=== PATIENT | female | born 1980 | race Caucasian/White ===

== ENCOUNTER 2017-08-09 20:11 | Inpatient (IN) | payer SELFPAY ==
[~2017-08-09] VITALS: Ht 154.9 cm; Wt 47.5 kg
[~2017-08-09 20:11] MED LIST: SUBO8MIS SL
[2017-08-09 20:17] VITALS: BP 123/75; PULSE 125; RESP 12; TEMP 103; O2SAT 95
[2017-08-09] MEDS ORDERED: SODIUM CHLOR 0.9% 1000 ML INJ 1,000 ML IV ONE (20:19)
[2017-08-09] MEDS ORDERED: SODIUM CHLOR 0.9% 1000 ML INJ 800 ML IV ONE (20:19)
[2017-08-09 20:25] VITALS: O2SAT 96
[2017-08-09] MEDS ORDERED: ONDANSETRON HCL 4 MG/2 ML VIAL ONE (20:30)
[2017-08-09] MEDS ORDERED: PIPERACIL-TAZO 3.375 GM PREMIX 50 ML IV ONE (20:30)
[2017-08-09] MEDS ORDERED: VANCOMYCIN INJ 550 MG in SODIUM CHLOR 0.9% 250 ML INJ 250 ML IV ONE (20:30)
[2017-08-09] MEDS ORDERED: KETOROLAC TROMETHAMINE 30 MG/ML (IVP) VIAL IV PUSH ONE (20:30)
[2017-08-09] MEDS ORDERED: ONDANSETRON HCL 4 MG/2 ML VIAL IV PUSH ONE (20:30)
--- NOTE | 2017-08-09 20:47 | RADRPT ---
EXAM DATE/TIME: 08/09/2017 20:27 [place] COMPARISON: No previous studies available for comparison. INDICATIONS : Fever, chest pain MEDICAL HISTORY : None. SURGICAL HISTORY : None. ENCOUNTER: Initial ACUITY: 1 day PAIN SCORE: 5/10 LOCATION: Bilateral chest FINDINGS: A single view of the chest demonstrates the lungs to be symmetrically aerated without evidence of mas s, infiltrate or effusion. The cardiomediastinal contours are unremarkable. Prosthetic heart valve. Osseous structures are intact. CONCLUSION: No acute disease. Galo London Jr., MD on August 09, 2017 at 20:44 Board Certified Radiologist. This report was verified electronically.
--- NOTE | 2017-08-09 20:51 | PD ---
HPI . Fever Chief Complaint: Fever Time Seen by Provider: 20:19 Travel History International Travel<30 days: No Contact w/Intl Traveler<30days: No Traveled to known affect area: No History of Present Illness HPI 37-year-old female history of IV drug abuse and artificial heart valve, last use Suboxone approximately 3 hours ago, presents with having slightly altered mental status, fever to 101, heart rate 130, and complaints of dysuria. The patient is awake and alert, however is somewhat confused and besides offering the above is otherwise a poor historian. Patient does note having no allergies to medications PFSH Past Medical History Narrative Medical Past medical history reviewed Blood Disorders: No Anxiety: Yes Cancer: No Cardiovascular Problems: Yes (MURMUR) Cerebrovascular Accident: No Endocrine: No Genitourinary: No Headaches: No Hepatitis: Yes (C) Immune Disorder: No Neurologic: No Reproductive: No Respiratory: No Migraines: No Seizures: Yes ?: Not Past Surgical History Cardiac Surgery: Yes (open heart: valve repair) Other Surgery: Yes Social History Alcohol Use: No Tobacco Use: Yes (1 PPD) Substance Use: Yes (IV USE OR ROXYCODONE LAST USE 08/09/2017) Allergies-Medications (Allergen,Severity, Reaction): Coded Allergies: No Known Allergies (Verified Allergy, Unknown, 08/09/17) Reported Meds & Prescriptions Reported Meds & Active Scripts Active Narrative Medication Allergies and medications reviewed Review of Systems ROS Limitations: Altered Mental Status, Poor Historian General / Constitutional: Positive: Fever, No: Chills Eyes: No: Diploplia, Visual changes HENT: No: Headaches, Vertigo, Lightheadedness, Sore Throat, Rhinitis, Rhinorrhea, Neck Stiffness, Neck Pain, Earache Cardiovascular: Positive: Tachycardia, No: Chest Pain or Discomfort, Palpitations, Irregular Rhythm, Diaphoresis, Syncope, Dyspnea on exertion Respiratory: No: Cough, Shortness of Breath, Wheezing, Orthopnea, Hemoptysis, Stridor, Night Sweats, Pleuritic Pain Gastrointestinal: No: Nausea, Vomiting, Diarrhea, Abdominal Pain, Hematemesis, Hematochezia, Dysphagia Genitourinary: Positive: Urgency, Frequency, Dysuria, No: Hematuria, Flank Pain , Discharge, Vaginal Bleeding Musculoskeletal: Positive: Myalgias, Arthralgias, Weakness, No: Pain Skin: No Rash Neurologic: Positive: Change in Mentation, No: Weakness, Coordination Problem Psychiatric: No: Depression Endocrine: No: Polydipsia Hematologic/Lymphatic: No: Easy Bruising Physical Exam Narrative GENERAL: Awake and confused, does not appear to be in acute distress. Temperature 101, pulse rate 1:30 regular rhythm. Patient is cachectic 5' 2" weighing 36 kg SKIN: Warm and dry. Color is sallow, possibly early jaundice, no cyanosis or diaphoresis. Tract gifford from IVDA diffusely HEAD: Atraumatic. Normocephalic. EYES: Pupils equal and round. No scleral icterus. No injection or drainage. ENT: No nasal bleeding or discharge. Mucous membranes pink and moist. TMs clear 2, no oral lesions NECK: Trachea midline. No JVD. Supple full range of motion CARDIOVASCULAR: Tachycardic and regular, slight murmur heard in precordium left RESPIRATORY: No accessory muscle use. Clear to auscultation. Breath sounds equal bilaterally. GASTROINTESTINAL: Abdomen soft, non-tender, nondistended. Hepatic and splenic margins not palpable. MUSCULOSKELETAL: Extremities without clubbing, cyanosis, or edema. No obvious deformities. NEUROLOGICAL: Awake and alert. No obvious cranial nerve deficits. Motor grossly within normal limits. Five out of 5 muscle strength in the arms and legs. Normal speech. PSYCHIATRIC: Appropriate mood and affect; insight and judgment normal. Data Data Last Documented VS Vital Signs Date Time Temp Pulse Resp B/P (MAP) Pulse Ox O2 Delivery O2 Flow Rate FiO2 08/09/17 20:25 96 Room Air 08/09/17 20:17 103.0 125 12 123/75 (91) Orders Orders Sepsis Workup Initiated (08/09/17 ) Complete Blood Count With Diff (08/09/17 20:19) Comprehensive Metabolic Panel (08/09/17 20:19) Beta Hcg (Quant/Titer) (08/09/17 20:19) Prothrombin Time / Inr (Pt) (08/09/17 20:19) Act Partial Throm Time (Ptt) (08/09/17 20:19) Lactic Acid Sepsis Protocol (08/09/17 20:19) Magnesium (Mg) (08/09/17 20:19) Lipase (08/09/17 20:19) Ckmb (Isoenzyme) Profile (08/09/17 20:19) Troponin I (08/09/17 20:19) Urinalysis - C+S If Indicated (08/09/17 20:19) Influenzae A/B Antigen (08/09/17 20:19) Blood Culture (08/09/17 20:19) Chest, Single Ap (08/09/17 20:19) Blood Glucose (08/09/17 20:19) Ecg Monitoring (08/09/17 20:19) Iv Access Insert/Monitor (08/09/17 20:19) Oximetry (08/09/17 20:19) Sodium Chlor 0.9% 1000 Ml Inj (Ns 1000 M (08/09/17 20:19) Sodium Chlor 0.9% 1000 Ml Inj (Ns 1000 M (08/09/17 20:19) Ketorolac Inj (Toradol Inj) (08/09/17 20:30) Vancomycin Inj (Vancomycin Inj) (08/09/17 20:30) Piperacil-Tazo 3.375 Gm Premix (Zosyn 3. (08/09/17 20:30) ^ Straight Catheter (08/09/17 20:19) Ammonia (08/09/17 20:26) Hiv Antibody Screen (08/09/17 20:26) Hepatitis Profile (08/09/17 20:29) Ondansetron Inj (Zofran Inj) (08/09/17 20:30) Ondansetron Inj (Zofran Inj) (08/09/17 20:30) Urine Culture (08/09/17 20:34) Blood Gas Venous (Vbg) (08/09/17 22:00) CKMB (08/09/17 20:34) CKMB% (08/09/17 20:34) Electrocardiogram (08/09/17 ) Potassium Chloride (Kcl) (08/09/17 22:15) Calcium Chloride Inj (Calcium Chloride I (08/09/17 22:15) Admit Order (Ed Use Only) (08/09/17 22:09) Echo 2d Limited (08/09/17 22:09) Potassium Chloride (Kcl) (08/09/17 22:15) Complete Blood Count With Diff (08/09/17 22:08) Lactic Acid (08/09/17 22:08) Fibrinogen (08/09/17 22:08) Ob/Psych Drug Screen, Urine (08/09/17 22:08) Labs Laboratory Tests Test 08/09/17 20:34 08/09/17 21:47 White Blood Count 10.8 TH/MM3 Red Blood Count 4.06 MIL/MM3 Hemoglobin 11.4 GM/DL Hematocrit 33.6 % Mean Corpuscular Volume 82.7 FL Mean Corpuscular Hemoglobin 28.0 PG Mean Corpuscular Hemoglobin Concent 33.9 % Red Cell Distribution Width 14.4 % Platelet Count 32 TH/MM3 Mean Platelet Volume 9.3 FL Neutrophils (%) (Auto) 77.5 % Lymphocytes (%) (Auto) 4.9 % Monocytes (%) (Auto) 10.6 % Eosinophils (%) (Auto) 6.8 % Basophils (%) (Auto) 0.2 % Neutrophils # (Auto) 8.4 TH/MM3 Lymphocytes # (Auto) 0.5 TH/MM3 Monocytes # (Auto) 1.2 TH/MM3 Eosinophils # (Auto) 0.7 TH/MM3 Basophils # (Auto) 0.0 TH/MM3 CBC Comment AUTO DIFF Differential Total Cells Counted 100 Neutrophils % (Manual) 71 % Band Neutrophils % 21 % Lymphocytes % 4 % Monocytes % 1 % Basophils % 2 % Neutrophils # (Manual) 10.0 TH/MM3 Metamyelocytes 1 % Nucleated Red Blood Cells 1 /100 WBC Differential Comment FINAL DIFF MANUAL Toxic Granulation 1+ Toxic Vacuolation PRESENT Dohle Bodies PRESENT Helmet Cells Keratocytes OCC Prothrombin Time 16.2 SEC Prothromb Time International Ratio 1.6 RATIO Activated Partial Thromboplast Time 46.2 SEC Urine Color YELLOW Urine Turbidity HAZY Urine pH 5.5 Urine Specific [place] 1.013 Urine Protein 100 mg/dL Urine Glucose (UA) NEG mg/dL Urine Ketones NEG mg/dL Urine Occult Blood LARGE Urine Nitrite NEG Urine Bilirubin NEG Urine Urobilinogen 2.0 MG/DL Urine Leukocyte Esterase TRACE Urine RBC 5 /hpf Urine WBC 10 /hpf Urine Squamous Epithelial Cells 20 /hpf Urine Amorphous Sediment RARE Urine Bacteria MANY /hpf Microscopic Urinalysis Comment CATH-CULTURE IND Blood Urea Nitrogen 31 MG/DL Creatinine 1.29 MG/DL Random Glucose 176 MG/DL Total Protein 5.7 GM/DL Albumin 2.0 GM/DL Calcium Level 7.0 MG/DL Magnesium Level 2.2 MG/DL Alkaline Phosphatase 134 U/L Aspartate Amino Transf (AST/SGOT) 148 U/L Alanine Aminotransferase (ALT/SGPT) 29 U/L Total Bilirubin 3.0 MG/DL Sodium Level 121 MEQ/L Potassium Level 3.0 MEQ/L Chloride Level 83 MEQ/L Carbon Dioxide Level 23.0 MEQ/L Anion Gap 15 MEQ/L Estimat Glomerular Filtration Rate 46 ML/MIN Lactic Acid Level 5.9 mmol/L Protein Corrected Calcium 7.7 MG/DL Ammonia LESS THAN 10 MCMOL/L Total Creatine Kinase 136 U/L Creatine Kinase MB 3.6 NG/ML Troponin I 1.28 NG/ML Lipase 212 U/L Human Chorionic Gonadotropin, Quant LESS THAN 1 MIU/ML MDM Medical Decision Making Medical Screen Exam Complete: Yes Emergency Medical Condition: Yes Medical Record Reviewed: Yes Differential Diagnosis Sepsis, IV drug abuse, endocarditis, urinary tract infection, HIV (tested today) , known hep C, hepatitis B Narrative Course Upon presentation, IV established, patient pancultured and started on broad- spectrum antibiotics, fluid resuscitation, and antipyretics. EKG sinus tachycardia at 113 bpm, intervals normal, no ischemic changes Chest x-ray appears clear, annular ring consistent with artificial heart valve noted Lactic acid 5.9, potassium 3.1, calcium 7.0, troponin 1.29, platelets 32 Potassium and calcium supplemented, patient admitted to ICU Case discussed with Dr. Ivey, accepting Diagnosis Primary Impression: Sepsis Qualified Codes: A41.9 - Sepsis, unspecified organism Admitting Information Admitting Physician Requests: Admit Condition: Serious Isaiah Howell MD Aug 09, 2017 20:51
[2017-08-09 21:07] LABS: AUTOMATED NEUTROPHIL # 8.4 TH/MM3 (1.8-7.7); BASOPHIL % 0.2 % (0.0-2.0); EOSINOPHIL # 0.7 TH/MM3 (0-0.4); EOSINOPHIL % 6.8 % (0.0-4.0); HEMATOCRIT 33.6 % (35.0-46.0); HEMOGLOBIN 11.4 GM/DL (11.6-15.3); LYMPH % 4.9 % (9.0-44.0); LYMPHOCYTE # 0.5 TH/MM3 (1.0-4.8); MEAN CELL VOLUME 82.7 FL (80.0-100.0); MEAN CORPUSCULAR HGB CONC 33.9 % (32.0-36.0); MEAN PLATELET VOLUME 9.3 FL (7.0-11.0); MONO % 10.6 % (0.0-8.0); MONOCYTE # 1.2 TH/MM3 (0-0.9); NEUT % 77.5 % (16.0-70.0); PLATELET COUNT 32 TH/MM3 (150-450); RED BLOOD COUNT 4.06 MIL/MM3 (4.00-5.30); RED CELL DISTRIBUTION WIDTH 14.4 % (11.6-17.2); WHITE BLOOD COUNT 10.8 TH/MM3 (4.0-11.0)
[2017-08-09 21:13] LABS: AMORPHOUS SEDIMENT, URINE RARE; BACTERIA, URINE MANY /hpf; BILIRUBIN, URINE NEG (NEG); BLOOD, URINE LARGE (NEG); GLUCOSE,URINE NEG (NEG); KETONE, URINE NEG (NEG); NITRITE,URINE NEG (NEG); PH, URINE 5.5 (5.0-8.5); SQUAMOUS EPITHELIAL CELL URINE 20 /hpf (0-5); URINE COLOR YELLOW (YELLW/STRAW); URINE LEUKOCYTE ESTERASE TRACE (NEG)
[2017-08-09 21:28] LABS: LACTIC ACID SEPSIS PROTOCOL 5.9 mmol/L (0.4-2.0)
[2017-08-09 21:32] LABS: INTERNATIONAL NORMALIZED RATIO 1.6 RATIO; PROTHROMBIN TIME - PATIENT 16.2 SEC (9.8-11.6)
[2017-08-09 21:50] LABS: ALKALINE PHOSPHATASE 134 U/L (45-117); ALT (GPT) 29 U/L (10-53); AST (GOT) 148 U/L (15-37); BANDS 21 % (0-6); BASOPHILS 2 % (0-2); BLOOD UREA NITROGEN 31 MG/DL (7-18); CALCIUM-PROTEIN CORRECTED 7.7 MG/DL (8.5-10.1); CHLORIDE 83 MEQ/L (98-107); CORRECTED NUCLEATED RBC 1 /100 WBC (0-0); CREATININE 1.29 MG/DL (0.50-1.00); GLOMERULAR FILTRATION RATE 46 ML/MIN (>89); GLUCOSE,RANDOM 176 MG/DL (74-106); LYMPHOCYTES 4 % (9-44); MAGNESIUM 2.2 MG/DL (1.5-2.5); METAMYELOCYTES 1 % (0-1); MONOCYTES 1 % (0-8); NUCLEATED RED BLOOD CELL 1 (0-0); POLYS (SEG NEUTROPHILS) 71 % (16-70); TOTAL PROTEIN 5.7 GM/DL (6.4-8.2)
[2017-08-09 21:53] LABS: TOXIC GRANULATION 1+ (NORMAL); TOXIC VACUOLATION PRESENT (NONE SEEN)
[2017-08-09 21:54] LABS: DOHLE BODIES PRESENT (NONE SEEN); KERATOCYTES OCC (NORMAL)
[2017-08-09 22:00] LABS: SODIUM (NA) 121 MEQ/L (136-145); TROPONIN I 1.28 NG/ML (0.02-0.05)
[2017-08-09] MEDS ORDERED: BISACODYL 10 MG SUPP RECTAL PRN (22:15)
[2017-08-09] MEDS ORDERED: SENNOSIDES 8.6 MG TAB PO PRN (22:15)
[2017-08-09] MEDS ORDERED: POTASSIUM CHLORIDE 20 MEQ CONTROLLED RELEASE TAB PO ONE ×2 (22:15)
[2017-08-09] MEDS ORDERED: MAGNESIUM HYDROXIDE SUSP 30 ML CUP PO PRN (22:15)
[2017-08-09] MEDS ORDERED: CHLORHEXIDINE GLUCONATE 2 % 1 PACK (2 CLOTHS) TOP PRN (22:15)
[2017-08-09] MEDS ORDERED: CALCIUM CHLORIDE 10% SOLN 1 GRAM/10 ML SYR IV PUSH ONE (22:15)
[2017-08-09] MEDS ORDERED: Vancomycin Consult Pharmacy 1 EA OTHER SCH (22:15)
[2017-08-09] MEDS ORDERED: MISCELLANEOUS NURSING INFORMATION XX SCH (22:15)
[2017-08-09] MEDS ORDERED: LACTULOSE SYRUP 20 GM/30 ML CUP PO PRN (22:15)
--- NOTE | 2017-08-09 22:23 | HHI.HP ---
HPI Service Critical Care Medicine Primary Care Physician Unknown Admission Diagnosis Sepsis, Hypokalemia, Hypocalcemia, Thrombocytopenia Diagnosis: (1) Lactic acidosis Diagnosis: Secondary (2) Cocaine abuse Diagnosis: Secondary (3) DIC (disseminated intravascular coagulation) Diagnosis: Secondary (4) Hyponatremia Diagnosis: Secondary (5) Severe sepsis Diagnosis: Principal (6) INES (acute kidney injury) Diagnosis: Secondary (7) Hypokalemia Diagnosis: Secondary (8) Hyperbilirubinemia Diagnosis: Secondary (9) Elevated troponin level Diagnosis: Secondary (10) H/O endocarditis Diagnosis: Secondary (11) Abnormal transaminases Diagnosis: Secondary (12) Pain Diagnosis: Secondary (13) Anxiety Diagnosis: Secondary (14) Septic shock Diagnosis: Principal Travel History International Travel<30 Days: No Contact w/Intl Traveler <30 Da: No Traveled to Known Affected Are: No History of Present Illness Patient is able to converse but does not appear to be a reliable historian as the history she provides conflicts with medical record. 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 She states that her valve replacement was performed at [place] but I do not see record of this. She is unsure of when it was done. Unable to pull up old CXRs. She is uncertain of causative organism or treatment course. She [place] [facility] [place] stating that she has had a 2 day history of subjective fever and nonproductive cough. She has also had tender, painful lesions on her hands and feet which on exam are consistent with [place] nodes. She states the reason she sought medical treatment was that "the pain became unbearable" and that it hurt to walk to the bathroom because of the tenderness on the soles of her feet. She denies headache , sore throat, chest pain, abdominal pain, hemoptysis. She states she has been actively injecting Suboxone which she acquired from "the street", stating she last injected into her right neck on 08/08/17 at around noon. In the ED, 2 sets of blood cultures were obtained, urinalysis and urine culture. She was given Vancomycin, zosyn, and 2 L NS bolus. Influenza screen is negative. Her sodium is 121, potassium 3, creatinine 1.29, lactic acid 5.9. Review of Systems ROS Limitations: Clinical Condition Past Family Social History Allergies: Coded Allergies: No Known Allergies (Verified Allergy, Unknown, 08/09/17) Past Medical History she was admitted in 2007 after a Zhao Act following lortab overdose She states she has been in rehabilitation for drug use on 1 prior occasion Past Surgical History C-6/C7 microdiskectomy for disk herniation 06/25/2008 (Dr. Guilherme Osei) 10/25/07 C6/c7 epidural steroid injection. Right shoulder surgery in 2006 (per EMR) Reported Medications Patient states she does not regularly take any prescribed medications or over- the-counter's. She uses IV opioids "from the streets". Family History She states her father has a complicated medical history but states "I can't explain it". Prior records indicate he has hyperlipidemia Mother is age 43 and is reportedly healthy Social History She has a long-term history of IV drug use and states that she has most recently been injecting Suboxone. She does not see pain management. She obtains Suboxone "from the streets". Urine drug screen is partially pending but resulted positive for cocaine She denies history of alcohol She smokes a pack of cigarettes per day Physical Exam Vital Signs Vital Signs Date Time Temp Pulse Resp B/P (MAP) Pulse Ox O2 Delivery O2 Flow Rate FiO2 08/09/17 20:25 96 Room Air 08/09/17 20:17 103.0 125 12 123/75 (91) 95 Physical Exam GENERAL: Thin disheveled female who is alert and sitting up in bed. SKIN: Warm and dry. There are petechial lesions on the palms of both hands. There are tender raised purpuric lesions on the palmar surface of left fifth digit and left thenar eminence c/w osler nodes. There are similar tender lesions on pad of bilateral feet overlying toes and distal metatarsals L>R. Toes dusky. No splinter hemorrhages. Track blane present right neck and Left forearm. VASC: DP and [employer]OLROOM CLERK pulses present bilaterally. HEAD: Atraumatic. Normocephalic. EYES: Pupils equal and round. No scleral icterus. No injection or drainage. ENT: No nasal bleeding or discharge. Mucous membranes dry. No pharyngeal erythema. No thrush. NECK: Trachea midline. No JVD. No meningismus CARDIOVASCULAR: Tachycardic, regular, sinus tach on the monitor with rate in the high 110s. I am unable to appreciate a murmur at current heart rate. RESPIRATORY: Tachypneic but overall appears comfortable without accessory muscle use. Bibasilar Rales present. No wheezes or rhonchi. GASTROINTESTINAL: Abdomen soft, non-tender, nondistended. Bowel sounds present. MUSCULOSKELETAL: Extremities without clubbing, cyanosis, or edema. NEUROLOGICAL: Awake and alert. No obvious cranial nerve deficits. Strength 5 out of 5 in all extremity. Sensation intact. Laboratory Laboratory Tests Test 08/09/17 20:34 08/09/17 21:47 White Blood Count 10.8 Red Blood Count 4.06 Hemoglobin 11.4 Hematocrit 33.6 Mean Corpuscular Volume 82.7 Mean Corpuscular Hemoglobin 28.0 Mean Corpuscular Hemoglobin Concent 33.9 Red Cell Distribution Width 14.4 Platelet Count 32 Mean Platelet Volume 9.3 Neutrophils (%) (Auto) 77.5 Lymphocytes (%) (Auto) 4.9 Monocytes (%) (Auto) 10.6 Eosinophils (%) (Auto) 6.8 Basophils (%) (Auto) 0.2 Neutrophils # (Auto) 8.4 Lymphocytes # (Auto) 0.5 Monocytes # (Auto) 1.2 Eosinophils # (Auto) 0.7 Basophils # (Auto) 0.0 CBC Comment AUTO DIFF Differential Total Cells Counted 100 Neutrophils % (Manual) 71 Band Neutrophils % 21 Lymphocytes % 4 Monocytes % 1 Basophils % 2 Neutrophils # (Manual) 10.0 Metamyelocytes 1 Nucleated Red Blood Cells 1 Differential Comment FINAL DIFF MANUAL Toxic Granulation 1+ Toxic Vacuolation PRESENT Dohle Bodies PRESENT Helmet Cells Keratocytes OCC Prothrombin Time 16.2 Prothromb Time International Ratio 1.6 Activated Partial Thromboplast Time 46.2 Urine Color YELLOW Urine Turbidity HAZY Urine pH 5.5 Urine Specific [place] 1.013 Urine Protein 100 Urine Glucose (UA) NEG Urine Ketones NEG Urine Occult Blood LARGE Urine Nitrite NEG Urine Bilirubin NEG Urine Urobilinogen 2.0 Urine Leukocyte Esterase TRACE Urine RBC 5 Urine WBC 10 Urine Squamous Epithelial Cells 20 Urine Amorphous Sediment RARE Urine Bacteria MANY Microscopic Urinalysis Comment CATH-CULTURE IND Blood Urea Nitrogen 31 Creatinine 1.29 Random Glucose 176 Total Protein 5.7 Albumin 2.0 Calcium Level 7.0 Magnesium Level 2.2 Alkaline Phosphatase 134 Aspartate Amino Transf (AST/SGOT) 148 Alanine Aminotransferase (ALT/SGPT) 29 Total Bilirubin 3.0 Sodium Level 121 Potassium Level 3.0 Chloride Level 83 Carbon Dioxide Level 23.0 Anion Gap 15 Estimat Glomerular Filtration Rate 46 Lactic Acid Level 5.9 Protein Corrected Calcium 7.7 Ammonia LESS THAN 10 Total Creatine Kinase 136 Creatine Kinase MB 3.6 Troponin I 1.28 Lipase 212 Human Chorionic Gonadotropin, Quant LESS THAN 1 Date/Time Source Procedure Growth Status 08/09/17 20:34 Blood Peripheral Aerobic Blood Culture Pending Received 08/09/17 20:34 Blood Peripheral Anaerobic Blood Culture Pending Received 08/09/17 21:50 Nasal Washing Influenza Types A,B Antigen (KAMRON) Pending Received 08/09/17 20:34 Urine Catheterized Urine Urine Culture Pending Worksheet Result Diagram: 08/09/17203308/09/172033 Septic Shock Reassessment Septic shock perfusion: reassessment completed Caprini VTE Risk Assessment Caprini VTE Risk Assessment: Mod/High Risk (score >= 2) VTE Pharm Contraindication: Thrombocytopenia(<50) Caprini Risk Assessment Model Point Value = 1 Point Value = 2 Point Value = 3 Point Value = 5 Age 41-60 Minor surgery BMI > 25 kg/m2 Swollen legs Varicose veins or History of unexplained or recurrent spontaneous Oral contraceptives or hormone replacement Sepsis (< 1 month) Serious lung disease, including pneumonia (< 1 month) Abnormal pulmonary function Acute myocardial infarction Congestive heart failure (< 1 month) History of inflammatory bowel disease Medical patient at bed rest Age 61-74 Arthroscopic surgery Major open surgery (> 45 min) Laparoscopic surgery (> 45 min) Malignancy Confined to bed (> 72 hours) Immobilizing plaster cast Central venous access Age >= 75 History of VTE Family history of VTE Factor V Leiden Prothrombin [id number] Lupus anticoagulant Anticardiolipin antibodies Elevated serum homocysteine Heparin-induced thrombocytopenia Other congenital or acquired thrombophilia Stroke (< 1 month) Elective arthroplasty Hip, pelvis, or leg fracture Acute spinal cord injury (< 1 month) Prophylaxis Regimen Total Risk Factor Score Risk Level Prophylaxis Regimen 0-1 Low Early ambulation 2 Moderate Order ONE of the following: *Sequential Compression Device (SCD) *Heparin 5000 units SQ BID 3-4 Higher Order ONE of the following medications: *Heparin 5000 units SQ TID *Enoxaparin/Lovenox 40 mg SQ daily (WT < 150 kg, CrCl > 30 mL/min) *Enoxaparin/Lovenox 30 mg SQ daily (WT < 150 kg, CrCl > 10-29 mL/min) *Enoxaparin/Lovenox 30 mg SQ BID (WT < 150 kg, CrCl > 30 mL/min) AND/OR *Sequential Compression Device (SCD) 5 or more Highest Order ONE of the following medications: *Heparin 5000 units SQ TID (Preferred with Epidurals) *Enoxaparin/Lovenox 40 mg SQ daily (WT < 150 kg, CrCl > 30 mL/min) *Enoxaparin/Lovenox 30 mg SQ daily (WT < 150 kg, CrCl > 10-29 mL/min) *Enoxaparin/Lovenox 30 mg SQ BID (WT < 150 kg, CrCl > 30 mL/min) AND *Sequential Compression Device (SCD) Assessment and Plan Problem List: (1) DIC (disseminated intravascular coagulation) ICD Code: D65 - Disseminated intravascular coagulation [defibrination syndrome] Status: Acute (2) Cocaine abuse ICD Code: F14.10 - Cocaine abuse, uncomplicated Status: Chronic (3) IVDU (intravenous drug user) ICD Code: F19.90 - Other psychoactive substance use, unspecified, uncomplicated Status: Chronic (4) H/O prosthetic mitral valve ICD Code: Z95.2 - Presence of prosthetic heart valve Status: Chronic (5) H/O endocarditis ICD Code: Z86.79 - Personal history of other diseases of the circulatory system Status: Chronic (6) Lactic acidosis ICD Code: E87.2 - Acidosis Status: Acute (7) Hyponatremia ICD Code: E87.1 - Hypo-osmolality and hyponatremia (8) Hypokalemia ICD Code: E87.6 - Hypokalemia Status: Acute Permanent Comment: unknown chronicity, probably subacute Last Edited By: Yashira Ivey on Aug 10, 2017 07:41 (9) INES (acute kidney injury) ICD Code: N17.9 - Acute kidney failure, unspecified (10) Hyperbilirubinemia ICD Code: E80.6 - Other disorders of bilirubin metabolism Status: Acute (11) Abnormal transaminases ICD Code: R74.8 - Abnormal levels of other serum enzymes Status: Acute (12) Elevated troponin level ICD Code: R74.8 - Abnormal levels of other serum enzymes Status: Acute (13) Septic shock ICD Code: A41.9 - Sepsis, unspecified organism; R65.21 - Severe sepsis with septic shock Status: Acute Assessment and Plan NEURO: Acute encephalopathy, probably toxic metabolic secondary to sepsis. IV drug use Opioid abuse Cocaine abuse Salicylate and Tylenol levels negative. Ammonia level low. f/u CT brain RESP: Tobacco abuse Incentive spirometry every hour awake. Tobacco cessation counseling. Nicotine patch Chest x-ray -small amount of fluid in the fissure on the right. Overall clear CV: Elevated troponin Septic shock Trending troponin. Obtain serial EKGs. Initial EKG sinus tach 113, LAE, no ST deviation. Follow-up 2-D echo Monitor serial lactic acid and urine output as markers perfusion. Received 2 L normal saline bolus in the ED 08/09. Monitored mean arterial pressure and eventually placed central venous line and initiated neosynephrine to maintain MAP > 65. 0.9 NaCl with 20 mEq of KCl per liter at 100 mL per hour. GI: Elevated AST and hyperbilirubinemia Ammonia level normal Follow-up right upper quadrant ultrasound. Nothing by mouth for ultrasound then regular diet Follow up viral hepatitis panel. [employer] - test negative on admission. FEN/RENAL: Acute kidney injury Hyponatremia Hypokalemia Hypocalcemia Avoid NSAIDs and other nephrotoxins. Received ketorolac in ED 08/09. Potassium. 40 mEq by mouth now. Received calcium chloride 1 g IV per ED physician. Hyponatremia. Check TSH, cortisol, urine osm, Fena. CPK normal. ID: Septic shock. 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 Influenza creen negative Received vancomycin and Zosyn in the emergency department, will continue and adjust based on culture datat. . Obtain 2-D echo ID consult Follow-up HIV and viral hepatitis panel that were sent per ED physician HEME: DIC Anemia Monitor coags and fibrinogen. Follow-up peripheral smear, haptoglobin. Monitor for e/o bleeding/thrombosis. ENDO: Acute hyperglycemia Check TSH, free T4, free T3 Check cortisol level PROPH: SCDs for DVT prophylaxis. Hold on pharmacologic DVT prophylaxis at this time due to severe thrombocytopenia. Protonix 40 mg by mouth daily for stress ulcer prophylaxis. ACCESS: She initially had peripheral IV and normal MAP, placed CVL to initiate pressors when she became hypotensive. Monitoring lactic acid. Full code Patient is critically ill with septic shock and multiorgan dysfunction that poses life threat. CCT 50 minutes exclusive of separately billable procedures. Yashira Ivey MD Aug 09, 2017 22:22
[2017-08-09 23:00] VITALS: BP 95/66; PULSE 111; RESP 18; O2SAT 100
[2017-08-09 23:24] VITALS: BP 106/71; PULSE 117; RESP 20; TEMP 98.5; O2SAT 95
[2017-08-09 23:30] LABS: ACETAMINOPHEN LESS THAN 2.0 MCG/ML (10.0-30.0)
[2017-08-09] MEDS: CHLORHEXIDINE GLUCONATE 2 % 1 PACK (2 CLOTHS) TOP SCH (23:37)
[2017-08-09] MEDS: NS + KCL 20 MEQ INJ 1,000 ML IV SCH (23:38)
[2017-08-10] VITALS (20 sets, daily range): BP systolic 82–133; BP diastolic 54–91; PULSE 76–120; RESP 21–49; TEMP 97.5–98.8; O2SAT 96–100
[2017-08-10] MEDS ORDERED: DEXTROSE 50% IN WATER 50 ML VIAL(D50) IV PUSH PRN (00:15)
[2017-08-10] MEDS ORDERED: POTASSIUM CHLORIDE 25 MEQ EFFERVESCENT TAB PO PRN (00:15)
[2017-08-10] MEDS ORDERED: POTASSIUM PHOSPHATE MONOBASIC 500 MG TAB PO/TUBE PRN (00:15)
[2017-08-10] MEDS ORDERED: GLUCAGON 1 MG/ML VIAL OTHER PRN (00:15)
[2017-08-10] MEDS ORDERED: POTASSIUM CHLOR 20 MEQ PREMIX 100 ML IV PRN (00:15)
[2017-08-10] MEDS ORDERED: POTASSIUM PHOSPHATE INJ 30 MMOL in SODIUM CHLOR 0.9% 250 ML INJ 250 ML IV PRN (00:15)
[2017-08-10] MEDS ORDERED: MAGNESIUM OXIDE 400 MG TAB PO PRN (00:15)
[2017-08-10] MEDS ORDERED: POTASSIUM CHLOR 40 MEQ PREMIX 100 ML IV PRN (00:15)
[2017-08-10] MEDS ORDERED: SODIUM PHOSPHATE INJ 30 MMOL in SODIUM CHLOR 0.9% 250 ML INJ 240 ML IV PRN (00:15)
[2017-08-10] MEDS ORDERED: POTASSIUM PHOSPHATE MONOBASIC 500 MG TAB PO PRN (00:15)
[2017-08-10] MEDS ORDERED: MAGNESIUM SULFATE INJ 2 GM in SODIUM CHLORIDE 0.9% INJ 96 ML IV PRN (00:15)
[2017-08-10] MEDS ORDERED: MAGNESIUM SULFATE INJ 4 GM in SODIUM CHLORIDE 0.9% INJ 92 ML IV PRN (00:15)
[2017-08-10 01:20] LABS: CORTISOL 65.4 MCG/DL
[2017-08-10] MEDS: ACETAMINOPHEN/HYDROcodone 325 MG/10 MG TAB PO PRN ×4 (02:10→21:17)
[2017-08-10] MEDS: PIPERACIL-TAZO 3.375 GM PREMIX 50 ML IV SCH ×2 (02:11→08:39)
[2017-08-10 02:21] LABS: CREATININE, RANDOM URINE 66.7 MG/DL
--- NOTE | 2017-08-10 03:02 | RADRPT ---
EXAM DATE/TIME: 08/10/2017 02:33 [facility] COMPARISON: No previous studies available for comparison. INDICATIONS : Trauma; fall. RADIATION DOSE: 56.35 CTDIvol (mGy) MEDICAL HISTORY : Hepatitis C. Cardiovascular disease Seizures. SURGICAL HISTORY : None. ENCOUNTER: Initial ACUITY: 1 day PAIN SCALE: 4/10 LOCATION: cranial TECHNIQUE: Multiple contiguous axial images were obtained of the head. Using automated exposure control and adj ustment of the mA and/or kV according to patient size, radiation dose was kept as low as reasonably a chievable to obtain optimal diagnostic quality images. DICOM format image data is available electro nically for review and comparison. FINDINGS: CEREBRUM: The ventricles are normal for age. No evidence of midline shift, mass lesion, hemorrhage or acute in farction. No extra-axial fluid collections are seen. POSTERIOR FOSSA: The cerebellum and brainstem are intact. The 4th ventricle is midline. The cerebellopontine angle i s unremarkable. EXTRACRANIAL: The visualized portion of the orbits is intact. SKULL: The calvaria is intact. No evidence of skull fracture. CONCLUSION: No acute disease. Rod Garcia MD on August 10, 2017 at 2:59 Board Certified Radiologist. This report was verified electronically.
[2017-08-10] MEDS ORDERED: SODIUM CHLOR 0.9% 1000 ML INJ 1,000 ML IV ONE (03:15)
[2017-08-10] MEDS ORDERED: ALBUMIN 25% INJ 50 ML IV ONE (03:15)
[2017-08-10] MEDS ORDERED: TERBUTALINE INJ 1 MG/ML AMP SQ PRN (03:15)
[2017-08-10 03:45] LABS: AUTOMATED NEUTROPHIL # 6.9 TH/MM3 (1.8-7.7); BASOPHIL # 0.1 TH/MM3 (0-0.2); BASOPHIL % 0.8 % (0.0-2.0); EOSINOPHIL # 0.3 TH/MM3 (0-0.4); EOSINOPHIL % 3.1 % (0.0-4.0); HEMATOCRIT 26.2 % (35.0-46.0); HEMOGLOBIN 8.9 GM/DL (11.6-15.3); LYMPH % 8.6 % (9.0-44.0); LYMPHOCYTE # 0.8 TH/MM3 (1.0-4.8); MEAN CORPUSCULAR HEMOGLOBIN 28.8 PG (27.0-34.0); MEAN CORPUSCULAR HGB CONC 33.9 % (32.0-36.0); MEAN PLATELET VOLUME 9.4 FL (7.0-11.0); MONO % 8.9 % (0.0-8.0); MONOCYTE # 0.8 TH/MM3 (0-0.9); NEUT % 78.6 % (16.0-70.0); PLATELET COUNT 25 TH/MM3 (150-450); RED BLOOD COUNT 3.08 MIL/MM3 (4.00-5.30); RED CELL DISTRIBUTION WIDTH 14.8 % (11.6-17.2); WHITE BLOOD COUNT 8.8 TH/MM3 (4.0-11.0)
[2017-08-10] MEDS: PHENYLEPHRINE INJ 40 MG in DEXTROSE 5% IN WATE 500 ML INJ 496 ML IV PRN ×2 (04:45)
[2017-08-10 04:48] LABS: ALBUMIN 1.7 GM/DL (3.4-5.0); BICARBONATE 20.9 MEQ/L (21.0-32.0); CALCIUM 6.4 MG/DL (8.5-10.1); CALCIUM-PROTEIN CORRECTED 7.5 MG/DL (8.5-10.1); CREATININE 1.07 MG/DL (0.50-1.00); PHOSPHORUS 1.9 MG/DL (2.5-4.9); TOTAL BILIRUBIN ADULT 2.9 MG/DL (0.2-1.0); TOTAL PROTEIN 4.8 GM/DL (6.4-8.2)
[2017-08-10 04:49] LABS: TROPONIN I 1.11 NG/ML (0.02-0.05)
--- NOTE | 2017-08-10 06:10 | PD.PROCEDR ---
Procedure Note Procedure DATE: 08/10/17 CENTRAL LINE PLACEMENT: Left internal jugular vein. INDICATION: Central venous access CONSENT Informed consent for procedure was obtained from patient after discussion of risks, benefits, alternatives. DESCRIPTION OF THE PROCEDURE The patient was placed in supine position, mild Trendelenburg. The skin was cleansed with Chloraprep x4. Additional barrier precautions included large sterile drape, sterile gloves, sterile gown, face mask, and hat. 1 % lidocaine was used for local anesthesia. Under direct ultrasound guidance and on single attempt, the vein was accessed with an introducer needle. The guide wire was advanced and the tract was dilated. Using Seldinger technique a 7 Lao 20 cm antimicrobial coated triple-lumen catheter was advanced to a depth of 18 centimeters. The guide wire was removed. All ports had good return of dark venous blood and flushed easily with saline. The central line was secured with Stat-Lock. A sterile dressing with antibiotic disc was applied. ESTIMATED BLOOD LOSS: Minimal COMPLICATIONS: No apparent complications. STAT chest x-ray is pending Yashira Ivey MD Aug 10, 2017 06:10
--- NOTE | 2017-08-10 06:42 | RADRPT ---
EXAM DATE/TIME: 08/10/2017 06:17 [facility] COMPARISON: CHEST SINGLE AP, August 09, 2017, 20:27. INDICATIONS : Central line placement. MEDICAL HISTORY : Hepatitis C. Cardiovascular disease Seizures. SURGICAL HISTORY : None. ENCOUNTER: Initial ACUITY: 1 day PAIN SCORE: Non-responsive. LOCATION: Bilateral chest FINDINGS: The lungs are hyperinflated. The heart size is normal. There is a prosthetic valve in place. There so me minimal patchy density at the upper lungs and the left medial base. There is a new left internal j ugular central line in place with the tip overlying the SVC. A pneumothorax is not seen. There is an anterior cervical fusion plate present. CONCLUSION: 1. New left internal jugular central line good position without a pneumothorax. 2. New mild increased density in the upper lungs and medial left base likely due to development of mi ld atelectasis or consolidation. Rod Garcia MD on August 10, 2017 at 6:38 Board Certified Radiologist. This report was verified electronically.
[2017-08-10 07:04] LABS: BANDS 14 % (0-6); HELMET CELLS OCC (NORMAL); LYMPHOCYTES 7 % (9-44); MONOCYTES 6 % (0-8); NEUTROPHIL # MANUAL DIFF 7.7 TH/MM3 (1.8-7.7); POLYS (SEG NEUTROPHILS) 73 % (16-70)
[2017-08-10] MEDS ORDERED: INSULIN ASPART SUPPLEMENTAL SCALE SQ SCH (08:00)
[2017-08-10] MEDS: DOCUSATE SODIUM 50 MG/SENNA 8.6 MG TAB PO SCH ×3 (08:39→21:00)
[2017-08-10] MEDS: PANTOPRAZOLE SOD 40 MG DELAYED RELEASE TAB PO SCH (08:39)
[2017-08-10] MEDS: NICOTINE 21 MG/24 HR PATCH T-DERMAL SCH (08:39)
[2017-08-10] MEDS: SODIUM CHLORIDE 0.9% FLUSH 10 ML FLUSH IV FLUSH SCH ×2 (08:40→21:19)
[2017-08-10] MEDS: REMOVE OLD PATCH T-DERMAL SCH (08:40)
[2017-08-10 08:58] LABS: FREE T3 0.5 PG/ML (2.18-3.98); FREE T4 1.19 NG/DL (0.76-1.46)
[2017-08-10] MEDS ORDERED: FAMOTIDINE 20 MG/2 ML VIAL IV PUSH SCH (09:00)
[2017-08-10] MEDS ORDERED: FAMOTIDINE 20 MG TAB PO SCH (09:00)
--- NOTE | 2017-08-10 09:05 | RADRPT ---
EXAM DATE/TIME: 08/10/2017 07:51 [facility] COMPARISON: No previous studies available for comparison. INDICATIONS : Bilateral leg pain. MEDICAL HISTORY : Hepatitis C. Seizures. IV substance use. SURGICAL HISTORY : Valve repair. ENCOUNTER: Initial ACUITY: 1 day PAIN SCORE: Non-responsive LOCATION: Bilateral legs. TECHNIQUE: Venous ultrasound of the left and right leg was performed from the inguinal ligament to the proximal calf. Real-time, color Doppler and spectral tracing, compression and augmentation techniques were us ed. FINDINGS: RIGHT LEG: There is normal compressibility of the deep venous system from the inguinal region to the proximal ca lf. No echogenic clot is seen in the lumen of the common femoral, femoral, popliteal, and posterior tibial veins. There is a normal response of the venous system to proximal and distal augmentation an d respiration. LEFT LEG: There is normal compressibility of the deep venous system from the inguinal region to the proximal ca lf. No echogenic clot is seen in the lumen of the common femoral, femoral, popliteal, and posterior tibial veins. There is a normal response of the venous system to proximal and distal augmentation an d respiration. CONCLUSION: Normal examination. No evidence of DVT Ambrose Verdin MD on August 10, 2017 at 8:58 Board Certified Radiologist. This report was verified electronically.
--- NOTE | 2017-08-10 09:59 | RADRPT ---
EXAM DATE/TIME: 08/10/2017 08:04 [facility] COMPARISON: No previous studies available for comparison. INDICATIONS : Increased lab values. MEDICAL HISTORY : Hepatitis C. Seizures. IV substance use. SURGICAL HISTORY : Valve repair. ENCOUNTER: Initial ACUITY: 1 day PAIN SCORE: Nonresponsive. LOCATION: Abdomen. MEASUREMENTS: LIVER: 16.3 cm length COMMON DUCT: 9 mm RIGHT KIDNEY: 10.2 x 3.9 x 5.1 cm SPLEEN: 15.3 cm length FINDINGS: LIVER: Normal echotexture without focal lesion or ductal dilatation. COMMON DUCT: No intraluminal mass or stone visualized. GALLBLADDER: Gallbladder is partially filled with sludge. There is gallbladder wall edema. Office Technician reports a n egative sonographic Rowland sign. PANCREAS: The visualized portions are within normal limits. RIGHT KIDNEY: No hydronephrosis, stone or mass. SPLEEN: No focal lesion. There is a small volume of free fluid around the liver in Morison's pouch. There are bilateral pleura l effusions. CONCLUSION: 1. Abnormal gallbladder filled with sludge and demonstrating wall thickening. There are no additional findings are present to suggest acute gallbladder inflammation. 2. Trace free fluid in the abdomen and small bilateral pleural effusions. 3. Mild splenomegaly. Rod Pascual MD on August 10, 2017 at 9:45 Board Certified Radiologist. This report was verified electronically.
[2017-08-10] MEDS: VANCOMYCIN INJ 750 MG in SODIUM CHLOR 0.9% 250 ML INJ 250 ML IV SCH ×2 (10:01→21:18)
--- NOTE | 2017-08-10 10:55 | HHI.CCPN ---
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 She states that her valve replacement was performed at [facility] but I do not see record of this. She is unsure of when it was done. Unable to pull up old CXRs. She is uncertain of causative organism or treatment course. She presents to [facility] ED stating that she has had a 2 day history of subjective fever and nonproductive cough. She has also had tender, painful lesions on her hands and feet which on exam are consistent with Oslers nodes. She states the reason she sought medical treatment was that "the pain became unbearable" and that it hurt to walk to the bathroom because of the tenderness on the soles of her feet. She denies headache , sore throat, chest pain, abdominal pain, hemoptysis. She states she has been actively injecting Suboxone which she acquired from "the street", stating she last injected into her right neck on 08/08/17 at around noon. In the ED, 2 sets of blood cultures were obtained, urinalysis and urine culture. She was given Vancomycin, zosyn, and 2 L NS bolus. Influenza screen is negative. Her sodium is 121, potassium 3, creatinine 1.29, lactic acid 5.9. 08/10 Patient is on Neosyn 40 mics. T:103.0 last night. BC from 08/09: [facility] 2/4 bottles Objective Vital Signs Date Time Temp Pulse Resp B/P (MAP) Pulse Ox O2 Delivery O2 Flow Rate FiO2 08/10/17 10:00 86 08/10/17 07:57 94/58 08/10/17 04:12 99 08/10/17 04:00 98.8 29 08/09/17 23:00 Room Air Intake and Output 08/10/17 08/10/17 08/11/17 08:00 16:00 00:00 Intake Total 1100 ml Output Total 427 ml 55 ml Balance 673 ml -55 ml Result Diagram: 08/10/17 0328 08/10/17 0328 Other Results Laboratory Tests Test 08/09/17 20:34 08/09/17 21:47 08/09/17 22:40 1/15/18 23:15 White Blood Count 10.8 TH/MM3 Red Blood Count 4.06 MIL/MM3 Hemoglobin 11.4 GM/DL Hematocrit 33.6 % Mean Corpuscular Volume 82.7 FL Mean Corpuscular Hemoglobin 28.0 PG Mean Corpuscular Hemoglobin Concent 33.9 % Red Cell Distribution Width 14.4 % Platelet Count 32 TH/MM3 Mean Platelet Volume 9.3 FL Neutrophils (%) (Auto) 77.5 % Lymphocytes (%) (Auto) 4.9 % Monocytes (%) (Auto) 10.6 % Eosinophils (%) (Auto) 6.8 % Basophils (%) (Auto) 0.2 % Neutrophils # (Auto) 8.4 TH/MM3 Lymphocytes # (Auto) 0.5 TH/MM3 Monocytes # (Auto) 1.2 TH/MM3 Eosinophils # (Auto) 0.7 TH/MM3 Basophils # (Auto) 0.0 TH/MM3 CBC Comment AUTO DIFF Differential Total Cells Counted 100 Neutrophils % (Manual) 71 % Band Neutrophils % 21 % Lymphocytes % 4 % Monocytes % 1 % Basophils % 2 % Neutrophils # (Manual) 10.0 TH/MM3 Metamyelocytes 1 % Nucleated Red Blood Cells 1 /100 WBC Differential Comment FINAL DIFF MANUAL Toxic Granulation 1+ Toxic Vacuolation PRESENT Dohle Bodies PRESENT Helmet Cells Keratocytes OCC Prothrombin Time 16.2 SEC Prothromb Time International Ratio 1.6 RATIO Activated Partial Thromboplast Time 46.2 SEC Urine Color YELLOW Urine Turbidity HAZY Urine pH 5.5 Urine Specific [place] 1.013 Urine Protein 100 mg/dL Urine Glucose (UA) NEG mg/dL Urine Ketones NEG mg/dL Urine Occult Blood LARGE Urine Nitrite NEG Urine Bilirubin NEG Urine Urobilinogen 2.0 MG/DL Urine Leukocyte Esterase TRACE Urine RBC 5 /hpf Urine WBC 10 /hpf Urine Squamous Epithelial Cells 20 /hpf Urine Amorphous Sediment RARE Urine Bacteria MANY /hpf Microscopic Urinalysis Comment CATH-CULTURE IND Urine Osmolality 406 MOSM/KG Urine Random Creatinine 66.7 MG/DL Urine Random Sodium 6 MEQ/L Blood Urea Nitrogen 31 MG/DL Creatinine 1.29 MG/DL Random Glucose 176 MG/DL Total Protein 5.7 GM/DL Albumin 2.0 GM/DL Calcium Level 7.0 MG/DL Magnesium Level 2.2 MG/DL Alkaline Phosphatase 134 U/L Aspartate Amino Transf (AST/SGOT) 148 U/L Alanine Aminotransferase (ALT/SGPT) 29 U/L Total Bilirubin 3.0 MG/DL Sodium Level 121 MEQ/L Potassium Level 3.0 MEQ/L Chloride Level 83 MEQ/L Carbon Dioxide Level 23.0 MEQ/L Anion Gap 15 MEQ/L Estimat Glomerular Filtration Rate 46 ML/MIN Lactic Acid Level 5.9 mmol/L Protein Corrected Calcium 7.7 MG/DL Ammonia LESS THAN 10 MCMOL/L Total Creatine Kinase 136 U/L Creatine Kinase MB 3.6 NG/ML Troponin I 1.28 NG/ML B-Type Natriuretic Peptide 291 PG/ML Lipase 212 U/L Human Chorionic Gonadotropin, Quant LESS THAN 1 MIU/ML Salicylates Level 2.3 MG/DL Urine Opiates Screen NEG Acetaminophen Level LESS THAN 2.0 MCG/ML Urine Barbiturates Screen NEG Urine Amphetamines Screen NEG Urine Benzodiazepines Screen NEG Urine Cocaine Screen POS Urine Cannabinoids Screen NEG Serum Osmolality 263 MOSM/KG Random Cortisol 65.4 MCG/DL Blood Gas Puncture Site LINE Blood Gas Patient Temperature 98.6 Venous Blood pH 7.40 Venous Blood Partial Pressure CO2 36 mmHg Venous Blood Partial Pressure O2 42 mmHg Venous Blood HCO3 22 mmol/L Venous Blood Oxygen Saturation 75 % Venous Blood Oxygen Content 10.3 Vol % Venous Blood Base Excess -2.1 mmol/L Nasal Screen MRSA (PCR) MRSA DETECTED Test 08/10/17 00:44 08/10/17 03:28 08/10/17 06:00 08/10/17 07:48 Fibrinogen 81 mg/dL Lactic Acid Level 4.7 mmol/L 2.1 mmol/L 1.7 mmol/L White Blood Count 8.8 TH/MM3 Red Blood Count 3.08 MIL/MM3 Hemoglobin 8.9 GM/DL Hematocrit 26.2 % Mean Corpuscular Volume 85.0 FL Mean Corpuscular Hemoglobin 28.8 PG Mean Corpuscular Hemoglobin Concent 33.9 % Red Cell Distribution Width 14.8 % Platelet Count 25 TH/MM3 Mean Platelet Volume 9.4 FL Neutrophils (%) (Auto) 78.6 % Lymphocytes (%) (Auto) 8.6 % Monocytes (%) (Auto) 8.9 % Eosinophils (%) (Auto) 3.1 % Basophils (%) (Auto) 0.8 % Neutrophils # (Auto) 6.9 TH/MM3 Lymphocytes # (Auto) 0.8 TH/MM3 Monocytes # (Auto) 0.8 TH/MM3 Eosinophils # (Auto) 0.3 TH/MM3 Basophils # (Auto) 0.1 TH/MM3 CBC Comment AUTO DIFF Differential Total Cells Counted 100 Neutrophils % (Manual) 73 % Band Neutrophils % 14 % Lymphocytes % 7 % Monocytes % 6 % Neutrophils # (Manual) 7.7 TH/MM3 Differential Comment FINAL DIFF MANUAL Platelet Estimate LOW Platelet Morphology Comment NORMAL Helmet Cells OCC Blood Smear Pathologist Review Haptoglobin LESS THAN 40 MG/DL Blood Urea Nitrogen 34 MG/DL Creatinine 1.07 MG/DL Random Glucose 96 MG/DL Total Protein 4.8 GM/DL Albumin 1.7 GM/DL Calcium Level 6.4 MG/DL Phosphorus Level 1.9 MG/DL 2.0 MG/DL Magnesium Level 2.0 MG/DL Alkaline Phosphatase 105 U/L Aspartate Amino Transf (AST/SGOT) 132 U/L Alanine Aminotransferase (ALT/SGPT) 25 U/L Total Bilirubin 2.9 MG/DL Sodium Level 130 MEQ/L Potassium Level 3.4 MEQ/L Chloride Level 98 MEQ/L Carbon Dioxide Level 20.9 MEQ/L Anion Gap 11 MEQ/L Estimat Glomerular Filtration Rate 57 ML/MIN Protein Corrected Calcium 7.5 MG/DL Troponin I 1.11 NG/ML 1.00 NG/ML Thyroid Stimulating Hormone 3rd Gen 1.930 uIU/ML Lactate Dehydrogenase 421 U/L Free Thyroxine 1.19 NG/DL Free Triiodothyronine (T3) pg/dL 0.50 PG/ML Imaging Last Impressions Lower Extremity Ultrasound 08/10/17 0000 Signed Impressions: Service Date/Time: Thursday, August 10, 2017 07:51 - CONCLUSION: Normal examination. No evidence of DVT Ambrose Verdin MD Liver Ultrasound 08/10/17 0000 Signed Impressions: Service Date/Time: Thursday, August 10, 2017 08:04 - CONCLUSION: 1. Abnormal gallbladder filled with sludge and demonstrating wall thickening. There are no additional findings are present to suggest acute gallbladder inflammation. 2. Trace free fluid in the abdomen and small bilateral pleural effusions. 3. Mild splenomegaly. Rod Pascual MD Head CT 08/10/17 0000 Signed Impressions: Service Date/Time: Thursday, August 10, 2017 02:33 - CONCLUSION: No acute disease. Rod Garcia MD Chest X-Ray 08/10/17 0000 Signed Impressions: Service Date/Time: Thursday, August 10, 2017 06:17 - CONCLUSION: 1. New left internal jugular central line good position without a pneumothorax. 2. New mild increased density in the upper lungs and medial left base likely due to development of mild atelectasis or consolidation. Rod Garcia MD Objective Remarks GENERAL: Thin disheveled female who is alert and sitting up in bed. SKIN: Warm and dry. There are petechial lesions on the palms of both hands. There are tender raised purpuric lesions on the palmar surface of left fifth digit and left thenar eminence c/w osler nodes. There are similar tender lesions on pad of bilateral feet overlying toes and distal metatarsals L>R. Toes dusky. No splinter hemorrhages. Track blane present right neck and Left forearm. VASC: DP and PAPER LATCHER pulses present bilaterally. HEAD: Atraumatic. Normocephalic. EYES: Pupils equal and round. No scleral icterus. No injection or drainage. ENT: No nasal bleeding or discharge. Mucous membranes dry. No pharyngeal erythema. No thrush. NECK: Trachea midline. No JVD. No meningismus CARDIOVASCULAR: Tachycardic, regular, sinus tach on the monitor with rate in the high 110s. I am unable to appreciate a murmur at current heart rate. RESPIRATORY: Tachypneic but overall appears comfortable without accessory muscle use. Bibasilar Rales present. No wheezes or rhonchi. GASTROINTESTINAL: Abdomen soft, non-tender, nondistended. Bowel sounds present. MUSCULOSKELETAL: Extremities without clubbing, cyanosis, or edema. NEUROLOGICAL: Awake and alert. No obvious cranial nerve deficits. Strength 5 out of 5 in all extremity. Sensation intact. A/P Problem List: (1) Severe sepsis ICD Code: A41.9 - Sepsis, unspecified organism; R65.20 - Severe sepsis without septic shock Status: Acute (2) DIC (disseminated intravascular coagulation) ICD Code: D65 - Disseminated intravascular coagulation [defibrination syndrome] Status: Acute (3) Cocaine abuse ICD Code: F14.10 - Cocaine abuse, uncomplicated Status: Chronic (4) IVDU (intravenous drug user) ICD Code: F19.90 - Other psychoactive substance use, unspecified, uncomplicated Status: Chronic (5) H/O prosthetic mitral valve ICD Code: Z95.2 - Presence of prosthetic heart valve Status: Chronic (6) H/O endocarditis ICD Code: Z86.79 - Personal history of other diseases of the circulatory system Status: Chronic (7) Lactic acidosis ICD Code: E87.2 - Acidosis Status: Acute (8) Hyponatremia ICD Code: E87.1 - Hypo-osmolality and hyponatremia (9) Hypokalemia ICD Code: E87.6 - Hypokalemia Status: Acute Permanent Comment: unknown chronicity, probably subacute Last Edited By: Yashira Ivey on Aug 10, 2017 07:41 (10) INES (acute kidney injury) ICD Code: N17.9 - Acute kidney failure, unspecified (11) Hyperbilirubinemia ICD Code: E80.6 - Other disorders of bilirubin metabolism Status: Acute (12) Abnormal transaminases ICD Code: R74.8 - Abnormal levels of other serum enzymes Status: Acute (13) Elevated troponin level ICD Code: R74.8 - Abnormal levels of other serum enzymes Status: Acute Assessment and Plan NEURO: Acute encephalopathy, probably toxic metabolic secondary to sepsis. IV drug use Opioid abuse Cocaine abuse Salicylate and Tylenol levels negative. Ammonia level low. CT brain no acute disease RESP: Tobacco abuse Oxygen PRN keep sat >92% Incentive spirometry every hour awake. Tobacco cessation counseling. Nicotine patch Chest x-ray -small amount of fluid in the fissure on the right. Overall clear CV: Elevated troponin Trending troponin. Obtain serial EKGs. Initial EKG sinus tach 113, LAE, no ST deviation. Follow-up 2-D echo, Lactic acid cleared 1.7 from 5.9 on arrival Received 2 L normal saline bolus in the ED 08/09. Cards eval. Monitro HR and BP keep MAP>65mmHg 0.9 NaCl with 20 mEq of KCl per liter at 100 mL per hour. GI: Elevated AST and hyperbilirubinemia Ammonia level normal US liver: Abnormal gallbladder filled with sludge and demonstrating wall thickening. There are no additional findings are present to suggest acute gallbladder inflammation. Trace free fluid in the abdomen and small bilateral pleural effusions.. Mild splenomegaly. 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 FEN/RENAL: Acute kidney injury Hyponatremia Hypokalemia Hypocalcemia Avoid NSAIDs and other nephrotoxins. Received ketorolac in ED 08/09. Monitor renal function , electrolytes replacement per protocol. Continue with IVF TSH: 1.93, cortisol level 65. CPK normal. ID: Septic shock. 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 Repeat BC x 2 sets today. Obtain 2-D echo r/o endocarditis, eval LV function ID consult Follow-up HIV and viral hepatitis panel -pending HEME: DIC Anemia Monitor CBC, coags, fibrinogen level 81. Will give 5units cryo today Heme eval. ENDO: Acute hyperglycemia SSI with accuchekcs for glycemic control TSH: 1.9 Cortisol level: 65 PROPH: SCDs for DVT prophylaxis. Hold on pharmacologic DVT prophylaxis at this time due to severe thrombocytopenia. Protonix 40 mg by mouth daily for stress ulcer prophylaxis. ACCESS: Left IJ CVP placed 08/10 Full code Patient is critically ill with septic shock and multiorgan dysfunction that poses life threat. CCT 30 minutes exclusive of separately billable procedures. Milton Velásquez MD Aug 10, 2017 10:55
[2017-08-10 11:42] LABS: HEPATITIS A AB IGM NEGATIVE (NEGATIVE); HEPATITIS B CORE AB IGM NEGATIVE (NEGATIVE); HEPATITIS B SURFACE ANTIGEN NEGATIVE (NEGATIVE); HEPATITIS C AB IgG REACTIVE (NEGATIVE)
[2017-08-10 11:45] LABS: AUTOMATED NEUTROPHIL # 13.7 TH/MM3 (1.8-7.7); BASOPHIL % 0.1 % (0.0-2.0); EOSINOPHIL # 0.8 TH/MM3 (0-0.4); EOSINOPHIL % 4.2 % (0.0-4.0); HEMATOCRIT 25.3 % (35.0-46.0); HEMOGLOBIN 8.4 GM/DL (11.6-15.3); LYMPH % 9.5 % (9.0-44.0); LYMPHOCYTE # 1.7 TH/MM3 (1.0-4.8); MEAN CELL VOLUME 82.7 FL (80.0-100.0); MEAN CORPUSCULAR HEMOGLOBIN 27.4 PG (27.0-34.0); MEAN CORPUSCULAR HGB CONC 33.1 % (32.0-36.0); MEAN PLATELET VOLUME 10.1 FL (7.0-11.0); MONO % 9.9 % (0.0-8.0); MONOCYTE # 1.8 TH/MM3 (0-0.9); NEUT % 76.3 % (16.0-70.0); PLATELET COUNT 28 TH/MM3 (150-450); RED BLOOD COUNT 3.05 MIL/MM3 (4.00-5.30); RED CELL DISTRIBUTION WIDTH 14.8 % (11.6-17.2); WHITE BLOOD COUNT 17.9 TH/MM3 (4.0-11.0)
[2017-08-10 11:50] LABS: INTERNATIONAL NORMALIZED RATIO 1.4 RATIO; PROTHROMBIN TIME - PATIENT 14.3 SEC (9.8-11.6)
[2017-08-10] MEDS: INSULIN ASPART SUPPLEMENTAL SCALE SQ SCH ×4 (12:00→23:09)
[2017-08-10 12:28] LABS: BANDS 19 % (0-6); LYMPHOCYTES 3 % (9-44); MONOCYTES 4 % (0-8); MYELOCYTES 1 % (0-0); NEUTROPHIL # MANUAL DIFF 16.6 TH/MM3 (1.8-7.7); POLYS (SEG NEUTROPHILS) 73 % (16-70)
[2017-08-10 12:29] LABS: ALBUMIN 1.6 GM/DL (3.4-5.0); BICARBONATE 22.6 MEQ/L (21.0-32.0); CALCIUM 6.5 MG/DL (8.5-10.1); CALCIUM-PROTEIN CORRECTED 7.9 MG/DL (8.5-10.1); CREATININE 0.93 MG/DL (0.50-1.00); DOHLE BODIES PRESENT (NONE SEEN); MAGNESIUM 2.4 MG/DL (1.5-2.5); PHOSPHORUS 2.1 MG/DL (2.5-4.9); TOTAL BILIRUBIN ADULT 2.1 MG/DL (0.2-1.0); TOTAL PROTEIN 4.4 GM/DL (6.4-8.2); TOXIC GRANULATION 1+ (NORMAL)
[2017-08-10 12:30] LABS: HELMET CELLS OCC (NORMAL)
[2017-08-10] MEDS: RIFAMPIN 150 MG CAP PO SCH (14:31)
--- NOTE | 2017-08-10 15:11 | MB ---
cc: NASREEN GUTIÉRREZ MD DATE OF CONSULTATION: 08/10/2017 REQUESTING PHYSICIAN: Dr. Ivey. REASON FOR CONSULTATION: Infectious endocarditis with prosthetic valve. HISTORY OF PRESENT ILLNESS This is a 37-year-old white female who uses IV drugs. The patient had a history of prosthetic mitral valve placed for endocarditis. She reports that this was about 3 years ago. The patient is a poor historian. She does not remember details of the past medical history well. She tells me that she had a heart valve replacement at [facility] about 3 years ago. She tells me that she was treated with IV antibiotics for about 8 weeks at the time. She does not remember what bacteria was cultured from the blood. She was evaluated in the emergency department here yesterday and had a temperature of 103 and the white count was 10.7 with left shift of 21% bands. The patients sister reports that the patient looked to be struggling to walk 3 days ago and she was complaining of pain in her feet. In the emergency department, heart rate was 125 and lactic acid level was 5.9 and she was noted to be confused. She is currently on Bryant-Synephrine and a systolic blood pressure is 90. She complains of having pain all over. She denies headache. Blood cultures were taken in and one bottle of each set has gram-positive cocci with one identified as staph aureus and it is not methicillin-resistant by the Verigne test. PAST MEDICAL HISTORY 1. Prosthetic valve endocarditis. 2. Mitral valve replacement 3. Hepatitis C 4. Anxiety disorder 5. Seizure disorder 6. IV drug use. ALLERGIES NO KNOWN DRUG ALLERGIES. MEDICATIONS 1. Vancomycin 2. Cira-Colace. 3. Nicotine patch. 4. Protonix. 5. Bryant-Synephrine. 6. Piperacillin / tazobactam. 7. [place] 10. SOCIAL HISTORY Positive tobacco use one pack a day. No alcohol. Positive IV drug use reported the last use on 08/12/2017. The patient was not the patient reportedly administered the IV drug into the neck. FAMILY HISTORY Noncontributory. REVIEW OF SYSTEMS Significant for diffuse aches and pains, chills, decreased appetite. PHYSICAL EXAMINATION IN GENERAL: This is a thin frail appearing female who looks older than stated age. She is awake and alert. VITAL SIGNS: Include temperature 98.3, BP 90/64, heart rate 40, respirations 18, respirations 14. HEAD, EYES, EARS, NOSE, AND THROAT: The head is atraumatic. Extraocular movements grossly intact, pupils reactive to light. No icterus. No conjunctival erythema. Oropharynx slightly dry mucosa without lesions. NECK: Supple without adenopathy. LUNGS: Decreased breath sounds bilateral. HEART: 2/6 systolic murmur at the left sternal border. ABDOMEN: Bowel sounds present, flat, soft, nontender. RECTAL: Not performed. EXTREMITIES: No clubbing or cyanosis. Purpuric lesions at the index and third finger on the left hand and multiple purpuric areas at the base of the toes at the bulb of the feet. Multiple track gifford at the antecubital areas of both hands. Positive tenderness on palpation of the left calf. No swelling of the left calf. SKIN: No diffuse rash. NEUROLOGIC: Alert and oriented. No gross focal findings. PSYCHIATRIC: Psychiatric the patient is calm and cooperative. She appears withdrawn. LABORATORY DATA White blood count 10.8, platelets 32, hemoglobin 11.4, 77% neutrophils, 10% monocytes, 4% lymphocytes, 21% bands, creatinine 0.93, estimated GFR 67, sodium 133, AST 90, ALT 21. IMPRESSION 1. Bacteria staph aureus. 2. Patient with history of prosthetic valve and very likely has prosthetic valve endocarditis with embolic lesions to the feet and fingers. 3. Positive culture with staph aureus in the blood. 4. Acute kidney disease 5. Thrombocytopenia. RECOMMENDATIONS 1. Continue vancomycin for now. 2. Discontinue piperacillin / tazobactam 3. Begin Intravenous gentamicin 1 mg/kg q. 12 h due to renal function. 4. Rifampin 300 mg p.o. q.8 h. 5. Follow the blood cultures. If the staph is sensitive strain we may need to switch to oxacillin and discontinue vancomycin. Thank you this consultation. I will follow the patient's progress. Nasreen Gutiérrez MD FD/sadaf /1:12 PM /1:36 PM [facility]ITAL[facility]ichele
--- NOTE | 2017-08-10 15:48 | EKG ---
Date Performed: 08/09/2017 Time Performed: 22:16:52 PTAGE: 37 years EKG: SINUS TACHYCARDIA POSSIBLE LEFT ATRIAL ENLARGEMENT Since previous tracing, no significant c hange noted ABNORMAL RHYTHM ECG PREVIOUS TRACING : 06/20/2008 14.23 DOCTOR: Isela Ohara Interpretating Date/Time 08/10/2017 15:46:35
[2017-08-10] MEDS: GENTAMICIN INJ 40 MG in SODIUM CHLORIDE 0.9% INJ 100 ML IV SCH (16:27)
[2017-08-10 17:46] LABS: HEMATOCRIT 25.2 % (35.0-46.0); HEMOGLOBIN 8.6 GM/DL (11.6-15.3); MEAN CELL VOLUME 83.2 FL (80.0-100.0); MEAN CORPUSCULAR HEMOGLOBIN 28.5 PG (27.0-34.0); MEAN CORPUSCULAR HGB CONC 34.2 % (32.0-36.0); MEAN PLATELET VOLUME 11.3 FL (7.0-11.0); PLATELET COUNT 23 TH/MM3 (150-450); RED BLOOD COUNT 3.02 MIL/MM3 (4.00-5.30); RED CELL DISTRIBUTION WIDTH 14.6 % (11.6-17.2); WHITE BLOOD COUNT 14.5 TH/MM3 (4.0-11.0)
--- NOTE | 2017-08-10 17:59 | MB ---
cc: JOSE MAURER MD DATE OF CONSULTATION 08/10/17 HISTORY OF PRESENT ILLNESS Ms. Tariq is a 37-year-old white female with history of IV drug use. 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 She was treated with IV antibiotics for eight weeks. She presented with fevers, chills, generalized weakness pain in her feet and was diagnosed with sepsis. Blood pressures were positive for gram-positive cocci. The patient has not had any chest pain. She complains of shortness of breath. PAST MEDICAL HISTORY 1. Positive for endocarditis, 2. Mitral valve replacement three years ago, 3. Hepatitis C, 4. Anxiety disorder. 5. Seizure disorder 6. IV drug use. MEDICATIONS 1. [place] 2. Piperacillin/tazotactam 3. Neosynephrine 4. Protonix. 5. Nicotine patch 6. Cira-Colace. 7. Vancomycin. ALLERGIES None. SOCIAL HISTORY The patient has history of IV drug use last on 08/12/2017. She is a smoker. She does not drink. FAMILY HISTORY Negative for heart disease REVIEW OF SYSTEMS Otherwise negative PHYSICAL EXAMINATION VITAL SIGNS: Blood pressure 91/62, pulse 80 and regular. HEENT: Negative. 2+ carotid upstrokes. No bruits. LUNGS: Clear. HEART: Regular with 2/6 systolic murmur at the left sternal border. No gallop. ABDOMEN: Soft. No bruits. EXTREMITIES: Without edema. 2+ distal pulses NEUROLOGIC: Grossly nonfocal. CARDIOLOGY STUDIES EKG was reviewed and showed sinus tachycardia, left atrial enlargement, no acute changes. LABORATORY DATA Hemoglobin 8.9, potassium 3.5, creatinine 0.9, AST 90, ALT 21, troponin 1.0. BNP 291. DIAGNOSES 1. Sepsis 2. Staph aureus bacteremia 3. Endocarditis with embolic lesions to the feet and fingers 4. Status post mitral valve replacement for endocarditis secondary to IV drug use. 5. Acute kidney disease. 6. Thrombocytopenia 7. Current IV drug use. DISPOSITION Ms. Tariq will be treated with antibiotics. 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 I recommend conservative management with antibiotics. Her overall prognosis is very poor due to her continuing IV drug use and infection of a valve that was already replaced in the past due to endocarditis secondary to drug use. MD CARMELLA Hollins /5:12 PM /5:28 PM YAZMIN
[2017-08-10] MEDS: NS + KCL 20 MEQ INJ 1,000 ML IV SCH ×2 (19:00→21:33)
[2017-08-10 19:02] LABS: ALBUMIN 1.7 GM/DL (3.4-5.0); BICARBONATE 23.7 MEQ/L (21.0-32.0); CALCIUM 6.2 MG/DL (8.5-10.1); CREATININE 1.09 MG/DL (0.50-1.00); TOTAL BILIRUBIN ADULT 1.7 MG/DL (0.2-1.0); TOTAL PROTEIN 4.8 GM/DL (6.4-8.2)
[2017-08-10 19:12] LABS: CALCIUM-PROTEIN CORRECTED 7.3 MG/DL (8.5-10.1)
--- NOTE | 2017-08-10 19:37 | MB ---
cc: ANDERSON RUSSELL M.D. DATE OF CONSULTATION 08/10/[address] Velásquez REASON FOR CONSULTATION Hematology consulted to render opinion regarding patient with DIC and thrombocytopenia. HISTORY OF PRESENT ILLNESS The patient is a 37-year-old female with history of bacterial endocarditis status post mitral valve replacement presented to the hospital with complaint of not feeling well for a few days. She also complained of pain in her feet and hands for about a day and she was having difficulty walking. She has increased fatigue. She has decreased oral intake. When she presented to the hospital she had fever of 103. She was noted to be hypotensive and increased lactic acid. She was admitted to the Intensive Care Unit. She was noted to have worsening thrombocytopenia. On presentation her platelet count was 32,000 and it trended down to 23,000. She also noted have leukocytosis and anemia. Her fibrinogen level was under 100. Hematology was consulted for evaluation of her cytopenia and DIC. The patient is more comfortable since started on antibiotics. Pain in her hands and feet has subsided. She is still anxious. She denies any chest pain. She denies any shortness of breath. Nursing staff did not report any bleeding. The patient started menstrual bleed but it is not heavy bleeding. PAST MEDICAL HISTORY 1. IV drug use. 2. Bacterial endocarditis. 3. Hepatitis C diagnosed about 2 years ago. 4. Anxiety. 5. Seizure disorder. PAST SURGICAL HISTORY 1. Mitral valve replacement about three years ago. 2. Cervical spine diskectomy. 3. Epidural steroid injection. 4. Shoulder surgery. FAMILY HISTORY No hematology disorder. SOCIAL HISTORY IV drug use. Smoked a pack a day for 21 years. ALLERGIES NO KNOWN DRUG ALLERGIES. MEDICATIONS Current medications: 1. Gentamicin. 2. Rifampin. 3. Vancomycin. 4. Cira-Colace. 5. Nicotine patch. 6. Protonix. 7. Phenylephrine. REVIEW OF SYSTEMS CONSTITUTIONAL: As above. EYES: Negative. ENT: Negative. CARDIOVASCULAR: As above. RESPIRATORY: Denies significant shortness of breath or cough. GASTROINTESTINAL: No nausea, vomiting, abdominal pain. GENITOURINARY: Denies dysuria, hematuria. MUSCULOSKELETAL: As above. HEMATOLOGIC: As above. ENDOCRINE: Negative. DERMATOLOGIC: As above. NEUROLOGIC: Negative. PSYCHIATRIC: Anxiety. PHYSICAL EXAMINATION VITAL SIGNS: Temperature 97.8, blood pressure 89/59, O2 saturation 99%. GENERAL: She looks pale. She is alert and oriented times three. HEENT: Atraumatic, normocephalic. Pupils equal, round, reactive to light. Extraocular muscles intact. No scleral icterus. Oropharynx dry mucosa. No lesion or thrush. No mucositis. NECK: No thyromegaly. No palpable mass. The left neck central line, no oozing noted. CARDIOVASCULAR: Regular S1-S2. Soft murmur noted. LUNGS: Clear to auscultation. ABDOMEN: Soft, nontender. I could not palpate liver or spleen. EXTREMITIES: Exam purplish discoloration of fingertips and toes. Multiple track gifford at the antecubital area of both arms. SKIN: As above. NEUROLOGIC: Nonfocal. LABORATORY DATA WBC 14.5, hemoglobin 8.6, platelet count 23,000. Fibrinogen 91. Creatinine 0.93. ASSESSMENT 1. DIC due to underlying sepsis. She possibly has recurrent endocarditis and sepsis. Her platelet count is low likely due to consumptive process as well as hepatitis C and splenomegaly. Her fibrinogen level was 91. She just received one pooled unit of cryoprecipitate. She has no significant bleeding noted at this time. I would continue to monitor her coagulation study and recommend transfuse cryoprecipitate if her fibrinogen is below 100 or if she has any sign of bleeding. 2. Thrombocytopenia likely consumptive process due to DIC. She could have baseline thrombocytopenia due to hepatitis C and splenomegaly. Continue to monitor CBC for now. She may require platelet transfusion if there is any sign of bleeding or if platelet count trends below 20,000. LDH is slightly elevated. She has no clear evidence of TTP. 3. Leukocytosis due to sepsis. She also has bandemia. Her leukocytosis has improved with treatment. 4. Anemia likely due to acute illness and chronic disease. She presented with hemoglobin of 11.4 but trended down to around 9 after hydration. Her hemoglobin has been quite stable. Today she just started menstrual bleeding but it is very light. No clear evidence of other bleeding or hemolysis at this point. 5. Sepsis. She appeared to the have recurrent bacterial endocarditis. 6. IV drug use. 7. Hepatitis C diagnosed about 2 years ago. Never been treated. Ultrasound showed no clear evidence of cirrhosis but she has splenomegaly. RECOMMENDATIONS 1. Continue to monitor coagulation study including fibrinogen. 2. Monitor CBC and sign of bleeding. 3. Transfuse cryoprecipitate if fibrinogen is under 100 or any sign of bleeding. 4. Transfuse platelets is platelet count is below 20,000 or any sign of bleeding. Thank you Dr. Velásquez for asking me to see this patient. MD MICHAEL Moses/SANDRA /6:32 PM /7:06 PM MTDMichele
--- NOTE | 2017-08-10 19:44 | ECHRPT ---
Indication: SEPSIS, ?ENDOCARDITIS, MVR CONCLUSIONS Normal left ventricular size. Wall thickness is normal. The left ventricular systolic function is low normal with an estimated ejection fraction in the rang e of 50- 55%. The left atrial size is moderately dilated. The right atrial size is moderately dilated. No atrial level shunt is demonstrated by color flow Doppler interrogation. [id number] mitral valve regurgitation. The mitral valve regurgitation jet is directed posteriorly. Mobile echodensity is noted on the mitral valve consistent with vegetation. Findings consistent with vegetation on the aortic valve. There is mild to moderate tricuspid valve regurgitation. The estimated pulmonary arterial pressure is 56 mmHg. Findings consistent with vegetation on the tricuspid valve. BP: 90 / 54 HR: 106 Rhythm: Sinus MEASUREMENTS (Male / Female) Normal Values Technical Quality:Fair 2D ECHO LV Diastolic Diameter PLAX 4.2 cm 4.2 - 5.9 / 3.9 - 5.3 cm LV Systolic Diameter PLAX 3.1 cm IVS Diastolic Thickness 0.7 cm 0.6 - 1.0 / 0.6 - 0.9 cm LVPW Diastolic Thickness 0.7 cm 0.6 - 1.0 / 0.6 - 0.9 cm LV Relative Wall Thickness 0.3 RV Internal Dim ED PLAX 2.6 cm LVOT Diameter 1.8 cm Aortic Root Diameter 2.4 cm LA Systolic Diameter LX 3.4 cm 3.0 - 4.0 / 2.7 - 3.8 cm M-MODE AV Cusp Separation MM 1.6 cm DOPPLER AV Peak Velocity 96.9 cm/s AV Peak Gradient 3.8 mmHg AV Mean Gradient 2.0 mmHg AV Velocity Time Integral 21.0 cm LVOT Peak Velocity 41.8 cm/s LVOT Peak Gradient 0.7 mmHg LVOT Velocity Time Integral 9.9 cm AV Area Cont Eq vti 1.2 cm AV Area Cont Eq pk 1.1 cm Mitral E Point Velocity 158.0 cm/s Mitral A Point Velocity 173.0 cm/s Mitral E to A Ratio 0.9 LV E' Lateral Velocity 4.1 cm/s Mitral E to LV E' Lateral Ratio 38.6 LV E' Septal Velocity 4.4 cm/s Mitral E to LV E' Septal Ratio 36.0 TR Peak Velocity 339.0 cm/s TR Peak Gradient 46.0 mmHg Right Atrial Pressure 10.0 mmHg Pulmonary Artery Systolic Pressu 56.0 mmHg Right Ventricular Systolic Press 56.0 mmHg PV Peak Velocity 37.6 cm/s PV Peak Gradient 0.6 mmHg FINDINGS LEFT VENTRICLE Normal left ventricular size. Wall thickness is normal. The left ventricular systolic function is low normal with an estimated ejection fraction in the rang e of 50- 55%. RIGHT VENTRICLE Normal right ventricular size and systolic function. LEFT ATRIUM The left atrial size is moderately dilated. RIGHT ATRIUM The right atrial size is moderately dilated. ATRIAL SEPTUM No atrial level shunt is demonstrated by color flow Doppler interrogation. AORTA The aortic root and proximal ascending aorta are normal in size on limited imaging. MITRAL VALVE [id number]-[id number] mitral valve regurgitation. Eqxp-cy-cgjatmed mitral valve regurgitation. The mitral valve regurgitation jet is directed posteriorly. Mobile echodensity is noted on the mitral valve consistent with vegetation. AORTIC VALVE Trileaflet aortic valve. No aortic valve regurgitation. Findings consistent with vegetation on the aortic valve. TRICUSPID VALVE There is mild to moderate tricuspid valve regurgitation. The estimated pulmonary arterial pressure is 56 mmHg. Findings consistent with vegetation on the tricuspid valve. PULMONARY VALVE No pulmonary valve regurgitation or stenosis. Jeromy Avalos MD, FACC (Electronically Signed) Final Date:10 August 2017 19:44
[2017-08-10] MEDS: POTASSIUM CHLOR 20 MEQ PREMIX 100 ML IV PRN (21:33)
[2017-08-10 23:44] LABS: BICARBONATE 22.4 MEQ/L (21.0-32.0); CALCIUM 6.1 MG/DL (8.5-10.1); CREATININE 1.18 MG/DL (0.50-1.00)
[2017-08-11] VITALS (14 sets, daily range): BP systolic 86–105; BP diastolic 64–68; PULSE 76–117; RESP 21–29; TEMP 96.5–98; O2SAT 93–100
[2017-08-11 00:01] LABS: TOTAL PROTEIN 4.6 GM/DL (6.4-8.2)
[2017-08-11 00:04] LABS: CALCIUM-PROTEIN CORRECTED 7.3 MG/DL (8.5-10.1)
[2017-08-11] MEDS: PHENYLEPHRINE INJ 40 MG in DEXTROSE 5% IN WATE 500 ML INJ 496 ML IV PRN ×2 (00:41)
[2017-08-11] MEDS: CHLORHEXIDINE GLUCONATE 2 % 1 PACK (2 CLOTHS) TOP SCH (03:58)
[2017-08-11] MEDS: INSULIN ASPART SUPPLEMENTAL SCALE SQ SCH ×5 (03:58→20:00)
[2017-08-11] MEDS: NS + KCL 20 MEQ INJ 1,000 ML IV SCH ×2 (03:59→15:50)
[2017-08-11] MEDS: RIFAMPIN 150 MG CAP PO SCH ×2 (04:05→16:40)
[2017-08-11] MEDS: ACETAMINOPHEN/HYDROcodone 325 MG/10 MG TAB PO PRN ×4 (04:06→19:33)
[2017-08-11] MEDS: GENTAMICIN INJ 40 MG in SODIUM CHLORIDE 0.9% INJ 100 ML IV SCH ×2 (04:06→15:49)
--- NOTE | 2017-08-11 05:09 | RADRPT ---
EXAM DATE/TIME: 08/11/2017 03:37 [place] COMPARISON: CHEST SINGLE AP, August 10, 2017, 6:17. INDICATIONS : Short of breath. MEDICAL HISTORY : Hepatitis C. Cardiovascular disease Seizures. SURGICAL HISTORY : None. ENCOUNTER: Subsequent ACUITY: 3 days PAIN SCORE: 0/10 LOCATION: Bilateral chest FINDINGS: The heart size is normal. There is a prosthetic valve in place. The lungs do appear hyperinflated. Th ere some mild increased density in the left upper lobe in the perihilar region. Right lung is grossly clear. CONCLUSION: Left upper lobe and perihilar consolidation. Rod Garcia MD on August 11, 2017 at 5:05 Board Certified Radiologist. This report was verified electronically.
[2017-08-11 05:44] LABS: AUTOMATED NEUTROPHIL # 7.9 TH/MM3 (1.8-7.7); BASOPHIL % 0.3 % (0.0-2.0); EOSINOPHIL # 0.1 TH/MM3 (0-0.4); EOSINOPHIL % 0.8 % (0.0-4.0); HEMATOCRIT 26.1 % (35.0-46.0); HEMOGLOBIN 9.1 GM/DL (11.6-15.3); LYMPH % 27.1 % (9.0-44.0); LYMPHOCYTE # 3.2 TH/MM3 (1.0-4.8); MEAN CELL VOLUME 81.5 FL (80.0-100.0); MEAN CORPUSCULAR HEMOGLOBIN 28.3 PG (27.0-34.0); MEAN CORPUSCULAR HGB CONC 34.7 % (32.0-36.0); MEAN PLATELET VOLUME 10.2 FL (7.0-11.0); MONO % 4.6 % (0.0-8.0); MONOCYTE # 0.5 TH/MM3 (0-0.9); NEUT % 67.2 % (16.0-70.0); PLATELET COUNT 25 TH/MM3 (150-450); RED BLOOD COUNT 3.21 MIL/MM3 (4.00-5.30); RED CELL DISTRIBUTION WIDTH 14.8 % (11.6-17.2); WHITE BLOOD COUNT 11.8 TH/MM3 (4.0-11.0)
[2017-08-11 05:59] LABS: INTERNATIONAL NORMALIZED RATIO 1.2 RATIO
[2017-08-11 06:08] LABS: ALBUMIN 1.5 GM/DL (3.4-5.0); BICARBONATE 22.6 MEQ/L (21.0-32.0); CREATININE 1.12 MG/DL (0.50-1.00); PHOSPHORUS 3.6 MG/DL (2.5-4.9); TOTAL BILIRUBIN ADULT 1.9 MG/DL (0.2-1.0); TOTAL PROTEIN 4.9 GM/DL (6.4-8.2)
[2017-08-11 07:58] LABS: BANDS 6 % (0-6); LYMPHOCYTES 5 % (9-44); MONOCYTES 3 % (0-8); NEUTROPHIL # MANUAL DIFF 10.7 TH/MM3 (1.8-7.7); POLYS (SEG NEUTROPHILS) 85 % (16-70); TOXIC GRANULATION 1+ (NORMAL)
[2017-08-11 07:59] LABS: ACANTHOCYTES OCC (NORMAL); KERATOCYTES OCC (NORMAL)
[2017-08-11] MEDS: REMOVE OLD PATCH T-DERMAL SCH (09:00)
[2017-08-11] MEDS ORDERED: PHARMACY ORDERED LAB ONE (09:45)
[2017-08-11] MEDS: DOCUSATE SODIUM 50 MG/SENNA 8.6 MG TAB PO SCH ×2 (09:48→20:59)
[2017-08-11] MEDS: SODIUM CHLORIDE 0.9% FLUSH 10 ML FLUSH IV FLUSH SCH ×2 (09:48→21:00)
[2017-08-11] MEDS: NICOTINE 21 MG/24 HR PATCH T-DERMAL SCH (09:50)
[2017-08-11] MEDS: PANTOPRAZOLE SOD 40 MG DELAYED RELEASE TAB PO SCH (09:50)
[2017-08-11] MEDS: VANCOMYCIN INJ 750 MG in SODIUM CHLOR 0.9% 250 ML INJ 250 ML IV SCH (10:43)
[2017-08-11] MEDS: POTASSIUM CHLOR 20 MEQ PREMIX 100 ML IV PRN (10:44)
--- NOTE | 2017-08-11 13:01 | PD.ONC.PN ---
Subjective Subjective Remarks Afebrile overnight Patient reports she has pain in her legs Denies any bleeding or the taste of iron in her mouth No bleeding per [employer] Objective Data Date Time Temp Pulse Resp B/P (MAP) Pulse Ox O2 Delivery O2 Flow Rate FiO2 08/11/17 12:13 100 21 08/11/17 06:00 80 08/11/17 05:17 78 96/69 08/11/17 04:00 97.6 79 26 96/66 (76) 93 08/11/17 04:00 79 08/11/17 02:00 76 08/11/17 00:41 81 91/65 08/11/17 00:00 79 08/11/17 00:00 96.5 79 21 86/64 (71) 100 08/10/17 22:15 85 76/53 08/10/17 22:00 83 08/10/17 20:31 96 08/10/17 20:00 79 08/10/17 20:00 97.5 79 31 92/59 (70) 98 08/10/17 18:00 76 08/10/17 17:00 78 89/59 08/10/17 16:35 91/62 08/10/17 16:00 80 08/10/17 16:00 97.8 80 30 99 08/10/17 15:15 97.8 82 49 99 08/10/17 15:00 83 28 99 08/10/17 14:00 80 08/10/17 14:00 80 31 99 08/10/17 13:24 97.5 84 24 99/64 98 08/10/17 13:00 84 32 90/56 (67) 97 08/11/17 08/11/17 08/11/17 07:00 15:00 23:00 Intake Total 999 ml Output Total 209 ml Balance 790 ml Result Diagram: 08/11/1715 08/11/1715 Laboratory Results Laboratory Tests Test 08/10/17 16:50 08/10/17 22:00 08/11/17 05:15 08/11/17 10:00 White Blood Count 14.5 TH/MM3 11.8 TH/MM3 Red Blood Count 3.02 MIL/MM3 3.21 MIL/MM3 Hemoglobin 8.6 GM/DL 9.1 GM/DL Hematocrit 25.2 % 26.1 % Mean Corpuscular Volume 83.2 FL 81.5 FL Mean Corpuscular Hemoglobin 28.5 PG 28.3 PG Mean Corpuscular Hemoglobin Concent 34.2 % 34.7 % Red Cell Distribution Width 14.6 % 14.8 % Platelet Count 23 TH/MM3 25 TH/MM3 Mean Platelet Volume 11.3 FL 10.2 FL Blood Urea Nitrogen 43 MG/DL 43 MG/DL 43 MG/DL Creatinine 1.09 MG/DL 1.18 MG/DL 1.12 MG/DL Random Glucose 141 MG/DL 140 MG/DL 130 MG/DL Total Protein 4.8 GM/DL 4.6 GM/DL 4.9 GM/DL Albumin 1.7 GM/DL 1.5 GM/DL Calcium Level 6.2 MG/DL 6.1 MG/DL 6.0 MG/DL Alkaline Phosphatase 97 U/L 99 U/L Aspartate Amino Transf (AST/SGOT) 65 U/L 40 U/L Alanine Aminotransferase (ALT/SGPT) 19 U/L 17 U/L Total Bilirubin 1.7 MG/DL 1.9 MG/DL Sodium Level 134 MEQ/L 134 MEQ/L 135 MEQ/L Potassium Level 3.0 MEQ/L 3.2 MEQ/L 3.4 MEQ/L Chloride Level 101 MEQ/L 104 MEQ/L 105 MEQ/L Carbon Dioxide Level 23.7 MEQ/L 22.4 MEQ/L 22.6 MEQ/L Anion Gap 9 MEQ/L 8 MEQ/L 7 MEQ/L Estimat Glomerular Filtration Rate 56 ML/MIN 51 ML/MIN 54 ML/MIN Protein Corrected Calcium 7.3 MG/DL 7.3 MG/DL 7.0 MG/DL Neutrophils (%) (Auto) 67.2 % Lymphocytes (%) (Auto) 27.1 % Monocytes (%) (Auto) 4.6 % Eosinophils (%) (Auto) 0.8 % Basophils (%) (Auto) 0.3 % Neutrophils # (Auto) 7.9 TH/MM3 Lymphocytes # (Auto) 3.2 TH/MM3 Monocytes # (Auto) 0.5 TH/MM3 Eosinophils # (Auto) 0.1 TH/MM3 Basophils # (Auto) 0.0 TH/MM3 CBC Comment AUTO DIFF Differential Total Cells Counted 100 Neutrophils % (Manual) 85 % Band Neutrophils % 6 % Lymphocytes % 5 % Monocytes % 3 % Eosinophils % 1 % Neutrophils # (Manual) 10.7 TH/MM3 Differential Comment FINAL DIFF MANUAL Toxic Granulation 1+ Platelet Estimate LOW Platelet Morphology Comment NORMAL Acanthocytes OCC Keratocytes OCC Prothrombin Time 12.0 SEC Prothromb Time International Ratio 1.2 RATIO Activated Partial Thromboplast Time 34.3 SEC Fibrinogen 209 mg/dL Phosphorus Level 3.6 MG/DL Magnesium Level 2.0 MG/DL Lactate Dehydrogenase 352 U/L Vancomycin Level Trough 20.2 MCG/ML Culture Results Microbiology Date/Time Source Procedure Growth Status 08/11/17 06:40 Blood Peripheral Aerobic Blood Culture Pending Received 08/11/17 06:40 Blood Peripheral Anaerobic Blood Culture Pending Received 08/09/17 20:34 Blood Peripheral Aerobic Blood Culture - Preliminary Staphylococcus Aureus Resulted 08/09/17 20:34 Blood Peripheral Anaerobic Blood Culture - Preliminary NO GROWTH IN 2 DAYS Resulted 08/09/17 20:29 Blood Peripheral Aerobic Blood Culture - Preliminary NO GROWTH IN 2 DAYS Resulted 08/09/17 20:29 Anaerobic Blood Culture - Preliminary Gram Positive Cocci Resulted 08/09/17 21:50 Nasal Washing Influenza Types A,B Antigen (KAMRON) - Final NEGATIVE FOR FLU A AND B ANTIGEN.... Complete 08/09/17 20:34 Urine Catheterized Urine Urine Culture - Final Staphylococcus Aureus Escherichia Coli Complete Imaging Studies Last 24 hours Impressions Chest X-Ray 08/11/17 0600 Signed Impressions: Service Date/Time: Friday, August 11, 2017 03:37 - CONCLUSION: Left upper lobe and perihilar consolidation. Rod Garcia MD Administered Medications Medications (Trade) Dose Ordered Sig/Pee Route PRN Reason Start Time Stop Time Status Last Admin Dose Admin Potassium Chloride/Sodium Chloride 1,000 ml @ 100 mls/hr Q10H IV 08/09/17 22:14 08/10/17 21:33 Sodium Chloride (NS Flush) 2 ml BID IV FLUSH 08/10/17 09:00 08/11/17 09:48 Miscellaneous Information 1 [id number] XX 08/09/17 22:15 08/09/17 22:15 Chlorhexidine Gluconate (Chlorhexidine 2% Cloth) 3 pack Taper DAILY@04 TOP 08/10/17 04:00 08/06/18 03:59 08/11/17 03:58 Senna/Docusate Sodium (Cira-Colace) 1 tab BID PO 08/10/17 09:00 1/17/18 09:48 Potassium Chloride 100 ml @ 50 mls/hr Q2H PRN IV For Potassium 2.8 - 3.2 mEq/L 08/10/17 00:15 08/11/17 10:44 Potassium Phosphate (K-Phos) 2,000 mg Q4H PRN PO For Phosphorus < 2.5 mg/dL 08/10/17 00:15 08/10/17 21:18 Sodium Phosphate 30 mmol/Sodium Chloride 250 ml @ 42 mls/hr UNSCH PRN IV For Phosphorus < 2.5 mg/dL 08/10/17 00:15 08/10/17 11:15 Acetaminophen/ Hydrocodone Bitart ([place] 10-325 Mg) 1 tab Q4H PRN PO PAIN 1-5 08/10/17 02:00 08/11/17 10:45 Acetaminophen/ Hydrocodone Bitart ([place] 10-325 Mg) 2 tab Q4H PRN PO PAIN 6-10 08/10/17 02:00 08/11/17 04:06 Nicotine (Habitrol 21 Mg Patch.24 Hr) 1 patch DAILY T-DERMAL 08/10/17 09:00 08/11/17 09:50 Miscellaneous Information 1 DAILY T-DERMAL 08/10/17 09:00 08/11/17 09:00 Pantoprazole Sodium (Protonix) 40 mg DAILY PO 08/10/17 09:00 08/11/17 09:50 Phenylephrine HCl 40 mg/Dextrose 500 ml @ 30 mls/hr TITRATE PRN IV Blood pressure management 08/10/17 03:15 08/11/17 00:41 Vancomycin HCl 750 mg/Sodium Chloride 257.5 ml @ 250 mls/hr Q12H IV 08/10/17 10:00 08/11/17 10:43 Gentamicin Sulfate 40 mg/ Sodium Chloride 101 ml @ 100 mls/hr Q12H IV 08/10/17 16:00 08/11/17 04:06 Rifampin (Rifampin) 300 mg Q12H PO 08/10/17 15:00 08/11/17 04:05 Objective Remarks GENERAL: Younger female, resting in bed in no acute distress SKIN: Warm and dry. HEAD: Normocephalic. EYES: No injection or drainage. NECK: Supple, trachea midline. CARDIOVASCULAR: Mildly tachycardic. On vasopressors RESPIRATORY: Clear anteriorly. Breathing unlabored at rest. GASTROINTESTINAL: Abdomen mildly protuberant. Nontender to palpation. EXTREMITIES: No cyanosis, or edema. MUSCULOSKELETAL: Adequate muscle tone. NEUROLOGICAL: No obvious focal deficit. Awake, alert, and oriented x3. Assessment/Plan Problem List: (1) H/O endocarditis ICD Codes: Z86.79 - Personal history of other diseases of the circulatory system Status: Chronic Plan: -- On vancomycin -- ID following -- Echocardiogram on 08/11 shows findings consistent with vegetation on the aortic, mitral, and tricuspid valves. (2) DIC (disseminated intravascular coagulation) ICD Codes: D65 - Disseminated intravascular coagulation [defibrination syndrome ] Status: Acute Plan: -- DIC related to sepsis and recurrent endocarditis -- Status post 1 unit of cryoprecipitate on 08/10 -- Plan to transfuse for platelets less than 20,000 and fibrinogen level less than 100,000 -- Patient also likely has thrombocytopenia at baseline due to history of hepatitis C and splenomegaly Assessment 37-year-old female admitted for sepsis; hematology consulted for thrombocytopenia Plan 1. Monitor CBC 2. Plan to transfuse for platelets less than 20,000 or for any bleeding 3. Will give cryoprecipitate for fibrinogen level less than 100 4. Monitor for bleeding 5. Continue antibiotics per infectious disease Attending Statement The exam, history, and the medical decision-making described in the above note were completed with the assistance of the mid-level provider. I reviewed and agree with the findings presented. I attest that I had a [id number] encounter with the patient on the same day, and personally performed and documented my assessment and findings in the medical record. No report of bleeding. Still has dickens in her fingers and toes but controlled. ECHO showed diffused vegetation. Fibrinogen trended up with transfusion. Platelet is stable and does not need transfusion at this time. Continue to monitor CBC and coags. Bella San Aug 11, 2017 13:01 Farshad Wilburn MD Aug 11, 2017 13:17
--- NOTE | 2017-08-11 13:37 | HHI.IDPN ---
Note Infectious Disease Note Patient still has joint aches but feels better. Afebrile. WBC still elevated. urine output decreased. Discussed with RN. 2D ECHO - vegetations noted on three valves. Aortic, mitral and tricuspid. PAST MEDICAL HISTORY 1. Prosthetic valve endocarditis. 2. Mitral valve replacement 3. Hepatitis C 4. Anxiety disorder 5. Seizure disorder 6. IV drug use. ALLERGIES NO KNOWN DRUG ALLERGIES. MEDICATIONS 1. Vancomycin 2. Rifampin. 3. Gentamycin. SOCIAL HISTORY Positive tobacco use one pack a day. No alcohol. Positive IV drug use reported the last use on 08/12/2017. The patient was not the patient reportedly administered the IV drug into the neck. OBJECTIVE: Vital Signs Date Time Temp Pulse Resp B/P (MAP) Pulse Ox O2 Delivery O2 Flow Rate FiO2 08/11/17 12:13 100 21 08/11/17 06:00 80 08/11/17 05:17 78 96/69 08/11/17 04:00 97.6 79 26 96/66 (76) 93 08/11/17 04:00 79 08/11/17 02:00 76 08/11/17 00:41 81 91/65 08/11/17 00:00 79 08/11/17 00:00 96.5 79 21 86/64 (71) 100 08/10/17 22:15 85 76/53 08/10/17 22:00 83 08/10/17 20:31 96 08/10/17 20:00 79 08/10/17 20:00 97.5 79 31 92/59 (70) 98 08/10/17 18:00 76 08/10/17 17:00 78 89/59 08/10/17 16:35 91/62 08/10/17 16:00 80 08/10/17 16:00 97.8 80 30 99 08/10/17 15:15 97.8 82 49 99 08/10/17 15:00 83 28 99 08/10/17 14:00 80 08/10/17 14:00 80 31 99 Laboratory Tests Test 08/09/17 20:34 08/10/17 03:28 08/10/17 11:00 08/10/17 16:50 White Blood Count 10.8 TH/MM3 8.8 TH/MM3 17.9 TH/MM3 14.5 TH/MM3 Red Blood Count 4.06 MIL/MM3 3.08 MIL/MM3 3.05 MIL/MM3 3.02 MIL/MM3 Hemoglobin 11.4 GM/DL 8.9 GM/DL 8.4 GM/DL 8.6 GM/DL Hematocrit 33.6 % 26.2 % 25.3 % 25.2 % Mean Corpuscular Volume 82.7 FL 85.0 FL 82.7 FL 83.2 FL Mean Corpuscular Hemoglobin 28.0 PG 28.8 PG 27.4 PG 28.5 PG Mean Corpuscular Hemoglobin Concent 33.9 % 33.9 % 33.1 % 34.2 % Red Cell Distribution Width 14.4 % 14.8 % 14.8 % 14.6 % Platelet Count 32 TH/MM3 25 TH/MM3 28 TH/MM3 23 TH/MM3 Mean Platelet Volume 9.3 FL 9.4 FL 10.1 FL 11.3 FL Neutrophils (%) (Auto) 77.5 % 78.6 % 76.3 % Lymphocytes (%) (Auto) 4.9 % 8.6 % 9.5 % Monocytes (%) (Auto) 10.6 % 8.9 % 9.9 % Eosinophils (%) (Auto) 6.8 % 3.1 % 4.2 % Basophils (%) (Auto) 0.2 % 0.8 % 0.1 % Neutrophils # (Auto) 8.4 TH/MM3 6.9 TH/MM3 13.7 TH/MM3 Lymphocytes # (Auto) 0.5 TH/MM3 0.8 TH/MM3 1.7 TH/MM3 Monocytes # (Auto) 1.2 TH/MM3 0.8 TH/MM3 1.8 TH/MM3 Eosinophils # (Auto) 0.7 TH/MM3 0.3 TH/MM3 0.8 TH/MM3 Basophils # (Auto) 0.0 TH/MM3 0.1 TH/MM3 0.0 TH/MM3 CBC Comment AUTO DIFF AUTO DIFF AUTO DIFF Differential Total Cells Counted 100 100 100 Neutrophils % (Manual) 71 % 73 % 73 % Band Neutrophils % 21 % 14 % 19 % Lymphocytes % 4 % 7 % 3 % Monocytes % 1 % 6 % 4 % Basophils % 2 % Neutrophils # (Manual) 10.0 TH/MM3 7.7 TH/MM3 16.6 TH/MM3 Metamyelocytes 1 % Nucleated Red Blood Cells 1 /100 WBC Differential Comment FINAL DIFF MANUAL FINAL DIFF MANUAL FINAL DIFF MANUAL Toxic Granulation 1+ 1+ Toxic Vacuolation PRESENT Dohle Bodies PRESENT PRESENT Helmet Cells OCC OCC Keratocytes OCC Platelet Estimate LOW LOW Platelet Morphology Comment NORMAL NORMAL Blood Smear Pathologist Review Haptoglobin LESS THAN 40 MG/DL 53 MG/DL Myelocytes 1 % Test 08/11/17 05:15 White Blood Count 11.8 TH/MM3 Red Blood Count 3.21 MIL/MM3 Hemoglobin 9.1 GM/DL Hematocrit 26.1 % Mean Corpuscular Volume 81.5 FL Mean Corpuscular Hemoglobin 28.3 PG Mean Corpuscular Hemoglobin Concent 34.7 % Red Cell Distribution Width 14.8 % Platelet Count 25 TH/MM3 Mean Platelet Volume 10.2 FL Neutrophils (%) (Auto) 67.2 % Lymphocytes (%) (Auto) 27.1 % Monocytes (%) (Auto) 4.6 % Eosinophils (%) (Auto) 0.8 % Basophils (%) (Auto) 0.3 % Neutrophils # (Auto) 7.9 TH/MM3 Lymphocytes # (Auto) 3.2 TH/MM3 Monocytes # (Auto) 0.5 TH/MM3 Eosinophils # (Auto) 0.1 TH/MM3 Basophils # (Auto) 0.0 TH/MM3 CBC Comment AUTO DIFF Differential Total Cells Counted 100 Neutrophils % (Manual) 85 % Band Neutrophils % 6 % Lymphocytes % 5 % Monocytes % 3 % Eosinophils % 1 % Neutrophils # (Manual) 10.7 TH/MM3 Differential Comment FINAL DIFF MANUAL Toxic Granulation 1+ Platelet Estimate LOW Platelet Morphology Comment NORMAL Acanthocytes OCC Keratocytes OCC Laboratory Tests Test 08/09/17 20:34 08/09/17 21:47 08/10/17 00:44 08/10/17 03:28 Blood Urea Nitrogen 31 MG/DL 34 MG/DL Creatinine 1.29 MG/DL 1.07 MG/DL Random Glucose 176 MG/DL 96 MG/DL Total Protein 5.7 GM/DL 4.8 GM/DL Albumin 2.0 GM/DL 1.7 GM/DL Calcium Level 7.0 MG/DL 6.4 MG/DL Magnesium Level 2.2 MG/DL 2.0 MG/DL Alkaline Phosphatase 134 U/L 105 U/L Aspartate Amino Transf (AST/SGOT) 148 U/L 132 U/L Alanine Aminotransferase (ALT/SGPT) 29 U/L 25 U/L Total Bilirubin 3.0 MG/DL 2.9 MG/DL Sodium Level 121 MEQ/L 130 MEQ/L Potassium Level 3.0 MEQ/L 3.4 MEQ/L Chloride Level 83 MEQ/L 98 MEQ/L Carbon Dioxide Level 23.0 MEQ/L 20.9 MEQ/L Anion Gap 15 MEQ/L 11 MEQ/L Estimat Glomerular Filtration Rate 46 ML/MIN 57 ML/MIN Lactic Acid Level 5.9 mmol/L 4.7 mmol/L Protein Corrected Calcium 7.7 MG/DL 7.5 MG/DL Ammonia LESS THAN 10 MCMOL/L Total Creatine Kinase 136 U/L Creatine Kinase MB 3.6 NG/ML Troponin I 1.28 NG/ML 1.11 NG/ML B-Type Natriuretic Peptide 291 PG/ML Lipase 212 U/L Human Chorionic Gonadotropin, Quant LESS THAN 1 MIU/ML Serum Osmolality 263 MOSM/KG Random Cortisol 65.4 MCG/DL Phosphorus Level 1.9 MG/DL Thyroid Stimulating Hormone 3rd Gen 1.930 uIU/ML Test 08/10/17 06:00 08/10/17 07:48 08/10/17 11:00 08/10/17 16:50 Lactic Acid Level 2.1 mmol/L 1.7 mmol/L Phosphorus Level 2.0 MG/DL 2.1 MG/DL Lactate Dehydrogenase 421 U/L 388 U/L Troponin I 1.00 NG/ML Free Thyroxine 1.19 NG/DL Free Triiodothyronine (T3) pg/dL 0.50 PG/ML Blood Urea Nitrogen 40 MG/DL 43 MG/DL Creatinine 0.93 MG/DL 1.09 MG/DL Random Glucose 113 MG/DL 141 MG/DL Total Protein 4.4 GM/DL 4.8 GM/DL Albumin 1.6 GM/DL 1.7 GM/DL Calcium Level 6.5 MG/DL 6.2 MG/DL Magnesium Level 2.4 MG/DL Alkaline Phosphatase 85 U/L 97 U/L Aspartate Amino Transf (AST/SGOT) 90 U/L 65 U/L Alanine Aminotransferase (ALT/SGPT) 21 U/L 19 U/L Total Bilirubin 2.1 MG/DL 1.7 MG/DL Sodium Level 133 MEQ/L 134 MEQ/L Potassium Level 3.5 MEQ/L 3.0 MEQ/L Chloride Level 102 MEQ/L 101 MEQ/L Carbon Dioxide Level 22.6 MEQ/L 23.7 MEQ/L Anion Gap 8 MEQ/L 9 MEQ/L Estimat Glomerular Filtration Rate 67 ML/MIN 56 ML/MIN Protein Corrected Calcium 7.9 MG/DL 7.3 MG/DL Test 08/10/17 22:00 08/11/17 05:15 Blood Urea Nitrogen 43 MG/DL 43 MG/DL Creatinine 1.18 MG/DL 1.12 MG/DL Random Glucose 140 MG/DL 130 MG/DL Total Protein 4.6 GM/DL 4.9 GM/DL Calcium Level 6.1 MG/DL 6.0 MG/DL Sodium Level 134 MEQ/L 135 MEQ/L Potassium Level 3.2 MEQ/L 3.4 MEQ/L Chloride Level 104 MEQ/L 105 MEQ/L Carbon Dioxide Level 22.4 MEQ/L 22.6 MEQ/L Anion Gap 8 MEQ/L 7 MEQ/L Estimat Glomerular Filtration Rate 51 ML/MIN 54 ML/MIN Protein Corrected Calcium 7.3 MG/DL 7.0 MG/DL Albumin 1.5 GM/DL Phosphorus Level 3.6 MG/DL Magnesium Level 2.0 MG/DL Alkaline Phosphatase 99 U/L Aspartate Amino Transf (AST/SGOT) 40 U/L Alanine Aminotransferase (ALT/SGPT) 17 U/L Lactate Dehydrogenase 352 U/L Total Bilirubin 1.9 MG/DL Microbiology Date/Time Source Procedure Growth Status 08/11/17 06:40 Blood Peripheral Aerobic Blood Culture Pending Received 08/11/17 06:40 Blood Peripheral Anaerobic Blood Culture Pending Received 08/09/17 20:34 Blood Peripheral Aerobic Blood Culture - Preliminary Staphylococcus Aureus Resulted 08/09/17 20:34 Blood Peripheral Anaerobic Blood Culture - Preliminary NO GROWTH IN 2 DAYS Resulted 08/09/17 20:29 Blood Peripheral Aerobic Blood Culture - Preliminary NO GROWTH IN 2 DAYS Resulted 08/09/17 20:29 Anaerobic Blood Culture - Preliminary Gram Positive Cocci Resulted 08/09/17 21:50 Nasal Washing Influenza Types A,B Antigen (KAMRON) - Final NEGATIVE FOR FLU A AND B ANTIGEN.... Complete 08/09/17 20:34 Urine Catheterized Urine Urine Culture - Final Staphylococcus Aureus Escherichia Coli Complete IMAGING: Chest X-Ray 08/11/17 0600 Signed Impressions: Service Date/Time: Friday, August 11, 2017 03:37 - CONCLUSION: Left upper lobe and perihilar consolidation. Rod Garcia MD Lower Extremity Ultrasound 08/10/17 0000 Signed Impressions: Service Date/Time: Thursday, August 10, 2017 07:51 - CONCLUSION: Normal examination. No evidence of DVT Ambrose Verdin MD Liver Ultrasound 08/10/17 0000 Signed Impressions: Service Date/Time: Thursday, August 10, 2017 08:04 - CONCLUSION: 1. Abnormal gallbladder filled with sludge and demonstrating wall thickening. There are no additional findings are present to suggest acute gallbladder inflammation. 2. Trace free fluid in the abdomen and small bilateral pleural effusions. 3. Mild splenomegaly. Rod Pascual MD Head CT 08/10/17 0000 Signed Impressions: Service Date/Time: Thursday, August 10, 2017 02:33 - CONCLUSION: No acute disease. Rod Garcia MD PHYSICAL EXAMINATION GENERAL: Awake and alert. HEAD, EYES, EARS, NOSE, AND THROAT: The head is atraumatic. Extraocular movements grossly intact, pupils reactive to light. No icterus. No conjunctival erythema. Oropharynx slightly dry mucosa without lesions. NECK: Supple without adenopathy. LUNGS: Decreased breath sounds bilateral. HEART: 2/6 systolic murmur at the left sternal border. ABDOMEN: Bowel sounds present, flat, soft, nontender. RECTAL: Not performed. EXTREMITIES: No clubbing or cyanosis. The patient has lesions at the index and third finger on the left hand and multiple purpuric areas at the base of the toes and at the bulb of the feet. Multiple track gifford at the antecubital areas of both hands. Positive tenderness on palpation of the left calf. No swelling of the left calf. SKIN: No diffuse rash. NEUROLOGIC: Alert and oriented. No gross focal findings. PSYCHIATRIC: Patient is calm and cooperative. She appears withdrawn. IMPRESSION 1. Bacteremia staph aureus. MSSA. 2. 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 3. UTI 4. Acute kidney disease 5. Thrombocytopenia. RECOMMENDATIONS 1. Stop vancomycin. 2. Hold Intravenous gentamicin due to renal function. 3. Oxacillin 2 grams IV q 4 hours 4. Continue Rifampin. 5. monitor clinical status. Lucas Damian MD Aug 11, 2017 13:37
[2017-08-11] MEDS: OXACILLIN INJ 2 GM in SODIUM CHLORIDE 0.9% INJ 100 ML IV SCH ×3 (16:41→20:59)
--- NOTE | 2017-08-11 17:14 | HHI.CCPN ---
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 She states that her valve replacement was performed at [facility] but I do not see record of this. She is unsure of when it was done. Unable to pull up old CXRs. She is uncertain of causative organism or treatment course. She presents to [facility] ED stating that she has had a 2 day history of subjective fever and nonproductive cough. She has also had tender, painful lesions on her hands and feet which on exam are consistent with [place] nodes. She states the reason she sought medical treatment was that "the pain became unbearable" and that it hurt to walk to the bathroom because of the tenderness on the soles of her feet. She denies headache , sore throat, chest pain, abdominal pain, hemoptysis. She states she has been actively injecting Suboxone which she acquired from "the street", stating she last injected into her right neck on 08/08/17 at around noon. In the ED, 2 sets of blood cultures were obtained, urinalysis and urine culture. She was given Vancomycin, zosyn, and 2 L NS bolus. Influenza screen is negative. Her sodium is 121, potassium 3, creatinine 1.29, lactic acid 5.9. 08/10 Patient is on Neosyn 40 mics. T:103.0 last night. BC from 08/09: GPC 2/4 bottles 06/01: C/o pain in left foot. Objective Vital Signs Date Time Temp Pulse Resp B/P (MAP) Pulse Ox O2 Delivery O2 Flow Rate FiO2 08/11/17 12:13 100 21 08/11/17 06:00 80 08/11/17 05:17 96/69 08/11/17 04:00 97.6 26 08/09/17 23:00 Room Air Intake and Output 08/11/17 08/11/17 08/12/17 08:00 16:00 00:00 Intake Total 999 ml 357.5 ml Output Total 187 ml Balance 812 ml 357.5 ml Result Diagram: 08/11/17 0515 08/11/17 0515 Other Results Microbiology Date/Time Source Procedure Growth Status 08/09/17 20:29 Blood Peripheral Aerobic Blood Culture - Final Staphylococcus Aureus Complete 08/09/17 20:29 Anaerobic Blood Culture - Final Staphylococcus Aureus Complete 08/09/17 21:50 Nasal Washing Influenza Types A,B Antigen (KAMRON) - Final NEGATIVE FOR FLU A AND B ANTIGEN.... Complete 08/09/17 20:34 Urine Catheterized Urine Urine Culture - Final Staphylococcus Aureus Escherichia Coli Complete Imaging Last Impressions Lower Extremity Ultrasound 08/10/17 0000 Signed Impressions: Service Date/Time: Thursday, August 10, 2017 07:51 - CONCLUSION: Normal examination. No evidence of DVT Ambrose Verdin MD Liver Ultrasound 08/10/17 0000 Signed Impressions: Service Date/Time: Thursday, August 10, 2017 08:04 - CONCLUSION: 1. Abnormal gallbladder filled with sludge and demonstrating wall thickening. There are no additional findings are present to suggest acute gallbladder inflammation. 2. Trace free fluid in the abdomen and small bilateral pleural effusions. 3. Mild splenomegaly. Rod Pascual MD Head CT 08/10/17 0000 Signed Impressions: Service Date/Time: Thursday, August 10, 2017 02:33 - CONCLUSION: No acute disease. Rod Garcia MD Chest X-Ray 08/10/17 0000 Signed Impressions: Service Date/Time: Thursday, August 10, 2017 06:17 - CONCLUSION: 1. New left internal jugular central line good position without a pneumothorax. 2. New mild increased density in the upper lungs and medial left base likely due to development of mild atelectasis or consolidation. Rod Garcia MD Objective Remarks GENERAL: Thin disheveled female who is alert and sitting up in bed. SKIN: Warm and dry. There are petechial lesions on the palms of both hands. There are tender raised purpuric lesions on the palmar surface of left fifth digit and left thenar eminence c/w osler nodes. There are similar tender lesions on pad of bilateral feet overlying toes and distal metatarsals L>R. Toes dusky. No splinter hemorrhages. Track blane present right neck and Left forearm. VASC: DP and WALL CRANE OPERATOR pulses present bilaterally. HEAD: Atraumatic. Normocephalic. EYES: Pupils equal and round. No scleral icterus. No injection or drainage. ENT: No nasal bleeding or discharge. Mucous membranes dry. No pharyngeal erythema. No thrush. NECK: Trachea midline. No JVD. No meningismus CARDIOVASCULAR: Tachycardic, regular, sinus tach on the monitor with rate in the high 110s. I am unable to appreciate a murmur at current heart rate. RESPIRATORY: Tachypneic but overall appears comfortable without accessory muscle use. Bibasilar Rales present. No wheezes or rhonchi. GASTROINTESTINAL: Abdomen soft, non-tender, nondistended. Bowel sounds present. MUSCULOSKELETAL: Extremities without clubbing, cyanosis, or edema. NEUROLOGICAL: Awake and alert. No obvious cranial nerve deficits. Strength 5 out of 5 in all extremity. Sensation intact. A/P Problem List: (1) Severe sepsis ICD Code: A41.9 - Sepsis, unspecified organism; R65.20 - Severe sepsis without septic shock Status: Acute (2) DIC (disseminated intravascular coagulation) ICD Code: D65 - Disseminated intravascular coagulation [defibrination syndrome] Status: Acute (3) Cocaine abuse ICD Code: F14.10 - Cocaine abuse, uncomplicated Status: Chronic (4) IVDU (intravenous drug user) ICD Code: F19.90 - Other psychoactive substance use, unspecified, uncomplicated Status: Chronic (5) H/O prosthetic mitral valve ICD Code: Z95.2 - Presence of prosthetic heart valve Status: Chronic (6) H/O endocarditis ICD Code: Z86.79 - Personal history of other diseases of the circulatory system Status: Chronic (7) Lactic acidosis ICD Code: E87.2 - Acidosis Status: Acute (8) Hyponatremia ICD Code: E87.1 - Hypo-osmolality and hyponatremia (9) Hypokalemia ICD Code: E87.6 - Hypokalemia Status: Acute Permanent Comment: unknown chronicity, probably subacute Last Edited By: Yashira Ivey on Aug 10, 2017 07:41 (10) INES (acute kidney injury) ICD Code: N17.9 - Acute kidney failure, unspecified (11) Hyperbilirubinemia ICD Code: E80.6 - Other disorders of bilirubin metabolism Status: Acute (12) Abnormal transaminases ICD Code: R74.8 - Abnormal levels of other serum enzymes Status: Acute (13) Elevated troponin level ICD Code: R74.8 - Abnormal levels of other serum enzymes Status: Acute Assessment and Plan NEURO: Acute encephalopathy, probably toxic metabolic secondary to sepsis. IV drug use Opioid abuse Cocaine abuse Salicylate and Tylenol levels negative. Ammonia level low. CT brain no acute disease RESP: Tobacco abuse Oxygen PRN keep sat >92% Incentive spirometry every hour awake. Tobacco cessation counseling. Nicotine patch Chest x-ray -small amount of fluid in the fissure on the right. Overall clear CV: Elevated troponin Trending troponin. Obtain serial EKGs. Initial EKG sinus tach 113, LAE, no ST deviation. Follow-up 2-D echo, Lactic acid cleared 1.7 from 5.9 on arrival Received 2 L normal saline bolus in the ED 08/09. Cards eval. Monitro HR and BP keep MAP>65mmHg 0.9 NaCl with 20 mEq of KCl per liter at 100 mL per hour. GI: Elevated AST and hyperbilirubinemia Ammonia level normal US liver: Abnormal gallbladder filled with sludge and demonstrating wall thickening. There are no additional findings are present to suggest acute gallbladder inflammation. Trace free fluid in the abdomen and small bilateral pleural effusions.. Mild splenomegaly. Follow up viral hepatitis panel- pending DIRECTOR OF MAINTENANCE - test negative on admission. FEN/RENAL: Acute kidney injury Hyponatremia Hypokalemia Hypocalcemia Avoid NSAIDs and other nephrotoxins. Received ketorolac in ED 08/09. Monitor renal function , electrolytes replacement per protocol. Continue with IVF TSH: 1.93, cortisol level 65. CPK normal. ID: Septic shock. 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 Repeat BC x 2 sets today. Obtain 2-D echo r/o endocarditis, eval LV function ID consult Follow-up HIV and viral hepatitis panel -pending HEME: DIC Anemia Monitor CBC, coags, fibrinogen level 81. s/p 5units cryo 08/10 Heme eval. ENDO: Acute hyperglycemia SSI with accuchekcs for glycemic control TSH: 1.9 Cortisol level: 65 PROPH: SCDs for DVT prophylaxis. Hold on pharmacologic DVT prophylaxis at this time due to severe thrombocytopenia. Protonix 40 mg by mouth daily for stress ulcer prophylaxis. ACCESS: Left IJ CVP placed 08/10 Full code Consult palliative care to assist with deciding goals of therapy as prognosis is poor with multiple valves involved with endocarditis. d/W Dr. Avalos. Galen Null MD Aug 11, 2017 17:14
--- NOTE | 2017-08-11 18:13 | PD.CARD.PN ---
Subjective Subjective Remarks No CP, c/o SOB and LE pain Objective Medications Current Medications Medications (Trade) Dose Ordered Sig/Pee Route Start Time Stop Time Status Last Admin Potassium Chloride/Sodium Chloride 1,000 ml @ 100 mls/hr Q10H IV 08/09/17 22:14 08/11/17 15:50 (NS Flush) 2 ml UNSCH PRN IV FLUSH 08/09/17 22:15 (NS Flush) 2 ml BID IV FLUSH 08/10/17 09:00 08/11/17 09:48 (Zofran Inj) 4 mg Q6H PRN IV PUSH 08/09/17 22:15 (Albuterol Neb) 2.5 mg Q2HR NEB PRN INH 08/09/17 22:15 Miscellaneous Information 1 Q361D XX 08/09/17 22:15 08/09/17 22:15 (Chlorhexidine 2% Cloth) 3 pack Taper DAILY@04 TOP 08/10/17 04:00 08/06/18 03:59 08/11/17 03:58 (Chlorhexidine 2% Cloth) 3 pack UNSCH PRN TOP 08/09/17 22:15 (Cira-Colace) 1 tab BID PO 08/10/17 09:00 08/11/17 09:48 (Milk Of Magnesia Liq) 30 ml Q12H PRN PO 08/09/17 22:15 (Senokot) 17.2 mg Q12H PRN PO 08/09/17 22:15 (Dulcolax Supp) 10 mg DAILY PRN RECTAL 08/09/17 22:15 (Lactulose Liq) 30 ml DAILY PRN PO 08/09/17 22:15 Potassium Chloride 100 ml @ 50 mls/hr Q2H PRN IV 08/10/17 00:15 Potassium Chloride 100 ml @ 50 mls/hr Q2H PRN IV 08/10/17 00:15 08/11/17 10:44 (K-Lyte Cl Eff) 50 meq UNSCH PRN PO 08/10/17 00:15 Potassium Chloride 100 ml @ 25 mls/hr UNSCH PRN IV 08/10/17 00:15 Potassium Chloride 100 ml @ 50 mls/hr Q2H PRN IV 08/10/17 00:15 Magnesium Sulfate 4 gm/Sodium Chloride 100 ml @ 50 mls/hr UNSCH PRN IV 08/10/17 00:15 (Mag-Ox) 800 mg UNSCH PRN PO 08/10/17 00:15 Magnesium Sulfate 2 gm/Sodium Chloride 100 ml @ 50 mls/hr UNSCH PRN IV 08/10/17 00:15 (K-Phos) 2,000 mg Q4H PRN PO 08/10/17 00:15 08/10/17 21:18 Sodium Phosphate 30 mmol/Sodium Chloride 250 ml @ 42 mls/hr UNSCH PRN IV 08/10/17 00:15 08/10/17 11:15 (K-Phos) 2,000 mg UNSCH PRN PO/TUBE 08/10/17 00:15 Potassium Phosphate 30 mmol/ Sodium Chloride 260 ml @ 42 mls/hr UNSCH PRN IV 08/10/17 00:15 (D50w (Vial) Inj) 50 ml UNSCH PRN IV PUSH 08/10/17 00:15 (Glucagon Inj) 1 mg UNSCH PRN OTHER 08/10/17 00:15 ([place] 10-325 Mg) 1 tab Q4H PRN PO 08/10/17 02:00 08/11/17 10:45 ([place] 10-325 Mg) 2 tab Q4H PRN PO 08/10/17 02:00 08/11/17 04:06 (Habitrol 21 Mg Patch.24 Hr) 1 patch DAILY T-DERMAL 08/10/17 09:00 08/11/17 09:50 Miscellaneous Information 1 DAILY T-DERMAL 08/10/17 09:00 08/11/17 09:00 (Protonix) 40 mg DAILY PO 08/10/17 09:00 08/11/17 09:50 Phenylephrine HCl 40 mg/Dextrose 500 ml @ 30 mls/hr TITRATE PRN IV 08/10/17 03:15 08/11/17 00:41 (Brethine Inj) 1 mg UNSCH PRN SQ 08/10/17 03:15 (NovoLOG SUPPLEMENTAL SCALE) 1 Q4H SQ 08/10/17 12:00 Gentamicin Sulfate 40 mg/ Sodium Chloride 101 ml @ 100 mls/hr Q12H IV 08/10/17 16:00 Future Hold 08/11/17 15:49 (Rifampin) 300 mg Q12H PO 08/10/17 15:00 08/11/17 16:40 Oxacillin Sodium 2 gm/Sodium Chloride 100 ml @ 200 mls/hr Q4H IV 08/11/17 14:00 08/11/17 16:41 Vital Signs / I&O Vital Signs Date Time Temp Pulse Resp B/P (MAP) Pulse Ox O2 Delivery O2 Flow Rate FiO2 08/11/17 12:13 100 21 08/11/17 06:00 80 08/11/17 05:17 78 96/69 08/11/17 04:00 97.6 79 26 96/66 (76) 93 08/11/17 04:00 79 08/11/17 02:00 76 08/11/17 00:41 81 91/65 08/11/17 00:00 79 08/11/17 00:00 96.5 79 21 86/64 (71) 100 08/10/17 22:15 85 76/53 08/10/17 22:00 83 08/10/17 20:31 96 08/10/17 20:00 79 08/10/17 20:00 97.5 79 31 92/59 (70) 98 I/O 08/10/17 08/10/17 08/10/17 08/11/17 08/11/17 08/11/17 07:00 15:00 23:00 07:00 15:00 23:00 Intake Total 2355.5 ml 357 ml 2551.5 ml 999 ml 357.5 ml Output Total 382 ml 400 ml 238 ml 209 ml Balance 1973.5 ml -43 ml 2313.5 ml 790 ml 357.5 ml Intake Oral 680 ml 410 ml IV Total 2355.5 ml 307 ml 1587.5 ml 589 ml 357.5 ml Cryoprecipitate 234 ml Blood Product IV Normal Saline Flush 50 ml 50 ml Output Urine Total 382 ml 400 ml 238 ml 209 ml # Bowel Movements 1 2 4 Physical Exam GENERAL: In mod distress due to LE pain SKIN: Warm and dry. HEAD: Normocephalic. EYES: No scleral icterus. No injection or drainage. NECK: Supple, trachea midline. No JVD or lymphadenopathy. CARDIOVASCULAR: Regular rate and rhythm with syst murmur, no gallops or rubs. RESPIRATORY: Breath sounds equal bilaterally. No accessory muscle use. GASTROINTESTINAL: Abdomen soft, non-tender, nondistended. MUSCULOSKELETAL: No cyanosis, or edema. Laboratory Laboratory Tests Test 08/10/17 22:00 08/11/17 05:15 08/11/17 10:00 Blood Urea Nitrogen 43 MG/DL 43 MG/DL Creatinine 1.18 MG/DL 1.12 MG/DL Random Glucose 140 MG/DL 130 MG/DL Total Protein 4.6 GM/DL 4.9 GM/DL Calcium Level 6.1 MG/DL 6.0 MG/DL Sodium Level 134 MEQ/L 135 MEQ/L Potassium Level 3.2 MEQ/L 3.4 MEQ/L Chloride Level 104 MEQ/L 105 MEQ/L Carbon Dioxide Level 22.4 MEQ/L 22.6 MEQ/L Anion Gap 8 MEQ/L 7 MEQ/L Estimat Glomerular Filtration Rate 51 ML/MIN 54 ML/MIN Protein Corrected Calcium 7.3 MG/DL 7.0 MG/DL White Blood Count 11.8 TH/MM3 Red Blood Count 3.21 MIL/MM3 Hemoglobin 9.1 GM/DL Hematocrit 26.1 % Mean Corpuscular Volume 81.5 FL Mean Corpuscular Hemoglobin 28.3 PG Mean Corpuscular Hemoglobin Concent 34.7 % Red Cell Distribution Width 14.8 % Platelet Count 25 TH/MM3 Mean Platelet Volume 10.2 FL Neutrophils (%) (Auto) 67.2 % Lymphocytes (%) (Auto) 27.1 % Monocytes (%) (Auto) 4.6 % Eosinophils (%) (Auto) 0.8 % Basophils (%) (Auto) 0.3 % Neutrophils # (Auto) 7.9 TH/MM3 Lymphocytes # (Auto) 3.2 TH/MM3 Monocytes # (Auto) 0.5 TH/MM3 Eosinophils # (Auto) 0.1 TH/MM3 Basophils # (Auto) 0.0 TH/MM3 CBC Comment AUTO DIFF Differential Total Cells Counted 100 Neutrophils % (Manual) 85 % Band Neutrophils % 6 % Lymphocytes % 5 % Monocytes % 3 % Eosinophils % 1 % Neutrophils # (Manual) 10.7 TH/MM3 Differential Comment FINAL DIFF MANUAL Toxic Granulation 1+ Platelet Estimate LOW Platelet Morphology Comment NORMAL Acanthocytes OCC Keratocytes OCC Prothrombin Time 12.0 SEC Prothromb Time International Ratio 1.2 RATIO Activated Partial Thromboplast Time 34.3 SEC Fibrinogen 209 mg/dL Albumin 1.5 GM/DL Phosphorus Level 3.6 MG/DL Magnesium Level 2.0 MG/DL Alkaline Phosphatase 99 U/L Aspartate Amino Transf (AST/SGOT) 40 U/L Alanine Aminotransferase (ALT/SGPT) 17 U/L Lactate Dehydrogenase 352 U/L Total Bilirubin 1.9 MG/DL Vancomycin Level Trough 20.2 MCG/ML Imaging Last 24 hours Impressions Chest X-Ray 08/11/17 0600 Signed Impressions: Service Date/Time: Friday, August 11, 2017 03:37 - CONCLUSION: Left upper lobe and perihilar consolidation. Rod Garcia MD Assessment and Plan Problem List: (1) Severe sepsis ICD Codes: A41.9 - Sepsis, unspecified organism; R65.20 - Severe sepsis without septic shock Status: Acute (2) Endocarditis ICD Codes: I38 - Endocarditis, valve unspecified (3) H/O prosthetic mitral valve ICD Codes: Z95.2 - Presence of prosthetic heart valve Status: Chronic (4) IVDU (intravenous drug user) ICD Codes: F19.90 - Other psychoactive substance use, unspecified, uncomplicated Status: Chronic (5) Cocaine abuse ICD Codes: F14.10 - Cocaine abuse, uncomplicated Status: Chronic Assessment and Plan Continue antibiotics. SUZANNE with AV, MV and TV vegetations. Multiple septic emboli , suspect cardiac as well. Prognosis very poor due to continuing IV drug use and endocarditis of prosthetic valve. Jeromy Avalos MD Aug 11, 2017 18:13
[2017-08-11] MEDS: RESP: ALBUTEROL 2.5 MG/3 ML NEB (PRN) INH (23:26)
[2017-08-12] VITALS (14 sets, daily range): BP systolic 99–113; BP diastolic 64–84; PULSE 93–107; RESP 26–33; TEMP 97.1–97.9; O2SAT 98–100
[2017-08-12] MEDS: ACETAMINOPHEN/HYDROcodone 325 MG/10 MG TAB PO PRN ×7 (00:04→21:54)
[2017-08-12] MEDS: RESP: ALBUTEROL 2.5 MG/3 ML NEB (PRN) INH ×2 (01:53→04:10)
[2017-08-12] MEDS: RIFAMPIN 150 MG CAP PO SCH ×3 (02:04→17:50)
[2017-08-12] MEDS: NS + KCL 20 MEQ INJ 1,000 ML IV SCH ×2 (02:04→10:14)
[2017-08-12] MEDS: OXACILLIN INJ 2 GM in SODIUM CHLORIDE 0.9% INJ 100 ML IV SCH ×5 (02:05→21:54)
[2017-08-12] MEDS: INSULIN ASPART SUPPLEMENTAL SCALE SQ SCH ×6 (04:00→20:00)
[2017-08-12] MEDS: CHLORHEXIDINE GLUCONATE 2 % 1 PACK (2 CLOTHS) TOP SCH (04:23)
[2017-08-12 04:42] LABS: AUTOMATED NEUTROPHIL # 7.5 TH/MM3 (1.8-7.7); BASOPHIL % 0.4 % (0.0-2.0); EOSINOPHIL # 0.1 TH/MM3 (0-0.4); EOSINOPHIL % 0.6 % (0.0-4.0); HEMATOCRIT 24.4 % (35.0-46.0); HEMOGLOBIN 8.5 GM/DL (11.6-15.3); LYMPH % 13.8 % (9.0-44.0); LYMPHOCYTE # 1.3 TH/MM3 (1.0-4.8); MEAN CELL VOLUME 81.8 FL (80.0-100.0); MEAN CORPUSCULAR HEMOGLOBIN 28.5 PG (27.0-34.0); MEAN CORPUSCULAR HGB CONC 34.9 % (32.0-36.0); MEAN PLATELET VOLUME 9.6 FL (7.0-11.0); MONO % 6.6 % (0.0-8.0); MONOCYTE # 0.6 TH/MM3 (0-0.9); NEUT % 78.6 % (16.0-70.0); PLATELET COUNT 47 TH/MM3 (150-450); RED BLOOD COUNT 2.98 MIL/MM3 (4.00-5.30); RED CELL DISTRIBUTION WIDTH 15.2 % (11.6-17.2); WHITE BLOOD COUNT 9.5 TH/MM3 (4.0-11.0)
[2017-08-12 05:07] LABS: ALBUMIN 1.5 GM/DL (3.4-5.0); BICARBONATE 19.3 MEQ/L (21.0-32.0); CALCIUM 6.6 MG/DL (8.5-10.1); CALCIUM-PROTEIN CORRECTED 7.5 MG/DL (8.5-10.1); CREATININE 1.42 MG/DL (0.50-1.00); TOTAL BILIRUBIN ADULT 1.5 MG/DL (0.2-1.0); TOTAL PROTEIN 5.2 GM/DL (6.4-8.2)
[2017-08-12 08:22] LABS: BANDS 9 % (0-6); LYMPHOCYTES 2 % (9-44); MONOCYTES 2 % (0-8); POLYS (SEG NEUTROPHILS) 86 % (16-70)
[2017-08-12 08:27] LABS: ACANTHOCYTES OCC (NORMAL)
[2017-08-12] MEDS: PANTOPRAZOLE SOD 40 MG DELAYED RELEASE TAB PO SCH (08:27)
[2017-08-12] MEDS: DOCUSATE SODIUM 50 MG/SENNA 8.6 MG TAB PO SCH ×2 (08:27→21:52)
[2017-08-12] MEDS: SODIUM CHLORIDE 0.9% FLUSH 10 ML FLUSH IV FLUSH SCH ×2 (08:27→21:52)
[2017-08-12 08:28] LABS: KERATOCYTES OCC (NORMAL)
[2017-08-12] MEDS: REMOVE OLD PATCH T-DERMAL SCH (08:29)
[2017-08-12] MEDS: NICOTINE 21 MG/24 HR PATCH T-DERMAL SCH (08:30)
[2017-08-12] MEDS ORDERED: FUROSEMIDE 40 MG/4 ML VIAL ONE (08:45)
--- NOTE | 2017-08-12 10:53 | HHI.CCPN ---
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 She states that her valve replacement was performed at [place] but I do not see record of this. She is unsure of when it was done. Unable to pull up old CXRs. She is uncertain of causative organism or treatment course. She [place] [facility] stating that she has had a 2 day history of subjective fever and nonproductive cough. She has also had tender, painful lesions on her hands and feet which on exam are consistent with [place] nodes. She states the reason she sought medical treatment was that "the pain became unbearable" and that it hurt to walk to the bathroom because of the tenderness on the soles of her feet. She denies headache , sore throat, chest pain, abdominal pain, hemoptysis. She states she has been actively injecting Suboxone which she acquired from "the street", stating she last injected into her right neck on 08/08/17 at around noon. In the ED, 2 sets of blood cultures were obtained, urinalysis and urine culture. She was given Vancomycin, zosyn, and 2 L NS bolus. Influenza screen is negative. Her sodium is 121, potassium 3, creatinine 1.29, lactic acid 5.9. 08/10 Patient is on Neosyn 40 mics. T:103.0 last night. BC from 08/09: GPC 2/4 bottles 06/01: C/o pain in left foot. 06/12 No events overnight. On Neosyn 10 mics. Afebrile. Objective Vital Signs Date Time Temp Pulse Resp B/P (MAP) Pulse Ox O2 Delivery O2 Flow Rate FiO2 08/12/17 06:00 101 08/12/17 05:48 15 08/12/17 04:00 97.9 99/79 (86) 100 08/11/17 23:29 21 08/09/17 23:00 Room Air Intake and Output 08/12/17 08/12/17 08/13/17 08:00 16:00 00:00 Intake Total 1100 ml Output Total 370 ml Balance 730 ml Result Diagram: 08/12/17 0415 08/12/17 0415 Other Results Laboratory Tests Test 08/12/17 04:15 White Blood Count 9.5 TH/MM3 Red Blood Count 2.98 MIL/MM3 Hemoglobin 8.5 GM/DL Hematocrit 24.4 % Mean Corpuscular Volume 81.8 FL Mean Corpuscular Hemoglobin 28.5 PG Mean Corpuscular Hemoglobin Concent 34.9 % Red Cell Distribution Width 15.2 % Platelet Count 47 TH/MM3 Mean Platelet Volume 9.6 FL Neutrophils (%) (Auto) 78.6 % Lymphocytes (%) (Auto) 13.8 % Monocytes (%) (Auto) 6.6 % Eosinophils (%) (Auto) 0.6 % Basophils (%) (Auto) 0.4 % Neutrophils # (Auto) 7.5 TH/MM3 Lymphocytes # (Auto) 1.3 TH/MM3 Monocytes # (Auto) 0.6 TH/MM3 Eosinophils # (Auto) 0.1 TH/MM3 Basophils # (Auto) 0.0 TH/MM3 CBC Comment AUTO DIFF Differential Total Cells Counted 100 Neutrophils % (Manual) 86 % Band Neutrophils % 9 % Lymphocytes % 2 % Monocytes % 2 % Eosinophils % 1 % Neutrophils # (Manual) 9.0 TH/MM3 Differential Comment FINAL DIFF MANUAL Platelet Estimate LOW Platelet Morphology Comment NORMAL Helmet Cells Acanthocytes OCC Keratocytes OCC Blood Urea Nitrogen 45 MG/DL Creatinine 1.42 MG/DL Random Glucose 169 MG/DL Total Protein 5.2 GM/DL Albumin 1.5 GM/DL Calcium Level 6.6 MG/DL Alkaline Phosphatase 101 U/L Aspartate Amino Transf (AST/SGOT) 25 U/L Alanine Aminotransferase (ALT/SGPT) 15 U/L Total Bilirubin 1.5 MG/DL Sodium Level 135 MEQ/L Potassium Level 4.5 MEQ/L Chloride Level 108 MEQ/L Carbon Dioxide Level 19.3 MEQ/L Anion Gap 8 MEQ/L Estimat Glomerular Filtration Rate 41 ML/MIN Protein Corrected Calcium 7.5 MG/DL Imaging Last Impressions Chest X-Ray 08/11/17 0600 Signed Impressions: Service Date/Time: Friday, August 11, 2017 03:37 - CONCLUSION: Left upper lobe and perihilar consolidation. Rod Garcia MD Lower Extremity Ultrasound 08/10/17 0000 Signed Impressions: Service Date/Time: Thursday, August 10, 2017 07:51 - CONCLUSION: Normal examination. No evidence of DVT Ambrose Verdin MD Liver Ultrasound 08/10/17 0000 Signed Impressions: Service Date/Time: Thursday, August 10, 2017 08:04 - CONCLUSION: 1. Abnormal gallbladder filled with sludge and demonstrating wall thickening. There are no additional findings are present to suggest acute gallbladder inflammation. 2. Trace free fluid in the abdomen and small bilateral pleural effusions. 3. Mild splenomegaly. Rod Pascual MD Head CT 08/10/17 0000 Signed Impressions: Service Date/Time: Thursday, August 10, 2017 02:33 - CONCLUSION: No acute disease. Rod Garcia MD Objective Remarks GENERAL: Thin disheveled female who is alert and sitting up in bed. SKIN: Warm and dry. There are petechial lesions on the palms of both hands. There are tender raised purpuric lesions on the palmar surface of left fifth digit and left thenar eminence c/w osler nodes. There are similar tender lesions on pad of bilateral feet overlying toes and distal metatarsals L>R. Toes dusky. No splinter hemorrhages. Track blane present right neck and Left forearm. 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 HEAD: Atraumatic. Normocephalic. EYES: Pupils equal and round. No scleral icterus. No injection or drainage. ENT: No nasal bleeding or discharge. Mucous membranes dry. No pharyngeal erythema. No thrush. NECK: Trachea midline. No JVD. No meningismus CARDIOVASCULAR: Tachycardic, regular, sinus tach on the monitor with rate in the high 110s. I am unable to appreciate a murmur at current heart rate. RESPIRATORY: Tachypneic but overall appears comfortable without accessory muscle use. Bibasilar Rales present. No wheezes or rhonchi. GASTROINTESTINAL: Abdomen soft, non-tender, nondistended. Bowel sounds present. MUSCULOSKELETAL: Extremities without clubbing, cyanosis, or edema. NEUROLOGICAL: Awake and alert. No obvious cranial nerve deficits. Strength 5 out of 5 in all extremity. Sensation intact. A/P Problem List: (1) Severe sepsis ICD Code: A41.9 - Sepsis, unspecified organism; R65.20 - Severe sepsis without septic shock Status: Acute (2) DIC (disseminated intravascular coagulation) ICD Code: D65 - Disseminated intravascular coagulation [defibrination syndrome] Status: Acute (3) Cocaine abuse ICD Code: F14.10 - Cocaine abuse, uncomplicated Status: Chronic (4) IVDU (intravenous drug user) ICD Code: F19.90 - Other psychoactive substance use, unspecified, uncomplicated Status: Chronic (5) H/O prosthetic mitral valve ICD Code: Z95.2 - Presence of prosthetic heart valve Status: Chronic (6) H/O endocarditis ICD Code: Z86.79 - Personal history of other diseases of the circulatory system Status: Chronic (7) Lactic acidosis ICD Code: E87.2 - Acidosis Status: Acute (8) Hyponatremia ICD Code: E87.1 - Hypo-osmolality and hyponatremia (9) Hypokalemia ICD Code: E87.6 - Hypokalemia Status: Acute Permanent Comment: unknown chronicity, probably subacute Last Edited By: Yashira Ivey on Aug 10, 2017 07:41 (10) INES (acute kidney injury) ICD Code: N17.9 - Acute kidney failure, unspecified (11) Hyperbilirubinemia ICD Code: E80.6 - Other disorders of bilirubin metabolism Status: Acute (12) Abnormal transaminases ICD Code: R74.8 - Abnormal levels of other serum enzymes Status: Acute (13) Elevated troponin level ICD Code: R74.8 - Abnormal levels of other serum enzymes Status: Acute Assessment and Plan NEURO: Acute encephalopathy, probably toxic metabolic secondary to sepsis. IV drug use Opioid abuse Cocaine abuse Salicylate and Tylenol levels negative. Ammonia level low. CT brain no acute disease RESP: Tobacco abuse Oxygen PRN keep sat >92% Incentive spirometry every hour awake. Tobacco cessation counseling. Nicotine patch CXR yesterday TOR and perihilar consolidation CV: Elevated troponin Monitor HR and BP keep MAP>65mmHg Lactic acid cleared 1.7 from 5.9 on arrival Received 2 L normal saline bolus in the ED 08/09. Echo showed vegetations on TV, AV, MV, EF 50-55% GI: Elevated AST and hyperbilirubinemia Ammonia level normal US liver: Abnormal gallbladder filled with sludge and demonstrating wall thickening. There are no additional findings are present to suggest acute gallbladder inflammation. Trace free fluid in the abdomen and small bilateral pleural effusions.. Mild splenomegaly. Follow up viral hepatitis panel- Hep C ab reactive [facility]IST[facility] - test negative on admission. FEN/RENAL: Acute kidney injury Hyponatremia Hypokalemia Hypocalcemia Avoid NSAIDs and other nephrotoxins. Received ketorolac in ED 08/09. Monitor renal function , electrolytes replacement per protocol. d/c IVF diurese with Lasix 40mg x1 TSH: 1.93, cortisol level 65. CPK normal. ID: Septic shock. 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 s/p 5units cryo 08/10 Heme is following ENDO: Acute hyperglycemia SSI with accuchekcs for glycemic control TSH: 1.9 Cortisol level: 65 PROPH: SCDs for DVT prophylaxis. Hold on pharmacologic DVT prophylaxis at this time due to severe thrombocytopenia. Protonix 40 mg by mouth daily for stress ulcer prophylaxis. ACCESS: Left IJ CVP placed 08/10 Full code Consult palliative care to assist with deciding goals of therapy as prognosis is poor with multiple valves involved with endocarditis. d/W Dr. Avalos. Level 3 Milton Velásquez MD Aug 12, 2017 10:53
[2017-08-12 11:16] LABS: INTERNATIONAL NORMALIZED RATIO 1.2 RATIO; PROTHROMBIN TIME - PATIENT 11.7 SEC (9.8-11.6)
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
--- NOTE | 2017-08-12 13:19 | PD.CONS ---
Consult Service Palliative Care Consult Requested By Dr Null Primary Care Physician Unknown Reason for Consultation a. To assist with evaluation and management of symptoms including: pain, dyspnea b. To assist medical decision maker(s) with: better understanding of current medical conditions; weighing benefits/burdens of medical treatment options; making medical treatment decisions. HPI History of Present Illness Ms Tariq is a 37 year old female who was admitted to [facility] on 08/09/17 because of increased pain in her feet and fevers. She has an extensive history of IV drug use, and in fact, admits to using within the 24 hours prior to her admission to [facility]. She has been evaluated and admitted at [facility] on multiple occasions but prior to this admission had not been seen since 2015. Apparently three years ago, she did undergo mitral valve replacement for bacterial endocarditis at [facility]. She came to the ED because of fevers and pain in her feet. She was found to have pronounced thrombocytopenia with platelets of 32, and mild anemia with Hb 11.4. Chemistries showed some renal insufficiency with creatinine of 1.4; mild hyponatremia with sodium of 130 and elevated transaminases as well as bilirubin ; troponin was elevated as well as LDH. Lactic acid was 5.9; influenza screen was negative and she was lin-cultured. She admits to history of hep C. Blood cultures are positive for lin-sensitive staph aureus; urine grew a generally sensitive staph aureus as well as ecoli. Nares did show MRSA; CXR initally was clear but she has since developed a dense consolidation TOR and left hilum. She also has vegetations on mitral, tricuspid, and aortic valves with mild atrial enlargement. There is some DIC present which has required transfusion of cryoprecipitate. She is afebrile since 08/09; she continues to require pressor support to keep SBP near 100. She is tachycardic and although her 02 saturations are in the high 90s on room air, she is tachypneic and complaining of increasing shortness of breath. She is alert, answers questions in one or two words due to dyspnea, but appears to answer appropriately although neither she nor her boyfriend at bedside seem to have good understanding of the critical nature of her illness. Palliative care was asked to assist with clarification of goals as well as clarification of decision makers. Function/Cognitive Trajectory Patient relates that she had generally been feeling fairly well in the weeks prior to her hospitalization. She lives with her boyfriend in a room that he rents in a local house; previously she lived with her father who is also local. She had not been working but had been able to shop, take care of her own ADLs , and had had a good appetite. Review of Systems ROS Limitations: Clinical Condition, Poor Historian Constitutional: COMPLAINS OF: Fever, Pain Endocrine: COMPLAINS OF: Abnorml menstrual pattern, Heat/cold intolerance, Polydipsia, Polyuria, Polyphagia Respiratory: COMPLAINS OF: Cough, Shortness of breath Cardiovascular: COMPLAINS OF: Dyspnea on Exertion Gastrointestinal: COMPLAINS OF: Anorexia Genitourinary: COMPLAINS OF: Hesitancy (due to using a bedpan) Musculoskeletal: COMPLAINS OF: Joint pain, Back pain Integumentary: COMPLAINS OF: Non-healing sores Hematologic/Lymphatics: COMPLAINS OF: Bruising Psychiatric: COMPLAINS OF: Anxiety Past Family Social History Coded Allergies: No Known Allergies (Verified Allergy, Unknown, 08/09/17) Past Medical History Bacterial endocarditis Hep C Anxiety IV drug use Past Surgical History MVR due to bacterial endocarditis Cervical spine discectomy Reported Medications Denied any regular outpatient medications Current Medications Medications (Trade) Dose Ordered Sig/Pee Route Start Time Stop Time Status Last Admin (NS Flush) 2 ml UNSCH PRN IV FLUSH 08/09/17 22:15 (NS Flush) 2 ml BID IV FLUSH 08/10/17 09:00 08/12/17 08:27 (Zofran Inj) 4 mg Q6H PRN IV PUSH 08/09/17 22:15 (Albuterol Neb) 2.5 mg Q2HR NEB PRN INH 08/09/17 22:15 08/12/17 04:10 Miscellaneous Information 1 Q361D XX 08/09/17 22:15 08/09/17 22:15 (Chlorhexidine 2% Cloth) 3 pack Taper DAILY@04 TOP 08/10/17 04:00 08/06/18 03:59 08/11/17 03:58 (Chlorhexidine 2% Cloth) 3 pack UNSCH PRN TOP 08/09/17 22:15 (Cira-Colace) 1 tab BID PO 08/10/17 09:00 08/11/17 09:48 (Milk Of Magnesia Liq) 30 ml Q12H PRN PO 08/09/17 22:15 (Senokot) 17.2 mg Q12H PRN PO 08/09/17 22:15 (Dulcolax Supp) 10 mg DAILY PRN RECTAL 08/09/17 22:15 (Lactulose Liq) 30 ml DAILY PRN PO 08/09/17 22:15 Potassium Chloride 100 ml @ 50 mls/hr Q2H PRN IV 08/10/17 00:15 Potassium Chloride 100 ml @ 50 mls/hr Q2H PRN IV 08/10/17 00:15 08/11/17 10:44 (K-Lyte Cl Eff) 50 meq UNSCH PRN PO 08/10/17 00:15 Potassium Chloride 100 ml @ 25 mls/hr UNSCH PRN IV 08/10/17 00:15 Potassium Chloride 100 ml @ 50 mls/hr Q2H PRN IV 08/10/17 00:15 Magnesium Sulfate 4 gm/Sodium Chloride 100 ml @ 50 mls/hr UNSCH PRN IV 08/10/17 00:15 (Mag-Ox) 800 mg UNSCH PRN PO 08/10/17 00:15 Magnesium Sulfate 2 gm/Sodium Chloride 100 ml @ 50 mls/hr UNSCH PRN IV 08/10/17 00:15 (K-Phos) 2,000 mg Q4H PRN PO 08/10/17 00:15 08/10/17 21:18 Sodium Phosphate 30 mmol/Sodium Chloride 250 ml @ 42 mls/hr UNSCH PRN IV 08/10/17 00:15 08/10/17 11:15 (K-Phos) 2,000 mg UNSCH PRN PO/TUBE 08/10/17 00:15 Potassium Phosphate 30 mmol/ Sodium Chloride 260 ml @ 42 mls/hr UNSCH PRN IV 08/10/17 00:15 (D50w (Vial) Inj) 50 ml UNSCH PRN IV PUSH 08/10/17 00:15 (Glucagon Inj) 1 mg UNSCH PRN OTHER 08/10/17 00:15 (Glidden 10-325 Mg) 1 tab Q4H PRN PO 08/10/17 02:00 08/11/17 10:45 (Glidden 10-325 Mg) 2 tab Q4H PRN PO 08/10/17 02:00 08/12/17 08:26 (Habitrol 21 Mg Patch.24 Hr) 1 patch DAILY T-DERMAL 08/10/17 09:00 08/12/17 08:30 Miscellaneous Information 1 DAILY T-DERMAL 08/10/17 09:00 08/12/17 08:29 (Protonix) 40 mg DAILY PO 08/10/17 09:00 08/12/17 08:27 Phenylephrine HCl 40 mg/Dextrose 500 ml @ 30 mls/hr TITRATE PRN IV 08/10/17 03:15 08/11/17 00:41 (Brethine Inj) 1 mg UNSCH PRN SQ 08/10/17 03:15 (NovoLOG SUPPLEMENTAL SCALE) 1 Q4H SQ 08/10/17 12:00 08/11/17 20:00 Gentamicin Sulfate 40 mg/ Sodium Chloride 101 ml @ 100 mls/hr Q12H IV 08/10/17 16:00 Future Hold 08/11/17 15:49 (Rifampin) 300 mg Q12H PO 08/10/17 15:00 08/12/17 02:04 Oxacillin Sodium 2 gm/Sodium Chloride 100 ml @ 200 mls/hr Q4H IV 08/11/17 14:00 08/12/17 02:05 Family History Mother and father alive and well; two siblings and two natural minor children; she denies any known health problems in any of them Substance Use Tobacco: current user; 28-pack year hx Alcohol: occasional social user ("once a month") Prescription med abuse: none Illicits: multiple street drugs including cocaine, oxycodone, suboxone, and others Psychosocial History Born in [facility]; moved with family to [place] when she was [age]. Worked for several years as a [employer] but stopped working secondary to bacterial endocarditis with MVR in 2007. Lives with her boyfriend; her two children are cared for by her father who was her caregiver until recently when she elected to move in with her boyfriend. Spiritual/Cultural Factors Taoism demetrice remotely; not important to her now Living Will: Never completed Health Care Surrogate: Never completed Durable Power of Dial Screw Assembler: Never completed Documented care wishes: Patient is currently capacitated to make decisions. Will need further discussion about executing a formal HCS. Today's verbally stated goals: "I want to go home" but subsequently acknowledged that she still wants all aggressive measures to "get better"; she agrees to think more about some of these measures Family/friends goals: Boyfriend at bedside (although he is not a legal decision-maker) says "I've been taking care of her, nobody else, and I'm not leaving her side." He also states that he wants all possible interventions to save her life. Ethical and Legal Issues Patient is currently capacitated to make her own decisions although she has some unrealistic expectations. If she loses capacity without executing a written HCS, per [place] statute, decision-making would fall to her parents first, and then to her siblings as her children are minors. Physical Exam Vital Signs Date Time Temp Pulse Resp B/P (MAP) Pulse Ox O2 Delivery O2 Flow Rate FiO2 08/12/17 06:00 101 08/12/17 05:48 15 08/12/17 04:00 97 08/12/17 04:00 97.9 97 26 99/79 (86) 100 08/12/17 02:00 93 08/12/17 00:00 97 08/12/17 00:00 97.2 97 33 105/68 (80) 100 08/11/17 23:29 99 21 08/11/17 22:00 107 08/11/17 20:00 97.8 117 29 104/65 (78) 99 08/11/17 20:00 117 08/11/17 18:00 105 08/11/17 18:00 105 107/69 08/11/17 16:00 92 08/11/17 16:00 97.8 92 24 105/68 (80) 100 08/11/17 16:00 92 105/68 08/11/17 14:00 101 08/11/17 14:00 101 88/55 Exam CONSTITUTIONAL/GENERAL: awake and alert reclining in bed; mildly short of breath at rest TUBES/LINES/DRAINS: PIV SKIN: tender, petechial lesions on left hand and left ankle. No generalized rashes or lesions; skin warm. HEAD: Atraumatic. Normocephalic. EYES: Pupils equal and round and reactive. Extraocular motions intact.Conjunctivae pale. ENT: Hearing grossly normal. Nose without bleeding or purulent drainage. Oropharynx mildly pale with some small reddened patches posteriorly NECK: Trachea midline. Supple, nontender. No palpable thyroid enlargement or nodularity. CARDIOVASCULAR: Regular rate and rhythm without murmurs, gallops, or rubs. No JVD. Peripheral pulses symmetric. RESPIRATORY/CHEST: respirations are shallow and rapid with use of accessory muscles but lung ortiz are generally clear and diminished GASTROINTESTINAL: Abdomen soft, mildly distended, faint tenderness with palpation; bowel sounds hypoactive GENITOURINARY: Without palpable bladder distension. . MUSCULOSKELETAL: Extremities without clubbing, cyanosis, or edema. Mild left ankle tenderness with gentle palpation. LYMPHATICS: No palpable cervical or supraclavicular adenopathy. NEUROLOGICAL: Awake and alert. Motor and sensory grossly within normal limits. Follows commands. Cognitively sharp. Moves all extremities; gait not tested. PSYCHIATRIC: tearful; generally anxious although responsive and appropriate Diagnostic Tests Laboratory Laboratory Tests Test 08/09/17 20:34 08/09/17 21:47 08/09/17 22:40 08/09/17 23:15 White Blood Count 10.8 TH/MM3 (4.0-11.0) Red Blood Count 4.06 MIL/MM3 (4.00-5.30) Hemoglobin 11.4 GM/DL (11.6-15.3) Hematocrit 33.6 % (35.0-46.0) Mean Corpuscular Volume 82.7 FL (80.0-100.0) Mean Corpuscular Hemoglobin 28.0 PG (27.0-34.0) Mean Corpuscular Hemoglobin Concent 33.9 % (32.0-36.0) Red Cell Distribution Width 14.4 % (11.6-17.2) Platelet Count 32 TH/MM3 (150-450) Mean Platelet Volume 9.3 FL (7.0-11.0) Neutrophils (%) (Auto) 77.5 % (16.0-70.0) Lymphocytes (%) (Auto) 4.9 % (9.0-44.0) Monocytes (%) (Auto) 10.6 % (0.0-8.0) Eosinophils (%) (Auto) 6.8 % (0.0-4.0) Basophils (%) (Auto) 0.2 % (0.0-2.0) Neutrophils # (Auto) 8.4 TH/MM3 (1.8-7.7) Lymphocytes # (Auto) 0.5 TH/MM3 (1.0-4.8) Monocytes # (Auto) 1.2 TH/MM3 (0-0.9) Eosinophils # (Auto) 0.7 TH/MM3 (0-0.4) Basophils # (Auto) 0.0 TH/MM3 (0-0.2) CBC Comment AUTO DIFF Differential Total Cells Counted 100 Neutrophils % (Manual) 71 % (16-70) Band Neutrophils % 21 % (0-6) Lymphocytes % 4 % (9-44) Monocytes % 1 % (0-8) Basophils % 2 % (0-2) Neutrophils # (Manual) 10.0 TH/MM3 (1.8-7.7) Metamyelocytes 1 % (0-1) Nucleated Red Blood Cells 1 /100 WBC (0-0) Differential Comment FINAL DIFF MANUAL Toxic Granulation 1+ (NORMAL) Toxic Vacuolation PRESENT (NONE SEEN) Dohle Bodies PRESENT (NONE SEEN) Helmet Cells (NORMAL) Keratocytes OCC (NORMAL) Prothrombin Time 16.2 SEC (9.8-11.6) Prothromb Time International Ratio 1.6 RATIO Activated Partial Thromboplast Time 46.2 SEC (24.3-30.1) Urine Color YELLOW (YELLW/STRAW) Urine Turbidity HAZY (CLEAR) Urine pH 5.5 (5.0-8.5) Urine Specific [place] 1.013 (1.002-1.035) Urine Protein 100 mg/dL (NEG-TRACE) Urine Glucose (UA) NEG mg/dL (NEG) Urine Ketones NEG mg/dL (NEG) Urine Occult Blood LARGE (NEG) Urine Nitrite NEG (NEG) Urine Bilirubin NEG (NEG) Urine Urobilinogen 2.0 MG/DL (LESS THAN Urine Leukocyte Esterase TRACE (NEG) Urine RBC 5 /hpf (0-3) Urine WBC 10 /hpf (0-5) Urine Squamous Epithelial Cells 20 /hpf (0-5) Urine Amorphous Sediment RARE Urine Bacteria MANY /hpf (NONE) Microscopic Urinalysis Comment CATH-CULTURE IND Urine Osmolality 406 MOSM/KG (300-1300) Urine Random Creatinine 66.7 MG/DL Urine Random Sodium 6 MEQ/L Blood Urea Nitrogen 31 MG/DL (7-18) Creatinine 1.29 MG/DL (0.50-1.00) Random Glucose 176 MG/DL (74-106) Total Protein 5.7 GM/DL (6.4-8.2) Albumin 2.0 GM/DL (3.4-5.0) Calcium Level 7.0 MG/DL (8.5-10.1) Magnesium Level 2.2 MG/DL (1.5-2.5) Alkaline Phosphatase 134 U/L (45-117) Aspartate Amino Transf (AST/SGOT) 148 U/L (15-37) Alanine Aminotransferase (ALT/SGPT) 29 U/L (10-53) Total Bilirubin 3.0 MG/DL (0.2-1.0) Sodium Level 121 MEQ/L (136-145) Potassium Level 3.0 MEQ/L (3.5-5.1) Chloride Level 83 MEQ/L (98-107) Carbon Dioxide Level 23.0 MEQ/L (21.0-32.0) Anion Gap 15 MEQ/L (5-15) Estimat Glomerular Filtration Rate 46 ML/MIN (>89) Lactic Acid Level 5.9 mmol/L (0.4-2.0) Protein Corrected Calcium 7.7 MG/DL (8.5-10.1) Ammonia LESS THAN 10 MCMOL/L Total Creatine Kinase 136 U/L (26-192) Creatine Kinase MB 3.6 NG/ML (0.5-3.6) Troponin I 1.28 NG/ML (0.02-0.05) B-Type Natriuretic Peptide 291 PG/ML (0-100) Lipase 212 U/L (73-393) Human Chorionic Gonadotropin, Quant LESS THAN 1 MIU/ML (0-5) Salicylates Level 2.3 MG/DL (2.8-20.0) Urine Opiates Screen NEG (NEG) Acetaminophen Level LESS THAN 2.0 MCG/ML Urine Barbiturates Screen NEG (NEG) Urine Amphetamines Screen NEG (NEG) Urine Benzodiazepines Screen NEG (NEG) Urine Cocaine Screen POS (NEG) Urine Cannabinoids Screen NEG (NEG) Serum Osmolality 263 MOSM/KG (275-295) Random Cortisol 65.4 MCG/DL Hepatitis A IgM Antibody NEGATIVE (NEGATIVE) Hepatitis B Surface Antigen NEGATIVE (NEGATIVE) Hepatitis B Core IgM Antibody NEGATIVE (NEGATIVE) Hepatitis C Antibody REACTIVE (NEGATIVE) HIV (1&2) Antibody NEGATIVE (NEGATIVE) Blood Gas Puncture Site LINE Blood Gas Patient Temperature 98.6 Venous Blood pH 7.40 (7.360-7.400) Venous Blood Partial Pressure CO2 36 mmHg (44-48) Venous Blood Partial Pressure O2 42 mmHg (35-40) Venous Blood HCO3 22 mmol/L (22-26) Venous Blood Oxygen Saturation 75 % (70-76) Venous Blood Oxygen Content 10.3 Vol % (9.0-17.0) Venous Blood Base Excess -2.1 mmol/L (-2-2) Nasal Screen MRSA (PCR) MRSA DETECTED (NOT DETECT) Test 08/10/17 00:44 08/10/17 03:28 08/10/17 06:00 08/10/17 07:48 Fibrinogen 81 mg/dL (227-377) Lactic Acid Level 4.7 mmol/L (0.4-2.0) 2.1 mmol/L (0.4-2.0) 1.7 mmol/L (0.4-2.0) White Blood Count 8.8 TH/MM3 (4.0-11.0) Red Blood Count 3.08 MIL/MM3 (4.00-5.30) Hemoglobin 8.9 GM/DL (11.6-15.3) Hematocrit 26.2 % (35.0-46.0) Mean Corpuscular Volume 85.0 FL (80.0-100.0) Mean Corpuscular Hemoglobin 28.8 PG (27.0-34.0) Mean Corpuscular Hemoglobin Concent 33.9 % (32.0-36.0) Red Cell Distribution Width 14.8 % (11.6-17.2) Platelet Count 25 TH/MM3 (150-450) Mean Platelet Volume 9.4 FL (7.0-11.0) Neutrophils (%) (Auto) 78.6 % (16.0-70.0) Lymphocytes (%) (Auto) 8.6 % (9.0-44.0) Monocytes (%) (Auto) 8.9 % (0.0-8.0) Eosinophils (%) (Auto) 3.1 % (0.0-4.0) Basophils (%) (Auto) 0.8 % (0.0-2.0) Neutrophils # (Auto) 6.9 TH/MM3 (1.8-7.7) Lymphocytes # (Auto) 0.8 TH/MM3 (1.0-4.8) Monocytes # (Auto) 0.8 TH/MM3 (0-0.9) Eosinophils # (Auto) 0.3 TH/MM3 (0-0.4) Basophils # (Auto) 0.1 TH/MM3 (0-0.2) CBC Comment AUTO DIFF Differential Total Cells Counted 100 Neutrophils % (Manual) 73 % (16-70) Band Neutrophils % 14 % (0-6) Lymphocytes % 7 % (9-44) Monocytes % 6 % (0-8) Neutrophils # (Manual) 7.7 TH/MM3 (1.8-7.7) Differential Comment FINAL DIFF MANUAL Platelet Estimate LOW (NORMAL) Platelet Morphology Comment NORMAL (NORMAL) Helmet Cells OCC (NORMAL) Blood Smear Pathologist Review Haptoglobin LESS THAN 40 MG/DL (30-200) Blood Urea Nitrogen 34 MG/DL (7-18) Creatinine 1.07 MG/DL (0.50-1.00) Random Glucose 96 MG/DL (74-106) Total Protein 4.8 GM/DL (6.4-8.2) Albumin 1.7 GM/DL (3.4-5.0) Calcium Level 6.4 MG/DL (8.5-10.1) Phosphorus Level 1.9 MG/DL (2.5-4.9) 2.0 MG/DL (2.5-4.9) Magnesium Level 2.0 MG/DL (1.5-2.5) Alkaline Phosphatase 105 U/L (45-117) Aspartate Amino Transf (AST/SGOT) 132 U/L (15-37) Alanine Aminotransferase (ALT/SGPT) 25 U/L (10-53) Total Bilirubin 2.9 MG/DL (0.2-1.0) Sodium Level 130 MEQ/L (136-145) Potassium Level 3.4 MEQ/L (3.5-5.1) Chloride Level 98 MEQ/L (98-107) Carbon Dioxide Level 20.9 MEQ/L (21.0-32.0) Anion Gap 11 MEQ/L (5-15) Estimat Glomerular Filtration Rate 57 ML/MIN (>89) Protein Corrected Calcium 7.5 MG/DL (8.5-10.1) Troponin I 1.11 NG/ML (0.02-0.05) 1.00 NG/ML (0.02-0.05) Thyroid Stimulating Hormone 3rd Gen 1.930 uIU/ML (0.358-3.740) Lactate Dehydrogenase 421 U/L (84-246) Free Thyroxine 1.19 NG/DL (0.76-1.46) Free Triiodothyronine (T3) pg/dL 0.50 PG/ML (2.18-3.98) Test 08/10/17 11:00 08/10/17 16:50 08/10/17 22:00 08/11/17 05:15 White Blood Count 17.9 TH/MM3 (4.0-11.0) 14.5 TH/MM3 (4.0-11.0) 11.8 TH/MM3 (4.0-11.0) Red Blood Count 3.05 MIL/MM3 (4.00-5.30) 3.02 MIL/MM3 (4.00-5.30) 3.21 MIL/MM3 (4.00-5.30) Hemoglobin 8.4 GM/DL (11.6-15.3) 8.6 GM/DL (11.6-15.3) 9.1 GM/DL (11.6-15.3) Hematocrit 25.3 % (35.0-46.0) 25.2 % (35.0-46.0) 26.1 % (35.0-46.0) Mean Corpuscular Volume 82.7 FL (80.0-100.0) 83.2 FL (80.0-100.0) 81.5 FL (80.0-100.0) Mean Corpuscular Hemoglobin 27.4 PG (27.0-34.0) 28.5 PG (27.0-34.0) 28.3 PG (27.0-34.0) Mean Corpuscular Hemoglobin Concent 33.1 % (32.0-36.0) 34.2 % (32.0-36.0) 34.7 % (32.0-36.0) Red Cell Distribution Width 14.8 % (11.6-17.2) 14.6 % (11.6-17.2) 14.8 % (11.6-17.2) Platelet Count 28 TH/MM3 (150-450) 23 TH/MM3 (150-450) 25 TH/MM3 (150-450) Mean Platelet Volume 10.1 FL (7.0-11.0) 11.3 FL (7.0-11.0) 10.2 FL (7.0-11.0) Neutrophils (%) (Auto) 76.3 % (16.0-70.0) 67.2 % (16.0-70.0) Lymphocytes (%) (Auto) 9.5 % (9.0-44.0) 27.1 % (9.0-44.0) Monocytes (%) (Auto) 9.9 % (0.0-8.0) 4.6 % (0.0-8.0) Eosinophils (%) (Auto) 4.2 % (0.0-4.0) 0.8 % (0.0-4.0) Basophils (%) (Auto) 0.1 % (0.0-2.0) 0.3 % (0.0-2.0) Neutrophils # (Auto) 13.7 TH/MM3 (1.8-7.7) 7.9 TH/MM3 (1.8-7.7) Lymphocytes # (Auto) 1.7 TH/MM3 (1.0-4.8) 3.2 TH/MM3 (1.0-4.8) Monocytes # (Auto) 1.8 TH/MM3 (0-0.9) 0.5 TH/MM3 (0-0.9) Eosinophils # (Auto) 0.8 TH/MM3 (0-0.4) 0.1 TH/MM3 (0-0.4) Basophils # (Auto) 0.0 TH/MM3 (0-0.2) 0.0 TH/MM3 (0-0.2) CBC Comment AUTO DIFF AUTO DIFF Differential Total Cells Counted 100 100 Neutrophils % (Manual) 73 % (16-70) 85 % (16-70) Band Neutrophils % 19 % (0-6) 6 % (0-6) Lymphocytes % 3 % (9-44) 5 % (9-44) Monocytes % 4 % (0-8) 3 % (0-8) Neutrophils # (Manual) 16.6 TH/MM3 (1.8-7.7) 10.7 TH/MM3 (1.8-7.7) Myelocytes 1 % (0-0) Differential Comment FINAL DIFF MANUAL FINAL DIFF MANUAL Toxic Granulation 1+ (NORMAL) 1+ (NORMAL) Dohle Bodies PRESENT (NONE SEEN) Platelet Estimate LOW (NORMAL) LOW (NORMAL) Platelet Morphology Comment NORMAL (NORMAL) NORMAL (NORMAL) Helmet Cells OCC (NORMAL) Keratocytes (NORMAL) OCC (NORMAL) Haptoglobin 53 MG/DL (30-200) Prothrombin Time 14.3 SEC (9.8-11.6) 12.0 SEC (9.8-11.6) Prothromb Time International Ratio 1.4 RATIO 1.2 RATIO Fibrinogen 91 mg/dL (227-377) 209 mg/dL (227-377) Blood Urea Nitrogen 40 MG/DL (7-18) 43 MG/DL (7-18) 43 MG/DL (7-18) 43 MG/DL (7-18) Creatinine 0.93 MG/DL (0.50-1.00) 1.09 MG/DL (0.50-1.00) 1.18 MG/DL (0.50-1.00) 1.12 MG/DL (0.50-1.00) Random Glucose 113 MG/DL (74-106) 141 MG/DL (74-106) 140 MG/DL (74-106) 130 MG/DL (74-106) Total Protein 4.4 GM/DL (6.4-8.2) 4.8 GM/DL (6.4-8.2) 4.6 GM/DL (6.4-8.2) 4.9 GM/DL (6.4-8.2) Albumin 1.6 GM/DL (3.4-5.0) 1.7 GM/DL (3.4-5.0) 1.5 GM/DL (3.4-5.0) Calcium Level 6.5 MG/DL (8.5-10.1) 6.2 MG/DL (8.5-10.1) 6.1 MG/DL (8.5-10.1) 6.0 MG/DL (8.5-10.1) Phosphorus Level 2.1 MG/DL (2.5-4.9) 3.6 MG/DL (2.5-4.9) Magnesium Level 2.4 MG/DL (1.5-2.5) 2.0 MG/DL (1.5-2.5) Alkaline Phosphatase 85 U/L (45-117) 97 U/L (45-117) 99 U/L (45-117) Aspartate Amino Transf (AST/SGOT) 90 U/L (15-37) 65 U/L (15-37) 40 U/L (15-37) Alanine Aminotransferase (ALT/SGPT) 21 U/L (10-53) 19 U/L (10-53) 17 U/L (10-53) Total Bilirubin 2.1 MG/DL (0.2-1.0) 1.7 MG/DL (0.2-1.0) 1.9 MG/DL (0.2-1.0) Sodium Level 133 MEQ/L (136-145) 134 MEQ/L (136-145) 134 MEQ/L (136-145) 135 MEQ/L (136-145) Potassium Level 3.5 MEQ/L (3.5-5.1) 3.0 MEQ/L (3.5-5.1) 3.2 MEQ/L (3.5-5.1) 3.4 MEQ/L (3.5-5.1) Chloride Level 102 MEQ/L (98-107) 101 MEQ/L (98-107) 104 MEQ/L (98-107) 105 MEQ/L (98-107) Carbon Dioxide Level 22.6 MEQ/L (21.0-32.0) 23.7 MEQ/L (21.0-32.0) 22.4 MEQ/L (21.0-32.0) 22.6 MEQ/L (21.0-32.0) Anion Gap 8 MEQ/L (5-15) 9 MEQ/L (5-15) 8 MEQ/L (5-15) 7 MEQ/L (5-15) Estimat Glomerular Filtration Rate 67 ML/MIN (>89) 56 ML/MIN (>89) 51 ML/MIN (>89) 54 ML/MIN (>89) Protein Corrected Calcium 7.9 MG/DL (8.5-10.1) 7.3 MG/DL (8.5-10.1) 7.3 MG/DL (8.5-10.1) 7.0 MG/DL (8.5-10.1) Lactate Dehydrogenase 388 U/L (84-246) 352 U/L (84-246) Eosinophils % 1 % (0-4) Acanthocytes OCC (NORMAL) Activated Partial Thromboplast Time 34.3 SEC (24.3-30.1) Test 08/11/17 10:00 08/12/17 04:15 08/12/17 10:20 Vancomycin Level Trough 20.2 MCG/ML (5.0-10.0) White Blood Count 9.5 TH/MM3 (4.0-11.0) Red Blood Count 2.98 MIL/MM3 (4.00-5.30) Hemoglobin 8.5 GM/DL (11.6-15.3) Hematocrit 24.4 % (35.0-46.0) Mean Corpuscular Volume 81.8 FL (80.0-100.0) Mean Corpuscular Hemoglobin 28.5 PG (27.0-34.0) Mean Corpuscular Hemoglobin Concent 34.9 % (32.0-36.0) Red Cell Distribution Width 15.2 % (11.6-17.2) Platelet Count 47 TH/MM3 (150-450) Mean Platelet Volume 9.6 FL (7.0-11.0) Neutrophils (%) (Auto) 78.6 % (16.0-70.0) Lymphocytes (%) (Auto) 13.8 % (9.0-44.0) Monocytes (%) (Auto) 6.6 % (0.0-8.0) Eosinophils (%) (Auto) 0.6 % (0.0-4.0) Basophils (%) (Auto) 0.4 % (0.0-2.0) Neutrophils # (Auto) 7.5 TH/MM3 (1.8-7.7) Lymphocytes # (Auto) 1.3 TH/MM3 (1.0-4.8) Monocytes # (Auto) 0.6 TH/MM3 (0-0.9) Eosinophils # (Auto) 0.1 TH/MM3 (0-0.4) Basophils # (Auto) 0.0 TH/MM3 (0-0.2) CBC Comment AUTO DIFF Differential Total Cells Counted 100 Neutrophils % (Manual) 86 % (16-70) Band Neutrophils % 9 % (0-6) Lymphocytes % 2 % (9-44) Monocytes % 2 % (0-8) Eosinophils % 1 % (0-4) Neutrophils # (Manual) 9.0 TH/MM3 (1.8-7.7) Differential Comment FINAL DIFF MANUAL Platelet Estimate LOW (NORMAL) Platelet Morphology Comment NORMAL (NORMAL) Helmet Cells (NORMAL) Acanthocytes OCC (NORMAL) Keratocytes OCC (NORMAL) Blood Urea Nitrogen 45 MG/DL (7-18) Creatinine 1.42 MG/DL (0.50-1.00) Random Glucose 169 MG/DL (74-106) Total Protein 5.2 GM/DL (6.4-8.2) Albumin 1.5 GM/DL (3.4-5.0) Calcium Level 6.6 MG/DL (8.5-10.1) Alkaline Phosphatase 101 U/L (45-117) Aspartate Amino Transf (AST/SGOT) 25 U/L (15-37) Alanine Aminotransferase (ALT/SGPT) 15 U/L (10-53) Total Bilirubin 1.5 MG/DL (0.2-1.0) Sodium Level 135 MEQ/L (136-145) Potassium Level 4.5 MEQ/L (3.5-5.1) Chloride Level 108 MEQ/L (98-107) Carbon Dioxide Level 19.3 MEQ/L (21.0-32.0) Anion Gap 8 MEQ/L (5-15) Estimat Glomerular Filtration Rate 41 ML/MIN (>89) Protein Corrected Calcium 7.5 MG/DL (8.5-10.1) Prothrombin Time 11.7 SEC (9.8-11.6) Prothromb Time International Ratio 1.2 RATIO Activated Partial Thromboplast Time 33.3 SEC (24.3-30.1) Result Diagram: 08/12/17 0415 08/12/17 0415 Microbiology Microbiology Date/Time Source Procedure Growth Status 08/12/17 04:15 Blood Peripheral Aerobic Blood Culture Pending Received 08/12/17 04:15 Blood Peripheral Anaerobic Blood Culture Pending Received 08/11/17 06:40 Blood Peripheral Aerobic Blood Culture - Preliminary Gram Positive Cocci Resulted 08/11/17 06:40 Blood Peripheral Anaerobic Blood Culture - Preliminary NO GROWTH IN 1 DAY Resulted 08/09/17 20:34 Blood Peripheral Aerobic Blood Culture - Final Staphylococcus Aureus Complete 08/09/17 20:34 Anaerobic Blood Culture - Final Staphylococcus Aureus Complete 08/09/17 20:29 Blood Peripheral Aerobic Blood Culture - Final Staphylococcus Aureus Complete 08/09/17 20:29 Anaerobic Blood Culture - Final Staphylococcus Aureus Complete 08/09/17 21:50 Nasal Washing Influenza Types A,B Antigen ([facility]) - Final NEGATIVE FOR FLU A AND B ANTIGEN.... Complete 08/09/17 20:34 Urine Catheterized Urine Urine Culture - Final Staphylococcus Aureus Escherichia Coli Complete Imaging Last 72 hours Impressions Chest X-Ray 08/11/17 0600 Signed Impressions: Service Date/Time: Friday, August 11, 2017 03:37 - CONCLUSION: Left upper lobe and perihilar consolidation. Rod Garcia MD Lower Extremity Ultrasound 08/10/17 0000 Signed Impressions: Service Date/Time: Thursday, August 10, 2017 07:51 - CONCLUSION: Normal examination. No evidence of DVT Ambrose Verdin MD Liver Ultrasound 08/10/17 0000 Signed Impressions: Service Date/Time: Thursday, August 10, 2017 08:04 - CONCLUSION: 1. Abnormal gallbladder filled with sludge and demonstrating wall thickening. There are no additional findings are present to suggest acute gallbladder inflammation. 2. Trace free fluid in the abdomen and small bilateral pleural effusions. 3. Mild splenomegaly. oRd Pascual MD Head CT 08/10/17 0000 Signed Impressions: Service Date/Time: Thursday, August 10, 2017 02:33 - CONCLUSION: No acute disease. Rod Garcia MD Chest X-Ray 08/10/17 0000 Signed Impressions: Service Date/Time: Thursday, August 10, 2017 06:17 - CONCLUSION: 1. New left internal jugular central line good position without a pneumothorax. 2. New mild increased density in the upper lungs and medial left base likely due to development of mild atelectasis or consolidation. Rod Garcia MD Chest X-Ray 08/09/172018 Signed Impressions: Service Date/Time: Wednesday, August 09, 2017 20:27 - CONCLUSION: No acute disease. Galo London Jr., MD Patient/Family Conference Present at Family Conference: Patient seen and examined in ICU. She is awake and alert; her boyfriend Carlos is at bedside. Palliative care role was introduced. She wants to go home today ; discussion centered on options for her care. Since she does want all possible interventions to get better, she will think about her priorities and the importance of returning home in the next couple of days. HCS discussion was tabled today since both patient and boyfriend were tearful and distraught to learn the extent of her illness; followup will be needed in the next few days. Family Conference Time (mins): 30 Family Conference Location: Bedside Issues Discussed: * Palliative care role, purpose, approach * Code Status: FULL CODE * Additional medical, psychosocial, and spiritual history * Patients general health, functional status, and cognitive changes in the months leading up to the current hospitalization * Patient/family understanding of the current medical problems * Patient/family understanding of prognosis * Patients goals of care as best understood from advance directives and/or conversations and/or values * Current medical treatment options and benefits/burdens of those options * Likely scenarios comparing ongoing aggressive care with a transition to comfort measures only * Questions answered to the best of my ability * Palliative care contact information provided Assessment and Plan Disease Oriented Problem List: (1) Sepsis (2) DIC (disseminated intravascular coagulation) (3) INES (acute kidney injury) (4) Endocarditis (5) Anxiety (6) Pain Symptom Scale: (1) Pain 0-10 Scale: 6 (concentrated in left ankle, back, fingers) (2) Dyspnea 0-10 Scale: Unable to quantify (3) Anxiety 0-10 Scale: 10 Pertinent Non-Medical Issues Psychosocial: lives with boyfriend who reportedly has multiple other family members who are critically ill Spiritual: none known Legal: Currently patient is capacitated to make own decisions but no clear direction about her wishes should she lose capacity. Per [place] statute, in the absence of written advance directives, decision making would fall to her parents first, then to her siblings. Her children are minors at this time. Ethical issues impacting care: None known Important Contacts Father Marcus Jc [phone] Prognosis Since she is not a candidate for additional valve replacement, the prognosis for advanced bacterial endocarditis coexisting with Hep C is on the order of weeks to months; she would be appropriate for hospice services should goals become comfort oriented. Code Status: Full Code Plan Currently patient is capacitated to make own decisions but no clear direction about her wishes should she lose capacity. Per [place] statute, in the absence of written advance directives, decision making would fall to her parents first, then to her siblings. Her children are minors at this time. Followup discussion with patient regarding decision makers, options for care, and goals FULL CODE SYMPTOMS: pain - currently has hydrocodone/APAP available PRN; dyspnea -- on antibiotics; adding nebs and supplemental oxygen * Palliative care number provided. * Palliative care will continue to follow to assist with symptom management and clarification of treatment goals as needed. Thank you for the opportunity to participate in the care of Ms. Tariq. Sarah Pearson Aug 12, 2017 13:19
--- NOTE | 2017-08-12 13:31 | PD.CARD.PN ---
Subjective Subjective Remarks No CP, c/o SOB and LE pain, feels poorly, boyfriend present Objective Medications Current Medications Medications (Trade) Dose Ordered Sig/Pee Route Start Time Stop Time Status Last Admin (NS Flush) 2 ml UNSCH PRN IV FLUSH 08/09/17 22:15 (NS Flush) 2 ml BID IV FLUSH 08/10/17 09:00 08/12/17 08:27 (Zofran Inj) 4 mg Q6H PRN IV PUSH 08/09/17 22:15 (Albuterol Neb) 2.5 mg Q2HR NEB PRN INH 08/09/17 22:15 08/12/17 04:10 Miscellaneous Information 1 Q361D XX 08/09/17 22:15 08/09/17 22:15 (Chlorhexidine 2% Cloth) 3 pack Taper DAILY@04 TOP 08/10/17 04:00 08/06/18 03:59 08/11/17 03:58 (Chlorhexidine 2% Cloth) 3 pack UNSCH PRN TOP 08/09/17 22:15 (Cira-Colace) 1 tab BID PO 08/10/17 09:00 08/11/17 09:48 (Milk Of Magnesia Liq) 30 ml Q12H PRN PO 08/09/17 22:15 (Senokot) 17.2 mg Q12H PRN PO 08/09/17 22:15 (Dulcolax Supp) 10 mg DAILY PRN RECTAL 08/09/17 22:15 (Lactulose Liq) 30 ml DAILY PRN PO 08/09/17 22:15 Potassium Chloride 100 ml @ 50 mls/hr Q2H PRN IV 08/10/17 00:15 Potassium Chloride 100 ml @ 50 mls/hr Q2H PRN IV 08/10/17 00:15 08/11/17 10:44 (K-Lyte Cl Eff) 50 meq UNSCH PRN PO 08/10/17 00:15 Potassium Chloride 100 ml @ 25 mls/hr UNSCH PRN IV 08/10/17 00:15 Potassium Chloride 100 ml @ 50 mls/hr Q2H PRN IV 08/10/17 00:15 Magnesium Sulfate 4 gm/Sodium Chloride 100 ml @ 50 mls/hr UNSCH PRN IV 08/10/17 00:15 (Mag-Ox) 800 mg UNSCH PRN PO 08/10/17 00:15 Magnesium Sulfate 2 gm/Sodium Chloride 100 ml @ 50 mls/hr UNSCH PRN IV 08/10/17 00:15 (K-Phos) 2,000 mg Q4H PRN PO 08/10/17 00:15 08/10/17 21:18 Sodium Phosphate 30 mmol/Sodium Chloride 250 ml @ 42 mls/hr UNSCH PRN IV 08/10/17 00:15 08/10/17 11:15 (K-Phos) 2,000 mg UNSCH PRN PO/TUBE 08/10/17 00:15 Potassium Phosphate 30 mmol/ Sodium Chloride 260 ml @ 42 mls/hr UNSCH PRN IV 08/10/17 00:15 (D50w (Vial) Inj) 50 ml UNSCH PRN IV PUSH 08/10/17 00:15 (Glucagon Inj) 1 mg UNSCH PRN OTHER 08/10/17 00:15 (Cotton 10-325 Mg) 1 tab Q4H PRN PO 08/10/17 02:00 08/12/17 13:19 (Cotton 10-325 Mg) 2 tab Q4H PRN PO 08/10/17 02:00 08/12/17 13:22 (Habitrol 21 Mg Patch.24 Hr) 1 patch DAILY T-DERMAL 08/10/17 09:00 08/12/17 08:30 Miscellaneous Information 1 DAILY T-DERMAL 08/10/17 09:00 08/12/17 08:29 (Protonix) 40 mg DAILY PO 08/10/17 09:00 08/12/17 08:27 Phenylephrine HCl 40 mg/Dextrose 500 ml @ 30 mls/hr TITRATE PRN IV 08/10/17 03:15 08/11/17 00:41 (Brethine Inj) 1 mg UNSCH PRN SQ 08/10/17 03:15 (NovoLOG SUPPLEMENTAL SCALE) 1 Q4H SQ 08/10/17 12:00 08/11/17 20:00 Gentamicin Sulfate 40 mg/ Sodium Chloride 101 ml @ 100 mls/hr Q12H IV 08/10/17 16:00 Future Hold 08/11/17 15:49 (Rifampin) 300 mg Q12H PO 08/10/17 15:00 08/12/17 02:04 Oxacillin Sodium 2 gm/Sodium Chloride 100 ml @ 200 mls/hr Q4H IV 08/11/17 14:00 08/12/17 13:22 Vital Signs / I&O Vital Signs Date Time Temp Pulse Resp B/P (MAP) Pulse Ox O2 Delivery O2 Flow Rate FiO2 08/12/17 06:00 101 08/12/17 05:48 15 08/12/17 04:00 97 08/12/17 04:00 97.9 97 26 99/79 (86) 100 08/12/17 02:00 93 08/12/17 00:00 97 08/12/17 00:00 97.2 97 33 105/68 (80) 100 08/11/17 23:29 99 21 08/11/17 22:00 107 08/11/17 20:00 97.8 117 29 104/65 (78) 99 08/11/17 20:00 117 08/11/17 18:00 105 08/11/17 18:00 105 107/69 08/11/17 16:00 92 08/11/17 16:00 97.8 92 24 105/68 (80) 100 08/11/17 16:00 92 105/68 08/11/17 14:00 101 08/11/17 14:00 101 88/55 I/O 08/11/17 08/11/17 08/11/17 08/12/17 08/12/17 08/12/17 07:00 15:00 23:00 07:00 15:00 23:00 Intake Total 999 ml 1277.5 ml 960 ml 1100 ml Output Total 209 ml 400 ml 385 ml Balance 790 ml 1277.5 ml 560 ml 715 ml Intake Oral 410 ml 300 ml IV Total 589 ml 1277.5 ml 660 ml 1100 ml Output Urine Total 209 ml 400 ml 385 ml # Bowel Movements 4 1 3 Physical Exam GENERAL: In mild distress SKIN: Warm and dry. HEAD: Normocephalic. EYES: No scleral icterus. No injection or drainage. NECK: Supple, trachea midline. No JVD or lymphadenopathy. CARDIOVASCULAR: Regular rate and rhythm with syst murmur, no gallops or rubs. RESPIRATORY: Breath sounds equal bilaterally. No accessory muscle use. GASTROINTESTINAL: Abdomen soft, non-tender, nondistended. MUSCULOSKELETAL: No cyanosis, or edema. Laboratory Laboratory Tests Test 08/12/17 04:15 08/12/17 10:20 White Blood Count 9.5 TH/MM3 Red Blood Count 2.98 MIL/MM3 Hemoglobin 8.5 GM/DL Hematocrit 24.4 % Mean Corpuscular Volume 81.8 FL Mean Corpuscular Hemoglobin 28.5 PG Mean Corpuscular Hemoglobin Concent 34.9 % Red Cell Distribution Width 15.2 % Platelet Count 47 TH/MM3 Mean Platelet Volume 9.6 FL Neutrophils (%) (Auto) 78.6 % Lymphocytes (%) (Auto) 13.8 % Monocytes (%) (Auto) 6.6 % Eosinophils (%) (Auto) 0.6 % Basophils (%) (Auto) 0.4 % Neutrophils # (Auto) 7.5 TH/MM3 Lymphocytes # (Auto) 1.3 TH/MM3 Monocytes # (Auto) 0.6 TH/MM3 Eosinophils # (Auto) 0.1 TH/MM3 Basophils # (Auto) 0.0 TH/MM3 CBC Comment AUTO DIFF Differential Total Cells Counted 100 Neutrophils % (Manual) 86 % Band Neutrophils % 9 % Lymphocytes % 2 % Monocytes % 2 % Eosinophils % 1 % Neutrophils # (Manual) 9.0 TH/MM3 Differential Comment FINAL DIFF MANUAL Platelet Estimate LOW Platelet Morphology Comment NORMAL Helmet Cells Acanthocytes OCC Keratocytes OCC Blood Urea Nitrogen 45 MG/DL Creatinine 1.42 MG/DL Random Glucose 169 MG/DL Total Protein 5.2 GM/DL Albumin 1.5 GM/DL Calcium Level 6.6 MG/DL Alkaline Phosphatase 101 U/L Aspartate Amino Transf (AST/SGOT) 25 U/L Alanine Aminotransferase (ALT/SGPT) 15 U/L Total Bilirubin 1.5 MG/DL Sodium Level 135 MEQ/L Potassium Level 4.5 MEQ/L Chloride Level 108 MEQ/L Carbon Dioxide Level 19.3 MEQ/L Anion Gap 8 MEQ/L Estimat Glomerular Filtration Rate 41 ML/MIN Protein Corrected Calcium 7.5 MG/DL Prothrombin Time 11.7 SEC Prothromb Time International Ratio 1.2 RATIO Activated Partial Thromboplast Time 33.3 SEC Assessment and Plan Problem List: (1) Severe sepsis ICD Codes: A41.9 - Sepsis, unspecified organism; R65.20 - Severe sepsis without septic shock Status: Acute (2) Endocarditis ICD Codes: I38 - Endocarditis, valve unspecified (3) H/O prosthetic mitral valve ICD Codes: Z95.2 - Presence of prosthetic heart valve Status: Chronic (4) IVDU (intravenous drug user) ICD Codes: F19.90 - Other psychoactive substance use, unspecified, uncomplicated Status: Chronic (5) Cocaine abuse ICD Codes: F14.10 - Cocaine abuse, uncomplicated Status: Chronic Assessment and Plan Overall condition poor. Continue antibiotics. SUZANNE with AV, MV and TV vegetations. Multiple septic emboli, suspect cardiac as well resulting in increased troponin. Prognosis very poor due to continuing IV drug use and endocarditis of prosthetic valve. This was discussed with the patient and her boyfriend. Jeromy Avalos MD Aug 12, 2017 13:31
--- NOTE | 2017-08-12 13:42 | PD.ONC.PN ---
Subjective Subjective Remarks Afebrile Pt resting in bed C/o bilateral leg pain Denies bleeding or the taste of blood in her mouth Objective Data Date Time Temp Pulse Resp B/P (MAP) Pulse Ox O2 Delivery O2 Flow Rate FiO2 08/12/17 06:00 101 08/12/17 05:48 15 08/12/17 04:00 97 08/12/17 04:00 97.9 97 26 99/79 (86) 100 08/12/17 02:00 93 08/12/17 00:00 97 08/12/17 00:00 97.2 97 33 105/68 (80) 100 08/11/17 23:29 99 21 08/11/17 22:00 107 08/11/17 20:00 97.8 117 29 104/65 (78) 99 08/11/17 20:00 117 08/11/17 18:00 105 08/11/17 18:00 105 107/69 08/11/17 16:00 92 08/11/17 16:00 97.8 92 24 105/68 (80) 100 08/11/17 16:00 92 105/68 08/11/17 14:00 101 08/11/17 14:00 101 88/55 08/12/17 08/12/17 08/12/17 07:00 15:00 23:00 Intake Total 1100 ml Output Total 385 ml Balance 715 ml Result Diagram: 08/12/17 0415 08/12/17 0415 Laboratory Results Laboratory Tests Test 08/12/17 04:15 08/12/17 10:20 White Blood Count 9.5 TH/MM3 Red Blood Count 2.98 MIL/MM3 Hemoglobin 8.5 GM/DL Hematocrit 24.4 % Mean Corpuscular Volume 81.8 FL Mean Corpuscular Hemoglobin 28.5 PG Mean Corpuscular Hemoglobin Concent 34.9 % Red Cell Distribution Width 15.2 % Platelet Count 47 TH/MM3 Mean Platelet Volume 9.6 FL Neutrophils (%) (Auto) 78.6 % Lymphocytes (%) (Auto) 13.8 % Monocytes (%) (Auto) 6.6 % Eosinophils (%) (Auto) 0.6 % Basophils (%) (Auto) 0.4 % Neutrophils # (Auto) 7.5 TH/MM3 Lymphocytes # (Auto) 1.3 TH/MM3 Monocytes # (Auto) 0.6 TH/MM3 Eosinophils # (Auto) 0.1 TH/MM3 Basophils # (Auto) 0.0 TH/MM3 CBC Comment AUTO DIFF Differential Total Cells Counted 100 Neutrophils % (Manual) 86 % Band Neutrophils % 9 % Lymphocytes % 2 % Monocytes % 2 % Eosinophils % 1 % Neutrophils # (Manual) 9.0 TH/MM3 Differential Comment FINAL DIFF MANUAL Platelet Estimate LOW Platelet Morphology Comment NORMAL Helmet Cells Acanthocytes OCC Keratocytes OCC Blood Urea Nitrogen 45 MG/DL Creatinine 1.42 MG/DL Random Glucose 169 MG/DL Total Protein 5.2 GM/DL Albumin 1.5 GM/DL Calcium Level 6.6 MG/DL Alkaline Phosphatase 101 U/L Aspartate Amino Transf (AST/SGOT) 25 U/L Alanine Aminotransferase (ALT/SGPT) 15 U/L Total Bilirubin 1.5 MG/DL Sodium Level 135 MEQ/L Potassium Level 4.5 MEQ/L Chloride Level 108 MEQ/L Carbon Dioxide Level 19.3 MEQ/L Anion Gap 8 MEQ/L Estimat Glomerular Filtration Rate 41 ML/MIN Protein Corrected Calcium 7.5 MG/DL Prothrombin Time 11.7 SEC Prothromb Time International Ratio 1.2 RATIO Activated Partial Thromboplast Time 33.3 SEC Culture Results Microbiology Date/Time Source Procedure Growth Status 08/12/17 04:15 Blood Peripheral Aerobic Blood Culture Pending Received 08/12/17 04:15 Blood Peripheral Anaerobic Blood Culture Pending Received 08/11/17 06:40 Blood Peripheral Aerobic Blood Culture - Preliminary Gram Positive Cocci Resulted 08/11/17 06:40 Blood Peripheral Anaerobic Blood Culture - Preliminary NO GROWTH IN 1 DAY Resulted 08/09/17 20:34 Blood Peripheral Aerobic Blood Culture - Final Staphylococcus Aureus Complete 08/09/17 20:34 Anaerobic Blood Culture - Final Staphylococcus Aureus Complete 08/09/17 20:29 Blood Peripheral Aerobic Blood Culture - Final Staphylococcus Aureus Complete 08/09/17 20:29 Anaerobic Blood Culture - Final Staphylococcus Aureus Complete 08/09/17 21:50 Nasal Washing Influenza Types A,B Antigen (KAMRON) - Final NEGATIVE FOR FLU A AND B ANTIGEN.... Complete 08/09/17 20:34 Urine Catheterized Urine Urine Culture - Final Staphylococcus Aureus Escherichia Coli Complete Administered Medications Medications (Trade) Dose Ordered Sig/Pee Route PRN Reason Start Time Stop Time Status Last Admin Dose Admin Sodium Chloride (NS Flush) 2 ml BID IV FLUSH 08/10/17 09:00 08/12/17 08:27 Albuterol Sulfate (Albuterol Neb) 2.5 mg Q2HR NEB PRN INH SOB/WHEEZING 08/09/17 22:15 08/12/17 04:10 Miscellaneous Information 1 Q361D XX 08/09/17 22:15 08/09/17 22:15 Chlorhexidine Gluconate (Chlorhexidine 2% Cloth) 3 pack Taper DAILY@04 TOP 08/10/17 04:00 08/06/18 03:59 08/11/17 03:58 Senna/Docusate Sodium (Cira-Colace) 1 tab BID PO 08/10/17 09:00 08/11/17 09:48 Potassium Chloride 100 ml @ 50 mls/hr Q2H PRN IV For Potassium 2.8 - 3.2 mEq/L 08/10/17 00:15 08/11/17 10:44 Potassium Phosphate (K-Phos) 2,000 mg Q4H PRN PO For Phosphorus < 2.5 mg/dL 08/10/17 00:15 08/10/17 21:18 Sodium Phosphate 30 mmol/Sodium Chloride 250 ml @ 42 mls/hr UNSCH PRN IV For Phosphorus < 2.5 mg/dL 08/10/17 00:15 08/10/17 11:15 Acetaminophen/ Hydrocodone Bitart ([place] 10-325 Mg) 1 tab Q4H PRN PO PAIN 1-5 08/10/17 02:00 08/12/17 13:19 Acetaminophen/ Hydrocodone Bitart ([place] 10-325 Mg) 2 tab Q4H PRN PO PAIN 6-10 08/10/17 02:00 08/12/17 13:22 Nicotine (Habitrol 21 Mg Patch.24 Hr) 1 patch DAILY T-DERMAL 08/10/17 09:00 08/12/17 08:30 Miscellaneous Information 1 DAILY T-DERMAL 08/10/17 09:00 08/12/17 08:29 Pantoprazole Sodium (Protonix) 40 mg DAILY PO 08/10/17 09:00 08/12/17 08:27 Phenylephrine HCl 40 mg/Dextrose 500 ml @ 30 mls/hr TITRATE PRN IV Blood pressure management 08/10/17 03:15 08/11/17 00:41 Insulin Aspart (NovoLOG SUPPLEMENTAL SCALE) 1 Q4H SQ 08/10/17 12:00 08/11/17 20:00 Gentamicin Sulfate 40 mg/ Sodium Chloride 101 ml @ 100 mls/hr Q12H IV 08/10/17 16:00 Future Hold 08/11/17 15:49 Rifampin (Rifampin) 300 mg Q12H PO 08/10/17 15:00 08/12/17 02:04 Oxacillin Sodium 2 gm/Sodium Chloride 100 ml @ 200 mls/hr Q4H IV 08/11/17 14:00 08/12/17 13:22 Objective Remarks GENERAL: Younger female, resting in bed in no acute distress SKIN: Warm and dry. HEAD: Normocephalic. EYES: No injection or drainage. NECK: Supple, trachea midline. CARDIOVASCULAR: Mildly tachycardic. Remains on vasopressors RESPIRATORY: Clear anteriorly. Breathing unlabored at rest. GASTROINTESTINAL: Abdomen mildly protuberant. Nontender to palpation. EXTREMITIES: No cyanosis, or edema. MUSCULOSKELETAL: Adequate muscle tone. NEUROLOGICAL: No obvious focal deficit. Awake, alert, and oriented x3. Assessment/Plan Problem List: (1) H/O endocarditis ICD Codes: Z86.79 - Personal history of other diseases of the circulatory system Status: Chronic Plan: -- On vancomycin -- ID following -- Echocardiogram on 08/11 shows findings consistent with vegetation on the aortic, mitral, and tricuspid valves. -- Pt with poor prognosis and palliative care is involved. (2) DIC (disseminated intravascular coagulation) ICD Codes: D65 - Disseminated intravascular coagulation [defibrination syndrome ] Status: Acute Plan: -- DIC related to sepsis and recurrent endocarditis -- Status post 1 unit of cryoprecipitate on 08/10 -- Plan to transfuse for platelets less than 20,000 and fibrinogen level less than 100,000 -- Patient also likely has thrombocytopenia at baseline due to history of hepatitis C and splenomegaly Assessment 37-year-old female admitted for sepsis; hematology consulted for thrombocytopenia Plan 1. Monitor CBC, Coags and Fibrinogen 2. Transfuse for platelets less than 20K or Fibrinogen less than 100. 3. Monitor for bleeding Attending Statement The exam, history, and the medical decision-making described in the above note were completed with the assistance of the mid-level provider. I reviewed and agree with the findings presented. I attest that I had a [id number] encounter with the patient on the same day, and personally performed and documented my assessment and findings in the medical record. No bleeding reported. Platelet has trended up. Continue to monitor CBC and coags. DIC is improving. Treatment of endocarditis per ID and cardiology. Bella San Aug 12, 2017 13:42 Farshad Wilburn MD Aug 12, 2017 16:19
[2017-08-12] MEDS ORDERED: ALPRAZolam 0.25 MG TAB PO ONE (19:00)
[2017-08-13] VITALS (12 sets, daily range): BP systolic 106–123; BP diastolic 70–84; PULSE 97–118; RESP 25–34; TEMP 97.8–98.8; O2SAT 97–100
[2017-08-13] MEDS: OXACILLIN INJ 2 GM in SODIUM CHLORIDE 0.9% INJ 100 ML IV SCH ×6 (02:01→22:38)
[2017-08-13] MEDS: ACETAMINOPHEN/HYDROcodone 325 MG/10 MG TAB PO PRN ×3 (02:31→11:19)
[2017-08-13] MEDS: RIFAMPIN 150 MG CAP PO SCH ×2 (02:33→15:54)
[2017-08-13] MEDS: INSULIN ASPART SUPPLEMENTAL SCALE SQ SCH ×6 (04:00→20:00)
[2017-08-13] MEDS: CHLORHEXIDINE GLUCONATE 2 % 1 PACK (2 CLOTHS) TOP SCH (04:23)
[2017-08-13 06:01] LABS: AUTOMATED NEUTROPHIL # 8.9 TH/MM3 (1.8-7.7); BASOPHIL % 0.2 % (0.0-2.0); EOSINOPHIL # 0.1 TH/MM3 (0-0.4); EOSINOPHIL % 0.7 % (0.0-4.0); HEMATOCRIT 27.3 % (35.0-46.0); HEMOGLOBIN 9.4 GM/DL (11.6-15.3); LYMPH % 14.1 % (9.0-44.0); LYMPHOCYTE # 1.6 TH/MM3 (1.0-4.8); MEAN CELL VOLUME 81.8 FL (80.0-100.0); MEAN CORPUSCULAR HEMOGLOBIN 28.2 PG (27.0-34.0); MEAN CORPUSCULAR HGB CONC 34.4 % (32.0-36.0); MEAN PLATELET VOLUME 8.8 FL (7.0-11.0); MONO % 4.9 % (0.0-8.0); MONOCYTE # 0.5 TH/MM3 (0-0.9); NEUT % 80.1 % (16.0-70.0); PLATELET COUNT 74 TH/MM3 (150-450); RED BLOOD COUNT 3.33 MIL/MM3 (4.00-5.30); RED CELL DISTRIBUTION WIDTH 15.6 % (11.6-17.2); WHITE BLOOD COUNT 11.1 TH/MM3 (4.0-11.0)
[2017-08-13 06:09] LABS: INTERNATIONAL NORMALIZED RATIO 1.1 RATIO; PROTHROMBIN TIME - PATIENT 10.9 SEC (9.8-11.6)
[2017-08-13 06:38] LABS: BICARBONATE 17.6 MEQ/L (21.0-32.0); CALCIUM 7.1 MG/DL (8.5-10.1); CREATININE 1.7 MG/DL (0.50-1.00); MAGNESIUM 2.2 MG/DL (1.5-2.5); PHOSPHORUS 6.6 MG/DL (2.5-4.9)
[2017-08-13 07:03] LABS: CALCIUM-PROTEIN CORRECTED 7.9 MG/DL (8.5-10.1); TOTAL PROTEIN 5.6 GM/DL (6.4-8.2)
[2017-08-13 07:44] LABS: KERATOCYTES OCC (NORMAL)
--- NOTE | 2017-08-13 08:38 | HHI.CCPN ---
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 She states that her valve replacement was performed at [place] but I do not see record of this. She is unsure of when it was done. Unable to pull up old CXRs. She is uncertain of causative organism or treatment course. She [place] [facility] [place] stating that she has had a 2 day history of subjective fever and nonproductive cough. She has also had tender, painful lesions on her hands and feet which on exam are consistent with [place] nodes. She states the reason she sought medical treatment was that "the pain became unbearable" and that it hurt to walk to the bathroom because of the tenderness on the soles of her feet. She denies headache , sore throat, chest pain, abdominal pain, hemoptysis. She states she has been actively injecting Suboxone which she acquired from "the street", stating she last injected into her right neck on 08/08/17 at around noon. In the ED, 2 sets of blood cultures were obtained, urinalysis and urine culture. She was given Vancomycin, zosyn, and 2 L NS bolus. Influenza screen is negative. Her sodium is 121, potassium 3, creatinine 1.29, lactic acid 5.9. 08/10 Patient is on Neosyn 40 mics. T:103.0 last night. BC from 08/09: GPC 2/4 bottles 06/01: C/o pain in left foot. 06/12 No events overnight. On Neosyn 10 mics. Afebrile. 06/13 Patient is lying in bed in NAD. Afebrile. Off Neosyn. Cr. increased 1.7 today from 1.4 Objective Vital Signs Date Time Temp Pulse Resp B/P (MAP) Pulse Ox O2 Delivery O2 Flow Rate FiO2 08/13/17 06:00 115 08/13/17 04:00 97.8 34 123/80 (94) 98 08/12/17 19:12 21 08/09/17 23:00 Room Air Intake and Output 08/13/17 08/13/17 08/14/17 08:00 16:00 00:00 Intake Total 960 ml Output Total 450 ml Balance 510 ml Result Diagram: 08/13/17 0450 08/13/17 0450 Other Results Laboratory Tests Test 08/12/17 10:20 08/13/17 04:50 Prothrombin Time 11.7 SEC 10.9 SEC Prothromb Time International Ratio 1.2 RATIO 1.1 RATIO Activated Partial Thromboplast Time 33.3 SEC 32.1 SEC White Blood Count 11.1 TH/MM3 Red Blood Count 3.33 MIL/MM3 Hemoglobin 9.4 GM/DL Hematocrit 27.3 % Mean Corpuscular Volume 81.8 FL Mean Corpuscular Hemoglobin 28.2 PG Mean Corpuscular Hemoglobin Concent 34.4 % Red Cell Distribution Width 15.6 % Platelet Count 74 TH/MM3 Mean Platelet Volume 8.8 FL Neutrophils (%) (Auto) 80.1 % Lymphocytes (%) (Auto) 14.1 % Monocytes (%) (Auto) 4.9 % Eosinophils (%) (Auto) 0.7 % Basophils (%) (Auto) 0.2 % Neutrophils # (Auto) 8.9 TH/MM3 Lymphocytes # (Auto) 1.6 TH/MM3 Monocytes # (Auto) 0.5 TH/MM3 Eosinophils # (Auto) 0.1 TH/MM3 Basophils # (Auto) 0.0 TH/MM3 CBC Comment AUTO DIFF Differential Comment AUTO DIFF CONFIRMED Platelet Estimate LOW Platelet Morphology Comment NORMAL Keratocytes OCC Fibrinogen 375 mg/dL Blood Urea Nitrogen 46 MG/DL Creatinine 1.70 MG/DL Random Glucose 90 MG/DL Total Protein 5.6 GM/DL Calcium Level 7.1 MG/DL Phosphorus Level 6.6 MG/DL Magnesium Level 2.2 MG/DL Sodium Level 135 MEQ/L Potassium Level 4.6 MEQ/L Chloride Level 107 MEQ/L Carbon Dioxide Level 17.6 MEQ/L Anion Gap 10 MEQ/L Estimat Glomerular Filtration Rate 33 ML/MIN Protein Corrected Calcium 7.9 MG/DL Imaging Last Impressions Chest X-Ray 08/11/17 0600 Signed Impressions: Service Date/Time: Friday, August 11, 2017 03:37 - CONCLUSION: Left upper lobe and perihilar consolidation. Rod Garcia MD Lower Extremity Ultrasound 08/10/17 0000 Signed Impressions: Service Date/Time: Thursday, August 10, 2017 07:51 - CONCLUSION: Normal examination. No evidence of DVT Ambrose Verdin MD Liver Ultrasound 08/10/17 0000 Signed Impressions: Service Date/Time: Thursday, August 10, 2017 08:04 - CONCLUSION: 1. Abnormal gallbladder filled with sludge and demonstrating wall thickening. There are no additional findings are present to suggest acute gallbladder inflammation. 2. Trace free fluid in the abdomen and small bilateral pleural effusions. 3. Mild splenomegaly. Rod Pascual MD Head CT 08/10/17 0000 Signed Impressions: Service Date/Time: Thursday, August 10, 2017 02:33 - CONCLUSION: No acute disease. Rod Garcia MD Objective Remarks GENERAL: Thin disheveled female who is alert and sitting up in bed. SKIN: Warm and dry. There are petechial lesions on the palms of both hands. There are tender raised purpuric lesions on the palmar surface of left fifth digit and left thenar eminence c/w osler nodes. There are similar tender lesions on pad of bilateral feet overlying toes and distal metatarsals L>R. Toes dusky. No splinter hemorrhages. Track blane present right neck and Left forearm. VASC: DP and TAIL RIPPER pulses present bilaterally. HEAD: Atraumatic. Normocephalic. EYES: Pupils equal and round. No scleral icterus. No injection or drainage. ENT: No nasal bleeding or discharge. Mucous membranes dry. No pharyngeal erythema. No thrush. NECK: Trachea midline. No JVD. No meningismus CARDIOVASCULAR: Tachycardic, regular, sinus tach on the monitor with rate in the high 110s. I am unable to appreciate a murmur at current heart rate. RESPIRATORY: Tachypneic but overall appears comfortable without accessory muscle use. Bibasilar Rales present. No wheezes or rhonchi. GASTROINTESTINAL: Abdomen soft, non-tender, nondistended. Bowel sounds present. MUSCULOSKELETAL: Extremities without clubbing, cyanosis, or edema. NEUROLOGICAL: Awake and alert. No obvious cranial nerve deficits. Strength 5 out of 5 in all extremity. Sensation intact. A/P Problem List: (1) Severe sepsis ICD Code: A41.9 - Sepsis, unspecified organism; R65.20 - Severe sepsis without septic shock Status: Acute (2) DIC (disseminated intravascular coagulation) ICD Code: D65 - Disseminated intravascular coagulation [defibrination syndrome] Status: Acute (3) Cocaine abuse ICD Code: F14.10 - Cocaine abuse, uncomplicated Status: Chronic (4) IVDU (intravenous drug user) ICD Code: F19.90 - Other psychoactive substance use, unspecified, uncomplicated Status: Chronic (5) H/O prosthetic mitral valve ICD Code: Z95.2 - Presence of prosthetic heart valve Status: Chronic (6) H/O endocarditis ICD Code: Z86.79 - Personal history of other diseases of the circulatory system Status: Chronic (7) Lactic acidosis ICD Code: E87.2 - Acidosis Status: Acute (8) Hyponatremia ICD Code: E87.1 - Hypo-osmolality and hyponatremia (9) Hypokalemia ICD Code: E87.6 - Hypokalemia Status: Acute Permanent Comment: unknown chronicity, probably subacute Last Edited By: Yashira Ivey on Aug 10, 2017 07:41 (10) INES (acute kidney injury) ICD Code: N17.9 - Acute kidney failure, unspecified (11) Hyperbilirubinemia ICD Code: E80.6 - Other disorders of bilirubin metabolism Status: Acute (12) Abnormal transaminases ICD Code: R74.8 - Abnormal levels of other serum enzymes Status: Acute (13) Elevated troponin level ICD Code: R74.8 - Abnormal levels of other serum enzymes Status: Acute Assessment and Plan NEURO: Acute encephalopathy, probably toxic metabolic secondary to sepsis. IV drug use Opioid abuse Cocaine abuse Salicylate and Tylenol levels negative. Ammonia level low. CT brain no acute disease RESP: Tobacco abuse Oxygen PRN keep sat >92% Incentive spirometry every hour awake. Tobacco cessation counseling. Nicotine patch CXR 08/11 TOR and perihilar consolidation CV: Elevated troponin Monitor HR and BP keep MAP>65mmHg Lactic acid cleared 1.7 from 5.9 on arrival Received 2 L normal saline bolus in the ED 08/09. Echo showed vegetations on TV, AV, MV, EF 50-55% GI: Elevated AST and hyperbilirubinemia ( improving) Ammonia level normal US liver: Abnormal gallbladder filled with sludge and demonstrating wall thickening. There are no additional findings are present to suggest acute gallbladder inflammation. Trace free fluid in the abdomen and small bilateral pleural effusions.. Mild splenomegaly. Follow up viral hepatitis panel- Hep C ab reactive [employer] - test negative on admission. FEN/RENAL: Acute kidney injury Avoid NSAIDs and other nephrotoxins. Received ketorolac in ED 08/09. Monitor renal function , electrolytes replacement per protocol. Diurese with Lasix 40mg x1 TSH: 1.93, cortisol level 65. CPK normal. ID: Septic shock. 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 s/p 5units cryo 08/10 Heme is following ENDO: Acute hyperglycemia SSI with accuchekcs for glycemic control TSH: 1.9 Cortisol level: 65 PROPH: SCDs for DVT prophylaxis. Not on DVT prophylaxis due to severe thrombocytopenia. Protonix 40 mg by mouth daily for stress ulcer prophylaxis. ACCESS: Left IJ CVP placed 08/10 Full code Palliative care is following Poor prognosis given multiple valves involved with endocarditis, worsening renal function and staph Bacteremia Level 3 Milton Velásquez MD Aug 13, 2017 08:38
[2017-08-13] MEDS ORDERED: FUROSEMIDE 40 MG/4 ML VIAL IV PUSH ONE (08:45)
[2017-08-13] MEDS: DOCUSATE SODIUM 50 MG/SENNA 8.6 MG TAB PO SCH ×2 (09:00→21:00)
[2017-08-13] MEDS: SODIUM CHLORIDE 0.9% FLUSH 10 ML FLUSH IV FLUSH SCH ×2 (09:00→21:00)
[2017-08-13] MEDS: REMOVE OLD PATCH T-DERMAL SCH (09:00)
[2017-08-13] MEDS: PANTOPRAZOLE SOD 40 MG DELAYED RELEASE TAB PO SCH (09:00)
[2017-08-13] MEDS: NICOTINE 21 MG/24 HR PATCH T-DERMAL SCH (09:00)
--- NOTE | 2017-08-13 11:08 | HHI.IDPN ---
Note Infectious Disease Note Patient complains of pain in her feet. denies chills. Afebrile. Repeat blood culture on 08/11/17 has staph aureus. Urine output 150cc overnight. Getting lasix. Discussed with RN. No new embolic lesions at the extremities. 2D ECHO - vegetations noted on three valves. Aortic, mitral and tricuspid. PAST MEDICAL HISTORY 1. Prosthetic valve endocarditis. 2. Mitral valve replacement 3. Hepatitis C 4. Anxiety disorder 5. Seizure disorder 6. IV drug use. ALLERGIES NO KNOWN DRUG ALLERGIES. MEDICATIONS 1. Vancomycin 2. Rifampin. SOCIAL HISTORY Positive tobacco use one pack a day. No alcohol. Positive IV drug use reported the last use on 08/12/2017. The patient reportedly administered the IV drug into the neck vein. OBJECTIVE: Vital Signs Date Time Temp Pulse Resp B/P (MAP) Pulse Ox O2 Delivery O2 Flow Rate FiO2 08/13/17 08:00 103 08/13/17 06:00 115 08/13/17 04:00 97.8 109 34 123/80 (94) 98 08/13/17 04:00 109 08/13/17 03:31 16 08/13/17 02:00 97 08/13/17 00:00 111 08/13/17 00:00 98.1 111 28 106/70 (82) 100 08/12/17 22:00 107 08/12/17 20:00 104 08/12/17 20:00 97.7 104 31 110/72 (85) 98 08/12/17 19:12 100 21 08/12/17 18:00 103 08/12/17 17:00 102 08/12/17 16:00 105 08/12/17 16:00 97.4 105 29 113/84 (94) 100 08/12/17 14:00 104 08/12/17 12:00 97.3 103 33 105/67 (80) 100 08/12/17 12:00 103 Laboratory Tests Test 08/12/17 04:15 08/13/17 04:50 White Blood Count 9.5 TH/MM3 11.1 TH/MM3 Red Blood Count 2.98 MIL/MM3 3.33 MIL/MM3 Hemoglobin 8.5 GM/DL 9.4 GM/DL Hematocrit 24.4 % 27.3 % Mean Corpuscular Volume 81.8 FL 81.8 FL Mean Corpuscular Hemoglobin 28.5 PG 28.2 PG Mean Corpuscular Hemoglobin Concent 34.9 % 34.4 % Red Cell Distribution Width 15.2 % 15.6 % Platelet Count 47 TH/MM3 74 TH/MM3 Mean Platelet Volume 9.6 FL 8.8 FL Neutrophils (%) (Auto) 78.6 % 80.1 % Lymphocytes (%) (Auto) 13.8 % 14.1 % Monocytes (%) (Auto) 6.6 % 4.9 % Eosinophils (%) (Auto) 0.6 % 0.7 % Basophils (%) (Auto) 0.4 % 0.2 % Neutrophils # (Auto) 7.5 TH/MM3 8.9 TH/MM3 Lymphocytes # (Auto) 1.3 TH/MM3 1.6 TH/MM3 Monocytes # (Auto) 0.6 TH/MM3 0.5 TH/MM3 Eosinophils # (Auto) 0.1 TH/MM3 0.1 TH/MM3 Basophils # (Auto) 0.0 TH/MM3 0.0 TH/MM3 CBC Comment AUTO DIFF AUTO DIFF Differential Total Cells Counted 100 Neutrophils % (Manual) 86 % Band Neutrophils % 9 % Lymphocytes % 2 % Monocytes % 2 % Eosinophils % 1 % Neutrophils # (Manual) 9.0 TH/MM3 Differential Comment FINAL DIFF MANUAL AUTO DIFF CONFIRMED Platelet Estimate LOW LOW Platelet Morphology Comment NORMAL NORMAL Helmet Cells Acanthocytes OCC Keratocytes OCC OCC Laboratory Tests Test 08/12/17 04:15 08/13/17 04:50 Blood Urea Nitrogen 45 MG/DL 46 MG/DL Creatinine 1.42 MG/DL 1.70 MG/DL Random Glucose 169 MG/DL 90 MG/DL Total Protein 5.2 GM/DL 5.6 GM/DL Albumin 1.5 GM/DL Calcium Level 6.6 MG/DL 7.1 MG/DL Alkaline Phosphatase 101 U/L Aspartate Amino Transf (AST/SGOT) 25 U/L Alanine Aminotransferase (ALT/SGPT) 15 U/L Total Bilirubin 1.5 MG/DL Sodium Level 135 MEQ/L 135 MEQ/L Potassium Level 4.5 MEQ/L 4.6 MEQ/L Chloride Level 108 MEQ/L 107 MEQ/L Carbon Dioxide Level 19.3 MEQ/L 17.6 MEQ/L Anion Gap 8 MEQ/L 10 MEQ/L Estimat Glomerular Filtration Rate 41 ML/MIN 33 ML/MIN Protein Corrected Calcium 7.5 MG/DL 7.9 MG/DL Phosphorus Level 6.6 MG/DL Magnesium Level 2.2 MG/DL Microbiology Date/Time Source Procedure Growth Status 08/12/17 04:15 Blood Peripheral Aerobic Blood Culture Pending Worksheet 08/12/17 04:15 Blood Peripheral Anaerobic Blood Culture Pending Worksheet 08/11/17 06:40 Blood Peripheral Aerobic Blood Culture - Final Staphylococcus Aureus Resulted 08/11/17 06:40 Blood Peripheral Anaerobic Blood Culture - Preliminary NO GROWTH IN 1 DAY Resulted Microbiology Date/Time Source Procedure Growth Status 08/11/17 06:40 Blood Peripheral Aerobic Blood Culture Pending Received 08/11/17 06:40 Blood Peripheral Anaerobic Blood Culture Pending Received 08/09/17 20:34 Blood Peripheral Aerobic Blood Culture - Preliminary Staphylococcus Aureus Resulted 08/09/17 20:34 Blood Peripheral Anaerobic Blood Culture - Preliminary NO GROWTH IN 2 DAYS Resulted 08/09/17 20:29 Blood Peripheral Aerobic Blood Culture - Preliminary NO GROWTH IN 2 DAYS Resulted 08/09/17 20:29 Anaerobic Blood Culture - Preliminary Gram Positive Cocci Resulted 08/09/17 21:50 Nasal Washing Influenza Types A,B Antigen (KAMRON) - Final NEGATIVE FOR FLU A AND B ANTIGEN.... Complete 08/09/17 20:34 Urine Catheterized Urine Urine Culture - Final Staphylococcus Aureus Escherichia Coli Complete IMAGING: Chest X-Ray 08/11/17 0600 Signed Impressions: Service Date/Time: Friday, August 11, 2017 03:37 - CONCLUSION: Left upper lobe and perihilar consolidation. Rod Garcia MD Lower Extremity Ultrasound 08/10/17 0000 Signed Impressions: Service Date/Time: Thursday, August 10, 2017 07:51 - CONCLUSION: Normal examination. No evidence of DVT Ambrose Verdin MD Liver Ultrasound 08/10/17 0000 Signed Impressions: Service Date/Time: Thursday, August 10, 2017 08:04 - CONCLUSION: 1. Abnormal gallbladder filled with sludge and demonstrating wall thickening. There are no additional findings are present to suggest acute gallbladder inflammation. 2. Trace free fluid in the abdomen and small bilateral pleural effusions. 3. Mild splenomegaly. Rod Pascual MD Head CT 08/10/17 0000 Signed Impressions: Service Date/Time: Thursday, August 10, 2017 02:33 - CONCLUSION: No acute disease. Rod Garcia MD PHYSICAL EXAMINATION GENERAL: Awake and alert. HEAD, EYES, EARS, NOSE, AND THROAT: No icterus. No conjunctival erythema. Oropharynx slightly dry mucosa. NECK: Supple without adenopathy. LUNGS: Decreased breath sounds bilateral. HEART: 2/6 systolic murmur at the left sternal border. ABDOMEN: Bowel sounds present, flat, soft, nontender. EXTREMITIES: No clubbing or cyanosis. Embolic lesions at the index, third finger and fifth finger on the left hand also fingers on the right and multiple purpuric areas at the base of the toes and at the bulb of the left foot and right great toe. Multiple track gifford at the antecubital areas of both hands. Positive tenderness on palpation of the left calf. No swelling of the left calf. SKIN: No diffuse rash. NEUROLOGIC: Alert and oriented. No gross focal findings. PSYCHIATRIC: Patient is calm and cooperative. IMPRESSION 1. Prosthetic valve endocarditis involving three valves. Aortic, mitral and tricuspid with embolic lesions to the feet and fingers. 2. Bacteremia staph aureus. MSSA. Blood cultures still positive. 3. Acute kidney disease 4. Thrombocytopenia. RECOMMENDATIONS 1. Continue Oxacillin IV. 2. Continue Rifampin. 3. Monitor renal function. 4. Monitor clinical status. 5. Follow repeat blood cultures. Patient needs to be treated with 6 weeks of IV antibiotics from day of negative blood culture. Lucas Damian MD Aug 13, 2017 11:08
--- NOTE | 2017-08-13 11:26 | HHI.HCPN ---
Reason for visit a. To assist with evaluation and management of symptoms including: pain, dyspnea, anxiety b. To assist medical decision maker(s) with: better understanding of current medical conditions; weighing benefits/burdens of medical treatment options; making medical treatment decisions. Subjective/Interval History Patient seen and examined in ICU; joint visit with CORINNA [place]. Discussed with Dr Damian, Dr Escobar and nurse. She remains awake and anxious, bordering on tearfulness at times as she relates pain in her abdomen, hands and feet, but most of all her distress at not being able to sleep at night. She is asking for medication for sleep as well as anxiety. 02 saturations on room air remain in the high 90s; less tachypnea today. Significant other Jerry Nevarez also present. Family/friend interactions Discussed with S.O. Jerry Nevarez and patient that the course of her illness is likely to extend for several months and that she will need antibiotic therapy for life; both verbalize that they are prepared for this and are willing to comply with these recommendations. Jerry had an extended hospital stay for osteomyelitis and both verbalize understanding of this process. They both also verbalize clear understanding of the absolute imperative need to refrain from ANY IV drug use in future. Advance Directives Living Will: Never completed Health Care Surrogate: Never completed Durable Power of Horses Or Mules Teamster: Never completed Advance Directive Specifics Documented care wishes: Patient is currently capacitated to make decisions. Casual discussion underway about executing a written HCS and she indicates that it would likely be her father, although she will consider options further. Per [place] statute, in the absence of a written HCS, decision making would fall to her parents.. Significant change in goals: Discussed with patient and S.O. the need for long-term treatment and followup. They both are tearful but are committed to aggressive goals for now with all options for treatment still on the table. Objective Vital Signs Date Time Temp Pulse Resp B/P (MAP) Pulse Ox O2 Delivery O2 Flow Rate FiO2 08/13/17 10:00 118 08/13/17 08:00 98.2 104 29 107/77 (87) 100 08/13/17 08:00 103 08/13/17 06:00 115 08/13/17 04:00 97.8 109 34 123/80 (94) 98 08/13/17 04:00 109 1/19/18 03:31 16 08/13/17 02:00 97 08/13/17 00:00 111 08/13/17 00:00 98.1 111 28 106/70 (82) 100 08/12/17 22:00 107 08/12/17 20:00 104 08/12/17 20:00 97.7 104 31 110/72 (85) 98 08/12/17 19:12 100 21 08/12/17 18:00 103 08/12/17 17:00 102 08/12/17 16:00 105 08/12/17 16:00 97.4 105 29 113/84 (94) 100 08/12/17 14:00 104 08/12/17 12:00 97.3 103 33 105/67 (80) 100 08/12/17 12:00 103 Intake & Output 08/13/17 08/13/17 07:00 19:00 Intake Total 960 ml Output Total 450 ml Balance 510 ml Intake Oral 960 ml Output Urine Total 450 ml # Bowel Movements 1 Physical Exam CONSTITUTIONAL/GENERAL: awake and alert reclining in bed; anxious but less dyspneic than yesterday TUBES/LINES/DRAINS: PIV SKIN: tender, petechial lesions on left hand and bilateral soles of feet.. No generalized rashes or lesions; skin warm. HEAD: Atraumatic. Normocephalic. EYES: Pupils equal and round and reactive. Extraocular motions intact.Conjunctivae pale. ENT: Hearing grossly normal. Nose without bleeding or purulent drainage. Oropharynx mildly pale; adequate dentition NECK: Trachea midline. Supple, nontender. No palpable thyroid enlargement or nodularity. CARDIOVASCULAR: Tachycardic; regular rhythm; difficult to auscultate RESPIRATORY/CHEST: diminished throughout; poor inspiratory effort GASTROINTESTINAL: Abdomen more distended today; she complains of LUQ pain; does not tolerate any deep palpation; bowel sounds hypoactive GENITOURINARY: Without palpable bladder distension. . MUSCULOSKELETAL: Extremities without clubbing or cyanosis; trace edema BLE LYMPHATICS: No palpable cervical or supraclavicular adenopathy. NEUROLOGICAL: Awake and alert. Motor and sensory grossly within normal limits. Follows commands. Cognitively sharp. Moves all extremities; tenderness with BLE extension; gait not tested. PSYCHIATRIC: tearful; generally anxious although responsive and appropriate Diagnostic Tests Laboratory Laboratory Tests Test 08/10/17 16:50 08/10/17 22:00 08/11/17 05:15 08/11/17 10:00 White Blood Count 14.5 TH/MM3 (4.0-11.0) 11.8 TH/MM3 (4.0-11.0) Red Blood Count 3.02 MIL/MM3 (4.00-5.30) 3.21 MIL/MM3 (4.00-5.30) Hemoglobin 8.6 GM/DL (11.6-15.3) 9.1 GM/DL (11.6-15.3) Hematocrit 25.2 % (35.0-46.0) 26.1 % (35.0-46.0) Mean Corpuscular Volume 83.2 FL (80.0-100.0) 81.5 FL (80.0-100.0) Mean Corpuscular Hemoglobin 28.5 PG (27.0-34.0) 28.3 PG (27.0-34.0) Mean Corpuscular Hemoglobin Concent 34.2 % (32.0-36.0) 34.7 % (32.0-36.0) Red Cell Distribution Width 14.6 % (11.6-17.2) 14.8 % (11.6-17.2) Platelet Count 23 TH/MM3 (150-450) 25 TH/MM3 (150-450) Mean Platelet Volume 11.3 FL (7.0-11.0) 10.2 FL (7.0-11.0) Blood Urea Nitrogen 43 MG/DL (7-18) 43 MG/DL (7-18) 43 MG/DL (7-18) Creatinine 1.09 MG/DL (0.50-1.00) 1.18 MG/DL (0.50-1.00) 1.12 MG/DL (0.50-1.00) Random Glucose 141 MG/DL (74-106) 140 MG/DL (74-106) 130 MG/DL (74-106) Total Protein 4.8 GM/DL (6.4-8.2) 4.6 GM/DL (6.4-8.2) 4.9 GM/DL (6.4-8.2) Albumin 1.7 GM/DL (3.4-5.0) 1.5 GM/DL (3.4-5.0) Calcium Level 6.2 MG/DL (8.5-10.1) 6.1 MG/DL (8.5-10.1) 6.0 MG/DL (8.5-10.1) Alkaline Phosphatase 97 U/L (45-117) 99 U/L (45-117) Aspartate Amino Transf (AST/SGOT) 65 U/L (15-37) 40 U/L (15-37) Alanine Aminotransferase (ALT/SGPT) 19 U/L (10-53) 17 U/L (10-53) Total Bilirubin 1.7 MG/DL (0.2-1.0) 1.9 MG/DL (0.2-1.0) Sodium Level 134 MEQ/L (136-145) 134 MEQ/L (136-145) 135 MEQ/L (136-145) Potassium Level 3.0 MEQ/L (3.5-5.1) 3.2 MEQ/L (3.5-5.1) 3.4 MEQ/L (3.5-5.1) Chloride Level 101 MEQ/L (98-107) 104 MEQ/L (98-107) 105 MEQ/L (98-107) Carbon Dioxide Level 23.7 MEQ/L (21.0-32.0) 22.4 MEQ/L (21.0-32.0) 22.6 MEQ/L (21.0-32.0) Anion Gap 9 MEQ/L (5-15) 8 MEQ/L (5-15) 7 MEQ/L (5-15) Estimat Glomerular Filtration Rate 56 ML/MIN (>89) 51 ML/MIN (>89) 54 ML/MIN (>89) Protein Corrected Calcium 7.3 MG/DL (8.5-10.1) 7.3 MG/DL (8.5-10.1) 7.0 MG/DL (8.5-10.1) Neutrophils (%) (Auto) 67.2 % (16.0-70.0) Lymphocytes (%) (Auto) 27.1 % (9.0-44.0) Monocytes (%) (Auto) 4.6 % (0.0-8.0) Eosinophils (%) (Auto) 0.8 % (0.0-4.0) Basophils (%) (Auto) 0.3 % (0.0-2.0) Neutrophils # (Auto) 7.9 TH/MM3 (1.8-7.7) Lymphocytes # (Auto) 3.2 TH/MM3 (1.0-4.8) Monocytes # (Auto) 0.5 TH/MM3 (0-0.9) Eosinophils # (Auto) 0.1 TH/MM3 (0-0.4) Basophils # (Auto) 0.0 TH/MM3 (0-0.2) CBC Comment AUTO DIFF Differential Total Cells Counted 100 Neutrophils % (Manual) 85 % (16-70) Band Neutrophils % 6 % (0-6) Lymphocytes % 5 % (9-44) Monocytes % 3 % (0-8) Eosinophils % 1 % (0-4) Neutrophils # (Manual) 10.7 TH/MM3 (1.8-7.7) Differential Comment FINAL DIFF MANUAL Toxic Granulation 1+ (NORMAL) Platelet Estimate LOW (NORMAL) Platelet Morphology Comment NORMAL (NORMAL) Acanthocytes OCC (NORMAL) Keratocytes OCC (NORMAL) Prothrombin Time 12.0 SEC (9.8-11.6) Prothromb Time International Ratio 1.2 RATIO Activated Partial Thromboplast Time 34.3 SEC (24.3-30.1) Fibrinogen 209 mg/dL (227-377) Phosphorus Level 3.6 MG/DL (2.5-4.9) Magnesium Level 2.0 MG/DL (1.5-2.5) Lactate Dehydrogenase 352 U/L (84-246) Vancomycin Level Trough 20.2 MCG/ML (5.0-10.0) Test 08/12/17 04:15 08/12/17 10:20 08/13/17 04:50 White Blood Count 9.5 TH/MM3 (4.0-11.0) 11.1 TH/MM3 (4.0-11.0) Red Blood Count 2.98 MIL/MM3 (4.00-5.30) 3.33 MIL/MM3 (4.00-5.30) Hemoglobin 8.5 GM/DL (11.6-15.3) 9.4 GM/DL (11.6-15.3) Hematocrit 24.4 % (35.0-46.0) 27.3 % (35.0-46.0) Mean Corpuscular Volume 81.8 FL (80.0-100.0) 81.8 FL (80.0-100.0) Mean Corpuscular Hemoglobin 28.5 PG (27.0-34.0) 28.2 PG (27.0-34.0) Mean Corpuscular Hemoglobin Concent 34.9 % (32.0-36.0) 34.4 % (32.0-36.0) Red Cell Distribution Width 15.2 % (11.6-17.2) 15.6 % (11.6-17.2) Platelet Count 47 TH/MM3 (150-450) 74 TH/MM3 (150-450) Mean Platelet Volume 9.6 FL (7.0-11.0) 8.8 FL (7.0-11.0) Neutrophils (%) (Auto) 78.6 % (16.0-70.0) 80.1 % (16.0-70.0) Lymphocytes (%) (Auto) 13.8 % (9.0-44.0) 14.1 % (9.0-44.0) Monocytes (%) (Auto) 6.6 % (0.0-8.0) 4.9 % (0.0-8.0) Eosinophils (%) (Auto) 0.6 % (0.0-4.0) 0.7 % (0.0-4.0) Basophils (%) (Auto) 0.4 % (0.0-2.0) 0.2 % (0.0-2.0) Neutrophils # (Auto) 7.5 TH/MM3 (1.8-7.7) 8.9 TH/MM3 (1.8-7.7) Lymphocytes # (Auto) 1.3 TH/MM3 (1.0-4.8) 1.6 TH/MM3 (1.0-4.8) Monocytes # (Auto) 0.6 TH/MM3 (0-0.9) 0.5 TH/MM3 (0-0.9) Eosinophils # (Auto) 0.1 TH/MM3 (0-0.4) 0.1 TH/MM3 (0-0.4) Basophils # (Auto) 0.0 TH/MM3 (0-0.2) 0.0 TH/MM3 (0-0.2) CBC Comment AUTO DIFF AUTO DIFF Differential Total Cells Counted 100 Neutrophils % (Manual) 86 % (16-70) Band Neutrophils % 9 % (0-6) Lymphocytes % 2 % (9-44) Monocytes % 2 % (0-8) Eosinophils % 1 % (0-4) Neutrophils # (Manual) 9.0 TH/MM3 (1.8-7.7) Differential Comment FINAL DIFF MANUAL AUTO DIFF CONFIRMED Platelet Estimate LOW (NORMAL) LOW (NORMAL) Platelet Morphology Comment NORMAL (NORMAL) NORMAL (NORMAL) Helmet Cells (NORMAL) Acanthocytes OCC (NORMAL) Keratocytes OCC (NORMAL) OCC (NORMAL) Blood Urea Nitrogen 45 MG/DL (7-18) 46 MG/DL (7-18) Creatinine 1.42 MG/DL (0.50-1.00) 1.70 MG/DL (0.50-1.00) Random Glucose 169 MG/DL (74-106) 90 MG/DL (74-106) Total Protein 5.2 GM/DL (6.4-8.2) 5.6 GM/DL (6.4-8.2) Albumin 1.5 GM/DL (3.4-5.0) Calcium Level 6.6 MG/DL (8.5-10.1) 7.1 MG/DL (8.5-10.1) Alkaline Phosphatase 101 U/L (45-117) Aspartate Amino Transf (AST/SGOT) 25 U/L (15-37) Alanine Aminotransferase (ALT/SGPT) 15 U/L (10-53) Total Bilirubin 1.5 MG/DL (0.2-1.0) Sodium Level 135 MEQ/L (136-145) 135 MEQ/L (136-145) Potassium Level 4.5 MEQ/L (3.5-5.1) 4.6 MEQ/L (3.5-5.1) Chloride Level 108 MEQ/L (98-107) 107 MEQ/L (98-107) Carbon Dioxide Level 19.3 MEQ/L (21.0-32.0) 17.6 MEQ/L (21.0-32.0) Anion Gap 8 MEQ/L (5-15) 10 MEQ/L (5-15) Estimat Glomerular Filtration Rate 41 ML/MIN (>89) 33 ML/MIN (>89) Protein Corrected Calcium 7.5 MG/DL (8.5-10.1) 7.9 MG/DL (8.5-10.1) Prothrombin Time 11.7 SEC (9.8-11.6) 10.9 SEC (9.8-11.6) Prothromb Time International Ratio 1.2 RATIO 1.1 RATIO Activated Partial Thromboplast Time 33.3 SEC (24.3-30.1) 32.1 SEC (24.3-30.1) Fibrinogen 375 mg/dL (227-377) Phosphorus Level 6.6 MG/DL (2.5-4.9) Magnesium Level 2.2 MG/DL (1.5-2.5) Result Diagram: 08/13/1744908/13/17449 Microbiology Microbiology Date/Time Source Procedure Growth Status 08/12/17 04:15 Blood Peripheral Aerobic Blood Culture - Preliminary NO GROWTH IN 1 DAY Resulted 08/12/17 04:15 Blood Peripheral Anaerobic Blood Culture - Preliminary NO GROWTH IN 1 DAY Resulted 08/11/17 06:40 Blood Peripheral Aerobic Blood Culture - Final Staphylococcus Aureus Resulted 08/11/17 06:40 Blood Peripheral Anaerobic Blood Culture - Preliminary NO GROWTH IN 2 DAYS Resulted Imaging Last 72 hours Impressions Chest X-Ray 08/11/17 0600 Signed Impressions: Service Date/Time: Friday, August 11, 2017 03:37 - CONCLUSION: Left upper lobe and perihilar consolidation. Rod Garcia MD Assessment and Plan Disease Oriented Problem List: (1) Sepsis (2) DIC (disseminated intravascular coagulation) (3) INES (acute kidney injury) (4) Endocarditis (5) Anxiety (6) Pain Symptom Scale: (1) Pain 0-10 Scale: 8 (pain in ankles, joints, hands and feet; fair control with analgesic medication) (2) Dyspnea 0-10 Scale: Unable to quantify Comment: Slight subjective improvement in dyspnea; continue same plan (3) Anxiety 0-10 Scale: 10 Comment: Patient appears tearful with worsening anxiety; she is requesting assistance with sleep at night. Could consider low dose alprazolam, or mirtazapine at hs. Pertinent Non-Medical Issues Psychosocial: lives with boyfriend who reportedly has multiple other family members who are critically ill Spiritual: none known Legal: Currently patient is capacitated to make own decisions but no clear direction about her wishes should she lose capacity. Per [place] statute, in the absence of written advance directives, decision making would fall to her parents first, then to her siblings. Her children are minors at this time. Ethical issues impacting care: None known Important Contacts Father Marcus Jc [phone] Significant other Jerry Nevarez [phone] Prognosis Not a candidate for surgical valve replacement; renal function is declining. She will need lifetime antibiotics and renal function continues to decline. Prognosis remains likely months unless additional complications. Code Status: Full Code Plan Currently patient is capacitated to make own decisions but no clear direction about her wishes should she lose capacity. Per [place] statute, in the absence of written advance directives, decision making would fall to her parents first, then to her siblings. Her children are minors at this time. Followup discussion with patient regarding decision makers, options for care, and goals. She remains committed to aggressive curative therapy and all support options are acceptable. FULL CODE SYMPTOMS: pain - currently has hydrocodone/APAP available PRN; dyspnea -- on antibiotics; adding nebs and supplemental oxygen; anxiety - worsening; consider addition of alprazolam or remeron * Palliative care number provided. * Palliative care will continue to follow to assist with symptom management and clarification of treatment goals as needed. Time Spent Total Floor Time (mins): 45 (To include record review, examination, discussion with providers and meeting with family) Attestation To help prompt me to consider important information that might be impacting today's encounter and assessment, information from prior notes written by myself or my colleagues may have been "brought forward" into today's note. My signature on this note, however, is an attestation that I personally performed the exam, history, and/or decision-making noted today, and unless otherwise indicated, the interactions with patient, family and staff as well as the review of records all occurred today. I also attest that the listed assessment and stated plan reflect my best clinical judgment based on the combination of historical information, prior notes, and today's exam/interactions. When time spent is documented, it refers only to time spent today by the signer, or if indicated, combined time spent today by collaborating physician/nurse practitioner. Sarah Pearson Aug 13, 2017 11:26
--- NOTE | 2017-08-13 13:41 | PD.ONC.PN ---
Subjective Subjective Remarks Afebrile overnight. Patient resting in bed. stating she has pain "all over." Objective Data Date Time Temp Pulse Resp B/P (MAP) Pulse Ox O2 Delivery O2 Flow Rate FiO2 08/13/17 12:00 114 08/13/17 10:00 118 08/13/17 08:00 98.2 104 29 107/77 (87) 100 08/13/17 08:00 103 08/13/17 06:00 115 08/13/17 04:00 97.8 109 34 123/80 (94) 98 08/13/17 04:00 109 08/13/17 03:31 16 08/13/17 02:00 97 08/13/17 00:00 111 08/13/17 00:00 98.1 111 28 106/70 (82) 100 08/12/17 22:00 107 08/12/17 20:00 104 08/12/17 20:00 97.7 104 31 110/72 (85) 98 08/12/17 19:12 100 21 08/12/17 18:00 103 08/12/17 17:00 102 08/12/17 16:00 105 08/12/17 16:00 97.4 105 29 113/84 (94) 100 08/12/17 14:00 104 08/13/17 08/13/17 08/13/17 07:00 15:00 23:00 Intake Total 960 ml 100 ml Output Total 450 ml Balance 510 ml 100 ml Result Diagram: 08/13/17 0450 08/13/17 0450 Laboratory Results Laboratory Tests Test 08/13/17 04:50 White Blood Count 11.1 TH/MM3 Red Blood Count 3.33 MIL/MM3 Hemoglobin 9.4 GM/DL Hematocrit 27.3 % Mean Corpuscular Volume 81.8 FL Mean Corpuscular Hemoglobin 28.2 PG Mean Corpuscular Hemoglobin Concent 34.4 % Red Cell Distribution Width 15.6 % Platelet Count 74 TH/MM3 Mean Platelet Volume 8.8 FL Neutrophils (%) (Auto) 80.1 % Lymphocytes (%) (Auto) 14.1 % Monocytes (%) (Auto) 4.9 % Eosinophils (%) (Auto) 0.7 % Basophils (%) (Auto) 0.2 % Neutrophils # (Auto) 8.9 TH/MM3 Lymphocytes # (Auto) 1.6 TH/MM3 Monocytes # (Auto) 0.5 TH/MM3 Eosinophils # (Auto) 0.1 TH/MM3 Basophils # (Auto) 0.0 TH/MM3 CBC Comment AUTO DIFF Differential Comment AUTO DIFF CONFIRMED Platelet Estimate LOW Platelet Morphology Comment NORMAL Keratocytes OCC Prothrombin Time 10.9 SEC Prothromb Time International Ratio 1.1 RATIO Activated Partial Thromboplast Time 32.1 SEC Fibrinogen 375 mg/dL Blood Urea Nitrogen 46 MG/DL Creatinine 1.70 MG/DL Random Glucose 90 MG/DL Total Protein 5.6 GM/DL Calcium Level 7.1 MG/DL Phosphorus Level 6.6 MG/DL Magnesium Level 2.2 MG/DL Sodium Level 135 MEQ/L Potassium Level 4.6 MEQ/L Chloride Level 107 MEQ/L Carbon Dioxide Level 17.6 MEQ/L Anion Gap 10 MEQ/L Estimat Glomerular Filtration Rate 33 ML/MIN Protein Corrected Calcium 7.9 MG/DL Culture Results Microbiology Date/Time Source Procedure Growth Status 08/12/17 04:15 Blood Peripheral Aerobic Blood Culture - Preliminary NO GROWTH IN 1 DAY Resulted 08/12/17 04:15 Blood Peripheral Anaerobic Blood Culture - Preliminary NO GROWTH IN 1 DAY Resulted 08/11/17 06:40 Blood Peripheral Aerobic Blood Culture - Final Staphylococcus Aureus Resulted 08/11/17 06:40 Blood Peripheral Anaerobic Blood Culture - Preliminary NO GROWTH IN 2 DAYS Resulted Administered Medications Medications (Trade) Dose Ordered Sig/Pee Route PRN Reason Start Time Stop Time Status Last Admin Dose Admin Sodium Chloride (NS Flush) 2 ml BID IV FLUSH 08/10/17 09:00 08/13/17 09:00 Albuterol Sulfate (Albuterol Neb) 2.5 mg Q2HR NEB PRN INH SOB/WHEEZING 08/09/17 22:15 08/12/17 04:10 Miscellaneous Information 1 Q361D XX 08/09/17 22:15 08/09/17 22:15 Chlorhexidine Gluconate (Chlorhexidine 2% Cloth) 3 pack Taper DAILY@04 TOP 08/10/17 04:00 08/06/18 03:59 08/13/17 04:23 Senna/Docusate Sodium (Cira-Colace) 1 tab BID PO 08/10/17 09:00 08/13/17 09:00 Potassium Chloride 100 ml @ 50 mls/hr Q2H PRN IV For Potassium 2.8 - 3.2 mEq/L 08/10/17 00:15 08/11/17 10:44 Potassium Phosphate (K-Phos) 2,000 mg Q4H PRN PO For Phosphorus < 2.5 mg/dL 08/10/17 00:15 08/10/17 21:18 Sodium Phosphate 30 mmol/Sodium Chloride 250 ml @ 42 mls/hr UNSCH PRN IV For Phosphorus < 2.5 mg/dL 08/10/17 00:15 08/10/17 11:15 Acetaminophen/ Hydrocodone Bitart ([place] 10-325 Mg) 1 tab Q4H PRN PO PAIN 1-5 08/10/17 02:00 08/13/17 06:02 Acetaminophen/ Hydrocodone Bitart ([place] 10-325 Mg) 2 tab Q4H PRN PO PAIN 6-10 08/10/17 02:00 08/13/17 11:19 Nicotine (Habitrol 21 Mg Patch.24 Hr) 1 patch DAILY T-DERMAL 08/10/17 09:00 08/13/17 09:00 Miscellaneous Information 1 DAILY T-DERMAL 08/10/17 09:00 08/13/17 09:00 Pantoprazole Sodium (Protonix) 40 mg DAILY PO 08/10/17 09:00 08/13/17 09:00 Phenylephrine HCl 40 mg/Dextrose 500 ml @ 30 mls/hr TITRATE PRN IV Blood pressure management 08/10/17 03:15 08/11/17 00:41 Insulin Aspart (NovoLOG SUPPLEMENTAL SCALE) 1 Q4H SQ 08/10/17 12:00 08/11/17 20:00 Rifampin (Rifampin) 300 mg Q12H PO 08/10/17 15:00 08/13/17 02:33 Oxacillin Sodium 2 gm/Sodium Chloride 100 ml @ 200 mls/hr Q4H IV 08/11/17 14:00 08/13/17 10:00 Objective Remarks GENERAL: Thin, young appearing female, lying supine in bed resting, talking on the phone. appears comfortable and in nad. SKIN: Warm and dry. HEAD: Normocephalic. EYES: No injection or drainage. NECK: Supple, trachea midline. CARDIOVASCULAR: +S1/S2 RESPIRATORY: anterior ortiz with occasional rhonchi. GASTROINTESTINAL: Abdomen firm, distended. EXTREMITIES: tips of toes darkened. NEUROLOGICAL: awake and alert, normal speech. able to move extremities independently. Assessment/Plan Problem List: (1) H/O endocarditis ICD Codes: Z86.79 - Personal history of other diseases of the circulatory system Status: Chronic Plan: -- On Oxacillin -- ID following -- Echocardiogram on 08/11 shows findings consistent with vegetation on the aortic, mitral, and tricuspid valves. -- Pt with poor prognosis and palliative care is involved. 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 monitor CBC, coags, fibrinogen 2. no transfusion needed at present. Attending Statement The exam, history, and the medical decision-making described in the above note were completed with the assistance of the mid-level provider. I reviewed and agree with the findings presented. I attest that I had a [id number] encounter with the patient on the same day, and personally performed and documented my assessment and findings in the medical record. No report of bleeding. Platelet continue to trend up. Fibrinogen also trended up. DIC is resolving. Continue to monitor. Tika Gonsalves Aug 13, 2017 13:41 Frashad Wilburn MD Aug 13, 2017 17:57
[2017-08-13] MEDS ORDERED: ZOLPIDEM TARTRATE 5 MG TAB PO ONE (18:00)
--- NOTE | 2017-08-13 18:21 | PD.CARD.PN ---
Subjective Subjective Remarks C/o SOB, hurts all over, feels poorly, c/o insomnia Objective Medications Current Medications Medications (Trade) Dose Ordered Sig/Pee Route Start Time Stop Time Status Last Admin (NS Flush) 2 ml UNSCH PRN IV FLUSH 08/09/17 22:15 (NS Flush) 2 ml BID IV FLUSH 08/10/17 09:00 08/13/17 09:00 (Zofran Inj) 4 mg Q6H PRN IV PUSH 08/09/17 22:15 (Albuterol Neb) 2.5 mg Q2HR NEB PRN INH 08/09/17 22:15 08/12/17 04:10 Miscellaneous Information 1 Q361D XX 08/09/17 22:15 08/09/17 22:15 (Chlorhexidine 2% Cloth) 3 pack Taper DAILY@04 TOP 08/10/17 04:00 08/06/18 03:59 08/13/17 04:23 (Chlorhexidine 2% Cloth) 3 pack UNSCH PRN TOP 08/09/17 22:15 (Cira-Colace) 1 tab BID PO 08/10/17 09:00 08/13/17 09:00 (Milk Of Magnesia Liq) 30 ml Q12H PRN PO 08/09/17 22:15 (Senokot) 17.2 mg Q12H PRN PO 08/09/17 22:15 (Dulcolax Supp) 10 mg DAILY PRN RECTAL 08/09/17 22:15 (Lactulose Liq) 30 ml DAILY PRN PO 08/09/17 22:15 Potassium Chloride 100 ml @ 50 mls/hr Q2H PRN IV 08/10/17 00:15 Potassium Chloride 100 ml @ 50 mls/hr Q2H PRN IV 08/10/17 00:15 08/11/17 10:44 (K-Lyte Cl Eff) 50 meq UNSCH PRN PO 08/10/17 00:15 Potassium Chloride 100 ml @ 25 mls/hr UNSCH PRN IV 08/10/17 00:15 Potassium Chloride 100 ml @ 50 mls/hr Q2H PRN IV 08/10/17 00:15 Magnesium Sulfate 4 gm/Sodium Chloride 100 ml @ 50 mls/hr UNSCH PRN IV 08/10/17 00:15 (Mag-Ox) 800 mg UNSCH PRN PO 08/10/17 00:15 Magnesium Sulfate 2 gm/Sodium Chloride 100 ml @ 50 mls/hr UNSCH PRN IV 08/10/17 00:15 (K-Phos) 2,000 mg Q4H PRN PO 08/10/17 00:15 08/10/17 21:18 Sodium Phosphate 30 mmol/Sodium Chloride 250 ml @ 42 mls/hr UNSCH PRN IV 08/10/17 00:15 08/10/17 11:15 (K-Phos) 2,000 mg UNSCH PRN PO/TUBE 08/10/17 00:15 Potassium Phosphate 30 mmol/ Sodium Chloride 260 ml @ 42 mls/hr UNSCH PRN IV 08/10/17 00:15 (D50w (Vial) Inj) 50 ml UNSCH PRN IV PUSH 08/10/17 00:15 (Glucagon Inj) 1 mg UNSCH PRN OTHER 08/10/17 00:15 (Trail 10-325 Mg) 1 tab Q4H PRN PO 08/10/17 02:00 08/13/17 06:02 (Trail 10-325 Mg) 2 tab Q4H PRN PO 08/10/17 02:00 08/13/17 11:19 (Habitrol 21 Mg Patch.24 Hr) 1 patch DAILY T-DERMAL 08/10/17 09:00 08/13/17 09:00 Miscellaneous Information 1 DAILY T-DERMAL 08/10/17 09:00 08/13/17 09:00 (Protonix) 40 mg DAILY PO 08/10/17 09:00 08/13/17 09:00 Phenylephrine HCl 40 mg/Dextrose 500 ml @ 30 mls/hr TITRATE PRN IV 08/10/17 03:15 08/11/17 00:41 (Brethine Inj) 1 mg UNSCH PRN SQ 08/10/17 03:15 (NovoLOG SUPPLEMENTAL SCALE) 1 Q4H SQ 08/10/17 12:00 08/13/17 16:00 (Rifampin) 300 mg Q12H PO 08/10/17 15:00 08/13/17 15:54 Oxacillin Sodium 2 gm/Sodium Chloride 100 ml @ 200 mls/hr Q4H IV 08/11/17 14:00 08/13/17 14:00 Vital Signs / I&O Vital Signs Date Time Temp Pulse Resp B/P (MAP) Pulse Ox O2 Delivery O2 Flow Rate FiO2 08/13/17 16:00 98.4 114 25 108/76 (87) 97 08/13/17 16:00 113 08/13/17 14:00 110 08/13/17 12:00 114 08/13/17 12:00 97.9 109 30 109/75 (86) 100 08/13/17 10:00 118 08/13/17 08:00 98.2 104 29 107/77 (87) 100 08/13/17 08:00 103 08/13/17 06:00 115 08/13/17 04:00 97.8 109 34 123/80 (94) 98 08/13/17 04:00 109 08/13/17 03:31 16 08/13/17 02:00 97 08/13/17 00:00 111 08/13/17 00:00 98.1 111 28 106/70 (82) 100 08/12/17 22:00 107 08/12/17 20:00 104 08/12/17 20:00 97.7 104 31 110/72 (85) 98 08/12/17 19:12 100 21 I/O 08/12/17 08/12/17 08/12/17 08/13/17 08/13/17 08/13/17 06:59 14:59 22:59 06:59 14:59 22:59 Intake Total 1100 ml 215 ml 500 ml 960 ml 100 ml Output Total 385 ml 800 ml 450 ml Balance 715 ml 215 ml -300 ml 510 ml 100 ml Intake Oral 400 ml 960 ml IV Total 1100 ml 215 ml 100 ml 100 ml Output Urine Total 385 ml 800 ml 450 ml # Bowel Movements 3 1 1 Physical Exam GENERAL: In mild distress SKIN: Warm and dry. HEAD: Normocephalic. EYES: No scleral icterus. No injection or drainage. NECK: Supple, trachea midline. No JVD or lymphadenopathy. CARDIOVASCULAR: Regular rate and rhythm with syst murmur, no gallops or rubs. RESPIRATORY: Breath sounds equal bilaterally. No accessory muscle use. GASTROINTESTINAL: Abdomen soft, non-tender, nondistended. MUSCULOSKELETAL: No cyanosis, or edema. Laboratory Laboratory Tests Test 08/13/17 04:50 White Blood Count 11.1 TH/MM3 Red Blood Count 3.33 MIL/MM3 Hemoglobin 9.4 GM/DL Hematocrit 27.3 % Mean Corpuscular Volume 81.8 FL Mean Corpuscular Hemoglobin 28.2 PG Mean Corpuscular Hemoglobin Concent 34.4 % Red Cell Distribution Width 15.6 % Platelet Count 74 TH/MM3 Mean Platelet Volume 8.8 FL Neutrophils (%) (Auto) 80.1 % Lymphocytes (%) (Auto) 14.1 % Monocytes (%) (Auto) 4.9 % Eosinophils (%) (Auto) 0.7 % Basophils (%) (Auto) 0.2 % Neutrophils # (Auto) 8.9 TH/MM3 Lymphocytes # (Auto) 1.6 TH/MM3 Monocytes # (Auto) 0.5 TH/MM3 Eosinophils # (Auto) 0.1 TH/MM3 Basophils # (Auto) 0.0 TH/MM3 CBC Comment AUTO DIFF Differential Comment AUTO DIFF CONFIRMED Platelet Estimate LOW Platelet Morphology Comment NORMAL Keratocytes OCC Prothrombin Time 10.9 SEC Prothromb Time International Ratio 1.1 RATIO Activated Partial Thromboplast Time 32.1 SEC Fibrinogen 375 mg/dL Blood Urea Nitrogen 46 MG/DL Creatinine 1.70 MG/DL Random Glucose 90 MG/DL Total Protein 5.6 GM/DL Calcium Level 7.1 MG/DL Phosphorus Level 6.6 MG/DL Magnesium Level 2.2 MG/DL Sodium Level 135 MEQ/L Potassium Level 4.6 MEQ/L Chloride Level 107 MEQ/L Carbon Dioxide Level 17.6 MEQ/L Anion Gap 10 MEQ/L Estimat Glomerular Filtration Rate 33 ML/MIN Protein Corrected Calcium 7.9 MG/DL Assessment and Plan Problem List: (1) Severe sepsis ICD Codes: A41.9 - Sepsis, unspecified organism; R65.20 - Severe sepsis without septic shock Status: Acute (2) Endocarditis ICD Codes: I38 - Endocarditis, valve unspecified (3) H/O prosthetic mitral valve ICD Codes: Z95.2 - Presence of prosthetic heart valve Status: Chronic (4) IVDU (intravenous drug user) ICD Codes: F19.90 - Other psychoactive substance use, unspecified, uncomplicated Status: Chronic (5) Cocaine abuse ICD Codes: F14.10 - Cocaine abuse, uncomplicated Status: Chronic Assessment and Plan Overall condition very poor. Continue antibiotics. SUZANNE with AV, MV and TV vegetations. Multiple septic emboli, suspect cardiac as well resulting in increased troponin. Prognosis extremely poor due to continuing IV drug use and endocarditis of prosthetic valve. Jeromy Avalos MD Aug 13, 2017 18:21
[2017-08-14] VITALS (15 sets, daily range): BP systolic 106–114; BP diastolic 71–81; PULSE 96–119; RESP 20–34; TEMP 98.4–99.1; O2SAT 94–100
[2017-08-14] MEDS: ACETAMINOPHEN/HYDROcodone 325 MG/10 MG TAB PO PRN ×4 (00:43→20:28)
[2017-08-14] MEDS: RIFAMPIN 150 MG CAP PO SCH ×2 (02:55→14:34)
[2017-08-14] MEDS: OXACILLIN INJ 2 GM in SODIUM CHLORIDE 0.9% INJ 100 ML IV SCH ×6 (02:55→20:53)
[2017-08-14] MEDS: INSULIN ASPART SUPPLEMENTAL SCALE SQ SCH ×6 (03:54→20:00)
[2017-08-14] MEDS: CHLORHEXIDINE GLUCONATE 2 % 1 PACK (2 CLOTHS) TOP SCH (03:55)
[2017-08-14 04:35] LABS: AUTOMATED NEUTROPHIL # 12.1 TH/MM3 (1.8-7.7); BASOPHIL % 0.1 % (0.0-2.0); EOSINOPHIL # 0.1 TH/MM3 (0-0.4); EOSINOPHIL % 0.6 % (0.0-4.0); HEMATOCRIT 25.9 % (35.0-46.0); HEMOGLOBIN 8.8 GM/DL (11.6-15.3); LYMPH % 13.9 % (9.0-44.0); LYMPHOCYTE # 2.1 TH/MM3 (1.0-4.8); MEAN CELL VOLUME 81.1 FL (80.0-100.0); MEAN CORPUSCULAR HEMOGLOBIN 27.4 PG (27.0-34.0); MEAN CORPUSCULAR HGB CONC 33.7 % (32.0-36.0); MEAN PLATELET VOLUME 7.8 FL (7.0-11.0); MONOCYTE # 0.8 TH/MM3 (0-0.9); NEUT % 80.4 % (16.0-70.0); PLATELET COUNT 97 TH/MM3 (150-450); RED CELL DISTRIBUTION WIDTH 15.6 % (11.6-17.2); WHITE BLOOD COUNT 15.1 TH/MM3 (4.0-11.0)
[2017-08-14 04:55] LABS: BICARBONATE 18.7 MEQ/L (21.0-32.0); CALCIUM 6.7 MG/DL (8.5-10.1); CREATININE 1.8 MG/DL (0.50-1.00)
[2017-08-14 05:13] LABS: TOTAL PROTEIN 6.1 GM/DL (6.4-8.2)
[2017-08-14 05:29] LABS: CALCIUM-PROTEIN CORRECTED 7.2 MG/DL (8.5-10.1)
[2017-08-14 05:59] LABS: ACANTHOCYTES OCC (NORMAL); DOHLE BODIES PRESENT (NONE SEEN); TOXIC GRANULATION 1+ (NORMAL)
[2017-08-14] MEDS: PANTOPRAZOLE SOD 40 MG DELAYED RELEASE TAB PO SCH (08:17)
[2017-08-14] MEDS: NICOTINE 21 MG/24 HR PATCH T-DERMAL SCH (08:18)
[2017-08-14] MEDS: REMOVE OLD PATCH T-DERMAL SCH (08:18)
[2017-08-14] MEDS: DOCUSATE SODIUM 50 MG/SENNA 8.6 MG TAB PO SCH ×2 (08:18→20:27)
[2017-08-14] MEDS: SODIUM CHLORIDE 0.9% FLUSH 10 ML FLUSH IV FLUSH SCH ×2 (08:19→20:27)
--- NOTE | 2017-08-14 09:12 | HHI.CCPN ---
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 She states that her valve replacement was performed at [facility] but I do not see record of this. She is unsure of when it was done. Unable to pull up old CXRs. She is uncertain of causative organism or treatment course. She presents to [facility] stating that she has had a 2 day history of subjective fever and nonproductive cough. She has also had tender, painful lesions on her hands and feet which on exam are consistent with [place] nodes. She states the reason she sought medical treatment was that "the pain became unbearable" and that it hurt to walk to the bathroom because of the tenderness on the soles of her feet. She denies headache , sore throat, chest pain, abdominal pain, hemoptysis. She states she has been actively injecting Suboxone which she acquired from "the street", stating she last injected into her right neck on 08/08/17 at around noon. In the ED, 2 sets of blood cultures were obtained, urinalysis and urine culture. She was given Vancomycin, zosyn, and 2 L NS bolus. Influenza screen is negative. Her sodium is 121, potassium 3, creatinine 1.29, lactic acid 5.9. 08/10 Patient is on Neosyn 40 mics. T:103.0 last night. BC from 08/09: [facility]PC 2/4 bottles 08/01: C/o pain in left foot. 08/12 No events overnight. On Neosyn 10 mics. Afebrile. 08/13 Patient is lying in bed in NAD. Afebrile. Off Neosyn. Cr. increased 1.7 today from 1.4 08/14 No events overnight. Cr: 1.8, UOP: 2L in 24 hrs. Afebrile. Objective Vital Signs Date Time Temp Pulse Resp B/P (MAP) Pulse Ox O2 Delivery O2 Flow Rate FiO2 08/14/17 06:00 105 08/14/17 04:00 98.4 30 108/74 (85) 98 08/12/17 19:12 21 Intake and Output 08/14/17 08/14/17 08/15/17 08:00 16:00 00:00 Intake Total 720 ml Output Total 1000 ml Balance -280 ml Result Diagram: 08/14/17 0400 08/14/17 0400 Other Results Laboratory Tests Test 08/14/17 04:00 White Blood Count 15.1 TH/MM3 Red Blood Count 3.20 MIL/MM3 Hemoglobin 8.8 GM/DL Hematocrit 25.9 % Mean Corpuscular Volume 81.1 FL Mean Corpuscular Hemoglobin 27.4 PG Mean Corpuscular Hemoglobin Concent 33.7 % Red Cell Distribution Width 15.6 % Platelet Count 97 TH/MM3 Mean Platelet Volume 7.8 FL Neutrophils (%) (Auto) 80.4 % Lymphocytes (%) (Auto) 13.9 % Monocytes (%) (Auto) 5.0 % Eosinophils (%) (Auto) 0.6 % Basophils (%) (Auto) 0.1 % Neutrophils # (Auto) 12.1 TH/MM3 Lymphocytes # (Auto) 2.1 TH/MM3 Monocytes # (Auto) 0.8 TH/MM3 Eosinophils # (Auto) 0.1 TH/MM3 Basophils # (Auto) 0.0 TH/MM3 CBC Comment AUTO DIFF Differential Comment AUTO DIFF CONFIRMED Toxic Granulation 1+ Dohle Bodies PRESENT Platelet Estimate LOW Platelet Morphology Comment NORMAL Acanthocytes OCC Blood Urea Nitrogen 47 MG/DL Creatinine 1.80 MG/DL Random Glucose 105 MG/DL Total Protein 6.1 GM/DL Calcium Level 6.7 MG/DL Sodium Level 135 MEQ/L Potassium Level 4.4 MEQ/L Chloride Level 105 MEQ/L Carbon Dioxide Level 18.7 MEQ/L Anion Gap 11 MEQ/L Estimat Glomerular Filtration Rate 31 ML/MIN Protein Corrected Calcium 7.2 MG/DL Imaging Last Impressions Chest X-Ray 08/11/17 0600 Signed Impressions: Service Date/Time: Friday, August 11, 2017 03:37 - CONCLUSION: Left upper lobe and perihilar consolidation. Rod Garcia MD Lower Extremity Ultrasound 08/10/17 0000 Signed Impressions: Service Date/Time: Thursday, August 10, 2017 07:51 - CONCLUSION: Normal examination. No evidence of DVT Ambrose Verdin MD Liver Ultrasound 08/10/17 0000 Signed Impressions: Service Date/Time: Thursday, August 10, 2017 08:04 - CONCLUSION: 1. Abnormal gallbladder filled with sludge and demonstrating wall thickening. There are no additional findings are present to suggest acute gallbladder inflammation. 2. Trace free fluid in the abdomen and small bilateral pleural effusions. 3. Mild splenomegaly. Rod Pascual MD Head CT 08/10/17 0000 Signed Impressions: Service Date/Time: Thursday, August 10, 2017 02:33 - CONCLUSION: No acute disease. Rod Garcia MD Objective Remarks GENERAL: Thin disheveled female who is alert and sitting up in bed. SKIN: Warm and dry. There are petechial lesions on the palms of both hands. There are tender raised purpuric lesions on the palmar surface of left fifth digit and left thenar eminence c/w osler nodes. There are similar tender lesions on pad of bilateral feet overlying toes and distal metatarsals L>R. Toes dusky. No splinter hemorrhages. Track blane present right neck and Left forearm. VASC: DP and [employer] pulses present bilaterally. HEAD: Atraumatic. Normocephalic. EYES: Pupils equal and round. No scleral icterus. No injection or drainage. ENT: No nasal bleeding or discharge. Mucous membranes dry. No pharyngeal erythema. No thrush. NECK: Trachea midline. No JVD. No meningismus CARDIOVASCULAR: Tachycardic, regular, sinus tach on the monitor with rate in the high 110s. I am unable to appreciate a murmur at current heart rate. RESPIRATORY: Tachypneic but overall appears comfortable without accessory muscle use. Bibasilar Rales present. No wheezes or rhonchi. GASTROINTESTINAL: Abdomen soft, non-tender, nondistended. Bowel sounds present. MUSCULOSKELETAL: Extremities without clubbing, cyanosis, or edema. NEUROLOGICAL: Awake and alert. No obvious cranial nerve deficits. Strength 5 out of 5 in all extremity. Sensation intact. A/P Problem List: (1) Severe sepsis ICD Code: A41.9 - Sepsis, unspecified organism; R65.20 - Severe sepsis without septic shock Status: Acute (2) DIC (disseminated intravascular coagulation) ICD Code: D65 - Disseminated intravascular coagulation [defibrination syndrome] Status: Acute (3) Cocaine abuse ICD Code: F14.10 - Cocaine abuse, uncomplicated Status: Chronic (4) IVDU (intravenous drug user) ICD Code: F19.90 - Other psychoactive substance use, unspecified, uncomplicated Status: Chronic (5) H/O prosthetic mitral valve ICD Code: Z95.2 - Presence of prosthetic heart valve Status: Chronic (6) H/O endocarditis ICD Code: Z86.79 - Personal history of other diseases of the circulatory system Status: Chronic (7) Lactic acidosis ICD Code: E87.2 - Acidosis Status: Acute (8) Hyponatremia ICD Code: E87.1 - Hypo-osmolality and hyponatremia (9) Hypokalemia ICD Code: E87.6 - Hypokalemia Status: Acute Permanent Comment: unknown chronicity, probably subacute Last Edited By: Yashira Ivey on Aug 10, 2017 07:41 (10) INES (acute kidney injury) ICD Code: N17.9 - Acute kidney failure, unspecified (11) Hyperbilirubinemia ICD Code: E80.6 - Other disorders of bilirubin metabolism Status: Acute (12) Abnormal transaminases ICD Code: R74.8 - Abnormal levels of other serum enzymes Status: Acute (13) Elevated troponin level ICD Code: R74.8 - Abnormal levels of other serum enzymes Status: Acute Assessment and Plan NEURO: Acute encephalopathy, probably toxic metabolic secondary to sepsis. IV drug use Opioid abuse Cocaine abuse Salicylate and Tylenol levels negative. Ammonia level low. CT brain no acute disease RESP: Tobacco abuse Oxygen PRN keep sat >92% Incentive spirometry every hour awake. Tobacco cessation counseling. Nicotine patch CXR 08/11 TOR and perihilar consolidation CV: Elevated troponin Monitor HR and BP keep MAP>65mmHg Lactic acid cleared 1.7 from 5.9 on arrival Received 2 L normal saline bolus in the ED 08/09. Echo showed vegetations on TV, AV, MV, EF 50-55% GI: Elevated AST and hyperbilirubinemia ( improving) Ammonia level normal US liver: Abnormal gallbladder filled with sludge and demonstrating wall thickening. There are no additional findings are present to suggest acute gallbladder inflammation. Trace free fluid in the abdomen and small bilateral pleural effusions.. Mild splenomegaly. Hepatitis panel- Hep C ab reactive [employer] - test negative on admission. FEN/RENAL: Acute kidney injury Avoid NSAIDs and other nephrotoxins. Received ketorolac in ED 08/09. Monitor renal function , electrolytes replacement per protocol. Cr: 1.80 today with UOP:2L in 24 hrs, Place on NS@42ml/hr Diurese with Lasix 40mg x1 TSH: 1.93, cortisol level 65. . ID: Septic shock. 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 s/p 5units cryo 08/10 Heme is following ENDO: Acute hyperglycemia SSI with accuchekcs for glycemic control TSH: 1.9 Cortisol level: 65 PROPH: SCDs for DVT prophylaxis. Not on DVT prophylaxis due to thrombocytopenia. Protonix 40 mg by mouth daily for stress ulcer prophylaxis. ACCESS: Left IJ CVP placed 08/10 Full code Palliative care is following Poor prognosis given multiple valves involved with endocarditis, worsening renal function and staph Bacteremia Level 3 Milton Velásquez MD Aug 14, 2017 09:12
[2017-08-14] MEDS: SODIUM CHLOR 0.9% 1000 ML INJ 1,000 ML IV SCH (09:51)
[2017-08-14] MEDS ORDERED: MORPHINE SULFATE 2 MG/ML INJ ONE (10:05)
[2017-08-14] MEDS ORDERED: MORPHINE SULFATE 2 MG/ML INJ IV PUSH ONE (10:30)
[2017-08-14] MEDS ORDERED: CALCIUM GLUCONATE INJ 1 GM in SODIUM CHLORIDE 0.9% INJ 100 ML IV ONE (11:00)
[2017-08-15] VITALS (15 sets, daily range): BP systolic 101–119; BP diastolic 63–92; PULSE 91–117; RESP 20–31; TEMP 98.6–99.6; O2SAT 97–100
[2017-08-15] MEDS: ACETAMINOPHEN/HYDROcodone 325 MG/10 MG TAB PO PRN ×4 (00:31→20:11)
[2017-08-15] MEDS: INSULIN ASPART SUPPLEMENTAL SCALE SQ SCH ×6 (00:31→20:00)
[2017-08-15] MEDS: OXACILLIN INJ 2 GM in SODIUM CHLORIDE 0.9% INJ 100 ML IV SCH ×6 (00:37→20:11)
[2017-08-15] MEDS: CHLORHEXIDINE GLUCONATE 2 % 1 PACK (2 CLOTHS) TOP SCH (02:45)
[2017-08-15] MEDS: RIFAMPIN 150 MG CAP PO SCH ×2 (02:47→16:08)
[2017-08-15 05:30] LABS: AUTOMATED NEUTROPHIL # 13.2 TH/MM3 (1.8-7.7); BASOPHIL % 0.1 % (0.0-2.0); EOSINOPHIL # 0.1 TH/MM3 (0-0.4); EOSINOPHIL % 0.7 % (0.0-4.0); HEMATOCRIT 24.2 % (35.0-46.0); HEMOGLOBIN 8.1 GM/DL (11.6-15.3); LYMPH % 13.3 % (9.0-44.0); LYMPHOCYTE # 2.2 TH/MM3 (1.0-4.8); MEAN CELL VOLUME 81.1 FL (80.0-100.0); MEAN CORPUSCULAR HEMOGLOBIN 27.3 PG (27.0-34.0); MEAN CORPUSCULAR HGB CONC 33.7 % (32.0-36.0); MEAN PLATELET VOLUME 7.6 FL (7.0-11.0); MONO % 5.8 % (0.0-8.0); NEUT % 80.1 % (16.0-70.0); PLATELET COUNT 113 TH/MM3 (150-450); RED BLOOD COUNT 2.98 MIL/MM3 (4.00-5.30); RED CELL DISTRIBUTION WIDTH 15.4 % (11.6-17.2); WHITE BLOOD COUNT 16.5 TH/MM3 (4.0-11.0)
[2017-08-15 05:45] LABS: BICARBONATE 19.8 MEQ/L (21.0-32.0); CALCIUM 7.1 MG/DL (8.5-10.1); CREATININE 1.45 MG/DL (0.50-1.00)
[2017-08-15 06:00] LABS: CALCIUM-PROTEIN CORRECTED 7.7 MG/DL (8.5-10.1)
--- NOTE | 2017-08-15 08:20 | HHI.CCPN ---
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 She states that her valve replacement was performed at [place] but I do not see record of this. She is unsure of when it was done. Unable to pull up old CXRs. She is uncertain of causative organism or treatment course. She presents to [facility] ED stating that she has had a 2 day history of subjective fever and nonproductive cough. She has also had tender, painful lesions on her hands and feet which on exam are consistent with Oslers nodes. She states the reason she sought medical treatment was that "the pain became unbearable" and that it hurt to walk to the bathroom because of the tenderness on the soles of her feet. She denies headache , sore throat, chest pain, abdominal pain, hemoptysis. She states she has been actively injecting Suboxone which she acquired from "the street", stating she last injected into her right neck on 08/08/17 at around noon. In the ED, 2 sets of blood cultures were obtained, urinalysis and urine culture. She was given Vancomycin, zosyn, and 2 L NS bolus. Influenza screen is negative. Her sodium is 121, potassium 3, creatinine 1.29, lactic acid 5.9. 08/10 Patient is on Neosyn 40 mics. T:103.0 last night. BC from 08/09: GPC 2/4 bottles 08/01: C/o pain in left foot. 08/12 No events overnight. On Neosyn 10 mics. Afebrile. 08/13 Patient is lying in bed in NAD. Afebrile. Off Neosyn. Cr. increased 1.7 today from 1.4 08/14 No events overnight. Cr: 1.8, UOP: 2L in 24 hrs. Afebrile. 08/15 No events overnight. On room air oxygen. Awake and alert. Renal function is improving with Cr: 1.45 today from 1.8 yesterday Objective Vital Signs Date Time Temp Pulse Resp B/P (MAP) Pulse Ox O2 Delivery O2 Flow Rate FiO2 08/15/17 06:00 96 08/15/17 04:00 98.7 20 103/70 (81) 100 08/14/17 20:52 21 Intake and Output 08/15/17 08/15/17 08/16/17 08:00 16:00 00:00 Intake Total 600 ml Output Total 900 ml Balance -300 ml Result Diagram: 08/15/17 0446 08/15/17 0446 Other Results Laboratory Tests Test 08/14/17 08:30 08/15/17 04:46 Stool C. difficile Toxin (PCR) NEGATIVE Stl C. difficile Toxin Epiderm 027 PRESUMPTIVE NEGATIVE White Blood Count 16.5 TH/MM3 Red Blood Count 2.98 MIL/MM3 Hemoglobin 8.1 GM/DL Hematocrit 24.2 % Mean Corpuscular Volume 81.1 FL Mean Corpuscular Hemoglobin 27.3 PG Mean Corpuscular Hemoglobin Concent 33.7 % Red Cell Distribution Width 15.4 % Platelet Count 113 TH/MM3 Mean Platelet Volume 7.6 FL Neutrophils (%) (Auto) 80.1 % Lymphocytes (%) (Auto) 13.3 % Monocytes (%) (Auto) 5.8 % Eosinophils (%) (Auto) 0.7 % Basophils (%) (Auto) 0.1 % Neutrophils # (Auto) 13.2 TH/MM3 Lymphocytes # (Auto) 2.2 TH/MM3 Monocytes # (Auto) 1.0 TH/MM3 Eosinophils # (Auto) 0.1 TH/MM3 Basophils # (Auto) 0.0 TH/MM3 CBC Comment AUTO DIFF Blood Urea Nitrogen 40 MG/DL Creatinine 1.45 MG/DL Random Glucose 98 MG/DL Total Protein 6.0 GM/DL Calcium Level 7.1 MG/DL Sodium Level 136 MEQ/L Potassium Level 3.9 MEQ/L Chloride Level 106 MEQ/L Carbon Dioxide Level 19.8 MEQ/L Anion Gap 10 MEQ/L Estimat Glomerular Filtration Rate 40 ML/MIN Protein Corrected Calcium 7.7 MG/DL Imaging Last Impressions Chest X-Ray 08/11/17 0600 Signed Impressions: Service Date/Time: Friday, August 11, 2017 03:37 - CONCLUSION: Left upper lobe and perihilar consolidation. Rod Garcia MD Lower Extremity Ultrasound 08/10/17 0000 Signed Impressions: Service Date/Time: Thursday, August 10, 2017 07:51 - CONCLUSION: Normal examination. No evidence of DVT Ambrose Verdin MD Liver Ultrasound 08/10/17 0000 Signed Impressions: Service Date/Time: Thursday, August 10, 2017 08:04 - CONCLUSION: 1. Abnormal gallbladder filled with sludge and demonstrating wall thickening. There are no additional findings are present to suggest acute gallbladder inflammation. 2. Trace free fluid in the abdomen and small bilateral pleural effusions. 3. Mild splenomegaly. Rod Pascual MD Head CT 08/10/17 0000 Signed Impressions: Service Date/Time: Thursday, August 10, 2017 02:33 - CONCLUSION: No acute disease. Rod Garcia MD Objective Remarks GENERAL: Thin disheveled female who is alert and sitting up in bed. SKIN: Warm and dry. There are petechial lesions on the palms of both hands. There are tender raised purpuric lesions on the palmar surface of left fifth digit and left thenar eminence c/w osler nodes. There are similar tender lesions on pad of bilateral feet overlying toes and distal metatarsals L>R. Toes dusky. No splinter hemorrhages. Track blane present right neck and Left forearm. VASC: DP and SILK SCREEN CUTTER pulses present bilaterally. HEAD: Atraumatic. Normocephalic. EYES: Pupils equal and round. No scleral icterus. No injection or drainage. ENT: No nasal bleeding or discharge. Mucous membranes dry. No pharyngeal erythema. No thrush. NECK: Trachea midline. No JVD. No meningismus CARDIOVASCULAR: Tachycardic, regular, sinus tach on the monitor with rate in the high 110s. I am unable to appreciate a murmur at current heart rate. RESPIRATORY: Tachypneic but overall appears comfortable without accessory muscle use. Bibasilar Rales present. No wheezes or rhonchi. GASTROINTESTINAL: Abdomen soft, non-tender, nondistended. Bowel sounds present. MUSCULOSKELETAL: Extremities without clubbing, cyanosis, or edema. NEUROLOGICAL: Awake and alert. No obvious cranial nerve deficits. Strength 5 out of 5 in all extremity. Sensation intact. A/P Problem List: (1) Severe sepsis ICD Code: A41.9 - Sepsis, unspecified organism; R65.20 - Severe sepsis without septic shock Status: Acute (2) DIC (disseminated intravascular coagulation) ICD Code: D65 - Disseminated intravascular coagulation [defibrination syndrome] Status: Acute (3) Cocaine abuse ICD Code: F14.10 - Cocaine abuse, uncomplicated Status: Chronic (4) IVDU (intravenous drug user) ICD Code: F19.90 - Other psychoactive substance use, unspecified, uncomplicated Status: Chronic (5) H/O prosthetic mitral valve ICD Code: Z95.2 - Presence of prosthetic heart valve Status: Chronic (6) H/O endocarditis ICD Code: Z86.79 - Personal history of other diseases of the circulatory system Status: Chronic (7) Lactic acidosis ICD Code: E87.2 - Acidosis Status: Acute (8) Hyponatremia ICD Code: E87.1 - Hypo-osmolality and hyponatremia (9) Hypokalemia ICD Code: E87.6 - Hypokalemia Status: Acute Permanent Comment: unknown chronicity, probably subacute Last Edited By: Yashira Ivey on Aug 10, 2017 07:41 (10) INES (acute kidney injury) ICD Code: N17.9 - Acute kidney failure, unspecified (11) Hyperbilirubinemia ICD Code: E80.6 - Other disorders of bilirubin metabolism Status: Acute (12) Abnormal transaminases ICD Code: R74.8 - Abnormal levels of other serum enzymes Status: Acute (13) Elevated troponin level ICD Code: R74.8 - Abnormal levels of other serum enzymes Status: Acute Assessment and Plan NEURO: Acute encephalopathy, probably toxic metabolic secondary to sepsis. IV drug use Opioid abuse Cocaine abuse Salicylate and Tylenol levels negative. Ammonia level low. CT brain no acute disease RESP: Tobacco abuse Oxygen PRN keep sat >92% Incentive spirometry every hour awake. Tobacco cessation counseling. Nicotine patch CXR 08/11 TOR and perihilar consolidation CV: Elevated troponin Monitor HR and BP keep MAP>65mmHg Lactic acid cleared 1.7 from 5.9 on arrival Received 2 L normal saline bolus in the ED 08/09. Echo showed vegetations on TV, AV, MV, EF 50-55% GI: Elevated AST and hyperbilirubinemia ( improving) Ammonia level normal US liver: Abnormal gallbladder filled with sludge and demonstrating wall thickening. There are no additional findings are present to suggest acute gallbladder inflammation. Trace free fluid in the abdomen and small bilateral pleural effusions.. Mild splenomegaly. 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 FEN/RENAL: Acute kidney injury Avoid NSAIDs and other nephrotoxins. Received ketorolac in ED 08/09. Monitor renal function , electrolytes replacement per protocol. Cr: 1.45 today from 1.80. on NS@42ml/hr TSH: 1.93, cortisol level 65. . ID: Septic shock. 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 s/p 5units cryo 08/10 Heme is following ENDO: Acute hyperglycemia SSI with accuchekcs for glycemic control TSH: 1.9 Cortisol level: 65 PROPH: SCDs for DVT prophylaxis. Not on DVT prophylaxis due to thrombocytopenia. Protonix 40 mg by mouth daily for stress ulcer prophylaxis. ACCESS: Left IJ CVP placed 08/10 Full code Palliative care is following Poor prognosis given multiple valves involved with endocarditis, renal dysfunction and staph Bacteremia Level 3 Milton Velásquez MD Aug 15, 2017 08:20
[2017-08-15] MEDS ORDERED: MORPHINE SULFATE 2 MG/ML INJ ONE (08:34)
[2017-08-15] MEDS: REMOVE OLD PATCH T-DERMAL SCH (08:41)
[2017-08-15] MEDS: PANTOPRAZOLE SOD 40 MG DELAYED RELEASE TAB PO SCH (08:41)
[2017-08-15] MEDS: SODIUM CHLOR 0.9% 1000 ML INJ 1,000 ML IV SCH (08:41)
[2017-08-15] MEDS: DOCUSATE SODIUM 50 MG/SENNA 8.6 MG TAB PO SCH ×2 (08:41→19:24)
[2017-08-15] MEDS: SODIUM CHLORIDE 0.9% FLUSH 10 ML FLUSH IV FLUSH SCH ×2 (08:41→21:38)
[2017-08-15] MEDS: NICOTINE 21 MG/24 HR PATCH T-DERMAL SCH (08:42)
[2017-08-15 08:44] LABS: BANDS 7 % (0-6); LYMPHOCYTES 8 % (9-44); METAMYELOCYTES 2 % (0-1); MONOCYTES 4 % (0-8); NEUTROPHIL # MANUAL DIFF 14.4 TH/MM3 (1.8-7.7); POLYS (SEG NEUTROPHILS) 78 % (16-70)
[2017-08-15 08:45] LABS: DOHLE BODIES PRESENT (NONE SEEN)
[2017-08-15] MEDS ORDERED: MORPHINE SULFATE 2 MG/ML INJ IV PUSH ONE (08:45)
[2017-08-15 08:46] LABS: ACANTHOCYTES OCC (NORMAL); KERATOCYTES OCC (NORMAL)
[2017-08-15] MEDS ORDERED: CALCIUM GLUCONATE INJ 1 GM in SODIUM CHLORIDE 0.9% INJ 100 ML IV ONE (09:00)
[2017-08-15] MEDS ORDERED: HYDROmorphone HCL PF 1 MG/ML VIAL IV PUSH ONE (13:30)
[2017-08-16] VITALS (16 sets, daily range): BP systolic 107–124; BP diastolic 62–79; PULSE 93–110; RESP 14–25; TEMP 97.9–98.8; O2SAT 98–100
[2017-08-16] MEDS: ACETAMINOPHEN/HYDROcodone 325 MG/10 MG TAB PO PRN ×6 (00:10→23:50)
[2017-08-16] MEDS: INSULIN ASPART SUPPLEMENTAL SCALE SQ SCH ×4 (00:16→12:00)
[2017-08-16] MEDS: OXACILLIN INJ 2 GM in SODIUM CHLORIDE 0.9% INJ 100 ML IV SCH ×6 (00:20→23:38)
[2017-08-16] MEDS: CHLORHEXIDINE GLUCONATE 2 % 1 PACK (2 CLOTHS) TOP SCH (02:40)
[2017-08-16] MEDS: RIFAMPIN 150 MG CAP PO SCH ×2 (03:14→14:06)
[2017-08-16 05:32] LABS: AUTOMATED NEUTROPHIL # 12.3 TH/MM3 (1.8-7.7); EOSINOPHIL # 0.1 TH/MM3 (0-0.4); EOSINOPHIL % 0.7 % (0.0-4.0); HEMATOCRIT 21.4 % (35.0-46.0); HEMOGLOBIN 7.4 GM/DL (11.6-15.3); LYMPHOCYTE # 1.6 TH/MM3 (1.0-4.8); MEAN CELL VOLUME 81.7 FL (80.0-100.0); MEAN CORPUSCULAR HEMOGLOBIN 28.2 PG (27.0-34.0); MEAN CORPUSCULAR HGB CONC 34.5 % (32.0-36.0); MEAN PLATELET VOLUME 7.5 FL (7.0-11.0); MONO % 6.4 % (0.0-8.0); NEUT % 81.9 % (16.0-70.0); PLATELET COUNT 135 TH/MM3 (150-450); RED BLOOD COUNT 2.62 MIL/MM3 (4.00-5.30); RED CELL DISTRIBUTION WIDTH 14.9 % (11.6-17.2)
[2017-08-16 06:05] LABS: CALCIUM 7.2 MG/DL (8.5-10.1); CREATININE 1.08 MG/DL (0.50-1.00)
[2017-08-16 06:22] LABS: CALCIUM-PROTEIN CORRECTED 7.8 MG/DL (8.5-10.1)
--- NOTE | 2017-08-16 08:35 | HHI.CCPN ---
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 She states that her valve replacement was performed at [place] but I do not see record of this. She is unsure of when it was done. Unable to pull up old CXRs. She is uncertain of causative organism or treatment course. She presents to [facility] ED stating that she has had a 2 day history of subjective fever and nonproductive cough. She has also had tender, painful lesions on her hands and feet which on exam are consistent with Oslers nodes. She states the reason she sought medical treatment was that "the pain became unbearable" and that it hurt to walk to the bathroom because of the tenderness on the soles of her feet. She denies headache , sore throat, chest pain, abdominal pain, hemoptysis. She states she has been actively injecting Suboxone which she acquired from "the street", stating she last injected into her right neck on 08/08/17 at around noon. In the ED, 2 sets of blood cultures were obtained, urinalysis and urine culture. She was given Vancomycin, zosyn, and 2 L NS bolus. Influenza screen is negative. Her sodium is 121, potassium 3, creatinine 1.29, lactic acid 5.9. 08/10 Patient is on Neosyn 40 mics. T:103.0 last night. BC from 08/09: GPC 2/4 bottles 08/01: C/o pain in left foot. 08/12 No events overnight. On Neosyn 10 mics. Afebrile. 08/13 Patient is lying in bed in NAD. Afebrile. Off Neosyn. Cr. increased 1.7 today from 1.4 08/14 No events overnight. Cr: 1.8, UOP: 2L in 24 hrs. Afebrile. 08/15 No events overnight. On room air oxygen. Awake and alert. Renal function is improving with Cr: 1.45 today from 1.8 yesterday 08/16 Patient is lying in bed in NAD. Afebrile. BC from 08/12: GPC Objective Vital Signs Date Time Temp Pulse Resp B/P (MAP) Pulse Ox O2 Delivery O2 Flow Rate FiO2 08/16/17 06:00 96 08/16/17 04:00 98.3 22 115/76 (89) 100 08/14/17 20:52 21 Intake and Output 08/16/17 08/16/17 08/16/17 07:59 15:59 23:59 Intake Total 1000 ml Output Total 700 ml Balance 300 ml Result Diagram: 08/16/17 0501 08/16/17 0501 Other Results Laboratory Tests Test 08/16/17 05:01 White Blood Count 15.0 TH/MM3 Red Blood Count 2.62 MIL/MM3 Hemoglobin 7.4 GM/DL Hematocrit 21.4 % Mean Corpuscular Volume 81.7 FL Mean Corpuscular Hemoglobin 28.2 PG Mean Corpuscular Hemoglobin Concent 34.5 % Red Cell Distribution Width 14.9 % Platelet Count 135 TH/MM3 Mean Platelet Volume 7.5 FL Neutrophils (%) (Auto) 81.9 % Lymphocytes (%) (Auto) 11.0 % Monocytes (%) (Auto) 6.4 % Eosinophils (%) (Auto) 0.7 % Basophils (%) (Auto) 0.0 % Neutrophils # (Auto) 12.3 TH/MM3 Lymphocytes # (Auto) 1.6 TH/MM3 Monocytes # (Auto) 1.0 TH/MM3 Eosinophils # (Auto) 0.1 TH/MM3 Basophils # (Auto) 0.0 TH/MM3 CBC Comment DIFF FINAL Differential Comment Blood Urea Nitrogen 29 MG/DL Creatinine 1.08 MG/DL Random Glucose 93 MG/DL Total Protein 6.0 GM/DL Calcium Level 7.2 MG/DL Sodium Level 137 MEQ/L Potassium Level 3.7 MEQ/L Chloride Level 109 MEQ/L Carbon Dioxide Level 20.0 MEQ/L Anion Gap 8 MEQ/L Estimat Glomerular Filtration Rate 56 ML/MIN Protein Corrected Calcium 7.8 MG/DL Imaging Last Impressions Chest X-Ray 08/11/17 0600 Signed Impressions: Service Date/Time: Friday, August 11, 2017 03:37 - CONCLUSION: Left upper lobe and perihilar consolidation. Rod Garcia MD Lower Extremity Ultrasound 08/10/17 0000 Signed Impressions: Service Date/Time: Thursday, August 10, 2017 07:51 - CONCLUSION: Normal examination. No evidence of DVT Ambrose Verdin MD Liver Ultrasound 08/10/17 0000 Signed Impressions: Service Date/Time: Thursday, August 10, 2017 08:04 - CONCLUSION: 1. Abnormal gallbladder filled with sludge and demonstrating wall thickening. There are no additional findings are present to suggest acute gallbladder inflammation. 2. Trace free fluid in the abdomen and small bilateral pleural effusions. 3. Mild splenomegaly. Rod Pascual MD Head CT 08/10/17 0000 Signed Impressions: Service Date/Time: Thursday, August 10, 2017 02:33 - CONCLUSION: No acute disease. Rod Garcia MD Objective Remarks GENERAL: Thin disheveled female who is alert and sitting up in bed. SKIN: Warm and dry. There are petechial lesions on the palms of both hands. There are tender raised purpuric lesions on the palmar surface of left fifth digit and left thenar eminence c/w osler nodes. There are similar tender lesions on pad of bilateral feet overlying toes and distal metatarsals L>R. Toes dusky. No splinter hemorrhages. Track blane present right neck and Left forearm. VASC: DP and REVENUE INSPECTOR pulses present bilaterally. HEAD: Atraumatic. Normocephalic. EYES: Pupils equal and round. No scleral icterus. No injection or drainage. ENT: No nasal bleeding or discharge. Mucous membranes dry. No pharyngeal erythema. No thrush. NECK: Trachea midline. No JVD. No meningismus CARDIOVASCULAR: Tachycardic, regular, sinus tach on the monitor with rate in the high 110s. I am unable to appreciate a murmur at current heart rate. RESPIRATORY: Tachypneic but overall appears comfortable without accessory muscle use. Bibasilar Rales present. No wheezes or rhonchi. GASTROINTESTINAL: Abdomen soft, non-tender, nondistended. Bowel sounds present. MUSCULOSKELETAL: Extremities without clubbing, cyanosis, or edema. NEUROLOGICAL: Awake and alert. No obvious cranial nerve deficits. Strength 5 out of 5 in all extremity. Sensation intact. A/P Problem List: (1) Severe sepsis ICD Code: A41.9 - Sepsis, unspecified organism; R65.20 - Severe sepsis without septic shock Status: Acute (2) DIC (disseminated intravascular coagulation) ICD Code: D65 - Disseminated intravascular coagulation [defibrination syndrome] Status: Acute (3) Cocaine abuse ICD Code: F14.10 - Cocaine abuse, uncomplicated Status: Chronic (4) IVDU (intravenous drug user) ICD Code: F19.90 - Other psychoactive substance use, unspecified, uncomplicated Status: Chronic (5) H/O prosthetic mitral valve ICD Code: Z95.2 - Presence of prosthetic heart valve Status: Chronic (6) H/O endocarditis ICD Code: Z86.79 - Personal history of other diseases of the circulatory system Status: Chronic (7) Lactic acidosis ICD Code: E87.2 - Acidosis Status: Acute (8) Hyponatremia ICD Code: E87.1 - Hypo-osmolality and hyponatremia (9) Hypokalemia ICD Code: E87.6 - Hypokalemia Status: Acute Permanent Comment: unknown chronicity, probably subacute Last Edited By: Yashira Ivey on Aug 10, 2017 07:41 (10) INES (acute kidney injury) ICD Code: N17.9 - Acute kidney failure, unspecified (11) Hyperbilirubinemia ICD Code: E80.6 - Other disorders of bilirubin metabolism Status: Acute (12) Abnormal transaminases ICD Code: R74.8 - Abnormal levels of other serum enzymes Status: Acute (13) Elevated troponin level ICD Code: R74.8 - Abnormal levels of other serum enzymes Status: Acute Assessment and Plan NEURO: Acute encephalopathy, probably toxic metabolic secondary to sepsis. IV drug use Opioid abuse Cocaine abuse Salicylate and Tylenol levels negative. Ammonia level low. CT brain no acute disease RESP: Tobacco abuse Oxygen PRN keep sat >92% Incentive spirometry every hour awake. Tobacco cessation counseling. Nicotine patch Check CXR CV: Elevated troponin Monitor HR and BP keep MAP>65mmHg Lactic acid cleared 1.7 from 5.9 on arrival Received 2 L normal saline bolus in the ED 08/09. Echo showed vegetations on TV, AV, MV, EF 50-55% GI: Elevated AST and hyperbilirubinemia ( improving) Ammonia level normal US liver: Abnormal gallbladder filled with sludge and demonstrating wall thickening. There are no additional findings are present to suggest acute gallbladder inflammation. Trace free fluid in the abdomen and small bilateral pleural effusions.. Mild splenomegaly. 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 FEN/RENAL: Acute kidney injury Avoid NSAIDs and other nephrotoxins. Received ketorolac in ED 08/09. Monitor renal function , electrolytes replacement per protocol. Cr: 1.08 from 1.45, d/c IVF TSH: 1.93, cortisol level 65. . ID: Septic shock. 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 s/p 5units cryo 08/10 Heme is following ENDO: Acute hyperglycemia SSI with accuchekcs for glycemic control TSH: 1.9 Cortisol level: 65 PROPH: SCDs for DVT prophylaxis. Not on DVT prophylaxis due to thrombocytopenia. Protonix 40 mg by mouth daily for stress ulcer prophylaxis. ACCESS: Left IJ CVP placed 08/10, d/c central line and place peripheral IV's Full code Palliative care is following Poor prognosis given multiple valves involved with endocarditis and staph Bacteremia Level 3 Milton Velásquez MD Aug 16, 2017 08:35
[2017-08-16] MEDS: NICOTINE 21 MG/24 HR PATCH T-DERMAL SCH (08:42)
[2017-08-16] MEDS: SODIUM CHLORIDE 0.9% FLUSH 10 ML FLUSH IV FLUSH SCH ×2 (08:42→21:04)
[2017-08-16] MEDS: REMOVE OLD PATCH T-DERMAL SCH (08:42)
[2017-08-16] MEDS: DOCUSATE SODIUM 50 MG/SENNA 8.6 MG TAB PO SCH ×2 (08:42→21:00)
[2017-08-16] MEDS: PANTOPRAZOLE SOD 40 MG DELAYED RELEASE TAB PO SCH (08:42)
--- NOTE | 2017-08-16 09:32 | RADRPT ---
EXAM DATE/TIME: 08/16/2017 08:37 [facility] COMPARISON: CHEST SINGLE AP, August 11, 2017, 3:37. INDICATIONS : Shortness of breath. MEDICAL HISTORY : Hepatitis C. Cardiovascular disease. Seizures. SURGICAL HISTORY : None. ENCOUNTER: Subsequent ACUITY: 4 - 6 days PAIN SCORE: 0/10 LOCATION: Bilateral chest FINDINGS: Stable left IJ central line. Improving airspace disease in the left upper lobe. Improved indistinct c entral pulmonary vasculature and perihilar opacities. Cardiomediastinal contours are stable. Remainde r of the exam is unchanged. CONCLUSION: 1. Improved left upper lobe airspace disease. 2. Improved positive fluid balance. Rashard Pena MD on August 16, 2017 at 9:28 Board Certified Radiologist. This report was verified electronically.
[2017-08-16] MEDS ORDERED: CALCIUM GLUCONATE INJ 1 GM in SODIUM CHLORIDE 0.9% INJ 100 ML IV ONE (10:00)
--- NOTE | 2017-08-16 10:56 | HHI.HCPN ---
Reason for visit a. To assist with evaluation and management of symptoms including: pain, dyspnea, anxiety b. To assist medical decision maker(s) with: better understanding of current medical conditions; weighing benefits/burdens of medical treatment options; making medical treatment decisions. Subjective/Interval History Patient seen and examined in ICU; joint visit with CORINNA Lai. She is resting with blankets over her head but responds readily to name. She is anxious and tearful as she states "I'm in so much pain, I can't even move, and they only gave me Lortabs...when they gave me IV Dilaudid, I could move around and pull myself up in bed, and everything..." She states that her pain is in her hands, feet and back, but tells me that it is no worse today, just that the medication doesn't seem to be helping. She acknowledges that it was "just now" given, and becomes impatient with the explanation that meds by mouth take some time to onset. She also says that she is not able to sleep at all because " they won't give me anything for sleeping and I'm so anxious." She acknowledges that her shortness of breath has improved somewhat; she is eating, drinking and stooling without any difficulty. Her primary concern today is that she is not receiving adequate pain control, nor sleeping medication. Family/friend interactions No family or friends are present today; she states that Jerry (S.O.) is "downstairs getting blood work." Advance Directives Living Will: Never completed Health Care Surrogate: Never completed Durable Power of Scheduler Conveyor: Never completed Advance Directive Specifics Documented care wishes: Patient is currently capacitated to make decisions. We discussed specifically executing an advance directive today. She names her father as the person she would choose to speak for her if she became incapacitated; paperwork left at bedside as she wishes to consider it overnight before formalizing it. Significant change in goals: She continues to indicate that she wants everything done. Objective Vital Signs Date Time Temp Pulse Resp B/P (MAP) Pulse Ox O2 Delivery O2 Flow Rate FiO2 08/16/17 06:00 96 08/16/17 04:00 98.3 94 22 115/76 (89) 100 08/16/17 04:00 94 08/16/17 02:00 93 08/16/17 00:00 98.7 95 21 112/62 (79) 99 08/16/17 00:00 95 08/15/17 22:00 100 08/15/17 20:00 98 08/15/17 20:00 98.9 98 20 101/63 (76) 100 08/15/17 18:00 108 08/15/17 16:00 114 08/15/17 16:00 99.6 114 24 113/71 (85) 100 08/15/17 15:00 117 08/15/17 14:00 116 08/15/17 13:00 113 08/15/17 12:00 112 08/15/17 12:00 99.1 Intake & Output 08/16/17 08/16/17 06:59 18:59 Intake Total 1100 ml Output Total 700 ml Balance 400 ml Intake Oral 800 ml IV Total 300 ml Output Urine Total 700 ml # Bowel Movements 0 Physical Exam CONSTITUTIONAL/GENERAL: awake and alert reclining in bed; anxious and querulous but responds appropriately TUBES/LINES/DRAINS: PIV SKIN: tender, petechial lesions on left hand and bilateral soles of feet.. No generalized rashes or lesions; skin warm; slight sallow tinge HEAD: Atraumatic. Normocephalic. EYES: Pupils equal and round and reactive. Extraocular motions intact.Conjunctivae pale. ENT: Hearing grossly normal. Nose without bleeding or purulent drainage. Oropharynx mildly pale; adequate dentition; less erythema on posterior OP NECK: Trachea midline. Supple, nontender. No palpable thyroid enlargement or nodularity. CARDIOVASCULAR: Tachycardic; regular rhythm; difficult to auscultate RESPIRATORY/CHEST: diminished throughout; poor inspiratory effort; few crackles at left base GASTROINTESTINAL: Abdomen more distended today; she complains of LUQ pain; does not tolerate any deep palpation; bowel sounds hypoactive GENITOURINARY: Without palpable bladder distension. . MUSCULOSKELETAL: Extremities without clubbing or cyanosis; trace edema BLE LYMPHATICS: No palpable cervical or supraclavicular adenopathy. NEUROLOGICAL: Awake and alert. Motor and sensory grossly within normal limits. Moves all extremities to command PSYCHIATRIC: tearful; anxious Diagnostic Tests Laboratory Laboratory Tests Test 08/14/17 04:00 08/14/17 08:30 1/21/18 04:46 08/16/17 05:01 White Blood Count 15.1 TH/MM3 (4.0-11.0) 16.5 TH/MM3 (4.0-11.0) 15.0 TH/MM3 (4.0-11.0) Red Blood Count 3.20 MIL/MM3 (4.00-5.30) 2.98 MIL/MM3 (4.00-5.30) 2.62 MIL/MM3 (4.00-5.30) Hemoglobin 8.8 GM/DL (11.6-15.3) 8.1 GM/DL (11.6-15.3) 7.4 GM/DL (11.6-15.3) Hematocrit 25.9 % (35.0-46.0) 24.2 % (35.0-46.0) 21.4 % (35.0-46.0) Mean Corpuscular Volume 81.1 FL (80.0-100.0) 81.1 FL (80.0-100.0) 81.7 FL (80.0-100.0) Mean Corpuscular Hemoglobin 27.4 PG (27.0-34.0) 27.3 PG (27.0-34.0) 28.2 PG (27.0-34.0) Mean Corpuscular Hemoglobin Concent 33.7 % (32.0-36.0) 33.7 % (32.0-36.0) 34.5 % (32.0-36.0) Red Cell Distribution Width 15.6 % (11.6-17.2) 15.4 % (11.6-17.2) 14.9 % (11.6-17.2) Platelet Count 97 TH/MM3 (150-450) 113 TH/MM3 (150-450) 135 TH/MM3 (150-450) Mean Platelet Volume 7.8 FL (7.0-11.0) 7.6 FL (7.0-11.0) 7.5 FL (7.0-11.0) Neutrophils (%) (Auto) 80.4 % (16.0-70.0) 80.1 % (16.0-70.0) 81.9 % (16.0-70.0) Lymphocytes (%) (Auto) 13.9 % (9.0-44.0) 13.3 % (9.0-44.0) 11.0 % (9.0-44.0) Monocytes (%) (Auto) 5.0 % (0.0-8.0) 5.8 % (0.0-8.0) 6.4 % (0.0-8.0) Eosinophils (%) (Auto) 0.6 % (0.0-4.0) 0.7 % (0.0-4.0) 0.7 % (0.0-4.0) Basophils (%) (Auto) 0.1 % (0.0-2.0) 0.1 % (0.0-2.0) 0.0 % (0.0-2.0) Neutrophils # (Auto) 12.1 TH/MM3 (1.8-7.7) 13.2 TH/MM3 (1.8-7.7) 12.3 TH/MM3 (1.8-7.7) Lymphocytes # (Auto) 2.1 TH/MM3 (1.0-4.8) 2.2 TH/MM3 (1.0-4.8) 1.6 TH/MM3 (1.0-4.8) Monocytes # (Auto) 0.8 TH/MM3 (0-0.9) 1.0 TH/MM3 (0-0.9) 1.0 TH/MM3 (0-0.9) Eosinophils # (Auto) 0.1 TH/MM3 (0-0.4) 0.1 TH/MM3 (0-0.4) 0.1 TH/MM3 (0-0.4) Basophils # (Auto) 0.0 TH/MM3 (0-0.2) 0.0 TH/MM3 (0-0.2) 0.0 TH/MM3 (0-0.2) CBC Comment AUTO DIFF AUTO DIFF DIFF FINAL Differential Comment AUTO DIFF CONFIRMED FINAL DIFF MANUAL Toxic Granulation 1+ (NORMAL) Dohle Bodies PRESENT (NONE SEEN) PRESENT (NONE SEEN) Platelet Estimate LOW (NORMAL) LOW (NORMAL) Platelet Morphology Comment NORMAL (NORMAL) NORMAL (NORMAL) Acanthocytes OCC (NORMAL) OCC (NORMAL) Blood Urea Nitrogen 47 MG/DL (7-18) 40 MG/DL (7-18) 29 MG/DL (7-18) Creatinine 1.80 MG/DL (0.50-1.00) 1.45 MG/DL (0.50-1.00) 1.08 MG/DL (0.50-1.00) Random Glucose 105 MG/DL (74-106) 98 MG/DL (74-106) 93 MG/DL (74-106) Total Protein 6.1 GM/DL (6.4-8.2) 6.0 GM/DL (6.4-8.2) 6.0 GM/DL (6.4-8.2) Calcium Level 6.7 MG/DL (8.5-10.1) 7.1 MG/DL (8.5-10.1) 7.2 MG/DL (8.5-10.1) Sodium Level 135 MEQ/L (136-145) 136 MEQ/L (136-145) 137 MEQ/L (136-145) Potassium Level 4.4 MEQ/L (3.5-5.1) 3.9 MEQ/L (3.5-5.1) 3.7 MEQ/L (3.5-5.1) Chloride Level 105 MEQ/L (98-107) 106 MEQ/L (98-107) 109 MEQ/L (98-107) Carbon Dioxide Level 18.7 MEQ/L (21.0-32.0) 19.8 MEQ/L (21.0-32.0) 20.0 MEQ/L (21.0-32.0) Anion Gap 11 MEQ/L (5-15) 10 MEQ/L (5-15) 8 MEQ/L (5-15) Estimat Glomerular Filtration Rate 31 ML/MIN (>89) 40 ML/MIN (>89) 56 ML/MIN (>89) Protein Corrected Calcium 7.2 MG/DL (8.5-10.1) 7.7 MG/DL (8.5-10.1) 7.8 MG/DL (8.5-10.1) Stool C. difficile Toxin (PCR) NEGATIVE (NEGATIVE) Stl C. difficile Toxin Epiderm 027 PRESUMPTIVE NEGATIVE Differential Total Cells Counted 100 Neutrophils % (Manual) 78 % (16-70) Band Neutrophils % 7 % (0-6) Lymphocytes % 8 % (9-44) Monocytes % 4 % (0-8) Eosinophils % 1 % (0-4) Neutrophils # (Manual) 14.4 TH/MM3 (1.8-7.7) Metamyelocytes 2 % (0-1) Keratocytes OCC (NORMAL) Result Diagram: 08/16/17 0501 08/16/17 0501 Microbiology Microbiology Date/Time Source Procedure Growth Status 08/12/17 04:15 Blood Peripheral Aerobic Blood Culture - Preliminary Gram Positive Cocci Resulted 08/12/17 04:15 Blood Peripheral Anaerobic Blood Culture - Preliminary NO GROWTH IN 3 DAYS Resulted 08/09/17 21:50 Nasal Washing Influenza Types A,B Antigen ([facility]) - Final NEGATIVE FOR FLU A AND B ANTIGEN.... Complete 08/09/17 20:34 Urine Catheterized Urine Urine Culture - Final Staphylococcus Aureus Escherichia Coli Complete Imaging Last 72 hours Impressions Chest X-Ray 08/16/17 0000 Signed Impressions: Service Date/Time: Wednesday, August 16, 2017 08:37 - CONCLUSION: 1. Improved left upper lobe airspace disease. 2. Improved positive fluid balance. Rashard Pena MD Assessment and Plan Disease Oriented Problem List: (1) Sepsis (2) DIC (disseminated intravascular coagulation) (3) INES (acute kidney injury) (4) Endocarditis (5) Anxiety (6) Pain Symptom Scale: (1) Pain 0-10 Scale: 10 Comment: She expresses a very strong preference for IV analgesia, specifically Dilaudid, but given her history, would recommend oral analgesia if at all feasible (2) Dyspnea 0-10 Scale: Unable to quantify Comment: CXR and subjective improvement; continue to monitor (3) Anxiety 0-10 Scale: 10 Comment: Patient appears tearful with worsening anxiety; she is requesting assistance with sleep at night. May consider some low dose diphenhydramine at 25 mg PO qhs. Pertinent Non-Medical Issues Psychosocial: lives with boyfriend who reportedly has multiple other family members who are critically ill Spiritual: none known Legal: Currently patient is capacitated to make own decisions; today she clearly states that she wants her father to be her HCP. Paperwork left at bedside for her to consider overnight. Per [place] statute, in the absence of written advance directives, decision making would fall to her parents first, then to her siblings. Her children are minors at this time. Ethical issues impacting care: None known Important Contacts Father Marcus Jc [phone] Significant other Jerry Nevraez [phone] Prognosis Not a candidate for surgical valve replacement; renal function is declining. She will need lifetime antibiotics and renal function continues to decline. Prognosis remains likely months unless additional complications. Code Status: Full Code Plan * Currently patient is capacitated to make own decisions. Today she clearly expresses that she wants her father to be her HCP, but is not yet ready to execute paperwork. Per [place] statute, in the absence of written advance directives, decision making would fall to her parents first, then to her siblings. Her children are minors at this time. * FULL CODE. * Goals of care: her goals remain very aggressive despite ongoing discussion with multiple members of the medical team to explain severity of endocarditis as well as likelihood of complications * SYMPTOMS: pain - currently has hydrocodone/APAP available. Apparently she did receive a few doses of IV opiate analgesia and now she feels that this is the only successful pain management for her. PRN; dyspnea -- on antibiotics; adding nebs; improving; anxiety - worsening; consider addition of diphenhydramine at hs * Palliative care number provided. * Palliative care will continue to follow to assist with symptom management and clarification of treatment goals as needed. Time Spent Total Floor Time (mins): 30 (Time spent to include chart review, examination and discussion, and recommendations) Attestation To help and need to consider important information that might be impacting today 's encounter and assessment,To help prompt me to consider important information that might be impacting today's encounter and assessment, information from prior notes written by myself or my colleagues may have been "brought forward" into today's note. My signature on this note, however, is an attestation that I personally performed the exam, history, and/or decision-making noted today, and, unless otherwise indicate, the interactions with patient, family, and staff as well as the review of records all occurred today. I also attest that the listed assessment and stated plan reflect my best clinical judgment today based on the combination of historical information, prior notes, and today's exam/interactions. When time spent is documented, it refers only to time spent today by the signer, or if indicated, combined time spent today by collaborating physician/nurse practitioner. Sarah Pearson Aug 16, 2017 10:56
[2017-08-16 12:48] LABS: AUTOMATED NEUTROPHIL # 12.6 TH/MM3 (1.8-7.7); BASOPHIL % 0.1 % (0.0-2.0); EOSINOPHIL # 0.1 TH/MM3 (0-0.4); EOSINOPHIL % 0.6 % (0.0-4.0); LYMPH % 9.7 % (9.0-44.0); LYMPHOCYTE # 1.4 TH/MM3 (1.0-4.8); MEAN CORPUSCULAR HEMOGLOBIN 27.6 PG (27.0-34.0); MEAN CORPUSCULAR HGB CONC 33.7 % (32.0-36.0); MEAN PLATELET VOLUME 7.4 FL (7.0-11.0); MONO % 4.9 % (0.0-8.0); MONOCYTE # 0.7 TH/MM3 (0-0.9); NEUT % 84.7 % (16.0-70.0); PLATELET COUNT 138 TH/MM3 (150-450); RED BLOOD COUNT 2.47 MIL/MM3 (4.00-5.30); RED CELL DISTRIBUTION WIDTH 15.2 % (11.6-17.2); WHITE BLOOD COUNT 14.8 TH/MM3 (4.0-11.0)
[2017-08-16 12:50] LABS: HEMATOCRIT 20.3 % (35.0-46.0); HEMOGLOBIN 6.8 GM/DL (11.6-15.3)
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
--- NOTE | 2017-08-16 13:51 | PD.ONC.PN ---
Subjective Subjective Remarks Afebrile overnight. Continuing to have pain "all over." Most of pain is in abdomen. No other complaints. Objective Data Date Time Temp Pulse Resp B/P (MAP) Pulse Ox O2 Delivery O2 Flow Rate FiO2 08/16/17 12:00 104 08/16/17 12:00 98.4 104 24 109/74 (86) 100 08/16/17 10:00 100 08/16/17 08:00 97.9 95 14 107/73 (84) 100 08/16/17 08:00 95 08/16/17 06:00 96 08/16/17 04:00 98.3 94 22 115/76 (89) 100 08/16/17 04:00 94 08/16/17 02:00 93 08/16/17 00:00 98.7 95 21 112/62 (79) 99 08/16/17 00:00 95 08/15/17 22:00 100 08/15/17 20:00 98 08/15/17 20:00 98.9 98 20 101/63 (76) 100 08/15/17 18:00 108 08/15/17 16:00 114 08/15/17 16:00 99.6 114 24 113/71 (85) 100 08/15/17 15:00 117 08/15/17 14:00 116 08/16/17 08/16/17 08/16/17 07:00 15:00 23:00 Intake Total 1000 ml 210 ml Output Total 700 ml Balance 300 ml 210 ml Result Diagram: 08/16/17 1150 08/16/17 0501 Laboratory Results Laboratory Tests Test 08/16/17 05:01 08/16/17 11:50 White Blood Count 15.0 TH/MM3 14.8 TH/MM3 Red Blood Count 2.62 MIL/MM3 2.47 MIL/MM3 Hemoglobin 7.4 GM/DL 6.8 GM/DL Hematocrit 21.4 % 20.3 % Mean Corpuscular Volume 81.7 FL 82.0 FL Mean Corpuscular Hemoglobin 28.2 PG 27.6 PG Mean Corpuscular Hemoglobin Concent 34.5 % 33.7 % Red Cell Distribution Width 14.9 % 15.2 % Platelet Count 135 TH/MM3 138 TH/MM3 Mean Platelet Volume 7.5 FL 7.4 FL Neutrophils (%) (Auto) 81.9 % 84.7 % Lymphocytes (%) (Auto) 11.0 % 9.7 % Monocytes (%) (Auto) 6.4 % 4.9 % Eosinophils (%) (Auto) 0.7 % 0.6 % Basophils (%) (Auto) 0.0 % 0.1 % Neutrophils # (Auto) 12.3 TH/MM3 12.6 TH/MM3 Lymphocytes # (Auto) 1.6 TH/MM3 1.4 TH/MM3 Monocytes # (Auto) 1.0 TH/MM3 0.7 TH/MM3 Eosinophils # (Auto) 0.1 TH/MM3 0.1 TH/MM3 Basophils # (Auto) 0.0 TH/MM3 0.0 TH/MM3 CBC Comment DIFF FINAL DIFF FINAL Differential Comment Blood Urea Nitrogen 29 MG/DL Creatinine 1.08 MG/DL Random Glucose 93 MG/DL Total Protein 6.0 GM/DL Calcium Level 7.2 MG/DL Sodium Level 137 MEQ/L Potassium Level 3.7 MEQ/L Chloride Level 109 MEQ/L Carbon Dioxide Level 20.0 MEQ/L Anion Gap 8 MEQ/L Estimat Glomerular Filtration Rate 56 ML/MIN Protein Corrected Calcium 7.8 MG/DL Culture Results Microbiology Date/Time Source Procedure Growth Status 08/16/17 11:45 Blood Peripheral Aerobic Blood Culture Pending Received 08/16/17 11:45 Blood Peripheral Anaerobic Blood Culture Pending Received 08/16/17 11:30 Blood Peripheral Aerobic Blood Culture Pending Received 08/16/17 11:30 Blood Peripheral Anaerobic Blood Culture Pending Received Imaging Studies Last 24 hours Impressions Chest X-Ray 08/16/17 0000 Signed Impressions: Service Date/Time: Wednesday, August 16, 2017 08:37 - CONCLUSION: 1. Improved left upper lobe airspace disease. 2. Improved positive fluid balance. Rashard Pena MD Administered Medications Medications (Trade) Dose Ordered Sig/Pee Route PRN Reason Start Time Stop Time Status Last Admin Dose Admin Sodium Chloride (NS Flush) 2 ml BID IV FLUSH 08/10/17 09:00 08/16/17 08:42 Albuterol Sulfate (Albuterol Neb) 2.5 mg Q2HR NEB PRN INH SOB/WHEEZING 08/09/17 22:15 08/12/17 04:10 Miscellaneous Information 1 Q361D XX 08/09/17 22:15 08/09/17 22:15 Chlorhexidine Gluconate (Chlorhexidine 2% Cloth) Taper DAILY@04 TOP 08/10/17 04:00 08/06/18 03:59 08/16/17 02:40 Senna/Docusate Sodium (Cira-Colace) 1 tab BID PO 08/10/17 09:00 08/14/17 08:18 Potassium Chloride 100 ml @ 50 mls/hr Q2H PRN IV For Potassium 2.8 - 3.2 mEq/L 08/10/17 00:15 08/11/17 10:44 Potassium Phosphate (K-Phos) 2,000 mg Q4H PRN PO For Phosphorus < 2.5 mg/dL 08/10/17 00:15 08/10/17 21:18 Sodium Phosphate 30 mmol/Sodium Chloride 250 ml @ 42 mls/hr UNSCH PRN IV For Phosphorus < 2.5 mg/dL 08/10/17 00:15 08/10/17 11:15 Acetaminophen/ Hydrocodone Bitart ([place] 10-325 Mg) 1 tab Q4H PRN PO PAIN 1-5 08/10/17 02:00 08/15/17 11:46 Acetaminophen/ Hydrocodone Bitart ([place] 10-325 Mg) 2 tab Q4H PRN PO PAIN 6-10 08/10/17 02:00 08/16/17 10:02 Nicotine (Habitrol 21 Mg Patch.24 Hr) 1 patch DAILY T-DERMAL 08/10/17 09:00 08/16/17 08:42 Miscellaneous Information 1 DAILY T-DERMAL 08/10/17 09:00 08/16/17 08:42 Pantoprazole Sodium (Protonix) 40 mg DAILY PO 08/10/17 09:00 08/16/17 08:42 Rifampin (Rifampin) 300 mg Q12H PO 08/10/17 15:00 08/16/17 03:14 Oxacillin Sodium 2 gm/Sodium Chloride 100 ml @ 200 mls/hr Q4H IV 08/11/17 14:00 08/16/17 09:55 Objective Remarks GENERAL: chronically ill appearing female, lying supine in bed in [facility]. Male friend at bedside. SKIN: Warm and dry. HEAD: Normocephalic. EYES: No injection or drainage. NECK: Supple, trachea midline. CARDIOVASCULAR: +S1/S2 RESPIRATORY: scattered rhonchi in anterior ortiz. GASTROINTESTINAL: Abdomen firm, distended. NEUROLOGICAL: awake, normal speech. following commands. Assessment/Plan Problem List: (1) H/O endocarditis ICD Codes: Z86.79 - Personal history of other diseases of the circulatory system Status: Chronic Plan: -- On Oxacillin -- ID following -- Echocardiogram on 08/11 shows findings consistent with vegetation on the aortic, mitral, and tricuspid valves. -- Pt with poor prognosis and palliative care is involved. 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 monitor CBC, coags, fibrinogen 2. agree with pRBC transfusion. Attending Statement The exam, history, and the medical decision-making described in the above note were completed with the assistance of the mid-level provider. I reviewed and agree with the findings presented. I attest that I had a [id number] encounter with the patient on the same day, and personally performed and documented my assessment and findings in the medical record. No bleeding reported. DIC is resolving. Platelet continue to trend up. Hgb trended down due to acute illness. Recommend transfusion of PRBC if Hgb <7. Tika Gonsalves Aug 16, 2017 13:51 Farshad Wilburn MD Aug 16, 2017 15:33
--- NOTE | 2017-08-16 20:41 | PD.CARD.PN ---
Subjective Subjective Remarks No SOB, c/o generalized pain and insomnia Objective Medications Current Medications Medications (Trade) Dose Ordered Sig/Pee Route Start Time Stop Time Status Last Admin (NS Flush) 2 ml UNSCH PRN IV FLUSH 08/09/17 22:15 (NS Flush) 2 ml BID IV FLUSH 08/10/17 09:00 08/16/17 08:42 (Zofran Inj) 4 mg Q6H PRN IV PUSH 08/09/17 22:15 (Albuterol Neb) 2.5 mg Q2HR NEB PRN INH 08/09/17 22:15 08/12/17 04:10 Miscellaneous Information 1 Q361D XX 08/09/17 22:15 08/09/17 22:15 (Chlorhexidine 2% Cloth) Taper DAILY@04 TOP 08/10/17 04:00 08/06/18 03:59 08/16/17 02:40 (Chlorhexidine 2% Cloth) 3 pack UNSCH PRN TOP 08/09/17 22:15 (Cira-Colace) 1 tab BID PO 08/10/17 09:00 08/14/17 08:18 (Milk Of Magnesia Liq) 30 ml Q12H PRN PO 08/09/17 22:15 (Senokot) 17.2 mg Q12H PRN PO 08/09/17 22:15 (Dulcolax Supp) 10 mg DAILY PRN RECTAL 08/09/17 22:15 (Lactulose Liq) 30 ml DAILY PRN PO 08/09/17 22:15 Potassium Chloride 100 ml @ 50 mls/hr Q2H PRN IV 08/10/17 00:15 Potassium Chloride 100 ml @ 50 mls/hr Q2H PRN IV 08/10/17 00:15 08/11/17 10:44 (K-Lyte Cl Eff) 50 meq UNSCH PRN PO 08/10/17 00:15 Potassium Chloride 100 ml @ 25 mls/hr UNSCH PRN IV 08/10/17 00:15 Potassium Chloride 100 ml @ 50 mls/hr Q2H PRN IV 08/10/17 00:15 Magnesium Sulfate 4 gm/Sodium Chloride 100 ml @ 50 mls/hr UNSCH PRN IV 08/10/17 00:15 (Mag-Ox) 800 mg UNSCH PRN PO 08/10/17 00:15 Magnesium Sulfate 2 gm/Sodium Chloride 100 ml @ 50 mls/hr UNSCH PRN IV 08/10/17 00:15 (K-Phos) 2,000 mg Q4H PRN PO 08/10/17 00:15 08/10/17 21:18 Sodium Phosphate 30 mmol/Sodium Chloride 250 ml @ 42 mls/hr UNSCH PRN IV 08/10/17 00:15 08/10/17 11:15 (K-Phos) 2,000 mg UNSCH PRN PO/TUBE 08/10/17 00:15 Potassium Phosphate 30 mmol/ Sodium Chloride 260 ml @ 42 mls/hr UNSCH PRN IV 08/10/17 00:15 (D50w (Vial) Inj) 50 ml UNSCH PRN IV PUSH 08/10/17 00:15 (Glucagon Inj) 1 mg UNSCH PRN OTHER 08/10/17 00:15 ([place] 10-325 Mg) 1 tab Q4H PRN PO 08/10/17 02:00 08/15/17 11:46 ([place] 10-325 Mg) 2 tab Q4H PRN PO 08/10/17 02:00 08/16/17 19:35 (Habitrol 21 Mg Patch.24 Hr) 1 patch DAILY T-DERMAL 08/10/17 09:00 08/16/17 08:42 Miscellaneous Information 1 DAILY T-DERMAL 08/10/17 09:00 08/16/17 08:42 (Protonix) 40 mg DAILY PO 08/10/17 09:00 08/16/17 08:42 (Brethine Inj) 1 mg UNSCH PRN SQ 08/10/17 03:15 (Rifampin) 300 mg Q12H PO 08/10/17 15:00 08/16/17 14:06 Oxacillin Sodium 2 gm/Sodium Chloride 100 ml @ 200 mls/hr Q4H IV 08/11/17 14:00 08/16/17 17:35 Vital Signs / I&O Vital Signs Date Time Temp Pulse Resp B/P (MAP) Pulse Ox O2 Delivery O2 Flow Rate FiO2 08/16/17 19:57 98.6 97 18 110/74 98 08/16/17 19:50 98.6 99 18 110/74 98 08/16/17 18:00 110 08/16/17 16:50 98.8 104 22 119/71 100 08/16/17 16:00 98.6 109 25 111/74 (86) 100 08/16/17 16:00 109 08/16/17 14:00 108 08/16/17 12:00 104 08/16/17 12:00 98.4 104 24 109/74 (86) 100 08/16/17 10:00 100 08/16/17 08:00 97.9 95 14 107/73 (84) 100 08/16/17 08:00 95 08/16/17 06:00 96 08/16/17 04:00 98.3 94 22 115/76 (89) 100 08/16/17 04:00 94 08/16/17 02:00 93 08/16/17 00:00 98.7 95 21 112/62 (79) 99 08/16/17 00:00 95 08/15/17 22:00 100 I/O 08/15/17 08/15/17 08/15/17 08/16/17 08/16/17 08/16/17 07:00 15:00 23:00 07:00 15:00 23:00 Intake Total 600 ml 100 ml 1850 ml 1000 ml 210 ml 1610 ml Output Total 900 ml 700 ml Balance -300 ml 100 ml 1850 ml 300 ml 210 ml 1610 ml Intake Oral 400 ml 1440 ml 800 ml 600 ml IV Total 200 ml 100 ml 410 ml 200 ml 210 ml 200 ml Packed Cells 400 ml Blood Product IV Normal Saline Flush 410 ml Output Urine Total 900 ml 700 ml # Voids 5 3 1 # Bowel Movements 1 3 0 1 Physical Exam GENERAL: In mild distress SKIN: Warm and dry. HEAD: Normocephalic. EYES: No scleral icterus. No injection or drainage. NECK: Supple, trachea midline. No JVD or lymphadenopathy. CARDIOVASCULAR: Regular rate and rhythm with syst murmur, no gallops or rubs. RESPIRATORY: Breath sounds equal bilaterally. No accessory muscle use. GASTROINTESTINAL: Abdomen soft, non-tender, nondistended. MUSCULOSKELETAL: No edema. Laboratory Laboratory Tests Test 08/16/17 05:01 08/16/17 11:50 White Blood Count 15.0 TH/MM3 14.8 TH/MM3 Red Blood Count 2.62 MIL/MM3 2.47 MIL/MM3 Hemoglobin 7.4 GM/DL 6.8 GM/DL Hematocrit 21.4 % 20.3 % Mean Corpuscular Volume 81.7 FL 82.0 FL Mean Corpuscular Hemoglobin 28.2 PG 27.6 PG Mean Corpuscular Hemoglobin Concent 34.5 % 33.7 % Red Cell Distribution Width 14.9 % 15.2 % Platelet Count 135 TH/MM3 138 TH/MM3 Mean Platelet Volume 7.5 FL 7.4 FL Neutrophils (%) (Auto) 81.9 % 84.7 % Lymphocytes (%) (Auto) 11.0 % 9.7 % Monocytes (%) (Auto) 6.4 % 4.9 % Eosinophils (%) (Auto) 0.7 % 0.6 % Basophils (%) (Auto) 0.0 % 0.1 % Neutrophils # (Auto) 12.3 TH/MM3 12.6 TH/MM3 Lymphocytes # (Auto) 1.6 TH/MM3 1.4 TH/MM3 Monocytes # (Auto) 1.0 TH/MM3 0.7 TH/MM3 Eosinophils # (Auto) 0.1 TH/MM3 0.1 TH/MM3 Basophils # (Auto) 0.0 TH/MM3 0.0 TH/MM3 CBC Comment DIFF FINAL DIFF FINAL Differential Comment Blood Urea Nitrogen 29 MG/DL Creatinine 1.08 MG/DL Random Glucose 93 MG/DL Total Protein 6.0 GM/DL Calcium Level 7.2 MG/DL Sodium Level 137 MEQ/L Potassium Level 3.7 MEQ/L Chloride Level 109 MEQ/L Carbon Dioxide Level 20.0 MEQ/L Anion Gap 8 MEQ/L Estimat Glomerular Filtration Rate 56 ML/MIN Protein Corrected Calcium 7.8 MG/DL Imaging Last 24 hours Impressions Chest X-Ray 08/16/17 0000 Signed Impressions: Service Date/Time: Wednesday, August 16, 2017 08:37 - CONCLUSION: 1. Improved left upper lobe airspace disease. 2. Improved positive fluid balance. Rashard Pena MD Assessment and Plan Problem List: (1) Severe sepsis ICD Codes: A41.9 - Sepsis, unspecified organism; R65.20 - Severe sepsis without septic shock Status: Acute (2) Endocarditis ICD Codes: I38 - Endocarditis, valve unspecified (3) H/O prosthetic mitral valve ICD Codes: Z95.2 - Presence of prosthetic heart valve Status: Chronic (4) IVDU (intravenous drug user) ICD Codes: F19.90 - Other psychoactive substance use, unspecified, uncomplicated Status: Chronic (5) Cocaine abuse ICD Codes: F14.10 - Cocaine abuse, uncomplicated Status: Chronic Assessment and Plan No new cardiac issues. No angina or CHF. Overall prognosis remains very poor. Continue antibiotics. SUZANNE with AV, MV and TV vegetations. Multiple septic emboli , suspect cardiac as well resulting in increased troponin. D/w pt and significant other. Jeromy Avalos MD Aug 16, 2017 20:41
[2017-08-16] MEDS: ZOLPIDEM TARTRATE 10 MG TAB PO PRN (21:04)
[2017-08-17] VITALS (14 sets, daily range): BP systolic 100–144; BP diastolic 54–79; PULSE 93–122; RESP 18–25; TEMP 97.5–99.4; O2SAT 96
[2017-08-17] MEDS: CHLORHEXIDINE GLUCONATE 2 % 1 PACK (2 CLOTHS) TOP SCH (00:26)
[2017-08-17 01:32] LABS: HEMATOCRIT 29.5 % (35.0-46.0); HEMOGLOBIN 9.9 GM/DL (11.6-15.3)
[2017-08-17] MEDS: OXACILLIN INJ 2 GM in SODIUM CHLORIDE 0.9% INJ 100 ML IV SCH ×6 (01:40→22:08)
[2017-08-17] MEDS: RIFAMPIN 150 MG CAP PO SCH ×2 (03:31→14:10)
[2017-08-17] MEDS: ACETAMINOPHEN/HYDROcodone 325 MG/10 MG TAB PO PRN ×5 (03:33→21:46)
[2017-08-17 04:35] LABS: AUTOMATED NEUTROPHIL # 15.5 TH/MM3 (1.8-7.7); BASOPHIL % 0.1 % (0.0-2.0); EOSINOPHIL # 0.1 TH/MM3 (0-0.4); EOSINOPHIL % 0.7 % (0.0-4.0); HEMATOCRIT 28.9 % (35.0-46.0); HEMOGLOBIN 9.9 GM/DL (11.6-15.3); LYMPH % 7.8 % (9.0-44.0); LYMPHOCYTE # 1.4 TH/MM3 (1.0-4.8); MEAN CELL VOLUME 82.6 FL (80.0-100.0); MEAN CORPUSCULAR HEMOGLOBIN 28.3 PG (27.0-34.0); MEAN CORPUSCULAR HGB CONC 34.3 % (32.0-36.0); MEAN PLATELET VOLUME 7.2 FL (7.0-11.0); MONO % 4.3 % (0.0-8.0); MONOCYTE # 0.8 TH/MM3 (0-0.9); NEUT % 87.1 % (16.0-70.0); PLATELET COUNT 134 TH/MM3 (150-450); RED BLOOD COUNT 3.51 MIL/MM3 (4.00-5.30); RED CELL DISTRIBUTION WIDTH 14.9 % (11.6-17.2); WHITE BLOOD COUNT 17.8 TH/MM3 (4.0-11.0)
[2017-08-17 04:59] LABS: BICARBONATE 20.3 MEQ/L (21.0-32.0); CALCIUM 7.3 MG/DL (8.5-10.1)
[2017-08-17 05:13] LABS: CALCIUM-PROTEIN CORRECTED 7.8 MG/DL (8.5-10.1); TOTAL PROTEIN 6.1 GM/DL (6.4-8.2)
--- NOTE | 2017-08-17 07:36 | HHI.CCPN ---
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 She states that her valve replacement was performed at [facility] but I do not see record of this. She is unsure of when it was done. Unable to pull up old CXRs. She is uncertain of causative organism or treatment course. She presents to [facility] stating that she has had a 2 day history of subjective fever and nonproductive cough. She has also had tender, painful lesions on her hands and feet which on exam are consistent with [place] nodes. She states the reason she sought medical treatment was that "the pain became unbearable" and that it hurt to walk to the bathroom because of the tenderness on the soles of her feet. She denies headache , sore throat, chest pain, abdominal pain, hemoptysis. She states she has been actively injecting Suboxone which she acquired from "the street", stating she last injected into her right neck on 08/08/17 at around noon. In the ED, 2 sets of blood cultures were obtained, urinalysis and urine culture. She was given Vancomycin, zosyn, and 2 L NS bolus. Influenza screen is negative. Her sodium is 121, potassium 3, creatinine 1.29, lactic acid 5.9. 08/10 Patient is on Neosyn 40 mics. T:103.0 last night. BC from 08/09: GPC 2/4 bottles 08/01: C/o pain in left foot. 08/12 No events overnight. On Neosyn 10 mics. Afebrile. 08/13 Patient is lying in bed in NAD. Afebrile. Off Neosyn. Cr. increased 1.7 today from 1.4 08/14 No events overnight. Cr: 1.8, UOP: 2L in 24 hrs. Afebrile. 08/15 No events overnight. On room air oxygen. Awake and alert. Renal function is improving with Cr: 1.45 today from 1.8 yesterday 08/16 Patient is lying in bed in NAD. Afebrile. BC from 08/12: GPC 08/17 No events overnight. s/p transfusion 2units PRBC yesterday Hgb 9.9 from 6.8 yesterday. Afebrile. Objective Vital Signs Date Time Temp Pulse Resp B/P (MAP) Pulse Ox O2 Delivery O2 Flow Rate FiO2 08/17/17 06:00 98 08/17/17 04:00 98.9 19 112/64 (80) 08/16/17 20:13 98 08/14/17 20:52 21 Intake and Output 08/17/17 08/17/17 08/18/17 08:00 16:00 00:00 Intake Total 1260 ml Balance 1260 ml Result Diagram: 08/17/17 0335 08/17/17 0335 Other Results Laboratory Tests Test 08/16/17 11:50 08/17/17 01:05 08/17/17 03:35 White Blood Count 14.8 TH/MM3 17.8 TH/MM3 Red Blood Count 2.47 MIL/MM3 3.51 MIL/MM3 Hemoglobin 6.8 GM/DL 9.9 GM/DL 9.9 GM/DL Hematocrit 20.3 % 29.5 % 28.9 % Mean Corpuscular Volume 82.0 FL 82.6 FL Mean Corpuscular Hemoglobin 27.6 PG 28.3 PG Mean Corpuscular Hemoglobin Concent 33.7 % 34.3 % Red Cell Distribution Width 15.2 % 14.9 % Platelet Count 138 TH/MM3 134 TH/MM3 Mean Platelet Volume 7.4 FL 7.2 FL Neutrophils (%) (Auto) 84.7 % 87.1 % Lymphocytes (%) (Auto) 9.7 % 7.8 % Monocytes (%) (Auto) 4.9 % 4.3 % Eosinophils (%) (Auto) 0.6 % 0.7 % Basophils (%) (Auto) 0.1 % 0.1 % Neutrophils # (Auto) 12.6 TH/MM3 15.5 TH/MM3 Lymphocytes # (Auto) 1.4 TH/MM3 1.4 TH/MM3 Monocytes # (Auto) 0.7 TH/MM3 0.8 TH/MM3 Eosinophils # (Auto) 0.1 TH/MM3 0.1 TH/MM3 Basophils # (Auto) 0.0 TH/MM3 0.0 TH/MM3 CBC Comment DIFF FINAL DIFF FINAL Differential Comment Blood Urea Nitrogen 22 MG/DL Creatinine 1.00 MG/DL Random Glucose 116 MG/DL Total Protein 6.1 GM/DL Calcium Level 7.3 MG/DL Sodium Level 139 MEQ/L Potassium Level 3.7 MEQ/L Chloride Level 110 MEQ/L Carbon Dioxide Level 20.3 MEQ/L Anion Gap 9 MEQ/L Estimat Glomerular Filtration Rate 62 ML/MIN Protein Corrected Calcium 7.8 MG/DL Imaging Last Impressions Chest X-Ray 08/16/17 0000 Signed Impressions: Service Date/Time: Wednesday, August 16, 2017 08:37 - CONCLUSION: 1. Improved left upper lobe airspace disease. 2. Improved positive fluid balance. Rashard Pena MD Lower Extremity Ultrasound 08/10/17 0000 Signed Impressions: Service Date/Time: Thursday, August 10, 2017 07:51 - CONCLUSION: Normal examination. No evidence of DVT Ambrose Verdin MD Liver Ultrasound 08/10/17 0000 Signed Impressions: Service Date/Time: Thursday, August 10, 2017 08:04 - CONCLUSION: 1. Abnormal gallbladder filled with sludge and demonstrating wall thickening. There are no additional findings are present to suggest acute gallbladder inflammation. 2. Trace free fluid in the abdomen and small bilateral pleural effusions. 3. Mild splenomegaly. Rod Pascual MD Head CT 08/10/17 0000 Signed Impressions: Service Date/Time: Thursday, August 10, 2017 02:33 - CONCLUSION: No acute disease. Rod Garcia MD Objective Remarks GENERAL: Thin disheveled female who is alert and sitting up in bed. SKIN: Warm and dry. There are petechial lesions on the palms of both hands. There are tender raised purpuric lesions on the palmar surface of left fifth digit and left thenar eminence c/w osler nodes. There are similar tender lesions on pad of bilateral feet overlying toes and distal metatarsals L>R. Toes dusky. No splinter hemorrhages. Track blane present right neck and Left forearm. VASC: DP and [employer] pulses present bilaterally. HEAD: Atraumatic. Normocephalic. EYES: Pupils equal and round. No scleral icterus. No injection or drainage. ENT: No nasal bleeding or discharge. Mucous membranes dry. No pharyngeal erythema. No thrush. NECK: Trachea midline. No JVD. No meningismus CARDIOVASCULAR: Tachycardic, regular, sinus tach on the monitor with rate in the high 110s. I am unable to appreciate a murmur at current heart rate. RESPIRATORY: Tachypneic but overall appears comfortable without accessory muscle use. Bibasilar Rales present. No wheezes or rhonchi. GASTROINTESTINAL: Abdomen soft, non-tender, nondistended. Bowel sounds present. MUSCULOSKELETAL: Extremities without clubbing, cyanosis, or edema. NEUROLOGICAL: Awake and alert. No obvious cranial nerve deficits. Strength 5 out of 5 in all extremity. Sensation intact. A/P Problem List: (1) Severe sepsis ICD Code: A41.9 - Sepsis, unspecified organism; R65.20 - Severe sepsis without septic shock Status: Acute (2) DIC (disseminated intravascular coagulation) ICD Code: D65 - Disseminated intravascular coagulation [defibrination syndrome] Status: Acute (3) Cocaine abuse ICD Code: F14.10 - Cocaine abuse, uncomplicated Status: Chronic (4) IVDU (intravenous drug user) ICD Code: F19.90 - Other psychoactive substance use, unspecified, uncomplicated Status: Chronic (5) H/O prosthetic mitral valve ICD Code: Z95.2 - Presence of prosthetic heart valve Status: Chronic (6) H/O endocarditis ICD Code: Z86.79 - Personal history of other diseases of the circulatory system Status: Chronic (7) Lactic acidosis ICD Code: E87.2 - Acidosis Status: Acute (8) Hyponatremia ICD Code: E87.1 - Hypo-osmolality and hyponatremia (9) Hypokalemia ICD Code: E87.6 - Hypokalemia Status: Acute Permanent Comment: unknown chronicity, probably subacute Last Edited By: Yashira Ivey on Aug 10, 2017 07:41 (10) INES (acute kidney injury) ICD Code: N17.9 - Acute kidney failure, unspecified (11) Hyperbilirubinemia ICD Code: E80.6 - Other disorders of bilirubin metabolism Status: Acute (12) Abnormal transaminases ICD Code: R74.8 - Abnormal levels of other serum enzymes Status: Acute (13) Elevated troponin level ICD Code: R74.8 - Abnormal levels of other serum enzymes Status: Acute Assessment and Plan NEURO: Acute encephalopathy, probably toxic metabolic secondary to sepsis. IV drug use Opioid abuse Cocaine abuse Salicylate and Tylenol levels negative. Ammonia level low. CT brain no acute disease RESP: Tobacco abuse Oxygen PRN keep sat >92% Incentive spirometry every hour awake. Tobacco cessation counseling. Nicotine patch CXR yesterday improved TOR airspace disease CV: Place on Lopressor 12.5mg BID -Monitor HR and BP keep MAP>65mmHg Lactic acid cleared 1.7 from 5.9 on arrival Received 2 L normal saline bolus in the ED 08/09. Echo showed vegetations on TV, AV, MV, EF 50-55% GI: Elevated AST and hyperbilirubinemia ( improving) Ammonia level normal US liver: Abnormal gallbladder filled with sludge and demonstrating wall thickening. There are no additional findings are present to suggest acute gallbladder inflammation. Trace free fluid in the abdomen and small bilateral pleural effusions.. Mild splenomegaly. Hepatitis panel- Hep C ab reactive [employer] - test negative on admission. FEN/RENAL: Acute kidney injury- Resolved Avoid NSAIDs and other nephrotoxins. Received ketorolac in ED 08/09. Monitor renal function , electrolytes replacement per protocol. TSH: 1.93, cortisol level 65. . ID: Septic shock. 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 s/p 5units cryo 08/10 Heme is following. s/p transfusion 2units PRBC 08/16 ENDO: Acute hyperglycemia SSI with accuchekcs for glycemic control TSH: 1.9 Cortisol level: 65 PROPH: SCDs for DVT prophylaxis. Not on DVT prophylaxis due to thrombocytopenia ( improving) and anemia requiring blood transfusion. Protonix 40 mg by mouth daily for stress ulcer prophylaxis. ACCESS: Left IJ CVP placed 08/10, d/c central line and place peripheral IV's Full code Palliative care is following Poor prognosis given multiple valves involved with endocarditis and staph Bacteremia Level 3 Milton Velásquez MD Aug 17, 2017 07:36
[2017-08-17] MEDS ORDERED: HYDROmorphone HCL PF 2 MG/ML VIAL IV PUSH ONE (07:45)
[2017-08-17] MEDS: PANTOPRAZOLE SOD 40 MG DELAYED RELEASE TAB PO SCH (08:16)
[2017-08-17] MEDS: DOCUSATE SODIUM 50 MG/SENNA 8.6 MG TAB PO SCH ×2 (08:16→19:43)
[2017-08-17] MEDS: SODIUM CHLORIDE 0.9% FLUSH 10 ML FLUSH IV FLUSH SCH ×2 (08:16→19:55)
[2017-08-17] MEDS: REMOVE OLD PATCH T-DERMAL SCH (08:17)
[2017-08-17] MEDS: NICOTINE 21 MG/24 HR PATCH T-DERMAL SCH (08:17)
--- NOTE | 2017-08-17 13:44 | HHI.HCPN ---
Reason for visit a. To assist with evaluation and management of symptoms including: pain, dyspnea, anxiety b. To assist medical decision maker(s) with: better understanding of current medical conditions; weighing benefits/burdens of medical treatment options; making medical treatment decisions. Subjective/Interval History Seen and examined in ICU; no family or friends present. She is awake and alert ; less anxious today but says that the IV analgesia "improves my quality of life." She states that the pain in her fingers and her feet still runs generally 8-10 but really has not worsened. She is eating well, voiding and stooling regularly. She slept better last night after receiving zolpidem and hopes that this will be nightly. She tells me that she knows she needs to put down her wishes in writing but says that her father will be here this evening and she will be able to talk to him about it before executing a formal Health Care Surrogate. Repeat blood cultures are pending; CBC continues to show a worsening leukocytosis although platelets are continuing above 100K. Renal function has improved with creatinine 1.0 today. She has been afebrile but is tachycardic today; breathing is much more comfortable. She would like to get up and walk around but understands that she remains seriously ill. Goals remain aggressive ; she wants to return home and again states that she will "absolutely not" return to IV drug abuse. Family/friend interactions No family or friends present; she does not want her father called but if he is present, he can be informed of details about her care. Advance Directives Living Will: Never completed Health Care Surrogate: Never completed Durable Power of Commercial Airline Pilot: Never completed Advance Directive Specifics Documented care wishes: Patient is currently capacitated to make decisions. We discussed specifically executing an advance directive today. She names her father as the person she would choose to speak for her if she became incapacitated; today she says her father will be coming tonight and that she will discuss this with him. Significant change in goals: Goals remain aggresssive. . Objective Vital Signs Date Time Temp Pulse Resp B/P (MAP) Pulse Ox O2 Delivery O2 Flow Rate FiO2 08/17/17 13:21 99.4 08/17/17 12:00 98.4 122 25 144/63 (90) 96 08/17/17 12:00 122 08/17/17 10:00 94 08/17/17 08:00 97.5 97 18 116/73 (87) 08/17/17 08:00 97 08/17/17 06:00 98 08/17/17 04:00 98.9 93 19 112/64 (80) 08/17/17 04:00 93 08/17/17 02:00 98 08/17/17 00:00 98.8 104 22 118/79 (92) 08/17/17 00:00 104 08/16/17 22:00 102 08/16/17 20:13 98.6 96 23 124/79 98 08/16/17 20:00 97 08/16/17 20:00 98.6 97 20 124/79 (94) 08/16/17 19:57 98.6 97 18 110/74 98 08/16/17 19:50 98.6 99 18 110/74 98 08/16/17 18:00 110 08/16/17 16:50 98.8 104 22 119/71 100 08/16/17 16:00 98.6 109 25 111/74 (86) 100 08/16/17 16:00 109 08/16/17 14:00 108 Intake & Output 08/17/17 08/17/17 07:00 19:00 Intake Total 2610 ml Balance 2610 ml Intake Oral 960 ml IV Total 300 ml Packed Cells 800 ml Blood Product IV Normal Saline Flush 550 ml # Voids 3 # Bowel Movements 0 Physical Exam CONSTITUTIONAL/GENERAL: awake and alert reclining in bed; calmer today; responds appropriately TUBES/LINES/DRAINS: PIV SKIN: tender, darkening lesions on pads of left hand and soles of feet, left worse than right HEAD: Atraumatic. Normocephalic. EYES: Pupils equal and round and reactive. Extraocular motions intact.Conjunctivae pale. ENT: Hearing grossly normal. Nose without bleeding or purulent drainage. Oral mucosa moist; lips chapped NECK: Trachea midline. Supple, nontender. No palpable thyroid enlargement or nodularity. CARDIOVASCULAR: Tachycardic; regular rhythm; valvular click audible today RESPIRATORY/CHEST: improved breath sounds bilaterally; sats 99% on room air; occasional wheezes right lung ortiz GASTROINTESTINAL: Abdomen more distended today; she denies pain; eating well; bowel sounds hypoactive; navel pierced GENITOURINARY: Without palpable bladder distension. . MUSCULOSKELETAL: Extremities without clubbing or cyanosis; trace edema BLE NEUROLOGICAL: Awake and alert. Motor and sensory grossly within normal limits. Moves all extremities to command; gait not tested PSYCHIATRIC: still anxious but more calm today; able to participate in discussion of goals . Diagnostic Tests Laboratory Laboratory Tests Test 08/15/17 04:46 08/16/17 05:01 08/16/17 11:50 08/17/17 01:05 White Blood Count 16.5 TH/MM3 (4.0-11.0) 15.0 TH/MM3 (4.0-11.0) 14.8 TH/MM3 (4.0-11.0) Red Blood Count 2.98 MIL/MM3 (4.00-5.30) 2.62 MIL/MM3 (4.00-5.30) 2.47 MIL/MM3 (4.00-5.30) Hemoglobin 8.1 GM/DL (11.6-15.3) 7.4 GM/DL (11.6-15.3) 6.8 GM/DL (11.6-15.3) 9.9 GM/DL (11.6-15.3) Hematocrit 24.2 % (35.0-46.0) 21.4 % (35.0-46.0) 20.3 % (35.0-46.0) 29.5 % (35.0-46.0) Mean Corpuscular Volume 81.1 FL (80.0-100.0) 81.7 FL (80.0-100.0) 82.0 FL (80.0-100.0) Mean Corpuscular Hemoglobin 27.3 PG (27.0-34.0) 28.2 PG (27.0-34.0) 27.6 PG (27.0-34.0) Mean Corpuscular Hemoglobin Concent 33.7 % (32.0-36.0) 34.5 % (32.0-36.0) 33.7 % (32.0-36.0) Red Cell Distribution Width 15.4 % (11.6-17.2) 14.9 % (11.6-17.2) 15.2 % (11.6-17.2) Platelet Count 113 TH/MM3 (150-450) 135 TH/MM3 (150-450) 138 TH/MM3 (150-450) Mean Platelet Volume 7.6 FL (7.0-11.0) 7.5 FL (7.0-11.0) 7.4 FL (7.0-11.0) Neutrophils (%) (Auto) 80.1 % (16.0-70.0) 81.9 % (16.0-70.0) 84.7 % (16.0-70.0) Lymphocytes (%) (Auto) 13.3 % (9.0-44.0) 11.0 % (9.0-44.0) 9.7 % (9.0-44.0) Monocytes (%) (Auto) 5.8 % (0.0-8.0) 6.4 % (0.0-8.0) 4.9 % (0.0-8.0) Eosinophils (%) (Auto) 0.7 % (0.0-4.0) 0.7 % (0.0-4.0) 0.6 % (0.0-4.0) Basophils (%) (Auto) 0.1 % (0.0-2.0) 0.0 % (0.0-2.0) 0.1 % (0.0-2.0) Neutrophils # (Auto) 13.2 TH/MM3 (1.8-7.7) 12.3 TH/MM3 (1.8-7.7) 12.6 TH/MM3 (1.8-7.7) Lymphocytes # (Auto) 2.2 TH/MM3 (1.0-4.8) 1.6 TH/MM3 (1.0-4.8) 1.4 TH/MM3 (1.0-4.8) Monocytes # (Auto) 1.0 TH/MM3 (0-0.9) 1.0 TH/MM3 (0-0.9) 0.7 TH/MM3 (0-0.9) Eosinophils # (Auto) 0.1 TH/MM3 (0-0.4) 0.1 TH/MM3 (0-0.4) 0.1 TH/MM3 (0-0.4) Basophils # (Auto) 0.0 TH/MM3 (0-0.2) 0.0 TH/MM3 (0-0.2) 0.0 TH/MM3 (0-0.2) CBC Comment AUTO DIFF DIFF FINAL DIFF FINAL Differential Total Cells Counted 100 Neutrophils % (Manual) 78 % (16-70) Band Neutrophils % 7 % (0-6) Lymphocytes % 8 % (9-44) Monocytes % 4 % (0-8) Eosinophils % 1 % (0-4) Neutrophils # (Manual) 14.4 TH/MM3 (1.8-7.7) Metamyelocytes 2 % (0-1) Differential Comment FINAL DIFF MANUAL Dohle Bodies PRESENT (NONE SEEN) Platelet Estimate LOW (NORMAL) Platelet Morphology Comment NORMAL (NORMAL) Acanthocytes OCC (NORMAL) Keratocytes OCC (NORMAL) Blood Urea Nitrogen 40 MG/DL (7-18) 29 MG/DL (7-18) Creatinine 1.45 MG/DL (0.50-1.00) 1.08 MG/DL (0.50-1.00) Random Glucose 98 MG/DL (74-106) 93 MG/DL (74-106) Total Protein 6.0 GM/DL (6.4-8.2) 6.0 GM/DL (6.4-8.2) Calcium Level 7.1 MG/DL (8.5-10.1) 7.2 MG/DL (8.5-10.1) Sodium Level 136 MEQ/L (136-145) 137 MEQ/L (136-145) Potassium Level 3.9 MEQ/L (3.5-5.1) 3.7 MEQ/L (3.5-5.1) Chloride Level 106 MEQ/L (98-107) 109 MEQ/L (98-107) Carbon Dioxide Level 19.8 MEQ/L (21.0-32.0) 20.0 MEQ/L (21.0-32.0) Anion Gap 10 MEQ/L (5-15) 8 MEQ/L (5-15) Estimat Glomerular Filtration Rate 40 ML/MIN (>89) 56 ML/MIN (>89) Protein Corrected Calcium 7.7 MG/DL (8.5-10.1) 7.8 MG/DL (8.5-10.1) Test 08/17/17 03:35 White Blood Count 17.8 TH/MM3 (4.0-11.0) Red Blood Count 3.51 MIL/MM3 (4.00-5.30) Hemoglobin 9.9 GM/DL (11.6-15.3) Hematocrit 28.9 % (35.0-46.0) Mean Corpuscular Volume 82.6 FL (80.0-100.0) Mean Corpuscular Hemoglobin 28.3 PG (27.0-34.0) Mean Corpuscular Hemoglobin Concent 34.3 % (32.0-36.0) Red Cell Distribution Width 14.9 % (11.6-17.2) Platelet Count 134 TH/MM3 (150-450) Mean Platelet Volume 7.2 FL (7.0-11.0) Neutrophils (%) (Auto) 87.1 % (16.0-70.0) Lymphocytes (%) (Auto) 7.8 % (9.0-44.0) Monocytes (%) (Auto) 4.3 % (0.0-8.0) Eosinophils (%) (Auto) 0.7 % (0.0-4.0) Basophils (%) (Auto) 0.1 % (0.0-2.0) Neutrophils # (Auto) 15.5 TH/MM3 (1.8-7.7) Lymphocytes # (Auto) 1.4 TH/MM3 (1.0-4.8) Monocytes # (Auto) 0.8 TH/MM3 (0-0.9) Eosinophils # (Auto) 0.1 TH/MM3 (0-0.4) Basophils # (Auto) 0.0 TH/MM3 (0-0.2) CBC Comment DIFF FINAL Differential Comment Blood Urea Nitrogen 22 MG/DL (7-18) Creatinine 1.00 MG/DL (0.50-1.00) Random Glucose 116 MG/DL (74-106) Total Protein 6.1 GM/DL (6.4-8.2) Calcium Level 7.3 MG/DL (8.5-10.1) Sodium Level 139 MEQ/L (136-145) Potassium Level 3.7 MEQ/L (3.5-5.1) Chloride Level 110 MEQ/L (98-107) Carbon Dioxide Level 20.3 MEQ/L (21.0-32.0) Anion Gap 9 MEQ/L (5-15) Estimat Glomerular Filtration Rate 62 ML/MIN (>89) Protein Corrected Calcium 7.8 MG/DL (8.5-10.1) Result Diagram: 08/17/17 0335 08/17/17 0335 Microbiology Microbiology Date/Time Source Procedure Growth Status 08/16/17 11:45 Blood Peripheral Aerobic Blood Culture - Preliminary NO GROWTH IN 1 DAY Resulted 08/16/17 11:45 Blood Peripheral Anaerobic Blood Culture - Final ONLY AEROBIC CULTURE ORDERED Resulted 08/16/17 11:30 Blood Peripheral Aerobic Blood Culture - Preliminary NO GROWTH IN 1 DAY Resulted 08/16/17 11:30 Blood Peripheral Anaerobic Blood Culture - Final ONLY AEROBIC CULTURE ORDERED Resulted Imaging Last 72 hours Impressions Chest X-Ray 08/16/17 0000 Signed Impressions: Service Date/Time: Wednesday, August 16, 2017 08:37 - CONCLUSION: 1. Improved left upper lobe airspace disease. 2. Improved positive fluid balance. Rashard Pena MD Assessment and Plan Disease Oriented Problem List: (1) Sepsis (2) INES (acute kidney injury) (3) Endocarditis (4) Anxiety (5) Pain Symptom Scale: (1) Pain 0-10 Scale: 10 Comment: Denies any new or worsening pain; prefers IV analgesia but states that hydrocodone/APAP is "somewhat" helpful (2) Dyspnea 0-10 Scale: Unable to quantify Comment: Subjective improvement; less tachypnea; sats are >95% on room air (3) Anxiety 0-10 Scale: 10 Comment: Patient continues to verbalize some anxiety but is able to engage in discussion today. She was helped by addition of zolpidem and is hoping that will be a nightly order. Pertinent Non-Medical Issues Psychosocial: lives with boyfriend who reportedly has multiple other family members who are critically ill Spiritual: none known Legal: Currently patient is capacitated to make own decisions; today she clearly states that she wants her father to be her HCP. She has not yet completed formal documentation but states that her father will be here tonight and that she will discuss this with him and complete the paperwork.. Ethical issues impacting care: None known . Important Contacts Father Marcus Jc [phone] Significant other Jerry Nevarez [phone] Prognosis Not a candidate for surgical valve replacement; renal function is declining. She will need lifetime antibiotics but DIC and renal function are showing signs of improvement. She remains at very high risk for re-hospitalization and/or functional decline due to multiple valve endocarditis and history of IV drug abuse. . Code Status: Full Code Plan * DECISION MAKER: Currently patient is capacitated to make own decisions. Today she clearly expresses that she wants her father to be her HCP. He will be visiting [place] and she will discuss this with him and then be prepared to sign paperwork. * * CODE STATUS: FULL CODE * * GOALS OF CARE: she remains committed to aggressive and curative therapy with return to home * * SYMPTOMS: Pain - currently has hydrocodone/APAP available. She has a strongly expressed preference for IV analgesia and is at risk for some withdrawal symptoms but she tells me the pain is not worse and not new; therefore, current regimen should be adequate. Dyspnea - nearly resolved; CXR shows improvement; subjectively she is less short of breath; 02 saturations on room air high 90s. Anxiety - less severe today after addition of zolpidem for sleep, but still present; she may possibly benefit from some low dose benzodiazepines although there is valid concern for starting this course of therapy. * Palliative care number provided. * Palliative care will continue to follow to assist with symptom management and clarification of treatment goals as needed. * . Time Spent Total Floor Time (mins): 28 (Time spent to include record review, physical examination, discussion of goals and advance directives with patient) Attestation To help prompt me to consider important information that might be impacting today's encounter and assessment, information from prior notes written by myself or my colleagues may have been "brought forward" into today's note. My signature on this note, however, is an attestation that I personally performed the exam, history, and/or decision-making noted today, and, unless otherwise indicated, the interactions with patient, family, and staff as well as the review of records all occurred today. I also attest that the listed assessment and stated plan reflect my best clinical judgment today based on the combination of historical information, prior notes, and today's exam/ interactions. When time spent is documented, it refers only to time spent today by the signer, or if indicated, combined time spent today by collaborating physician/nurse practitioner. . Sarah Pearson Aug 17, 2017 13:44
--- NOTE | 2017-08-17 14:05 | PD.ONC.PN ---
Subjective Subjective Remarks Afebrile overnight. Patient reportedly started menstruating today. reports continued abdominal pain. per nurse she has been tachycardic today. Objective Data Date Time Temp Pulse Resp B/P (MAP) Pulse Ox O2 Delivery O2 Flow Rate FiO2 08/17/17 13:21 99.4 08/17/17 12:00 98.4 122 25 144/63 (90) 96 08/17/17 12:00 122 08/17/17 10:00 94 08/17/17 08:00 97.5 97 18 116/73 (87) 08/17/17 08:00 97 08/17/17 06:00 98 08/17/17 04:00 98.9 93 19 112/64 (80) 08/17/17 04:00 93 08/17/17 02:00 98 08/17/17 00:00 98.8 104 22 118/79 (92) 08/17/17 00:00 104 08/16/17 22:00 102 08/16/17 20:13 98.6 96 23 124/79 98 08/16/17 20:00 97 08/16/17 20:00 98.6 97 20 124/79 (94) 08/16/17 19:57 98.6 97 18 110/74 98 08/16/17 19:50 98.6 99 18 110/74 98 08/16/17 18:00 110 08/16/17 16:50 98.8 104 22 119/71 100 08/16/17 16:00 98.6 109 25 111/74 (86) 100 08/16/17 16:00 109 08/17/17 08/17/17 08/17/17 06:59 14:59 22:59 Intake Total 1810 ml Balance 1810 ml Result Diagram: 08/17/17 0335 08/17/17 0335 Laboratory Results Laboratory Tests Test 08/17/17 01:05 08/17/17 03:35 Hemoglobin 9.9 GM/DL 9.9 GM/DL Hematocrit 29.5 % 28.9 % White Blood Count 17.8 TH/MM3 Red Blood Count 3.51 MIL/MM3 Mean Corpuscular Volume 82.6 FL Mean Corpuscular Hemoglobin 28.3 PG Mean Corpuscular Hemoglobin Concent 34.3 % Red Cell Distribution Width 14.9 % Platelet Count 134 TH/MM3 Mean Platelet Volume 7.2 FL Neutrophils (%) (Auto) 87.1 % Lymphocytes (%) (Auto) 7.8 % Monocytes (%) (Auto) 4.3 % Eosinophils (%) (Auto) 0.7 % Basophils (%) (Auto) 0.1 % Neutrophils # (Auto) 15.5 TH/MM3 Lymphocytes # (Auto) 1.4 TH/MM3 Monocytes # (Auto) 0.8 TH/MM3 Eosinophils # (Auto) 0.1 TH/MM3 Basophils # (Auto) 0.0 TH/MM3 CBC Comment DIFF FINAL Differential Comment Blood Urea Nitrogen 22 MG/DL Creatinine 1.00 MG/DL Random Glucose 116 MG/DL Total Protein 6.1 GM/DL Calcium Level 7.3 MG/DL Sodium Level 139 MEQ/L Potassium Level 3.7 MEQ/L Chloride Level 110 MEQ/L Carbon Dioxide Level 20.3 MEQ/L Anion Gap 9 MEQ/L Estimat Glomerular Filtration Rate 62 ML/MIN Protein Corrected Calcium 7.8 MG/DL Culture Results Microbiology Date/Time Source Procedure Growth Status 08/16/17 11:45 Blood Peripheral Aerobic Blood Culture - Preliminary NO GROWTH IN 1 DAY Resulted 08/16/17 11:45 Blood Peripheral Anaerobic Blood Culture - Final ONLY AEROBIC CULTURE ORDERED Resulted 08/16/17 11:30 Blood Peripheral Aerobic Blood Culture - Preliminary NO GROWTH IN 1 DAY Resulted 08/16/17 11:30 Blood Peripheral Anaerobic Blood Culture - Final ONLY AEROBIC CULTURE ORDERED Resulted Administered Medications Medications (Trade) Dose Ordered Sig/Pee Route PRN Reason Start Time Stop Time Status Last Admin Dose Admin Sodium Chloride (NS Flush) 2 ml BID IV FLUSH 08/10/17 09:00 08/17/17 08:16 Albuterol Sulfate (Albuterol Neb) 2.5 mg Q2HR NEB PRN INH SOB/WHEEZING 08/09/17 22:15 08/12/17 04:10 Miscellaneous Information 1 [id number] XX 08/09/17 22:15 08/09/17 22:15 Chlorhexidine Gluconate (Chlorhexidine 2% Cloth) Taper DAILY@04 TOP 08/10/17 04:00 08/06/18 03:59 08/16/17 02:40 Senna/Docusate Sodium (Cira-Colace) 1 tab BID PO 08/10/17 09:00 08/14/17 08:18 Potassium Chloride 100 ml @ 50 mls/hr Q2H PRN IV For Potassium 2.8 - 3.2 mEq/L 08/10/17 00:15 08/11/17 10:44 Potassium Phosphate (K-Phos) 2,000 mg Q4H PRN PO For Phosphorus < 2.5 mg/dL 08/10/17 00:15 08/10/17 21:18 Sodium Phosphate 30 mmol/Sodium Chloride 250 ml @ 42 mls/hr UNSCH PRN IV For Phosphorus < 2.5 mg/dL 08/10/17 00:15 08/10/17 11:15 Acetaminophen/ Hydrocodone Bitart (Scotts 10-325 Mg) 1 tab Q4H PRN PO PAIN 1-5 08/10/17 02:00 08/15/17 11:46 Acetaminophen/ Hydrocodone Bitart (Scotts 10-325 Mg) 2 tab Q4H PRN PO PAIN 6-10 08/10/17 02:00 08/17/17 10:17 Nicotine (Habitrol 21 Mg Patch.24 Hr) 1 patch DAILY T-DERMAL 08/10/17 09:00 08/17/17 08:17 Miscellaneous Information 1 DAILY T-DERMAL 08/10/17 09:00 08/17/17 08:17 Pantoprazole Sodium (Protonix) 40 mg DAILY PO 08/10/17 09:00 08/17/17 08:16 Rifampin (Rifampin) 300 mg Q12H PO 08/10/17 15:00 08/17/17 03:31 Oxacillin Sodium 2 gm/Sodium Chloride 100 ml @ 200 mls/hr Q4H IV 08/11/17 14:00 08/17/17 08:16 Zolpidem Tartrate (Ambien) 10 mg HS PRN PO INSOMNIA 08/16/17 20:45 08/16/17 21:04 Objective Remarks GENERAL: chronically ill female, lying supine in bed resting. SKIN: Warm and dry. HEAD: Normocephalic. EYES: No injection or drainage. NECK: Supple, trachea midline. CARDIOVASCULAR: +S1/S2, tachy RESPIRATORY: anterior ortiz with scattered rhonchi. GASTROINTESTINAL: Abdomen firm, distended. NEUROLOGICAL: awake, and alert. normal speech. able to move extremities. Assessment/Plan Problem List: (1) H/O endocarditis ICD Codes: Z86.79 - Personal history of other diseases of the circulatory system Status: Chronic Plan: -- On Oxacillin -- ID following -- Echocardiogram on 08/11 shows findings consistent with vegetation on the aortic, mitral, and tricuspid valves. -- Pt with poor prognosis and palliative care is involved. (2) DIC (disseminated intravascular coagulation) ICD Codes: D65 - Disseminated intravascular coagulation [defibrination syndrome ] Status: Acute Plan: -- coags improved. -- Status post 1 unit of cryoprecipitate on 08/10 -- transfuse for platelets less than 20,000 and fibrinogen level less than 100, 000 -- Patient also likely has thrombocytopenia at baseline due to history of hepatitis C and splenomegaly Assessment 37-year-old female admitted for sepsis; hematology consulted for thrombocytopenia Plan 1. monitor CBC, coags 2. no transfusion needed. Attending Statement The exam, history, and the medical decision-making described in the above note were completed with the assistance of the mid-level provider. I reviewed and agree with the findings presented. I attest that I had a [id number] encounter with the patient on the same day, and personally performed and documented my assessment and findings in the medical record. Still c/o pain. No bleeding reported. DIC resolving. Platelet stable. Hgb trended up with transfusion. Continue to monitor. Tika Gonsalves Aug 17, 2017 14:05 Farshad Wilburn MD Aug 17, 2017 17:03
[2017-08-17] MEDS ORDERED: PILL SPLITTER OTHER PRN (14:30)
[2017-08-17] MEDS: METOPROLOL TARTRATE 25 MG TAB PO SCH ×2 (14:37→19:43)
--- NOTE | 2017-08-17 21:21 | EKG ---
Date Performed: 08/17/2017 Time Performed: 16:22:58 PTAGE: 37 years EKG: Sinus rhythm Low QRS voltages in limb leads Abnormal ECG Since PREVIOUS TRACING , no significant change noted DOCTOR: Jeromy Avalos Interpretating Date/Time 08/17/2017 21:19:45
[2017-08-17] MEDS: ZOLPIDEM TARTRATE 10 MG TAB PO PRN (21:46)
[2017-08-18] VITALS (12 sets, daily range): BP systolic 115–126; BP diastolic 58–66; PULSE 98–121; RESP 20–31; TEMP 98.4–98.9; O2SAT 91–100
[2017-08-18] MEDS: ACETAMINOPHEN/HYDROcodone 325 MG/10 MG TAB PO PRN ×6 (01:45→22:12)
[2017-08-18] MEDS: OXACILLIN INJ 2 GM in SODIUM CHLORIDE 0.9% INJ 100 ML IV SCH ×6 (02:12→22:06)
[2017-08-18] MEDS: CHLORHEXIDINE GLUCONATE 2 % 1 PACK (2 CLOTHS) TOP SCH (02:45)
[2017-08-18] MEDS: RIFAMPIN 150 MG CAP PO SCH ×2 (02:55→14:36)
[2017-08-18 04:49] LABS: AUTOMATED NEUTROPHIL # 15.4 TH/MM3 (1.8-7.7); BASOPHIL # 0.1 TH/MM3 (0-0.2); BASOPHIL % 0.3 % (0.0-2.0); EOSINOPHIL # 0.1 TH/MM3 (0-0.4); EOSINOPHIL % 0.5 % (0.0-4.0); HEMATOCRIT 27.7 % (35.0-46.0); HEMOGLOBIN 9.3 GM/DL (11.6-15.3); LYMPH % 7.5 % (9.0-44.0); LYMPHOCYTE # 1.3 TH/MM3 (1.0-4.8); MEAN CELL VOLUME 82.9 FL (80.0-100.0); MEAN CORPUSCULAR HEMOGLOBIN 27.9 PG (27.0-34.0); MEAN CORPUSCULAR HGB CONC 33.6 % (32.0-36.0); MEAN PLATELET VOLUME 7.3 FL (7.0-11.0); MONO % 3.5 % (0.0-8.0); MONOCYTE # 0.6 TH/MM3 (0-0.9); NEUT % 88.2 % (16.0-70.0); PLATELET COUNT 146 TH/MM3 (150-450); RED BLOOD COUNT 3.34 MIL/MM3 (4.00-5.30); RED CELL DISTRIBUTION WIDTH 14.8 % (11.6-17.2); WHITE BLOOD COUNT 17.5 TH/MM3 (4.0-11.0)
[2017-08-18 05:31] LABS: ALBUMIN 1.1 GM/DL (3.4-5.0); BICARBONATE 20.2 MEQ/L (21.0-32.0); CALCIUM 7.2 MG/DL (8.5-10.1); CALCIUM-PROTEIN CORRECTED 8.1 MG/DL (8.5-10.1); CREATININE 1.03 MG/DL (0.50-1.00); TOTAL BILIRUBIN ADULT 0.3 MG/DL (0.2-1.0); TOTAL PROTEIN 5.5 GM/DL (6.4-8.2)
[2017-08-18] MEDS: NICOTINE 21 MG/24 HR PATCH T-DERMAL SCH (07:58)
[2017-08-18] MEDS: REMOVE OLD PATCH T-DERMAL SCH (07:58)
[2017-08-18] MEDS: DOCUSATE SODIUM 50 MG/SENNA 8.6 MG TAB PO SCH ×2 (07:58→19:46)
[2017-08-18] MEDS: PANTOPRAZOLE SOD 40 MG DELAYED RELEASE TAB PO SCH (07:58)
[2017-08-18] MEDS: METOPROLOL TARTRATE 25 MG TAB PO SCH ×2 (07:58→19:46)
[2017-08-18] MEDS: SODIUM CHLORIDE 0.9% FLUSH 10 ML FLUSH IV FLUSH SCH ×2 (07:59→19:45)
--- NOTE | 2017-08-18 12:02 | HHI.IDPN ---
Note Infectious Disease Note Patient complaining of pain and swelling of her abdomen. Afebrile. No other complaints. Blood culture still positive 08/12/17. 1 bottle of 4 from 08/16 has gram positive cocci. 2D ECHO - vegetations noted on three valves. PAST MEDICAL HISTORY 1. Prosthetic valve endocarditis. 2. Mitral valve replacement 3. Hepatitis C 4. Anxiety disorder 5. Seizure disorder 6. IV drug use. ALLERGIES NO KNOWN DRUG ALLERGIES. MEDICATIONS 1. Vancomycin 2. Rifampin. Gentamycin stopped because of deteriorating renal function. SOCIAL HISTORY Positive tobacco use one pack a day. No alcohol. Positive IV drug use reported the last use on 08/07/2017. The patient was not the patient reportedly administered the IV drug into the neck. OBJECTIVE: Vital Signs Date Time Temp Pulse Resp B/P (MAP) Pulse Ox O2 Delivery O2 Flow Rate FiO2 08/18/17 10:00 98 08/18/17 08:00 98.6 109 20 115/64 (81) 100 08/18/17 08:00 109 08/18/17 06:00 108 08/18/17 04:00 105 08/18/17 04:00 98.5 105 26 116/59 (78) 100 08/18/17 02:00 105 08/18/17 00:00 112 08/18/17 00:00 98.4 112 30 123/58 (79) 95 08/17/17 22:00 107 08/17/17 20:00 106 08/17/17 20:00 98.1 106 23 107/58 (74) 96 08/17/17 18:00 106 08/17/17 16:52 113 08/17/17 16:00 99.2 104 22 100/54 (69) 96 08/17/17 16:00 116 08/17/17 14:00 120 08/17/17 13:21 99.4 08/17/17 12:00 98.4 122 25 144/63 (90) 96 08/17/17 12:00 122 Laboratory Tests Test 08/17/17 01:05 08/17/17 03:35 08/18/17 03:05 Hemoglobin 9.9 GM/DL 9.9 GM/DL 9.3 GM/DL Hematocrit 29.5 % 28.9 % 27.7 % White Blood Count 17.8 TH/MM3 17.5 TH/MM3 Red Blood Count 3.51 MIL/MM3 3.34 MIL/MM3 Mean Corpuscular Volume 82.6 FL 82.9 FL Mean Corpuscular Hemoglobin 28.3 PG 27.9 PG Mean Corpuscular Hemoglobin Concent 34.3 % 33.6 % Red Cell Distribution Width 14.9 % 14.8 % Platelet Count 134 TH/MM3 146 TH/MM3 Mean Platelet Volume 7.2 FL 7.3 FL Neutrophils (%) (Auto) 87.1 % 88.2 % Lymphocytes (%) (Auto) 7.8 % 7.5 % Monocytes (%) (Auto) 4.3 % 3.5 % Eosinophils (%) (Auto) 0.7 % 0.5 % Basophils (%) (Auto) 0.1 % 0.3 % Neutrophils # (Auto) 15.5 TH/MM3 15.4 TH/MM3 Lymphocytes # (Auto) 1.4 TH/MM3 1.3 TH/MM3 Monocytes # (Auto) 0.8 TH/MM3 0.6 TH/MM3 Eosinophils # (Auto) 0.1 TH/MM3 0.1 TH/MM3 Basophils # (Auto) 0.0 TH/MM3 0.1 TH/MM3 CBC Comment DIFF FINAL DIFF FINAL Differential Comment Laboratory Tests Test 08/17/17 03:35 08/18/17 03:05 Blood Urea Nitrogen 22 MG/DL 22 MG/DL Creatinine 1.00 MG/DL 1.03 MG/DL Random Glucose 116 MG/DL 96 MG/DL Total Protein 6.1 GM/DL 5.5 GM/DL Calcium Level 7.3 MG/DL 7.2 MG/DL Sodium Level 139 MEQ/L 140 MEQ/L Potassium Level 3.7 MEQ/L 3.6 MEQ/L Chloride Level 110 MEQ/L 111 MEQ/L Carbon Dioxide Level 20.3 MEQ/L 20.2 MEQ/L Anion Gap 9 MEQ/L 9 MEQ/L Estimat Glomerular Filtration Rate 62 ML/MIN 60 ML/MIN Protein Corrected Calcium 7.8 MG/DL 8.1 MG/DL Albumin 1.1 GM/DL Alkaline Phosphatase 107 U/L Aspartate Amino Transf (AST/SGOT) 10 U/L Alanine Aminotransferase (ALT/SGPT) 6 U/L Total Bilirubin 0.3 MG/DL Microbiology Date/Time Source Procedure Growth Status 08/16/17 11:45 Blood Peripheral Aerobic Blood Culture - Preliminary Gram Positive Cocci Resulted 08/16/17 11:45 Blood Peripheral Anaerobic Blood Culture - Final ONLY AEROBIC CULTURE ORDERED Resulted 08/16/17 11:30 Blood Peripheral Aerobic Blood Culture - Preliminary NO GROWTH IN 2 DAYS Resulted 08/16/17 11:30 Blood Peripheral Anaerobic Blood Culture - Final ONLY AEROBIC CULTURE ORDERED Resulted Microbiology Date/Time Source Procedure Growth Status 08/12/17 04:15 Blood Peripheral Aerobic Blood Culture Pending Received 08/12/17 04:15 Blood Peripheral Anaerobic Blood Culture Pending Received 08/11/17 06:40 Blood Peripheral Aerobic Blood Culture - Preliminary NO GROWTH IN 1 DAY Resulted 08/11/17 06:40 Blood Peripheral Anaerobic Blood Culture - Preliminary NO GROWTH IN 1 DAY Resulted 08/09/17 20:34 Blood Peripheral Aerobic Blood Culture - Final Staphylococcus Aureus Complete 08/09/17 20:34 Anaerobic Blood Culture - Final Staphylococcus Aureus Complete 08/09/17 20:29 Blood Peripheral Aerobic Blood Culture - Final Staphylococcus Aureus Complete 08/09/17 20:29 Anaerobic Blood Culture - Final Staphylococcus Aureus Complete 08/09/17 21:50 Nasal Washing Influenza Types A,B Antigen (KAMRON) - Final NEGATIVE FOR FLU A AND B ANTIGEN.... Complete 08/09/17 20:34 Urine Catheterized Urine Urine Culture - Final Staphylococcus Aureus Escherichia Coli Complete IMAGING: Chest X-Ray 08/16/17 0000 Signed Impressions: Service Date/Time: Wednesday, August 16, 2017 08:37 - CONCLUSION: 1. Improved left upper lobe airspace disease. 2. Improved positive fluid balance. Rashard Pena MD Chest X-Ray 08/11/17 0600 Signed Impressions: Service Date/Time: Friday, August 11, 2017 03:37 - CONCLUSION: Left upper lobe and perihilar consolidation. Rod Garcia MD Lower Extremity Ultrasound 08/10/17 0000 Signed Impressions: Service Date/Time: Thursday, August 10, 2017 07:51 - CONCLUSION: Normal examination. No evidence of DVT Ambrose Verdin MD Liver Ultrasound 08/10/17 0000 Signed Impressions: Service Date/Time: Thursday, August 10, 2017 08:04 - CONCLUSION: 1. Abnormal gallbladder filled with sludge and demonstrating wall thickening. There are no additional findings are present to suggest acute gallbladder inflammation. 2. Trace free fluid in the abdomen and small bilateral pleural effusions. 3. Mild splenomegaly. Rod Pascual MD Head CT 08/10/17 0000 Signed Impressions: Service Date/Time: Thursday, August 10, 2017 02:33 - CONCLUSION: No acute disease. Rod Garcia MD PHYSICAL EXAMINATION GENERAL: Awake and alert. HEAD, EYES, EARS, NOSE, AND THROAT: No icterus. No conjunctival erythema. Oropharynx slightly dry mucosa without lesions. NECK: Supple without adenopathy. LUNGS: Slight basilar rhonchi. HEART: 2/6 systolic murmur at the left sternal border. ABDOMEN: Bowel sounds present, distended, soft, nontender. EXTREMITIES: No clubbing or cyanosis. Lesions at the index, third, 4th and 5th finger on the left hand and multiple purpuric areas at the base of the toes and at the bulb of the feet left > right. left great toe is purpuric. Multiple track gifford at the antecubital areas of both hands. No new lesions. SKIN: No diffuse rash. NEUROLOGIC: No gross focal findings. PSYCHIATRIC: Calm and cooperative. IMPRESSION 1. Prosthetic valve endocarditis of aortic, mitral and tricuspid. Embolic lesions to the feet and fingers. 2. Bacteremia staph aureus. MSSA. Blood culture still positive. 3. Acute kidney disease. Improving. 4. Thrombocytopenia. Platelet count increasing. RECOMMENDATIONS 1. Continue Oxacillin 2 grams IV q 4 hours 2. Continue the Rifampin. 3. Monitor clinical status. 4. Monitor the renal function. 5. Monitor the blood cultures. Not yet sure if it is staph aureus on the latest culture. Lucas Damian MD Aug 18, 2017 12:02
--- NOTE | 2017-08-18 13:25 | PD.ONC.PN ---
Subjective Subjective Remarks Afebrile overnight. Patient resting in bed. boyfriend at bedside. Continuing to have abdominal pain. No further vaginal bleeding. Objective Data Date Time Temp Pulse Resp B/P (MAP) Pulse Ox O2 Delivery O2 Flow Rate FiO2 08/18/17 12:00 103 25 124/63 (83) 96 08/18/17 12:00 103 08/18/17 10:00 98 08/18/17 08:00 98.6 109 20 115/64 (81) 100 08/18/17 08:00 109 08/18/17 06:00 108 08/18/17 04:00 105 08/18/17 04:00 98.5 105 26 116/59 (78) 100 08/18/17 02:00 105 08/18/17 00:00 112 08/18/17 00:00 98.4 112 30 123/58 (79) 95 08/17/17 22:00 107 08/17/17 20:00 106 08/17/17 20:00 98.1 106 23 107/58 (74) 96 08/17/17 18:00 106 08/17/17 16:52 113 08/17/17 16:00 99.2 104 22 100/54 (69) 96 08/17/17 16:00 116 08/17/17 14:00 120 08/18/17 08/18/17 08/18/17 06:59 14:59 22:59 Intake Total 820 ml Balance 820 ml Result Diagram: 08/18/17 0305 08/18/17 0305 Laboratory Results Laboratory Tests Test 08/18/17 03:05 White Blood Count 17.5 TH/MM3 Red Blood Count 3.34 MIL/MM3 Hemoglobin 9.3 GM/DL Hematocrit 27.7 % Mean Corpuscular Volume 82.9 FL Mean Corpuscular Hemoglobin 27.9 PG Mean Corpuscular Hemoglobin Concent 33.6 % Red Cell Distribution Width 14.8 % Platelet Count 146 TH/MM3 Mean Platelet Volume 7.3 FL Neutrophils (%) (Auto) 88.2 % Lymphocytes (%) (Auto) 7.5 % Monocytes (%) (Auto) 3.5 % Eosinophils (%) (Auto) 0.5 % Basophils (%) (Auto) 0.3 % Neutrophils # (Auto) 15.4 TH/MM3 Lymphocytes # (Auto) 1.3 TH/MM3 Monocytes # (Auto) 0.6 TH/MM3 Eosinophils # (Auto) 0.1 TH/MM3 Basophils # (Auto) 0.1 TH/MM3 CBC Comment DIFF FINAL Differential Comment Blood Urea Nitrogen 22 MG/DL Creatinine 1.03 MG/DL Random Glucose 96 MG/DL Total Protein 5.5 GM/DL Albumin 1.1 GM/DL Calcium Level 7.2 MG/DL Alkaline Phosphatase 107 U/L Aspartate Amino Transf (AST/SGOT) 10 U/L Alanine Aminotransferase (ALT/SGPT) 6 U/L Total Bilirubin 0.3 MG/DL Sodium Level 140 MEQ/L Potassium Level 3.6 MEQ/L Chloride Level 111 MEQ/L Carbon Dioxide Level 20.2 MEQ/L Anion Gap 9 MEQ/L Estimat Glomerular Filtration Rate 60 ML/MIN Protein Corrected Calcium 8.1 MG/DL Culture Results Microbiology Date/Time Source Procedure Growth Status 08/16/17 11:45 Blood Peripheral Aerobic Blood Culture - Preliminary Gram Positive Cocci Resulted 08/16/17 11:45 Blood Peripheral Anaerobic Blood Culture - Final ONLY AEROBIC CULTURE ORDERED Resulted 08/16/17 11:30 Blood Peripheral Aerobic Blood Culture - Preliminary NO GROWTH IN 2 DAYS Resulted 08/16/17 11:30 Blood Peripheral Anaerobic Blood Culture - Final ONLY AEROBIC CULTURE ORDERED Resulted Administered Medications Medications (Trade) Dose Ordered Sig/Pee Route PRN Reason Start Time Stop Time Status Last Admin Dose Admin Sodium Chloride (NS Flush) 2 ml BID IV FLUSH 08/10/17 09:00 08/18/17 07:59 Albuterol Sulfate (Albuterol Neb) 2.5 mg Q2HR NEB PRN INH SOB/WHEEZING 08/09/17 22:15 08/12/17 04:10 Miscellaneous Information 1 Q361D XX 08/09/17 22:15 08/09/17 22:15 Chlorhexidine Gluconate (Chlorhexidine 2% Cloth) Taper DAILY@04 TOP 08/10/17 04:00 08/06/18 03:59 08/16/17 02:40 Senna/Docusate Sodium (Cira-Colace) 1 tab BID PO 08/10/17 09:00 08/14/17 08:18 Potassium Chloride 100 ml @ 50 mls/hr Q2H PRN IV For Potassium 2.8 - 3.2 mEq/L 08/10/17 00:15 08/11/17 10:44 Potassium Phosphate (K-Phos) 2,000 mg Q4H PRN PO For Phosphorus < 2.5 mg/dL 08/10/17 00:15 08/10/17 21:18 Sodium Phosphate 30 mmol/Sodium Chloride 250 ml @ 42 mls/hr UNSCH PRN IV For Phosphorus < 2.5 mg/dL 08/10/17 00:15 08/10/17 11:15 Acetaminophen/ Hydrocodone Bitart (Doran 10-325 Mg) 1 tab Q4H PRN PO PAIN 1-5 08/10/17 02:00 08/15/17 11:46 Acetaminophen/ Hydrocodone Bitart (Doran 10-325 Mg) 2 tab Q4H PRN PO PAIN 6-10 08/10/17 02:00 08/18/17 10:42 Nicotine (Habitrol 21 Mg Patch.24 Hr) 1 patch DAILY T-DERMAL 08/10/17 09:00 08/18/17 07:58 Miscellaneous Information 1 DAILY T-DERMAL 08/10/17 09:00 08/18/17 07:58 Pantoprazole Sodium (Protonix) 40 mg DAILY PO 08/10/17 09:00 08/18/17 07:58 Rifampin (Rifampin) 300 mg Q12H PO 08/10/17 15:00 08/18/17 02:55 Oxacillin Sodium 2 gm/Sodium Chloride 100 ml @ 200 mls/hr Q4H IV 08/11/17 14:00 08/18/17 07:59 Zolpidem Tartrate (Ambien) 10 mg HS PRN PO INSOMNIA 08/16/17 20:45 08/17/17 21:46 Metoprolol Tartrate (Lopressor) 12.5 mg Q12HR PO 08/17/17 14:30 08/18/17 07:58 Objective Remarks GENERAL: chronically ill female, supine in bed in nad. SKIN: Warm and dry. HEAD: Normocephalic. EYES: No injection or drainage. NECK: Supple, trachea midline. CARDIOVASCULAR: +S1/S2, tachy RESPIRATORY: occasional rhonchi, anterior ortiz. GASTROINTESTINAL: Abdomen firm, distended. NEUROLOGICAL: awake, alert. normal speech. moving extremities. Assessment/Plan Problem List: (1) H/O endocarditis ICD Codes: Z86.79 - Personal history of other diseases of the circulatory system Status: Chronic Plan: -- On Oxacillin -- ID following -- Echocardiogram on 08/11 shows findings consistent with vegetation on the aortic, mitral, and tricuspid valves. -- Pt with poor prognosis and palliative care is involved. (2) DIC (disseminated intravascular coagulation) ICD Codes: D65 - Disseminated intravascular coagulation [defibrination syndrome ] Status: Acute Plan: -- coags improved. -- Status post 1 unit of cryoprecipitate on 08/10 -- transfuse for platelets less than 20,000 and fibrinogen level less than 100, 000 -- Patient also likely has thrombocytopenia at baseline due to history of hepatitis C and splenomegaly Assessment 37-year-old female admitted for sepsis; hematology consulted for thrombocytopenia Plan 1. no transfusion needed today 2. coags improved, hemoglobin stable. hematology will sign off. please call or consult if needed. Attending Statement The exam, history, and the medical decision-making described in the above note were completed with the assistance of the mid-level provider. I reviewed and agree with the findings presented. I attest that I had a [id number] encounter with the patient on the same day, and personally performed and documented my assessment and findings in the medical record. No report of bleeding. Still asking for IV dilaudid. Platelet stable. DIC resolving. Hgb likely will trend down slowly due to acute and chronic infection. Recommend transfusion prn to keep Hgb >8. I will sign off but please call if there is any other questions. Tika Gonsalves Aug 18, 2017 13:24 Farshad Wilburn MD Aug 18, 2017 16:04
--- NOTE | 2017-08-18 14:03 | HHI.HCPN ---
Supportive visit and ongoing follow-up provided for Ms. Tariq and boyfriend at bedside. Ms. Tariq appears to be in better spirits today, verbalizes being more comfortable for the most part. Reports some trouble sleeping at night, states current medication is helping some. Ongoing concern with pain but verbalizes understanding of limitation with medications to ensure respiratory and overall medical stability. Main concern continues to be trouble sleeping. Completed health care surrogate. Ms. Tariq designates her father Marcus as primary health care surrogate and boyfriend Jerry as alternate. Copy placed in chart and faxed to HIM to be scanned into EMR. Original and copies given to patient and boyfriend. Patient and boyfriend inquire about her ability to have pain medication prior to her children visiting so she can have a more comfortable visit. Encouraged them to let nursing staff know when family will be visiting to help coordinate if possible. Gently discussed overall situation and encouraged her to remain cognizant of how she feels now to remember for when she is feeling better in the future. Boyfriend supports this and states the same. Ms. Tariq verbalizes appreciation and further requests for visitors to remain positive when speaking with her. States she understands her situation but "continuing to talk about it gets depressing." Offered emotional support. Patient inquires about assistance with applying for medicaid and disability. Left message with floor employment case manager. Palliative care will continue to follow throughout hospitalization. Roxane London, APPAREL RENTAL CLERK Aug 18, 2017 14:03
--- NOTE | 2017-08-18 16:08 | HHI.CCPN ---
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 She states that her valve replacement was performed at [place] but I do not see record of this. She is unsure of when it was done. Unable to pull up old CXRs. She is uncertain of causative organism or treatment course. She presents to [facility] ED stating that she has had a 2 day history of subjective fever and nonproductive cough. She has also had tender, painful lesions on her hands and feet which on exam are consistent with [place] nodes. She states the reason she sought medical treatment was that "the pain became unbearable" and that it hurt to walk to the bathroom because of the tenderness on the soles of her feet. She denies headache , sore throat, chest pain, abdominal pain, hemoptysis. She states she has been actively injecting Suboxone which she acquired from "the street", stating she last injected into her right neck on 08/08/17 at around noon. In the ED, 2 sets of blood cultures were obtained, urinalysis and urine culture. She was given Vancomycin, zosyn, and 2 L NS bolus. Influenza screen is negative. Her sodium is 121, potassium 3, creatinine 1.29, lactic acid 5.9. 08/10 Patient is on Neosyn 40 mics. T:103.0 last night. BC from 08/09: GPC 2/4 bottles 08/01: C/o pain in left foot. 08/12 No events overnight. On Neosyn 10 mics. Afebrile. 08/13 Patient is lying in bed in NAD. Afebrile. Off Neosyn. Cr. increased 1.7 today from 1.4 08/14 No events overnight. Cr: 1.8, UOP: 2L in 24 hrs. Afebrile. 08/15 No events overnight. On room air oxygen. Awake and alert. Renal function is improving with Cr: 1.45 today from 1.8 yesterday 08/16 Patient is lying in bed in NAD. Afebrile. BC from 08/12: GPC 08/17 No events overnight. s/p transfusion 2units PRBC yesterday Hgb 9.9 from 6.8 yesterday. Afebrile. 08/18: Remains in moderate distress due to abdominal pain and distention. Apparently unchanged from yesterday. White count remains elevated at 17,000. Blood cultures from 08/16/17 positive for GPC Objective Vital Signs Date Time Temp Pulse Resp B/P (MAP) Pulse Ox O2 Delivery O2 Flow Rate FiO2 08/18/17 14:00 109 08/18/17 12:00 25 124/63 (83) 96 08/18/17 08:00 98.6 08/14/17 20:52 21 Intake and Output 08/18/17 08/18/17 08/19/17 08:00 16:00 00:00 Intake Total 720 ml Balance 720 ml Result Diagram: 08/18/17 0305 08/18/17 0305 Imaging Last Impressions Chest X-Ray 08/16/17 0000 Signed Impressions: Service Date/Time: Wednesday, August 16, 2017 08:37 - CONCLUSION: 1. Improved left upper lobe airspace disease. 2. Improved positive fluid balance. Rashard Pena MD Lower Extremity Ultrasound 08/10/17 0000 Signed Impressions: Service Date/Time: Thursday, August 10, 2017 07:51 - CONCLUSION: Normal examination. No evidence of DVT Ambrose Verdin MD Liver Ultrasound 08/10/17 0000 Signed Impressions: Service Date/Time: Thursday, August 10, 2017 08:04 - CONCLUSION: 1. Abnormal gallbladder filled with sludge and demonstrating wall thickening. There are no additional findings are present to suggest acute gallbladder inflammation. 2. Trace free fluid in the abdomen and small bilateral pleural effusions. 3. Mild splenomegaly. Rod Pascual MD Head CT 08/10/17 0000 Signed Impressions: Service Date/Time: Thursday, August 10, 2017 02:33 - CONCLUSION: No acute disease. Rod Garcia MD Objective Remarks GENERAL: Thin disheveled female who is alert and lying in bed. SKIN: Petechial lesions on the palms of both hands. There are tender raised purpuric lesions on the palmar surface of left fifth digit and left thenar eminence c/w osler nodes. There are similar tender lesions on pad of bilateral feet overlying toes and distal metatarsals L>R. Toes dusky. No splinter hemorrhages. Track blane present right neck and Left forearm. VASC: DP and AUTOMOBILE DETAILER pulses present bilaterally. HEAD: Atraumatic. Normocephalic. EYES: Pupils equal and round. No scleral icterus. No injection or drainage. ENT: No nasal bleeding or discharge. Mucous membranes dry. No pharyngeal erythema. No thrush. NECK: Trachea midline. No JVD. CARDIOVASCULAR: Tachycardic, regular, sinus tach on the monitor. No murmurs RESPIRATORY: Tachypneic without accessory muscle use. Bibasilar Rales present. No wheezes or rhonchi. GASTROINTESTINAL: Abdomen soft, mildly distended. MUSCULOSKELETAL: Extremities without clubbing, cyanosis, or edema. NEUROLOGICAL: Awake and alert. No obvious cranial nerve deficits. Sensation grossly intact. A/P Problem List: (1) Severe sepsis ICD Code: A41.9 - Sepsis, unspecified organism; R65.20 - Severe sepsis without septic shock Status: Acute (2) DIC (disseminated intravascular coagulation) ICD Code: D65 - Disseminated intravascular coagulation [defibrination syndrome] Status: Acute (3) Cocaine abuse ICD Code: F14.10 - Cocaine abuse, uncomplicated Status: Chronic (4) IVDU (intravenous drug user) ICD Code: F19.90 - Other psychoactive substance use, unspecified, uncomplicated Status: Chronic (5) H/O prosthetic mitral valve ICD Code: Z95.2 - Presence of prosthetic heart valve Status: Chronic (6) H/O endocarditis ICD Code: Z86.79 - Personal history of other diseases of the circulatory system Status: Chronic (7) Lactic acidosis ICD Code: E87.2 - Acidosis Status: Acute (8) Hyponatremia ICD Code: E87.1 - Hypo-osmolality and hyponatremia (9) Hypokalemia ICD Code: E87.6 - Hypokalemia Status: Acute Permanent Comment: unknown chronicity, probably subacute Last Edited By: Yashira Ivey on Aug 10, 2017 07:41 (10) INES (acute kidney injury) ICD Code: N17.9 - Acute kidney failure, unspecified (11) Hyperbilirubinemia ICD Code: E80.6 - Other disorders of bilirubin metabolism Status: Acute (12) Abnormal transaminases ICD Code: R74.8 - Abnormal levels of other serum enzymes Status: Acute (13) Elevated troponin level ICD Code: R74.8 - Abnormal levels of other serum enzymes Status: Acute Assessment and Plan NEURO: Acute encephalopathy, probably toxic metabolic secondary to sepsis. IV drug use Opioid abuse Cocaine abuse Salicylate and Tylenol levels negative. Ammonia level low. CT brain no acute disease RESP: Tobacco abuse Left upper lobe infiltrate Oxygen PRN keep sat >92% Incentive spirometry every hour awake. Tobacco cessation counseling. Nicotine patch CXR improved TOR airspace disease CV: Infective endocarditis involving multiple valves Prosthetic mitral valve with endocarditis Lopressor 12.5mg BID Monitor HR and BP keep MAP>65mmHg Lactic acid cleared 1.7 from 5.9 on arrival Received 2 L normal saline bolus in the ED 08/09. Echo showed vegetations on TV, AV, MV, EF 50-55% Not a candidate for surgical interventions GI: Elevated AST and hyperbilirubinemia ( improving) Ammonia level normal US liver: Abnormal gallbladder filled with sludge and demonstrating wall thickening. No evidence of acute gallbladder inflammation. Trace free fluid in the abdomen and small bilateral pleural effusions.. Mild splenomegaly. 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 FEN/RENAL: Acute kidney injury- Resolved Avoid NSAIDs and other nephrotoxins. Received ketorolac in ED 08/09. Monitor renal function , electrolytes replacement per protocol. TSH: 1.93, cortisol level 65. . ID: Septic shock. 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 s/p 5units cryo 08/10 Heme is following, signing off today. s/p transfusion 2units PRBC 08/16 ENDO: Acute hyperglycemia SSI with accuchekcs for glycemic control TSH: 1.9 Cortisol level: 65 PROPH: SCDs for DVT prophylaxis. Not on DVT prophylaxis due to thrombocytopenia ( improving) and anemia requiring blood transfusion. Protonix 40 mg by mouth daily for stress ulcer prophylaxis. ACCESS: Left IJ CVP placed 08/10, unable to get PIV Full code Palliative care is following Poor prognosis given multiple valves involved with endocarditis and staph Bacteremia Level 3 Kira Velasco MD Aug 18, 2017 16:08
[2017-08-18] MEDS: ZOLPIDEM TARTRATE 10 MG TAB PO PRN (20:37)
[2017-08-19] VITALS (12 sets, daily range): BP systolic 98–126; BP diastolic 50–62; PULSE 103–125; RESP 24–36; TEMP 98.6–98.8; O2SAT 92–94
[2017-08-19] MEDS: OXACILLIN INJ 2 GM in SODIUM CHLORIDE 0.9% INJ 100 ML IV SCH ×6 (00:48→20:47)
[2017-08-19] MEDS: RIFAMPIN 150 MG CAP PO SCH ×2 (01:44→14:42)
[2017-08-19] MEDS: ACETAMINOPHEN/HYDROcodone 325 MG/10 MG TAB PO PRN ×5 (01:44→20:46)
[2017-08-19] MEDS: CHLORHEXIDINE GLUCONATE 2 % 1 PACK (2 CLOTHS) TOP SCH (01:45)
[2017-08-19 05:28] LABS: AUTOMATED NEUTROPHIL # 17.5 TH/MM3 (1.8-7.7); BASOPHIL % 0.2 % (0.0-2.0); EOSINOPHIL # 0.1 TH/MM3 (0-0.4); EOSINOPHIL % 0.4 % (0.0-4.0); HEMATOCRIT 28.5 % (35.0-46.0); HEMOGLOBIN 9.7 GM/DL (11.6-15.3); LYMPH % 7.3 % (9.0-44.0); LYMPHOCYTE # 1.5 TH/MM3 (1.0-4.8); MEAN CELL VOLUME 81.9 FL (80.0-100.0); MEAN CORPUSCULAR HEMOGLOBIN 27.8 PG (27.0-34.0); MEAN PLATELET VOLUME 7.1 FL (7.0-11.0); MONO % 3.6 % (0.0-8.0); MONOCYTE # 0.7 TH/MM3 (0-0.9); NEUT % 88.5 % (16.0-70.0); PLATELET COUNT 202 TH/MM3 (150-450); RED BLOOD COUNT 3.48 MIL/MM3 (4.00-5.30); RED CELL DISTRIBUTION WIDTH 14.8 % (11.6-17.2); WHITE BLOOD COUNT 19.8 TH/MM3 (4.0-11.0)
[2017-08-19 05:49] LABS: ALBUMIN 1.2 GM/DL (3.4-5.0); ALT (GPT) LESS THAN 6 U/L (10-53); AST (GOT) 11 U/L (15-37); BICARBONATE 19.8 MEQ/L (21.0-32.0); BLOOD UREA NITROGEN 20 MG/DL (7-18); CALCIUM 7.5 MG/DL (8.5-10.1); CHLORIDE 110 MEQ/L (98-107); CREATININE 0.93 MG/DL (0.50-1.00); GLOMERULAR FILTRATION RATE 67 ML/MIN (>89); GLUCOSE,RANDOM 114 MG/DL (74-106); SODIUM (NA) 139 MEQ/L (136-145)
[2017-08-19 05:51] LABS: ALKALINE PHOSPHATASE 105 U/L (45-117); TOTAL BILIRUBIN ADULT 0.5 MG/DL (0.2-1.0); TOTAL PROTEIN 6.1 GM/DL (6.4-8.2)
[2017-08-19] MEDS ORDERED: DIATRIZOATE MEGLUM/DIATRIZOATE SOD 9 ML CUP PO ONE (07:45)
[2017-08-19] MEDS: METOPROLOL TARTRATE 25 MG TAB PO SCH ×2 (08:49→20:46)
[2017-08-19] MEDS: PANTOPRAZOLE SOD 40 MG DELAYED RELEASE TAB PO SCH (08:49)
[2017-08-19] MEDS: DOCUSATE SODIUM 50 MG/SENNA 8.6 MG TAB PO SCH ×2 (08:49→20:47)
[2017-08-19] MEDS: NICOTINE 21 MG/24 HR PATCH T-DERMAL SCH (08:51)
[2017-08-19] MEDS: SODIUM CHLORIDE 0.9% FLUSH 10 ML FLUSH IV FLUSH SCH ×2 (09:00→20:46)
[2017-08-19] MEDS: REMOVE OLD PATCH T-DERMAL SCH (09:00)
[2017-08-19] MEDS ORDERED: Vancomycin Consult Pharmacy 1 EA OTHER SCH (10:30)
[2017-08-19] MEDS ORDERED: MORPHINE SULFATE 4 MG/ML INJ IV ONE (11:00)
--- NOTE | 2017-08-19 11:52 | HHI.IDPN ---
Note Infectious Disease Note Patient complaining of pain in her abdomen. Afebrile. feels okay otherwise. Ct of abdomen scheduled for today. Blood culture still positive 08/16/17. 2D ECHO - vegetations noted on three valves. PAST MEDICAL HISTORY 1. Prosthetic valve endocarditis. 2. Mitral valve replacement 3. Hepatitis C 4. Anxiety disorder 5. Seizure disorder 6. IV drug use. ALLERGIES NO KNOWN DRUG ALLERGIES. MEDICATIONS 1. Vancomycin 2. Rifampin. Gentamycin was stopped because of deteriorating renal function. SOCIAL HISTORY Positive tobacco use one pack a day. No alcohol. Positive IV drug use reported the last use on 08/07/2017. The patient was not the patient reportedly administered the IV drug into the neck. OBJECTIVE: Vital Signs Date Time Temp Pulse Resp B/P (MAP) Pulse Ox O2 Delivery O2 Flow Rate FiO2 08/19/17 10:00 112 08/19/17 08:00 98.6 115 24 126/62 (83) 94 08/19/17 08:00 122 08/19/17 06:00 122 08/19/17 04:00 98.6 125 34 117/58 (77) 94 08/19/17 04:00 125 08/19/17 02:00 113 08/19/17 00:00 98.6 110 36 118/60 (79) 92 08/19/17 00:00 110 08/18/17 22:00 109 08/18/17 20:00 118 08/18/17 20:00 98.9 118 31 126/66 (86) 91 08/18/17 18:00 119 08/18/17 16:00 98.6 121 22 115/58 (77) 93 08/18/17 16:00 121 08/18/17 14:00 109 08/18/17 12:00 103 25 124/63 (83) 96 08/18/17 12:00 103 Laboratory Tests Test 08/18/17 03:05 08/19/17 05:11 White Blood Count 17.5 TH/MM3 19.8 TH/MM3 Red Blood Count 3.34 MIL/MM3 3.48 MIL/MM3 Hemoglobin 9.3 GM/DL 9.7 GM/DL Hematocrit 27.7 % 28.5 % Mean Corpuscular Volume 82.9 FL 81.9 FL Mean Corpuscular Hemoglobin 27.9 PG 27.8 PG Mean Corpuscular Hemoglobin Concent 33.6 % 34.0 % Red Cell Distribution Width 14.8 % 14.8 % Platelet Count 146 TH/MM3 202 TH/MM3 Mean Platelet Volume 7.3 FL 7.1 FL Neutrophils (%) (Auto) 88.2 % 88.5 % Lymphocytes (%) (Auto) 7.5 % 7.3 % Monocytes (%) (Auto) 3.5 % 3.6 % Eosinophils (%) (Auto) 0.5 % 0.4 % Basophils (%) (Auto) 0.3 % 0.2 % Neutrophils # (Auto) 15.4 TH/MM3 17.5 TH/MM3 Lymphocytes # (Auto) 1.3 TH/MM3 1.5 TH/MM3 Monocytes # (Auto) 0.6 TH/MM3 0.7 TH/MM3 Eosinophils # (Auto) 0.1 TH/MM3 0.1 TH/MM3 Basophils # (Auto) 0.1 TH/MM3 0.0 TH/MM3 CBC Comment DIFF FINAL DIFF FINAL Differential Comment Laboratory Tests Test 08/18/17 03:05 08/19/17 05:11 Blood Urea Nitrogen 22 MG/DL 20 MG/DL Creatinine 1.03 MG/DL 0.93 MG/DL Random Glucose 96 MG/DL 114 MG/DL Total Protein 5.5 GM/DL 6.1 GM/DL Albumin 1.1 GM/DL 1.2 GM/DL Calcium Level 7.2 MG/DL 7.5 MG/DL Alkaline Phosphatase 107 U/L 105 U/L Aspartate Amino Transf (AST/SGOT) 10 U/L 11 U/L Alanine Aminotransferase (ALT/SGPT) 6 U/L LESS THAN 6 U/L Total Bilirubin 0.3 MG/DL 0.5 MG/DL Sodium Level 140 MEQ/L 139 MEQ/L Potassium Level 3.6 MEQ/L 3.7 MEQ/L Chloride Level 111 MEQ/L 110 MEQ/L Carbon Dioxide Level 20.2 MEQ/L 19.8 MEQ/L Anion Gap 9 MEQ/L 9 MEQ/L Estimat Glomerular Filtration Rate 60 ML/MIN 67 ML/MIN Protein Corrected Calcium 8.1 MG/DL Lactic Acid Level 0.6 mmol/L Lipase 86 U/L IMAGING: Chest X-Ray 08/16/17 0000 Signed Impressions: Service Date/Time: Wednesday, August 16, 2017 08:37 - CONCLUSION: 1. Improved left upper lobe airspace disease. 2. Improved positive fluid balance. Rashard Pena MD Chest X-Ray 08/11/17 0600 Signed Impressions: Service Date/Time: Friday, August 11, 2017 03:37 - CONCLUSION: Left upper lobe and perihilar consolidation. Rod Garcia MD Lower Extremity Ultrasound 08/10/17 0000 Signed Impressions: Service Date/Time: Thursday, August 10, 2017 07:51 - CONCLUSION: Normal examination. No evidence of DVT Ambrose Verdin MD Liver Ultrasound 08/10/17 0000 Signed Impressions: Service Date/Time: Thursday, August 10, 2017 08:04 - CONCLUSION: 1. Abnormal gallbladder filled with sludge and demonstrating wall thickening. There are no additional findings are present to suggest acute gallbladder inflammation. 2. Trace free fluid in the abdomen and small bilateral pleural effusions. 3. Mild splenomegaly. Rod Pascual MD Head CT 08/10/17 0000 Signed Impressions: Service Date/Time: Thursday, August 10, 2017 02:33 - CONCLUSION: No acute disease. Rod Garcia MD PHYSICAL EXAMINATION GENERAL: Awake and alert. HEENT: No icterus. No conjunctival erythema. Oropharynx slightly dry mucosa without lesions. NECK: Supple without adenopathy. LUNGS: Bibasilar rhonchi. HEART: 2/6 systolic murmur at the left sternal border. ABDOMEN: Bowel sounds present, distended, soft, tender. EXTREMITIES: No clubbing or cyanosis or edema. The patient has lesions at the index, third, 4th and 5th finger on the left hand and multiple purpuric areas at the base of the toes and at the bulb of the feet left > right. Multiple track gifford at the antecubital areas of both hands. No new lesions. SKIN: No diffuse rash. NEUROLOGIC: Alert and oriented. No gross focal findings. PSYCHIATRIC: Calm and cooperative. IMPRESSION 1. Prosthetic valve endocarditis of aortic, mitral and tricuspid. Embolic lesions to the feet and fingers. 2. Bacteremia staph aureus. MSSA. Persistent. 3. Acute kidney disease. 4. Thrombocytopenia. Platelet count increasing. Patient is still critically ill. RECOMMENDATIONS 1. Continue Oxacillin 2 grams IV q 4 hours 2. Add Vancomycin. 3. Continue Rifampin. 4. Repeat blood cultures. 5. Monitor clinical status. 6. Monitor renal function. Lucas Damian MD Aug 19, 2017 11:52
[2017-08-19] MEDS: VANCOMYCIN 1 GM/200 ML PREMIX IV SCH (12:00)
--- NOTE | 2017-08-19 13:44 | RADRPT ---
EXAM DATE/TIME: 08/19/2017 12:57 [facility] COMPARISON: No previous studies available for comparison. INDICATIONS : Abnormal ultrasound of gallbladder and liver,pain ORAL CONTRAST: Prescribed oral contrast ingested. RADIATION DOSE: 6.64 CTDIvol (mGy) MEDICAL HISTORY : Hepatitis C. Endocarditis SURGICAL HISTORY : None. ENCOUNTER: Initial ACUITY: 2 days PAIN SCALE: 7/10 LOCATION: Abdomen TECHNIQUE: Volumetric scanning of the abdomen and pelvis was performed. Using automated exposure control and ad justment of the mA and/or kV according to patient size, radiation dose was kept as low as reasonably achievable to obtain optimal diagnostic quality images. DICOM format image data is available electro nically for review and comparison. FINDINGS: LOWER LUNGS: Bilateral dependent lower lobe atelectasis/consolidation and moderate sized bilateral pleural effusio ns. LIVER: Distended gallbladder. Heterogeneity of the dependent portion of the gallbladder indicating possible calculi. Liver is homogeneous and within normal limits. Common duct is diffusely prominent measuring 13 cm in diameter. SPLEEN: Spleen is enlarged measuring 15.2 cm in craniocaudal dimension. Multiple wedge-shaped areas of low de nsity identified in the spleen likely representing infarcts. The largest is seen superiorly measuring 4.6 cm. PANCREAS: Within normal limits. KIDNEYS: Normal in size and shape. There is no mass, stone, or hydronephrosis. ADRENAL GLANDS: Within normal limits. VASCULAR: There is no aortic aneurysm. BOWEL/MESENTERY: Moderate amount of ascites seen in all 4 quadrants. No evidence of bowel dilatation. No free air. Madi endix within normal limits. ABDOMINAL WALL: Diffuse superficial soft tissue edema/anasarca. RETROPERITONEUM: There is no lymphadenopathy. BLADDER: No wall thickening or mass. REPRODUCTIVE: 4.2 cm cystic mass in the left adnexal region. INGUINAL: There is no lymphadenopathy or hernia. MUSCULOSKELETAL: Within normal limits for patient age. CONCLUSION: 1. Splenomegaly and likely splenic infarcts. 2. Heterogeneous density in the gallbladder suggesting sludge or calculi. 3. Ascites, moderate bilateral pleural effusions, and anasarca. 4. Diffusely dilated common duct. 5. 4.2 cm cystic mass in the left adnexal region. Adryan Olmstead MD on August 19, 2017 at 13:35 Board Certified Radiologist. This report was verified electronically.
--- NOTE | 2017-08-19 14:13 | HHI.CCPN ---
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 She states that her valve replacement was performed at [facility] but I do not see record of this. She is unsure of when it was done. Unable to pull up old CXRs. She is uncertain of causative organism or treatment course. She [place] [facility] stating that she has had a 2 day history of subjective fever and nonproductive cough. She has also had tender, painful lesions on her hands and feet which on exam are consistent with [place] nodes. She states the reason she sought medical treatment was that "the pain became unbearable" and that it hurt to walk to the bathroom because of the tenderness on the soles of her feet. She denies headache , sore throat, chest pain, abdominal pain, hemoptysis. She states she has been actively injecting Suboxone which she acquired from "the street", stating she last injected into her right neck on 08/08/17 at around noon. In the ED, 2 sets of blood cultures were obtained, urinalysis and urine culture. She was given Vancomycin, zosyn, and 2 L NS bolus. Influenza screen is negative. Her sodium is 121, potassium 3, creatinine 1.29, lactic acid 5.9. 08/10 Patient is on Neosyn 40 mics. T:103.0 last night. BC from 08/09: GPC 2/4 bottles 08/01: C/o pain in left foot. 08/12 No events overnight. On Neosyn 10 mics. Afebrile. 08/13 Patient is lying in bed in NAD. Afebrile. Off Neosyn. Cr. increased 1.7 today from 1.4 08/14 No events overnight. Cr: 1.8, UOP: 2L in 24 hrs. Afebrile. 08/15 No events overnight. On room air oxygen. Awake and alert. Renal function is improving with Cr: 1.45 today from 1.8 yesterday 08/16 Patient is lying in bed in NAD. Afebrile. BC from 08/12: GPC 08/17 No events overnight. s/p transfusion 2units PRBC yesterday Hgb 9.9 from 6.8 yesterday. Afebrile. 08/18: Remains in moderate distress due to abdominal pain and distention. Apparently unchanged from yesterday. White count remains elevated at 17,000. Blood cultures from 08/16/17 positive for GPC 08/19: Persistent staph aureus bacteremia. White count increased to 19.8. CT abdomen pelvis shows evidence of fluid overload splenic infarct and gallbladder sludge. Start diuresis with IV Lasix 20 every 12 with IV albumin. Continue to have abdominal pain Objective Vital Signs Date Time Temp Pulse Resp B/P (MAP) Pulse Ox O2 Delivery O2 Flow Rate FiO2 08/19/17 14:00 112 08/19/17 12:00 98.6 24 98/50 (66) 94 Intake and Output 08/19/17 08/19/17 08/20/17 08:00 16:00 00:00 Intake Total 400 ml Balance 400 ml Result Diagram: 08/19/17 0511 08/19/17 0511 Imaging Last Impressions Chest X-Ray 08/16/17 0000 Signed Impressions: Service Date/Time: Wednesday, August 16, 2017 08:37 - CONCLUSION: 1. Improved left upper lobe airspace disease. 2. Improved positive fluid balance. Rashard Pena MD Lower Extremity Ultrasound 08/10/17 0000 Signed Impressions: Service Date/Time: Thursday, August 10, 2017 07:51 - CONCLUSION: Normal examination. No evidence of DVT Ambrose Verdin MD Liver Ultrasound 08/10/17 0000 Signed Impressions: Service Date/Time: Thursday, August 10, 2017 08:04 - CONCLUSION: 1. Abnormal gallbladder filled with sludge and demonstrating wall thickening. There are no additional findings are present to suggest acute gallbladder inflammation. 2. Trace free fluid in the abdomen and small bilateral pleural effusions. 3. Mild splenomegaly. Rod Pascual MD Head CT 08/10/17 0000 Signed Impressions: Service Date/Time: Thursday, August 10, 2017 02:33 - CONCLUSION: No acute disease. Rod Garcia MD Objective Remarks GENERAL: Thin disheveled female who is alert and lying in bed. SKIN: Petechial lesions on the palms of both hands. There are tender raised purpuric lesions on the palmar surface of left fifth digit and left thenar eminence c/w osler nodes. There are similar tender lesions on pad of bilateral feet overlying toes and distal metatarsals L>R. Toes dusky. No splinter hemorrhages. Track blane present right neck and Left forearm. VASC: DP and SPONGE BUFFER pulses present bilaterally. HEAD: Atraumatic. Normocephalic. EYES: Pupils equal and round. No scleral icterus. No injection or drainage. ENT: No nasal bleeding or discharge. Mucous membranes dry. No pharyngeal erythema. No thrush. NECK: Trachea midline. No JVD. CARDIOVASCULAR: Tachycardic, regular, sinus tach on the monitor. No murmurs RESPIRATORY: Tachypneic without accessory muscle use. Bibasilar Rales present. Diminished air entry at the bases GASTROINTESTINAL: Abdomen soft, mildly distended. Tender to palpation diffusely MUSCULOSKELETAL: Extremities without clubbing, cyanosis, or edema. NEUROLOGICAL: Awake and alert. No obvious cranial nerve deficits. Sensation grossly intact. A/P Problem List: (1) DIC (disseminated intravascular coagulation) ICD Code: D65 - Disseminated intravascular coagulation [defibrination syndrome] Status: Acute (2) Cocaine abuse ICD Code: F14.10 - Cocaine abuse, uncomplicated Status: Chronic (3) IVDU (intravenous drug user) ICD Code: F19.90 - Other psychoactive substance use, unspecified, uncomplicated Status: Chronic (4) H/O prosthetic mitral valve ICD Code: Z95.2 - Presence of prosthetic heart valve Status: Chronic (5) H/O endocarditis ICD Code: Z86.79 - Personal history of other diseases of the circulatory system Status: Chronic (6) Lactic acidosis ICD Code: E87.2 - Acidosis Status: Acute (7) Hyponatremia ICD Code: E87.1 - Hypo-osmolality and hyponatremia (8) Hypokalemia ICD Code: E87.6 - Hypokalemia Status: Acute Permanent Comment: unknown chronicity, probably subacute Last Edited By: Yashira Ivey on Aug 10, 2017 07:41 (9) INES (acute kidney injury) ICD Code: N17.9 - Acute kidney failure, unspecified (10) Hyperbilirubinemia ICD Code: E80.6 - Other disorders of bilirubin metabolism Status: Acute (11) Abnormal transaminases ICD Code: R74.8 - Abnormal levels of other serum enzymes Status: Acute (12) Elevated troponin level ICD Code: R74.8 - Abnormal levels of other serum enzymes Status: Acute (13) Septic shock ICD Code: A41.9 - Sepsis, unspecified organism; R65.21 - Severe sepsis with septic shock Status: Acute Assessment and Plan NEURO: Acute encephalopathy, probably toxic metabolic secondary to sepsis. IV drug use Opioid abuse Cocaine abuse [place] and morphine when necessary for severe pain Salicylate and Tylenol levels negative. Ammonia level low. CT brain-negative RESP: Bilateral pleural effusions Tobacco abuse Incentive spirometry every hour awake. Tobacco cessation counseling. Nicotine patch Chest x-ray -small amount of fluid in the fissure on the right. Overall clear CV: Elevated troponin Septic shock-resolved Fluid overload anasarca Infective endocarditis Start diuresis with IV Lasix twice a day and Aldactone 25 twice a day 08/19/17 Abdomen pelvis pleural effusions and ascites 2-D echo NL EF, Veg of tricuspid mitral and aortic valves Monitor serial lactic acid and urine output as markers perfusion. Received 2 L normal saline bolus in the ED 08/09. DC all IVF GI: Elevated AST and hyperbilirubinemia Ascitis Ammonia level normal CT abdomen pelvis today shows ascites, splenic infarct, gallbladder sludge LEGAL INVESTIGATOR - test negative on admission. FEN/RENAL: Acute kidney injury Hyponatremia Hypokalemia Hypocalcemia IV Lasix and Aldactone as above Avoid NSAIDs and other nephrotoxins. Received ketorolac in ED 08/09. Potassium. 40 mEq by mouth now. Received calcium chloride 1 g IV per ED physician. Hyponatremia. Check TSH, cortisol, urine osm, Fena. CPK normal. ID: Severe sepsis Endocarditis involving mitral tricuspid and aortic valves History of [place] valve endocarditis now status post bioprosthetic mitral valve ?UTI Follow up blood culture and urine culture. Recurrent MSSA bacteremia Continue Oxacillin , Vancomycin, Rifampin. ID following Dr. Damian HIV negative and hepatitis C reactive HEME: DIC -resolving Anemia Monitor coags and fibrinogen. Hematology has signed off ENDO: Acute hyperglycemia SSI as needed PROPH: SCDs for DVT prophylaxis. Hold on pharmacologic DVT prophylaxis at this time due to severe thrombocytopenia-thrombocytopenia is resolved and will start today Lovenox 40 mg subcutaneous daily. Protonix 40 mg by mouth daily for stress ulcer prophylaxis. Full code Patient is critically ill with severe and multiorgan dysfunction that poses life threat. Prognosis is very poor with infective endocarditis involving 3 valves, particularly prosthetic mitral valve CCT 32 minutes exclusive of separately billable procedures. Kira Velasco MD Aug 19, 2017 14:13
[2017-08-19] MEDS: POTASSIUM CHLORIDE 20 MEQ CONTROLLED RELEASE TAB PO SCH (14:30)
[2017-08-19] MEDS: ALBUMIN 25% INJ 100 ML IV SCH (14:41)
[2017-08-19] MEDS: FUROSEMIDE 20 MG/2 ML VIAL IV PUSH SCH ×2 (14:42→17:58)
[2017-08-19] MEDS: MORPHINE SULFATE 2 MG/ML INJ IV PUSH PRN ×2 (17:54→23:26)
[2017-08-19] MEDS: ZOLPIDEM TARTRATE 10 MG TAB PO PRN (20:46)
[2017-08-20] VITALS (16 sets, daily range): BP systolic 117–145; BP diastolic 56–71; PULSE 110–129; RESP 28–41; TEMP 98.4–98.8; O2SAT 93–100
[2017-08-20] MEDS: ACETAMINOPHEN/HYDROcodone 325 MG/10 MG TAB PO PRN ×5 (01:14→20:15)
[2017-08-20] MEDS: CHLORHEXIDINE GLUCONATE 2 % 1 PACK (2 CLOTHS) TOP SCH (02:04)
[2017-08-20] MEDS: OXACILLIN INJ 2 GM in SODIUM CHLORIDE 0.9% INJ 100 ML IV SCH ×6 (02:04→21:25)
[2017-08-20] MEDS: ALBUMIN 25% INJ 100 ML IV SCH ×2 (02:04→13:13)
[2017-08-20] MEDS: RIFAMPIN 150 MG CAP PO SCH ×2 (02:04→13:13)
[2017-08-20] MEDS: MORPHINE SULFATE 2 MG/ML INJ IV PUSH PRN ×4 (05:27→23:29)
[2017-08-20] MEDS: VANCOMYCIN 1 GM/200 ML PREMIX IV SCH ×2 (05:27→23:28)
--- NOTE | 2017-08-20 05:36 | RADRPT ---
EXAM DATE/TIME: 08/20/2017 03:47 [facility] COMPARISON: CHEST SINGLE AP, August 10, 2017, 6:17. CHEST SINGLE AP, August 16, 2017, 8:37. INDICATIONS : [place] for respiratory disease. MEDICAL HISTORY : Hepatitis C. Cardiovascular disease. Seizures. SURGICAL HISTORY : None. ENCOUNTER: Subsequent ACUITY: 2 weeks PAIN SCORE: Non-responsive. LOCATION: chest FINDINGS: There appears to be a prosthetic valve in place likely related to an aortic valve. There is anterior cervical fusion plate seen. The left internal jugular central line is well placed. The heart size is normal. There are patchy areas of consolidation seen in the lungs bilaterally being most prominent in the perihilar regions and more prominent on the left than the right. CONCLUSION: Worsening bilateral areas of consolidation which could represent worsening edema. Rod Garcia MD on August 20, 2017 at 5:31 Board Certified Radiologist. This report was verified electronically.
[2017-08-20] MEDS: RESP: ALBUTEROL 2.5 MG/3 ML NEB (PRN) INH ×3 (06:05→15:57)
[2017-08-20 07:26] LABS: AUTOMATED NEUTROPHIL # 14.8 TH/MM3 (1.8-7.7); BASOPHIL # 0.1 TH/MM3 (0-0.2); BASOPHIL % 0.5 % (0.0-2.0); EOSINOPHIL # 0.1 TH/MM3 (0-0.4); EOSINOPHIL % 0.4 % (0.0-4.0); HEMATOCRIT 24.7 % (35.0-46.0); HEMOGLOBIN 8.4 GM/DL (11.6-15.3); LYMPH % 8.7 % (9.0-44.0); LYMPHOCYTE # 1.5 TH/MM3 (1.0-4.8); MEAN CELL VOLUME 82.3 FL (80.0-100.0); MEAN PLATELET VOLUME 7.3 FL (7.0-11.0); MONO % 4.9 % (0.0-8.0); MONOCYTE # 0.8 TH/MM3 (0-0.9); NEUT % 85.5 % (16.0-70.0); PLATELET COUNT 194 TH/MM3 (150-450); RED BLOOD COUNT 3.01 MIL/MM3 (4.00-5.30); RED CELL DISTRIBUTION WIDTH 14.8 % (11.6-17.2); WHITE BLOOD COUNT 17.3 TH/MM3 (4.0-11.0)
[2017-08-20 07:45] LABS: ALBUMIN 2.1 GM/DL (3.4-5.0); ALKALINE PHOSPHATASE 90 U/L (45-117); ALT (GPT) LESS THAN 6 U/L (10-53); AST (GOT) 8 U/L (15-37); BICARBONATE 21.2 MEQ/L (21.0-32.0); BLOOD UREA NITROGEN 23 MG/DL (7-18); CALCIUM 7.8 MG/DL (8.5-10.1); CHLORIDE 107 MEQ/L (98-107); CREATININE 1.05 MG/DL (0.50-1.00); GLOMERULAR FILTRATION RATE 58 ML/MIN (>89); GLUCOSE,RANDOM 114 MG/DL (74-106); SODIUM (NA) 138 MEQ/L (136-145); TOTAL BILIRUBIN ADULT 0.5 MG/DL (0.2-1.0); TOTAL PROTEIN 6.2 GM/DL (6.4-8.2)
[2017-08-20] MEDS: PANTOPRAZOLE SOD 40 MG DELAYED RELEASE TAB PO SCH (08:02)
[2017-08-20] MEDS: NICOTINE 21 MG/24 HR PATCH T-DERMAL SCH (08:02)
[2017-08-20] MEDS: DOCUSATE SODIUM 50 MG/SENNA 8.6 MG TAB PO SCH ×2 (08:02→20:16)
[2017-08-20] MEDS: FUROSEMIDE 20 MG/2 ML VIAL IV PUSH SCH (08:03)
[2017-08-20] MEDS: METOPROLOL TARTRATE 25 MG TAB PO SCH ×3 (08:03→23:28)
[2017-08-20] MEDS: POTASSIUM CHLORIDE 20 MEQ CONTROLLED RELEASE TAB PO SCH (08:03)
[2017-08-20] MEDS: REMOVE OLD PATCH T-DERMAL SCH (09:00)
--- NOTE | 2017-08-20 11:36 | HHI.IDPN ---
Note Infectious Disease Note Patient is sleeping. Received pain meds. Afebrile. Ct of abdomen showed splenic infarct. Ascites, anasarca. Blood culture still positive 08/16/17. 2D ECHO - vegetations noted on three valves. PAST MEDICAL HISTORY 1. Prosthetic valve endocarditis. 2. Mitral valve replacement 3. Hepatitis C 4. Anxiety disorder 5. Seizure disorder 6. IV drug use. ALLERGIES NO KNOWN DRUG ALLERGIES. MEDICATIONS 1. Vancomycin 2. Rifampin. Gentamycin was stopped because of deteriorating renal function. 3. Vancomycin. SOCIAL HISTORY Positive tobacco use one pack a day. No alcohol. Positive IV drug use reported the last use on 08/07/2017. The patient was not the patient reportedly administered the IV drug into the neck. OBJECTIVE: Vital Signs Date Time Temp Pulse Resp B/P (MAP) Pulse Ox O2 Delivery O2 Flow Rate FiO2 08/19/17 10:00 112 08/19/17 08:00 98.6 115 24 126/62 (83) 94 08/19/17 08:00 122 08/19/17 06:00 122 08/19/17 04:00 98.6 125 34 117/58 (77) 94 08/19/17 04:00 125 08/19/17 02:00 113 08/19/17 00:00 98.6 110 36 118/60 (79) 92 08/19/17 00:00 110 08/18/17 22:00 109 08/18/17 20:00 118 08/18/17 20:00 98.9 118 31 126/66 (86) 91 08/18/17 18:00 119 08/18/17 16:00 98.6 121 22 115/58 (77) 93 08/18/17 16:00 121 08/18/17 14:00 109 08/18/17 12:00 103 25 124/63 (83) 96 08/18/17 12:00 103 Laboratory Tests Test 08/18/17 03:05 08/19/17 05:11 White Blood Count 17.5 TH/MM3 19.8 TH/MM3 Red Blood Count 3.34 MIL/MM3 3.48 MIL/MM3 Hemoglobin 9.3 GM/DL 9.7 GM/DL Hematocrit 27.7 % 28.5 % Mean Corpuscular Volume 82.9 FL 81.9 FL Mean Corpuscular Hemoglobin 27.9 PG 27.8 PG Mean Corpuscular Hemoglobin Concent 33.6 % 34.0 % Red Cell Distribution Width 14.8 % 14.8 % Platelet Count 146 TH/MM3 202 TH/MM3 Mean Platelet Volume 7.3 FL 7.1 FL Neutrophils (%) (Auto) 88.2 % 88.5 % Lymphocytes (%) (Auto) 7.5 % 7.3 % Monocytes (%) (Auto) 3.5 % 3.6 % Eosinophils (%) (Auto) 0.5 % 0.4 % Basophils (%) (Auto) 0.3 % 0.2 % Neutrophils # (Auto) 15.4 TH/MM3 17.5 TH/MM3 Lymphocytes # (Auto) 1.3 TH/MM3 1.5 TH/MM3 Monocytes # (Auto) 0.6 TH/MM3 0.7 TH/MM3 Eosinophils # (Auto) 0.1 TH/MM3 0.1 TH/MM3 Basophils # (Auto) 0.1 TH/MM3 0.0 TH/MM3 CBC Comment DIFF FINAL DIFF FINAL Differential Comment Laboratory Tests Test 08/18/17 03:05 08/19/17 05:11 Blood Urea Nitrogen 22 MG/DL 20 MG/DL Creatinine 1.03 MG/DL 0.93 MG/DL Random Glucose 96 MG/DL 114 MG/DL Total Protein 5.5 GM/DL 6.1 GM/DL Albumin 1.1 GM/DL 1.2 GM/DL Calcium Level 7.2 MG/DL 7.5 MG/DL Alkaline Phosphatase 107 U/L 105 U/L Aspartate Amino Transf (AST/SGOT) 10 U/L 11 U/L Alanine Aminotransferase (ALT/SGPT) 6 U/L LESS THAN 6 U/L Total Bilirubin 0.3 MG/DL 0.5 MG/DL Sodium Level 140 MEQ/L 139 MEQ/L Potassium Level 3.6 MEQ/L 3.7 MEQ/L Chloride Level 111 MEQ/L 110 MEQ/L Carbon Dioxide Level 20.2 MEQ/L 19.8 MEQ/L Anion Gap 9 MEQ/L 9 MEQ/L Estimat Glomerular Filtration Rate 60 ML/MIN 67 ML/MIN Protein Corrected Calcium 8.1 MG/DL Lactic Acid Level 0.6 mmol/L Lipase 86 U/L IMAGING: Chest X-Ray 08/20/17 0600 Signed Impressions: Service Date/Time: Sunday, August 20, 2017 03:47 - CONCLUSION: Worsening bilateral areas of consolidation which could represent worsening edema. Rod Garcia MD Abdomen/Pelvis CT 08/19/17 0000 Signed Impressions: Service Date/Time: July 12:57 - CONCLUSION: 1. Splenomegaly and likely splenic infarcts. 2. Heterogeneous density in the gallbladder suggesting sludge or calculi. 3. Ascites, moderate bilateral pleural effusions, and anasarca. 4. Diffusely dilated common duct. 5. 4.2 cm cystic mass in the left adnexal region. Adryan Olmstead MD Chest X-Ray 08/16/17 0000 Signed Impressions: Service Date/Time: Wednesday, August 16, 2017 08:37 - CONCLUSION: 1. Improved left upper lobe airspace disease. 2. Improved positive fluid balance. Rashard Pena MD Chest X-Ray 08/11/17 0600 Signed Impressions: Service Date/Time: Friday, August 11, 2017 03:37 - CONCLUSION: Left upper lobe and perihilar consolidation. Rod Garcia MD Lower Extremity Ultrasound 08/10/17 0000 Signed Impressions: Service Date/Time: Thursday, August 10, 2017 07:51 - CONCLUSION: Normal examination. No evidence of DVT Ambrose Verdin MD Liver Ultrasound 08/10/17 0000 Signed Impressions: Service Date/Time: Thursday, August 10, 2017 08:04 - CONCLUSION: 1. Abnormal gallbladder filled with sludge and demonstrating wall thickening. There are no additional findings are present to suggest acute gallbladder inflammation. 2. Trace free fluid in the abdomen and small bilateral pleural effusions. 3. Mild splenomegaly. Rod Pascual MD Head CT 08/10/17 0000 Signed Impressions: Service Date/Time: Thursday, August 10, 2017 02:33 - CONCLUSION: No acute disease. Rod Garcia MD PHYSICAL EXAMINATION GENERAL: Awake and alert. HEENT: No icterus. No conjunctival erythema. Oropharynx slightly dry mucosa without lesions. NECK: Supple without adenopathy. LUNGS: Bibasilar rhonchi and wheezing. HEART: 2/6 systolic murmur at the left sternal border. ABDOMEN: Bowel sounds present, distended, soft, tender. EXTREMITIES: No clubbing or cyanosis or edema. The patient has lesions at the index, third, 4th and 5th finger on the left hand and multiple purpuric areas at the base of the toes and at the bulb of the feet left > right. Multiple track gifford at the antecubital areas of both hands. No new lesions. SKIN: No diffuse rash. NEUROLOGIC: Alert and oriented. No gross focal findings. PSYCHIATRIC: Calm and cooperative. IMPRESSION 1. Prosthetic valve endocarditis of mitral valve Also has aortic, and tricuspid endocarditis. Embolic lesions to the feet and fingers. Splenic infarct. 2. Bacteremia staph aureus. MSSA. Persistent. 3. Acute kidney disease. 4. Thrombocytopenia. Platelet count increasing. Patient remains critically ill. RECOMMENDATIONS 1. Continue Oxacillin 2 grams IV q 4 hours 2. Continue Vancomycin. 3. Continue Rifampin. 4. Follow blood cultures. 5. Monitor clinical status. 6. Monitor renal function. Lucas Damian MD Aug 20, 2017 11:36
[2017-08-20] MEDS: FUROSEMIDE 40 MG/4 ML VIAL IV PUSH SCH ×2 (15:39→20:13)
--- NOTE | 2017-08-20 16:23 | HHI.CCPN ---
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 She states that her valve replacement was performed at [facility] but I do not see record of this. She is unsure of when it was done. Unable to pull up old CXRs. She is uncertain of causative organism or treatment course. She presents to [facility] ED stating that she has had a 2 day history of subjective fever and nonproductive cough. She has also had tender, painful lesions on her hands and feet which on exam are consistent with [place] nodes. She states the reason she sought medical treatment was that "the pain became unbearable" and that it hurt to walk to the bathroom because of the tenderness on the soles of her feet. She denies headache , sore throat, chest pain, abdominal pain, hemoptysis. She states she has been actively injecting Suboxone which she acquired from "the street", stating she last injected into her right neck on 08/08/17 at around noon. In the ED, 2 sets of blood cultures were obtained, urinalysis and urine culture. She was given Vancomycin, zosyn, and 2 L NS bolus. Influenza screen is negative. Her sodium is 121, potassium 3, creatinine 1.29, lactic acid 5.9. 08/10 Patient is on Neosyn 40 mics. T:103.0 last night. BC from 08/09: GPC 2/4 bottles 08/11: C/o pain in left foot. 08/12 No events overnight. On Neosyn 10 mics. Afebrile. 08/13 Patient is lying in bed in NAD. Afebrile. Off Neosyn. Cr. increased 1.7 today from 1.4 08/14 No events overnight. Cr: 1.8, UOP: 2L in 24 hrs. Afebrile. 08/15 No events overnight. On room air oxygen. Awake and alert. Renal function is improving with Cr: 1.45 today from 1.8 yesterday 08/16 Patient is lying in bed in NAD. Afebrile. BC from 08/12: GPC 08/17 No events overnight. s/p transfusion 2units PRBC yesterday Hgb 9.9 from 6.8 yesterday. Afebrile. 08/18: Remains in moderate distress due to abdominal pain and distention. Apparently unchanged from yesterday. White count remains elevated at 17,000. Blood cultures from 08/16/17 positive for GPC 08/19: Persistent staph aureus bacteremia. White count increased to 19.8. CT abdomen pelvis shows evidence of fluid overload splenic infarct and gallbladder sludge. Start diuresis with IV Lasix 20 every 12 with IV albumin. Continue to have abdominal pain 08/20: continues to complain of generalized pain "all over my body". no specific complaints. tolerates PO. HR in the 110s, but stable. leukocytosis persists. blood cultures still positive. redraw bl cx sent today. peripheral edema persists. clinically appears volume overloaded. ROS negative. Objective Vital Signs Date Time Temp Pulse Resp B/P (MAP) Pulse Ox O2 Delivery O2 Flow Rate FiO2 08/20/17 14:00 125 08/20/17 12:00 98.7 28 117/56 (76) 98 08/20/17 07:39 Nasal Cannula 4.00 Intake and Output 08/20/17 08/20/17 08/21/17 08:00 16:00 00:00 Intake Total 1460 ml Balance 1460 ml Result Diagram: 08/20/17 0540 08/20/17 0540 Imaging Last Impressions Chest X-Ray 08/16/17 0000 Signed Impressions: Service Date/Time: Wednesday, August 16, 2017 08:37 - CONCLUSION: 1. Improved left upper lobe airspace disease. 2. Improved positive fluid balance. Rashard Pena MD Lower Extremity Ultrasound 08/10/17 0000 Signed Impressions: Service Date/Time: Thursday, August 10, 2017 07:51 - CONCLUSION: Normal examination. No evidence of DVT Ambrose Verdin MD Liver Ultrasound 08/10/17 0000 Signed Impressions: Service Date/Time: Thursday, August 10, 2017 08:04 - CONCLUSION: 1. Abnormal gallbladder filled with sludge and demonstrating wall thickening. There are no additional findings are present to suggest acute gallbladder inflammation. 2. Trace free fluid in the abdomen and small bilateral pleural effusions. 3. Mild splenomegaly. Rod Pascual MD Head CT 08/10/17 0000 Signed Impressions: Service Date/Time: Thursday, August 10, 2017 02:33 - CONCLUSION: No acute disease. Rod Garcia MD Objective Remarks GENERAL: Thin disheveled female who is alert and lying in bed. SKIN: Petechial lesions on the palms of both hands. There are tender raised purpuric lesions on the palmar surface of left fifth digit and left thenar eminence c/w osler nodes. There are similar tender lesions on pad of bilateral feet overlying toes and distal metatarsals L>R. Toes dusky. No splinter hemorrhages. Track blane present right neck and Left forearm. VASC: DP and SU[employer] pulses present bilaterally. HEAD: Atraumatic. Normocephalic. EYES: Pupils equal and round. No scleral icterus. No injection or drainage. ENT: No nasal bleeding or discharge. NECK: Trachea midline. No JVD. CARDIOVASCULAR: Tachycardic, regular, sinus tach on the monitor. RESPIRATORY: unlabored this morning. on room air because the patient has taken her o2 off. spo2 89-90% on room air. GASTROINTESTINAL: Abdomen soft, nontender, nondistended. MUSCULOSKELETAL: Extremities without clubbing, cyanosis, or edema. NEUROLOGICAL: Awake and alert. No obvious cranial nerve deficits. Sensation grossly intact. A/P Problem List: (1) DIC (disseminated intravascular coagulation) ICD Code: D65 - Disseminated intravascular coagulation [defibrination syndrome] Status: Acute (2) Cocaine abuse ICD Code: F14.10 - Cocaine abuse, uncomplicated Status: Chronic (3) IVDU (intravenous drug user) ICD Code: F19.90 - Other psychoactive substance use, unspecified, uncomplicated Status: Chronic (4) H/O prosthetic mitral valve ICD Code: Z95.2 - Presence of prosthetic heart valve Status: Chronic (5) H/O endocarditis ICD Code: Z86.79 - Personal history of other diseases of the circulatory system Status: Chronic (6) Lactic acidosis ICD Code: E87.2 - Acidosis Status: Acute (7) Hyponatremia ICD Code: E87.1 - Hypo-osmolality and hyponatremia (8) Hypokalemia ICD Code: E87.6 - Hypokalemia Status: Acute Permanent Comment: unknown chronicity, probably subacute Last Edited By: Yashira Ivey on Aug 10, 2017 07:41 (9) INES (acute kidney injury) ICD Code: N17.9 - Acute kidney failure, unspecified (10) Hyperbilirubinemia ICD Code: E80.6 - Other disorders of bilirubin metabolism Status: Acute (11) Abnormal transaminases ICD Code: R74.8 - Abnormal levels of other serum enzymes Status: Acute (12) Elevated troponin level ICD Code: R74.8 - Abnormal levels of other serum enzymes Status: Acute (13) Septic shock ICD Code: A41.9 - Sepsis, unspecified organism; R65.21 - Severe sepsis with septic shock Status: Acute Assessment and Plan Assessment: 37yF with 3-valve endocarditis, including bioprosthetic mitral valve endocarditis, which has failure to clear despite maximal antibiotic regimen. She is not a surgical candidate. She remains volume overloaded, and we will increase diuresis. Ultimately, her prognosis is poor as she continues to use IV drugs and will continue to have problems with infective endocarditis. She is on minimal o2 support and is comfortable in bed. she does not meet ICU criteria. Will continue forced diuresis and iv abx. Appreciate ID involvement. Overall poor prognosis. NEURO: Acute encephalopathy, probably toxic metabolic secondary to sepsis. - resolved. IV drug use Opioid abuse Cocaine abuse [place] and morphine when necessary for severe pain Salicylate and Tylenol levels negative. Ammonia level low. CT brain-negative RESP: Bilateral pleural effusions Tobacco abuse Incentive spirometry every hour awake. Tobacco cessation counseling. Nicotine patch Chest x-ray -small amount of fluid in the fissure on the right. Overall clear CV: Elevated troponin Septic shock-resolved Fluid overload anasarca Infective endocarditis Sinus tachycardia increase forced diuresis to lasix 40mg iv q6h continue aldactone 25mg po q12h Abdomen pelvis pleural effusions and ascites 2-D echo NL EF, Veg of tricuspid mitral and aortic valves DC all IVF tachycardia secondary to SIRS response from ongoing sepsis. 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 FEN/RENAL: Acute kidney injury Hyponatremia Hypokalemia Hypocalcemia IV Lasix and Aldactone as above Avoid NSAIDs and other nephrotoxins. Received ketorolac in ED 08/09. Potassium. 40 mEq by mouth now. Received calcium chloride 1 g IV per ED physician. Hyponatremia. INES secondary to valvulopathy CPK normal. ID: Severe sepsis Endocarditis involving mitral tricuspid and aortic valves History of ute valve endocarditis now status post bioprosthetic mitral valve ?UTI persistently positive blood cultures for MSSA continue to trend Blood cultures q48h until clear. Continue Oxacillin , Vancomycin, Rifampin per ID. ID following Dr. Damian HIV negative and hepatitis C reactive HEME: DIC -resolved Anemia Monitor coags and fibrinogen. Hematology has signed off ENDO: Acute hyperglycemia SSI as needed PROPH: SCDs for DVT prophylaxis. Lovenox 40 mg subcutaneous daily. Protonix 40 mg by mouth daily for stress ulcer prophylaxis. Full code dispo: transfer to step-down unit. consult hospitalist. Dayo Hernandez MD Aug 20, 2017 16:23
[2017-08-20] MEDS: SODIUM CHLORIDE 0.9% FLUSH 10 ML FLUSH IV FLUSH SCH (20:13)
[2017-08-21] VITALS (15 sets, daily range): BP systolic 108–124; BP diastolic 58–82; PULSE 95–121; RESP 24–40; TEMP 98.6–99.5; O2SAT 95–100
[2017-08-21] MEDS: RESP: ALBUTEROL 2.5 MG/3 ML NEB (PRN) INH ×2 (02:02→21:44)
[2017-08-21] MEDS: OXACILLIN INJ 2 GM in SODIUM CHLORIDE 0.9% INJ 100 ML IV SCH ×6 (02:35→22:50)
[2017-08-21] MEDS: FUROSEMIDE 40 MG/4 ML VIAL IV PUSH SCH ×4 (03:25→22:49)
[2017-08-21] MEDS: ALBUMIN 25% INJ 100 ML IV SCH ×2 (03:25→13:57)
[2017-08-21] MEDS: RIFAMPIN 150 MG CAP PO SCH ×2 (03:25→13:58)
[2017-08-21] MEDS: ACETAMINOPHEN/HYDROcodone 325 MG/10 MG TAB PO PRN ×3 (03:34→15:41)
[2017-08-21] MEDS: CHLORHEXIDINE GLUCONATE 2 % 1 PACK (2 CLOTHS) TOP SCH (03:49)
[2017-08-21 03:56] LABS: HEMATOCRIT 23.2 % (35.0-46.0); MEAN CELL VOLUME 81.1 FL (80.0-100.0); MEAN CORPUSCULAR HEMOGLOBIN 27.9 PG (27.0-34.0); MEAN CORPUSCULAR HGB CONC 34.4 % (32.0-36.0); MEAN PLATELET VOLUME 7.2 FL (7.0-11.0); PLATELET COUNT 227 TH/MM3 (150-450); RED BLOOD COUNT 2.86 MIL/MM3 (4.00-5.30); RED CELL DISTRIBUTION WIDTH 14.8 % (11.6-17.2)
[2017-08-21 04:11] LABS: BICARBONATE 24.3 MEQ/L (21.0-32.0); CALCIUM 7.7 MG/DL (8.5-10.1); CREATININE 0.92 MG/DL (0.50-1.00)
[2017-08-21] MEDS: METOPROLOL TARTRATE 25 MG TAB PO SCH ×2 (05:38→18:34)
[2017-08-21] MEDS: MORPHINE SULFATE 2 MG/ML INJ IV PUSH PRN ×4 (05:39→18:49)
[2017-08-21] MEDS: REMOVE OLD PATCH T-DERMAL SCH (09:00)
[2017-08-21] MEDS: DOCUSATE SODIUM 50 MG/SENNA 8.6 MG TAB PO SCH ×2 (09:00→21:00)
[2017-08-21] MEDS: NICOTINE 21 MG/24 HR PATCH T-DERMAL SCH (09:31)
[2017-08-21] MEDS: SODIUM CHLORIDE 0.9% FLUSH 10 ML FLUSH IV FLUSH SCH ×2 (09:32→22:50)
[2017-08-21] MEDS: POTASSIUM CHLORIDE 20 MEQ CONTROLLED RELEASE TAB PO SCH (09:32)
[2017-08-21] MEDS: PANTOPRAZOLE SOD 40 MG DELAYED RELEASE TAB PO SCH (09:34)
[2017-08-21] MEDS: SODIUM CHLORIDE 0.9% FLUSH 10 ML FLUSH IV FLUSH PRN (11:50)
[2017-08-21] MEDS ORDERED: METOPROLOL TARTRATE 25 MG TAB PO SCH (12:00)
--- NOTE | 2017-08-21 12:29 | HHI.IDPN ---
Note Infectious Disease Note Patient complains of pain in the chest and back when repositioned in bed. Received pain meds. Afebrile. Denies Chills. Repeat blood culture negative x [address] of abdomen showed splenic infarct. Ascites, anasarca. Blood culture still positive 08/16/17. 2D ECHO - vegetations noted on three valves. PAST MEDICAL HISTORY 1. Prosthetic valve endocarditis. 2. Mitral valve replacement 3. Hepatitis C 4. Anxiety disorder 5. Seizure disorder 6. IV drug use. ALLERGIES NO KNOWN DRUG ALLERGIES. MEDICATIONS 1. Vancomycin 2. Rifampin. Gentamycin was stopped because of deteriorating renal function. 3. Vancomycin. SOCIAL HISTORY Positive tobacco use one pack a day. No alcohol. Positive IV drug use reported the last use on 08/07/2017. The patient was not the patient reportedly administered the IV drug into the neck. OBJECTIVE: Vital Signs Date Time Temp Pulse Resp B/P (MAP) Pulse Ox O2 Delivery O2 Flow Rate FiO2 08/21/17 10:34 97 Nasal Cannula 5.00 08/21/17 08:00 107 08/21/17 08:00 99.0 107 27 119/62 (81) 100 08/21/17 06:00 118 08/21/17 04:00 114 08/21/17 04:00 99.0 114 25 123/69 (87) 98 08/21/17 02:00 115 08/21/17 00:00 114 08/21/17 00:00 98.6 114 24 117/82 (94) 95 08/20/17 22:00 121 08/20/17 21:17 99 Nasal Cannula 2.00 08/20/17 20:00 113 08/20/17 20:00 98.7 08/20/17 18:00 125 08/20/17 16:00 98.8 122 28 140/71 (94) 99 08/20/17 16:00 125 08/20/17 14:00 125 Laboratory Tests Test 08/20/17 05:40 08/21/17 03:44 White Blood Count 17.3 TH/MM3 16.0 TH/MM3 Red Blood Count 3.01 MIL/MM3 2.86 MIL/MM3 Hemoglobin 8.4 GM/DL 8.0 GM/DL Hematocrit 24.7 % 23.2 % Mean Corpuscular Volume 82.3 FL 81.1 FL Mean Corpuscular Hemoglobin 28.0 PG 27.9 PG Mean Corpuscular Hemoglobin Concent 34.0 % 34.4 % Red Cell Distribution Width 14.8 % 14.8 % Platelet Count 194 TH/MM3 227 TH/MM3 Mean Platelet Volume 7.3 FL 7.2 FL Neutrophils (%) (Auto) 85.5 % Lymphocytes (%) (Auto) 8.7 % Monocytes (%) (Auto) 4.9 % Eosinophils (%) (Auto) 0.4 % Basophils (%) (Auto) 0.5 % Neutrophils # (Auto) 14.8 TH/MM3 Lymphocytes # (Auto) 1.5 TH/MM3 Monocytes # (Auto) 0.8 TH/MM3 Eosinophils # (Auto) 0.1 TH/MM3 Basophils # (Auto) 0.1 TH/MM3 CBC Comment DIFF FINAL Differential Comment Laboratory Tests Test 08/20/17 05:40 08/21/17 03:44 Blood Urea Nitrogen 23 MG/DL 22 MG/DL Creatinine 1.05 MG/DL 0.92 MG/DL Random Glucose 114 MG/DL 128 MG/DL Total Protein 6.2 GM/DL Albumin 2.1 GM/DL Calcium Level 7.8 MG/DL 7.7 MG/DL Magnesium Level 2.0 MG/DL Alkaline Phosphatase 90 U/L Aspartate Amino Transf (AST/SGOT) 8 U/L Alanine Aminotransferase (ALT/SGPT) LESS THAN 6 U/L Total Bilirubin 0.5 MG/DL Sodium Level 138 MEQ/L 139 MEQ/L Potassium Level 3.5 MEQ/L 3.7 MEQ/L Chloride Level 107 MEQ/L 107 MEQ/L Carbon Dioxide Level 21.2 MEQ/L 24.3 MEQ/L Anion Gap 10 MEQ/L 8 MEQ/L Estimat Glomerular Filtration Rate 58 ML/MIN 68 ML/MIN Microbiology Date/Time Source Procedure Growth Status 08/20/17 07:40 Blood Peripheral Aerobic Blood Culture - Preliminary NO GROWTH IN 1 DAY Resulted 08/20/17 07:40 Blood Peripheral Anaerobic Blood Culture - Preliminary NO GROWTH IN 1 DAY Resulted 08/20/17 05:40 Blood Peripheral Aerobic Blood Culture - Preliminary NO GROWTH IN 1 DAY Resulted 08/20/17 05:40 Blood Peripheral Anaerobic Blood Culture - Preliminary NO GROWTH IN 1 DAY Resulted IMAGING: Chest X-Ray 08/20/17 0600 Signed Impressions: Service Date/Time: Sunday, August 20, 2017 03:47 - CONCLUSION: Worsening bilateral areas of consolidation which could represent worsening edema. Rod Garcia MD Abdomen/Pelvis CT 08/19/17 0000 Signed Impressions: Service Date/Time: July 12:57 - CONCLUSION: 1. Splenomegaly and likely splenic infarcts. 2. Heterogeneous density in the gallbladder suggesting sludge or calculi. 3. Ascites, moderate bilateral pleural effusions, and anasarca. 4. Diffusely dilated common duct. 5. 4.2 cm cystic mass in the left adnexal region. Adryan Olmstead MD Chest X-Ray 08/16/17 0000 Signed Impressions: Service Date/Time: Wednesday, August 16, 2017 08:37 - CONCLUSION: 1. Improved left upper lobe airspace disease. 2. Improved positive fluid balance. Rashard Pena MD Chest X-Ray 08/11/17 0600 Signed Impressions: Service Date/Time: Friday, August 11, 2017 03:37 - CONCLUSION: Left upper lobe and perihilar consolidation. Rod Garcia MD Lower Extremity Ultrasound 08/10/17 0000 Signed Impressions: Service Date/Time: Thursday, August 10, 2017 07:51 - CONCLUSION: Normal examination. No evidence of DVT Ambrose Verdin MD Liver Ultrasound 08/10/17 0000 Signed Impressions: Service Date/Time: Thursday, August 10, 2017 08:04 - CONCLUSION: 1. Abnormal gallbladder filled with sludge and demonstrating wall thickening. There are no additional findings are present to suggest acute gallbladder inflammation. 2. Trace free fluid in the abdomen and small bilateral pleural effusions. 3. Mild splenomegaly. Rod Pascual MD Head CT 08/10/17 0000 Signed Impressions: Service Date/Time: Thursday, August 10, 2017 02:33 - CONCLUSION: No acute disease. Rod Garcia MD PHYSICAL EXAMINATION GENERAL: Awake and alert. HEENT: No icterus. No conjunctival erythema. Oropharynx slightly dry mucosa without lesions. NECK: Supple without adenopathy. LUNGS: Bibasilar rhonchi and wheezing. HEART: 2/6 systolic murmur at the left sternal border. ABDOMEN: Bowel sounds present, distended, soft, tender. EXTREMITIES: No clubbing or cyanosis or edema. The patient has lesions at the index, third, 4th and 5th finger on the left hand and purpuric areas at the base of the toes and at the bulb of the feet left > right. Multiple track gifford at the antecubital areas of both hands. No new lesions. SKIN: No diffuse rash. NEUROLOGIC: Alert and oriented. No gross focal findings. PSYCHIATRIC: Calm and cooperative. IMPRESSION 1. Prosthetic valve endocarditis of mitral valve. Also has aortic, and tricuspid endocarditis. Embolic lesions to the feet and fingers. Splenic infarct. 2. Bacteremia staph aureus. MSSA. Persistent. 3. Acute kidney disease. improved. 4. Thrombocytopenia. Platelet count increasing. Patient remains critically ill. RECOMMENDATIONS 1. Continue Oxacillin 2 grams IV q 4 hours 2. Continue Vancomycin. 3. Continue Rifampin. 4. Follow blood cultures. 5. Monitor clinical status. 6. Follow renal function. Lucas Damian MD Aug 21, 2017 12:29
[2017-08-21] MEDS ORDERED: PHARMACY ORDERED LAB ONE (17:45)
--- NOTE | 2017-08-21 17:57 | HHI.CCPN ---
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 She states that her valve replacement was performed at [place] [facility] but I do not see record of this. She is unsure of when it was done. Unable to pull up old CXRs. She is uncertain of causative organism or treatment course. She presents to [facility] stating that she has had a 2 day history of subjective fever and nonproductive cough. She has also had tender, painful lesions on her hands and feet which on exam are consistent with [place] nodes. She states the reason she sought medical treatment was that "the pain became unbearable" and that it hurt to walk to the bathroom because of the tenderness on the soles of her feet. She denies headache , sore throat, chest pain, abdominal pain, hemoptysis. She states she has been actively injecting Suboxone which she acquired from "the street", stating she last injected into her right neck on 08/08/17 at around noon. In the ED, 2 sets of blood cultures were obtained, urinalysis and urine culture. She was given Vancomycin, zosyn, and 2 L NS bolus. Influenza screen is negative. Her sodium is 121, potassium 3, creatinine 1.29, lactic acid 5.9. 08/10 Patient is on Neosyn 40 mics. T:103.0 last night. BC from 08/09: GPC 2/4 bottles 08/11: C/o pain in left foot. 08/12 No events overnight. On Neosyn 10 mics. Afebrile. 08/13 Patient is lying in bed in NAD. Afebrile. Off Neosyn. Cr. increased 1.7 today from 1.4 08/14 No events overnight. Cr: 1.8, UOP: 2L in 24 hrs. Afebrile. 08/15 No events overnight. On room air oxygen. Awake and alert. Renal function is improving with Cr: 1.45 today from 1.8 yesterday 08/16 Patient is lying in bed in NAD. Afebrile. BC from 08/12: GPC 08/17 No events overnight. s/p transfusion 2units PRBC yesterday Hgb 9.9 from 6.8 yesterday. Afebrile. 08/18: Remains in moderate distress due to abdominal pain and distention. Apparently unchanged from yesterday. White count remains elevated at 17,000. Blood cultures from 08/16/17 positive for GPC 08/19: Persistent staph aureus bacteremia. White count increased to 19.8. CT abdomen pelvis shows evidence of fluid overload splenic infarct and gallbladder sludge. Start diuresis with IV Lasix 20 every 12 with IV albumin. Continue to have abdominal pain 08/20: continues to complain of generalized pain "all over my body". no specific complaints. tolerates PO. HR in the 110s, but stable. leukocytosis persists. blood cultures still positive. redraw bl cx sent today. peripheral edema persists. clinically appears volume overloaded. ROS negative. 08/21: continues to complain of pain, mostly back pain from her chronic scoliosis pain. she states mobility works the best. she was taking suboxone for this at home. she asks for more pain medications and states the morphine is not working. blood cultures negative x 1 day. still volume overloaded with significant edema, but good diuresis. SIRS response continues with tachycardia despite increases in lopressor. Objective Vital Signs Date Time Temp Pulse Resp B/P (MAP) Pulse Ox O2 Delivery O2 Flow Rate FiO2 08/21/17 12:00 119 08/21/17 10:34 97 Nasal Cannula 5.00 08/21/17 08:00 99.0 119/62 (81) Intake and Output 08/21/17 08/21/17 08/21/17 07:59 15:59 23:59 Intake Total 500 ml Output Total 1700 ml Balance -1200 ml Result Diagram: 08/21/17 0344 08/21/17 0344 Imaging Last Impressions Chest X-Ray 08/16/17 0000 Signed Impressions: Service Date/Time: Wednesday, August 16, 2017 08:37 - CONCLUSION: 1. Improved left upper lobe airspace disease. 2. Improved positive fluid balance. Rashard Pena MD Lower Extremity Ultrasound 08/10/17 0000 Signed Impressions: Service Date/Time: Thursday, August 10, 2017 07:51 - CONCLUSION: Normal examination. No evidence of DVT Ambrose Verdin MD Liver Ultrasound 08/10/17 0000 Signed Impressions: Service Date/Time: Thursday, August 10, 2017 08:04 - CONCLUSION: 1. Abnormal gallbladder filled with sludge and demonstrating wall thickening. There are no additional findings are present to suggest acute gallbladder inflammation. 2. Trace free fluid in the abdomen and small bilateral pleural effusions. 3. Mild splenomegaly. Rod Pascual MD Head CT 08/10/17 0000 Signed Impressions: Service Date/Time: Thursday, August 10, 2017 02:33 - CONCLUSION: No acute disease. Rod Garcia MD Objective Remarks GENERAL: Thin disheveled female who is alert and lying in bed. SKIN: Petechial lesions on the palms of both hands. There are tender raised purpuric lesions on the palmar surface of left fifth digit and left thenar eminence c/w osler nodes. There are similar tender lesions on pad of bilateral feet overlying toes and distal metatarsals L>R. Toes dusky. No splinter hemorrhages. Track blane present right neck and Left forearm. VASC: DP and SHELLFISH PROCESSING MACHINE TENDER pulses present bilaterally. HEAD: Atraumatic. Normocephalic. EYES: Pupils equal and round. No scleral icterus. No injection or drainage. ENT: No nasal bleeding or discharge. NECK: Trachea midline. No JVD. CARDIOVASCULAR: Tachycardic, regular, sinus tach on the monitor. RESPIRATORY: unlabored. nc o2. equal chest rise. GASTROINTESTINAL: Abdomen soft, nontender, nondistended. MUSCULOSKELETAL: Extremities without clubbing, cyanosis, or edema. NEUROLOGICAL: Awake and alert. No obvious cranial nerve deficits. Sensation grossly intact. A/P Problem List: (1) DIC (disseminated intravascular coagulation) ICD Code: D65 - Disseminated intravascular coagulation [defibrination syndrome] Status: Acute (2) Cocaine abuse ICD Code: F14.10 - Cocaine abuse, uncomplicated Status: Chronic (3) IVDU (intravenous drug user) ICD Code: F19.90 - Other psychoactive substance use, unspecified, uncomplicated Status: Chronic (4) H/O prosthetic mitral valve ICD Code: Z95.2 - Presence of prosthetic heart valve Status: Chronic (5) H/O endocarditis ICD Code: Z86.79 - Personal history of other diseases of the circulatory system Status: Chronic (6) Lactic acidosis ICD Code: E87.2 - Acidosis Status: Acute (7) Hyponatremia ICD Code: E87.1 - Hypo-osmolality and hyponatremia (8) Hypokalemia ICD Code: E87.6 - Hypokalemia Status: Acute Permanent Comment: unknown chronicity, probably subacute Last Edited By: Yashira Ivey on Aug 10, 2017 07:41 (9) INES (acute kidney injury) ICD Code: N17.9 - Acute kidney failure, unspecified (10) Hyperbilirubinemia ICD Code: E80.6 - Other disorders of bilirubin metabolism Status: Acute (11) Abnormal transaminases ICD Code: R74.8 - Abnormal levels of other serum enzymes Status: Acute (12) Elevated troponin level ICD Code: R74.8 - Abnormal levels of other serum enzymes Status: Acute (13) Septic shock ICD Code: A41.9 - Sepsis, unspecified organism; R65.21 - Severe sepsis with septic shock Status: Acute Assessment and Plan Assessment: 37yF with 3-valve endocarditis, including bioprosthetic mitral valve endocarditis, which has failure to clear despite maximal antibiotic regimen. She is not a surgical candidate. She remains volume overloaded. continue forced diuresis. ok to get out of bed and ambulate and will consult PT to assist- per the patient this works the best for her chronic low back pain. will also add multimodal therapies to help with non-opioid pain control, as clearly narcotics are not being effective in treating her pain. Ultimately, her prognosis is poor as she continues to use IV drugs and will continue to have problems with infective endocarditis. She is on minimal o2 support and is comfortable in bed. she does not meet ICU criteria. Will continue forced diuresis and iv abx. Appreciate ID involvement. Overall poor prognosis. NEURO: Acute encephalopathy, probably toxic metabolic secondary to sepsis. - resolved. IV drug use Opioid abuse Cocaine abuse Chronic pain syndrome Salicylate and Tylenol levels negative. Ammonia level low. CT brain-negative Pain regimen: gabapentin 300mg po tid tylenol 500mg po q6h (evidence of possible chronic liver disease, keep < 2gm/ day total) avoid NSAIDs given recent INES tizanidine 4mg po q12h ([id number]) oxycodone 5mg po q4h prn morphine 2mg iv q3h prn for breakthrough pain or withdraw symptoms. RESP: Bilateral pleural effusions Tobacco abuse Incentive spirometry every hour awake. Tobacco cessation counseling. Nicotine patch Chest x-ray -small amount of fluid in the fissure on the right. Overall clear oob to chair and PT. CV: Elevated troponin Septic shock-resolved Fluid overload anasarca Infective endocarditis Sinus tachycardia continue forced diuresis lasix 40mg iv q6h continue aldactone 25mg po q12h Abdomen pelvis pleural effusions and ascites 2-D echo NL EF, Veg of tricuspid mitral and aortic valves DC all IVF tachycardia secondary to SIRS response from ongoing sepsis. 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 FEN/RENAL: Acute kidney injury Hyponatremia Hypokalemia Hypocalcemia IV Lasix and Aldactone as above Avoid NSAIDs and other nephrotoxins. Received ketorolac in ED 08/09. Potassium. 40 mEq by mouth now. Received calcium chloride 1 g IV per ED physician. Hyponatremia. INES secondary to valvulopathy CPK normal. ID: Severe sepsis Endocarditis involving mitral tricuspid and aortic valves History of [place] valve endocarditis now status post bioprosthetic mitral valve ?UTI persistently positive blood cultures for MSSA continue to trend Blood cultures q48h until clear. Continue Oxacillin , Vancomycin, Rifampin per ID. ID following Dr. Damian HIV negative and hepatitis C reactive HEME: DIC -resolved Anemia Monitor coags and fibrinogen. Hematology has signed off ENDO: Acute hyperglycemia SSI as needed PROPH: SCDs for DVT prophylaxis. Lovenox 40 mg subcutaneous daily. Protonix 40 mg by mouth daily for stress ulcer prophylaxis. Full code dispo: transfer to floor. consult hospitalist. Dayo Hernandez MD Aug 21, 2017 17:57
[2017-08-21] MEDS: ACETAMINOPHEN 500 MG CPLT PO SCH (18:34)
[2017-08-21] MEDS: GABAPENTIN 300 MG CAP PO SCH (18:34)
[2017-08-21] MEDS: VANCOMYCIN 1 GM/200 ML PREMIX IV SCH (18:35)
[2017-08-22] VITALS (12 sets, daily range): BP systolic 91–112; BP diastolic 52–60; PULSE 83–105; RESP 19–33; TEMP 97.3–99.2; O2SAT 94–100
[2017-08-22] MEDS: METOPROLOL TARTRATE 25 MG TAB PO SCH ×5 (00:53→23:00)
[2017-08-22] MEDS: MORPHINE SULFATE 2 MG/ML INJ IV PUSH PRN ×4 (00:53→20:07)
[2017-08-22] MEDS: ACETAMINOPHEN 500 MG CPLT PO SCH ×5 (00:53→23:29)
[2017-08-22] MEDS: CHLORHEXIDINE GLUCONATE 2 % 1 PACK (2 CLOTHS) TOP SCH (01:32)
[2017-08-22] MEDS: OXACILLIN INJ 2 GM in SODIUM CHLORIDE 0.9% INJ 100 ML IV SCH ×6 (02:39→20:05)
[2017-08-22] MEDS: FUROSEMIDE 40 MG/4 ML VIAL IV PUSH SCH ×4 (02:39→20:07)
[2017-08-22] MEDS: RIFAMPIN 150 MG CAP PO SCH ×2 (02:40→14:04)
[2017-08-22] MEDS: ALBUMIN 25% INJ 100 ML IV SCH (02:40)
[2017-08-22 05:16] LABS: HEMATOCRIT 22.3 % (35.0-46.0); HEMOGLOBIN 7.5 GM/DL (11.6-15.3); MEAN CELL VOLUME 83.3 FL (80.0-100.0); MEAN CORPUSCULAR HEMOGLOBIN 28.2 PG (27.0-34.0); MEAN CORPUSCULAR HGB CONC 33.8 % (32.0-36.0); MEAN PLATELET VOLUME 7.6 FL (7.0-11.0); PLATELET COUNT 219 TH/MM3 (150-450); RED BLOOD COUNT 2.67 MIL/MM3 (4.00-5.30); RED CELL DISTRIBUTION WIDTH 14.8 % (11.6-17.2); WHITE BLOOD COUNT 12.5 TH/MM3 (4.0-11.0)
[2017-08-22 05:24] LABS: BICARBONATE 27.2 MEQ/L (21.0-32.0); CALCIUM 7.8 MG/DL (8.5-10.1); CREATININE 1.03 MG/DL (0.50-1.00)
[2017-08-22] MEDS: POTASSIUM CHLOR 40 MEQ PREMIX 100 ML IV PRN ×2 (06:46→09:04)
[2017-08-22] MEDS: REMOVE OLD PATCH T-DERMAL SCH (09:00)
[2017-08-22] MEDS: DOCUSATE SODIUM 50 MG/SENNA 8.6 MG TAB PO SCH ×2 (09:00→20:24)
[2017-08-22] MEDS: PANTOPRAZOLE SOD 40 MG DELAYED RELEASE TAB PO SCH (09:04)
[2017-08-22] MEDS: NICOTINE 21 MG/24 HR PATCH T-DERMAL SCH (09:04)
[2017-08-22] MEDS: POTASSIUM CHLORIDE 20 MEQ CONTROLLED RELEASE TAB PO SCH (09:05)
[2017-08-22] MEDS: GABAPENTIN 300 MG CAP PO SCH ×3 (09:05→18:55)
[2017-08-22] MEDS: SODIUM CHLORIDE 0.9% FLUSH 10 ML FLUSH IV FLUSH SCH ×2 (09:07→20:07)
--- NOTE | 2017-08-22 11:15 | HHI.CCPN ---
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 She states that her valve replacement was performed at [place] but I do not see record of this. She is unsure of when it was done. Unable to pull up old CXRs. She is uncertain of causative organism or treatment course. She [place] [facility] stating that she has had a 2 day history of subjective fever and nonproductive cough. She has also had tender, painful lesions on her hands and feet which on exam are consistent with [place]slers nodes. She states the reason she sought medical treatment was that "the pain became unbearable" and that it hurt to walk to the bathroom because of the tenderness on the soles of her feet. She denies headache , sore throat, chest pain, abdominal pain, hemoptysis. She states she has been actively injecting Suboxone which she acquired from "the street", stating she last injected into her right neck on 08/08/17 at around noon. In the ED, 2 sets of blood cultures were obtained, urinalysis and urine culture. She was given Vancomycin, zosyn, and 2 L NS bolus. Influenza screen is negative. Her sodium is 121, potassium 3, creatinine 1.29, lactic acid 5.9. 08/10 Patient is on Neosyn 40 mics. T:103.0 last night. BC from 08/09: GPC 2/4 bottles 08/11: C/o pain in left foot. 08/12 No events overnight. On Neosyn 10 mics. Afebrile. 08/13 Patient is lying in bed in NAD. Afebrile. Off Neosyn. Cr. increased 1.7 today from 1.4 08/14 No events overnight. Cr: 1.8, UOP: 2L in 24 hrs. Afebrile. 08/15 No events overnight. On room air oxygen. Awake and alert. Renal function is improving with Cr: 1.45 today from 1.8 yesterday 08/16 Patient is lying in bed in NAD. Afebrile. BC from 08/12: GPC 08/17 No events overnight. s/p transfusion 2units PRBC yesterday Hgb 9.9 from 6.8 yesterday. Afebrile. 08/18: Remains in moderate distress due to abdominal pain and distention. Apparently unchanged from yesterday. White count remains elevated at 17,000. Blood cultures from 08/16/17 positive for GPC 08/19: Persistent staph aureus bacteremia. White count increased to 19.8. CT abdomen pelvis shows evidence of fluid overload splenic infarct and gallbladder sludge. Start diuresis with IV Lasix 20 every 12 with IV albumin. Continue to have abdominal pain 08/20: continues to complain of generalized pain "all over my body". no specific complaints. tolerates PO. HR in the 110s, but stable. leukocytosis persists. blood cultures still positive. redraw bl cx sent today. peripheral edema persists. clinically appears volume overloaded. ROS negative. 08/21: continues to complain of pain, mostly back pain from her chronic scoliosis pain. she states mobility works the best. she was taking suboxone for this at home. she asks for more pain medications and states the morphine is not working. blood cultures negative x 1 day. still volume overloaded with significant edema, but good diuresis. SIRS response continues with tachycardia despite increases in lopressor. 08/22: still complains of pain, although is somnolent this morning. still has not gotten out of bed at all. cultures NGTD so far. still net + despite diuresis attempts. still fluid overloaded. will increase forced diuresis. Objective Vital Signs Date Time Temp Pulse Resp B/P (MAP) Pulse Ox O2 Delivery O2 Flow Rate FiO2 08/22/17 10:00 100 Nasal Cannula 3.00 08/22/17 06:52 27 08/22/17 06:00 96 08/22/17 04:00 98.8 91/52 (65) Intake and Output 08/22/17 08/22/17 08/23/17 08:00 16:00 00:00 Intake Total 440 ml Output Total 300 ml Balance 140 ml Result Diagram: 08/22/17 0435 08/22/17 0435 Imaging Last Impressions Chest X-Ray 08/16/17 0000 Signed Impressions: Service Date/Time: Wednesday, August 16, 2017 08:37 - CONCLUSION: 1. Improved left upper lobe airspace disease. 2. Improved positive fluid balance. Rashard Pena MD Lower Extremity Ultrasound 08/10/17 0000 Signed Impressions: Service Date/Time: Thursday, August 10, 2017 07:51 - CONCLUSION: Normal examination. No evidence of DVT Ambrose Verdin MD Liver Ultrasound 08/10/17 0000 Signed Impressions: Service Date/Time: Thursday, August 10, 2017 08:04 - CONCLUSION: 1. Abnormal gallbladder filled with sludge and demonstrating wall thickening. There are no additional findings are present to suggest acute gallbladder inflammation. 2. Trace free fluid in the abdomen and small bilateral pleural effusions. 3. Mild splenomegaly. Rod Pascual MD Head CT 08/10/17 0000 Signed Impressions: Service Date/Time: Thursday, August 10, 2017 02:33 - CONCLUSION: No acute disease. Rod Garcia MD Objective Remarks GENERAL: Thin disheveled female who is alert and lying in bed. SKIN: Petechial lesions on the palms of both hands. There are tender raised purpuric lesions on the palmar surface of left fifth digit and left thenar eminence c/w osler nodes. There are similar tender lesions on pad of bilateral feet overlying toes and distal metatarsals L>R. Toes dusky. No splinter hemorrhages. Track blane present right neck and Left forearm. VASC: DP and WEB DEVELOPMENT DIRECTOR pulses present bilaterally. HEAD: Atraumatic. Normocephalic. EYES: Pupils equal and round. No scleral icterus. No injection or drainage. ENT: No nasal bleeding or discharge. NECK: Trachea midline. No JVD. CARDIOVASCULAR: Tachycardic, regular, sinus tach on the monitor. RESPIRATORY: unlabored. nc o2. equal chest rise. GASTROINTESTINAL: Abdomen soft, nontender, nondistended. MUSCULOSKELETAL: Extremities without clubbing, cyanosis, or edema. NEUROLOGICAL: Awake and alert. No obvious cranial nerve deficits. Sensation grossly intact. A/P Problem List: (1) DIC (disseminated intravascular coagulation) ICD Code: D65 - Disseminated intravascular coagulation [defibrination syndrome] Status: Acute (2) Cocaine abuse ICD Code: F14.10 - Cocaine abuse, uncomplicated Status: Chronic (3) IVDU (intravenous drug user) ICD Code: F19.90 - Other psychoactive substance use, unspecified, uncomplicated Status: Chronic (4) H/O prosthetic mitral valve ICD Code: Z95.2 - Presence of prosthetic heart valve Status: Chronic (5) H/O endocarditis ICD Code: Z86.79 - Personal history of other diseases of the circulatory system Status: Chronic (6) Lactic acidosis ICD Code: E87.2 - Acidosis Status: Acute (7) Hyponatremia ICD Code: E87.1 - Hypo-osmolality and hyponatremia (8) Hypokalemia ICD Code: E87.6 - Hypokalemia Status: Acute Permanent Comment: unknown chronicity, probably subacute Last Edited By: Yashira Ivey on Aug 10, 2017 07:41 (9) INES (acute kidney injury) ICD Code: N17.9 - Acute kidney failure, unspecified (10) Hyperbilirubinemia ICD Code: E80.6 - Other disorders of bilirubin metabolism Status: Acute (11) Abnormal transaminases ICD Code: R74.8 - Abnormal levels of other serum enzymes Status: Acute (12) Elevated troponin level ICD Code: R74.8 - Abnormal levels of other serum enzymes Status: Acute (13) Septic shock ICD Code: A41.9 - Sepsis, unspecified organism; R65.21 - Severe sepsis with septic shock Status: Acute Assessment and Plan Assessment: 37yF with 3-valve endocarditis, including bioprosthetic mitral valve endocarditis, which has failure to clear despite maximal antibiotic regimen. She is not a surgical candidate. She remains volume overloaded. continue forced diuresis. ok to get out of bed and ambulate and will consult PT to assist- per the patient this works the best for her chronic low back pain. will also add multimodal therapies to help with non-opioid pain control, as clearly narcotics are not being effective in treating her pain. Ultimately, her prognosis is poor as she continues to use IV drugs and will continue to have problems with infective endocarditis. She is on minimal o2 support and is comfortable in bed. she does not meet ICU criteria. Will continue forced diuresis and iv abx. Appreciate ID involvement. Overall poor prognosis. NEURO: Acute encephalopathy, probably toxic metabolic secondary to sepsis. - resolved. IV drug use Opioid abuse Cocaine abuse Chronic pain syndrome Salicylate and Tylenol levels negative. Ammonia level low. CT brain-negative Pain regimen: gabapentin 300mg po tid tylenol 500mg po q6h (evidence of possible chronic liver disease, keep < 2gm/ day total) avoid NSAIDs given recent INES tizanidine 4mg po q12h ([id number]) oxycodone 5mg po q4h prn morphine 2mg iv q3h prn for breakthrough pain or withdraw symptoms. RESP: Bilateral pleural effusions Tobacco abuse Incentive spirometry every hour awake. Tobacco cessation counseling. Nicotine patch Chest x-ray -small amount of fluid in the fissure on the right. Overall clear oob to chair and PT. CV: Elevated troponin Septic shock-resolved Fluid overload anasarca Infective endocarditis Sinus tachycardia - improving. continue forced diuresis lasix 40mg iv q6h continue aldactone 25mg po q12h one dose metolazone 5mg po today. Abdomen pelvis pleural effusions and ascites 2-D echo NL EF, Veg of tricuspid mitral and aortic valves DC all IVF tachycardia secondary to SIRS response from ongoing sepsis. 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 FEN/RENAL: Acute kidney injury Hyponatremia Hypokalemia Hypocalcemia IV Lasix and Aldactone as above Avoid NSAIDs and other nephrotoxins. Received ketorolac in ED 08/09. Potassium. 40 mEq by mouth now. Received calcium chloride 1 g IV per ED physician. Hyponatremia. INES secondary to valvulopathy CPK normal. ID: Severe sepsis Endocarditis involving mitral tricuspid and aortic valves History of [place] valve endocarditis now status post bioprosthetic mitral valve ?UTI persistently positive blood cultures for MSSA continue to trend Blood cultures q48h until clear. Continue Oxacillin , Vancomycin, Rifampin per ID. ID following Dr. Damian HIV negative and hepatitis C reactive HEME: DIC -resolved Anemia Monitor coags and fibrinogen. Hematology has signed off ENDO: Acute hyperglycemia SSI as needed PROPH: SCDs for DVT prophylaxis. Lovenox 40 mg subcutaneous daily. Protonix 40 mg by mouth daily for stress ulcer prophylaxis. Full code dispo: transfer to floor. consult hospitalist. Dayo Hernandez MD Aug 22, 2017 11:15
[2017-08-22] MEDS ORDERED: METOLAZONE 5 MG TAB PO ONE (11:30)
[2017-08-22] MEDS: VANCOMYCIN 1 GM/200 ML PREMIX IV SCH (12:05)
[2017-08-22] MEDS ORDERED: ALTEPLASE RECOMBINANT 2 MG VIAL I-ARTERIAL ONE (19:15)
[2017-08-23] VITALS (14 sets, daily range): BP systolic 90–121; BP diastolic 46–56; PULSE 85–113; RESP 16–21; TEMP 96.2–99.2; O2SAT 91–100
[2017-08-23] MEDS: RIFAMPIN 150 MG CAP PO SCH ×2 (02:01→13:59)
[2017-08-23] MEDS: OXACILLIN INJ 2 GM in SODIUM CHLORIDE 0.9% INJ 100 ML IV SCH ×5 (02:01→17:52)
[2017-08-23] MEDS: FUROSEMIDE 40 MG/4 ML VIAL IV PUSH SCH ×4 (02:02→23:44)
[2017-08-23] MEDS: CHLORHEXIDINE GLUCONATE 2 % 1 PACK (2 CLOTHS) TOP SCH (02:21)
[2017-08-23] MEDS: MORPHINE SULFATE 2 MG/ML INJ IV PUSH PRN ×3 (03:41→20:00)
[2017-08-23] MEDS: SODIUM CHLORIDE 0.9% FLUSH 10 ML FLUSH IV FLUSH PRN (03:41)
[2017-08-23] MEDS ORDERED: PHARMACY ORDERED LAB ONE (05:45)
[2017-08-23] MEDS: ACETAMINOPHEN 500 MG CPLT PO SCH ×3 (05:55→17:52)
[2017-08-23] MEDS: VANCOMYCIN 1 GM/200 ML PREMIX IV SCH (05:58)
[2017-08-23] MEDS: METOPROLOL TARTRATE 25 MG TAB PO SCH ×4 (06:00→23:46)
[2017-08-23 07:13] LABS: HEMATOCRIT 22.3 % (35.0-46.0); HEMOGLOBIN 7.6 GM/DL (11.6-15.3); MEAN CELL VOLUME 82.9 FL (80.0-100.0); MEAN CORPUSCULAR HEMOGLOBIN 28.3 PG (27.0-34.0); MEAN CORPUSCULAR HGB CONC 34.1 % (32.0-36.0); MEAN PLATELET VOLUME 7.6 FL (7.0-11.0); PLATELET COUNT 257 TH/MM3 (150-450); RED CELL DISTRIBUTION WIDTH 14.7 % (11.6-17.2)
[2017-08-23 07:24] LABS: BICARBONATE 29.3 MEQ/L (21.0-32.0); CALCIUM 8.5 MG/DL (8.5-10.1); CREATININE 1.11 MG/DL (0.50-1.00)
[2017-08-23] MEDS: NICOTINE 21 MG/24 HR PATCH T-DERMAL SCH (08:48)
[2017-08-23] MEDS: GABAPENTIN 300 MG CAP PO SCH ×3 (08:48→17:52)
[2017-08-23] MEDS: REMOVE OLD PATCH T-DERMAL SCH (08:48)
[2017-08-23] MEDS: PANTOPRAZOLE SOD 40 MG DELAYED RELEASE TAB PO SCH (08:48)
[2017-08-23] MEDS: SODIUM CHLORIDE 0.9% FLUSH 10 ML FLUSH IV FLUSH SCH ×2 (08:49→19:51)
[2017-08-23] MEDS: DOCUSATE SODIUM 50 MG/SENNA 8.6 MG TAB PO SCH ×2 (08:49→19:51)
[2017-08-23] MEDS: POTASSIUM CHLORIDE 20 MEQ CONTROLLED RELEASE TAB PO SCH (08:49)
[2017-08-23] MEDS ORDERED: POTASSIUM CHLORIDE 20 MEQ CONTROLLED RELEASE TAB PO ONE ×2 (09:00→15:30)
[2017-08-23] MEDS ORDERED: KETOROLAC TROMETHAMINE 30 MG/ML (IVP) VIAL IV PUSH ONE (12:00)
--- NOTE | 2017-08-23 13:21 | HHI.IDPN ---
Note Infectious Disease Note Patient complains of pain - same. Afebrile. Denies Chills. Repeat blood culture negative x [address] of abdomen showed splenic infarct. Ascites, anasarca. 2D ECHO - vegetations noted on three valves. PAST MEDICAL HISTORY 1. Prosthetic valve endocarditis. 2. Mitral valve replacement 3. Hepatitis C 4. Anxiety disorder 5. Seizure disorder 6. IV drug use. ALLERGIES NO KNOWN DRUG ALLERGIES. MEDICATIONS 1. Oxacillin 2. Rifampin. Gentamycin was stopped because of deteriorating renal function. 3. Vancomycin. SOCIAL HISTORY Positive tobacco use one pack a day. No alcohol. Positive IV drug use reported the last use on 08/07/2017. The patient was not the patient reportedly administered the IV drug into the neck. OBJECTIVE: Vital Signs Date Time Temp Pulse Resp B/P (MAP) Pulse Ox O2 Delivery O2 Flow Rate FiO2 08/23/17 12:01 97.9 104 18 90/50 (63) 100 08/23/17 08:00 99.1 106 17 105/52 (69) 97 08/23/17 04:00 96.8 104 21 101/53 (69) 94 08/23/17 03:53 93 08/23/17 02:00 99/51 (67) 08/23/17 01:00 92/51 (65) 08/23/17 00:16 92 08/23/17 00:06 96.2 85 21 91/46 (61) 100 08/22/17 20:04 98 08/22/17 20:00 97.4 105 21 101/53 (69) 94 08/22/17 16:00 97.3 96 19 102/60 (74) 96 08/22/17 14:00 83 Laboratory Tests Test 08/22/17 04:35 08/23/17 05:45 White Blood Count 12.5 TH/MM3 12.0 TH/MM3 Red Blood Count 2.67 MIL/MM3 2.70 MIL/MM3 Hemoglobin 7.5 GM/DL 7.6 GM/DL Hematocrit 22.3 % 22.3 % Mean Corpuscular Volume 83.3 FL 82.9 FL Mean Corpuscular Hemoglobin 28.2 PG 28.3 PG Mean Corpuscular Hemoglobin Concent 33.8 % 34.1 % Red Cell Distribution Width 14.8 % 14.7 % Platelet Count 219 TH/MM3 257 TH/MM3 Mean Platelet Volume 7.6 FL 7.6 FL Laboratory Tests Test 08/22/17 04:35 08/22/17 15:45 08/23/17 05:45 Blood Urea Nitrogen 23 MG/DL 24 MG/DL Creatinine 1.03 MG/DL 1.11 MG/DL Random Glucose 123 MG/DL 115 MG/DL Calcium Level 7.8 MG/DL 8.5 MG/DL Sodium Level 140 MEQ/L 138 MEQ/L Potassium Level 2.7 MEQ/L 3.4 MEQ/L 2.7 MEQ/L Chloride Level 104 MEQ/L 100 MEQ/L Carbon Dioxide Level 27.2 MEQ/L 29.3 MEQ/L Anion Gap 9 MEQ/L 9 MEQ/L Estimat Glomerular Filtration Rate 60 ML/MIN 55 ML/MIN IMAGING: Chest X-Ray 08/20/17 0600 Signed Impressions: Service Date/Time: Sunday, August 20, 2017 03:47 - CONCLUSION: Worsening bilateral areas of consolidation which could represent worsening edema. Rod Garcia MD Abdomen/Pelvis CT 08/19/17 0000 Signed Impressions: Service Date/Time: July 12:57 - CONCLUSION: 1. Splenomegaly and likely splenic infarcts. 2. Heterogeneous density in the gallbladder suggesting sludge or calculi. 3. Ascites, moderate bilateral pleural effusions, and anasarca. 4. Diffusely dilated common duct. 5. 4.2 cm cystic mass in the left adnexal region. Adryan Olmstead MD Chest X-Ray 08/16/17 0000 Signed Impressions: Service Date/Time: Wednesday, August 16, 2017 08:37 - CONCLUSION: 1. Improved left upper lobe airspace disease. 2. Improved positive fluid balance. Rashard Pena MD Chest X-Ray 08/11/17 0600 Signed Impressions: Service Date/Time: Friday, August 11, 2017 03:37 - CONCLUSION: Left upper lobe and perihilar consolidation. Rod Garcia MD Lower Extremity Ultrasound 08/10/17 0000 Signed Impressions: Service Date/Time: Thursday, August 10, 2017 07:51 - CONCLUSION: Normal examination. No evidence of DVT Ambrose Verdin MD Liver Ultrasound 08/10/17 0000 Signed Impressions: Service Date/Time: Thursday, August 10, 2017 08:04 - CONCLUSION: 1. Abnormal gallbladder filled with sludge and demonstrating wall thickening. There are no additional findings are present to suggest acute gallbladder inflammation. 2. Trace free fluid in the abdomen and small bilateral pleural effusions. 3. Mild splenomegaly. Rod Pascual MD Head CT 08/10/17 0000 Signed Impressions: Service Date/Time: Thursday, August 10, 2017 02:33 - CONCLUSION: No acute disease. Rod Garcia MD PHYSICAL EXAMINATION GENERAL: Awake and alert. HEENT: No icterus. No conjunctival erythema. Oropharynx slightly dry mucosa without lesions. NECK: Supple without adenopathy. LUNGS: Bibasilar rhonchi and wheezing. HEART: 2/6 systolic murmur at the left sternal border. ABDOMEN: Bowel sounds present, distended, soft, tender. EXTREMITIES: No clubbing or cyanosis or edema. The patient has lesions at the index, third, 4th and 5th finger on the left hand are necrotic and drying. No new lesions. SKIN: No diffuse rash. NEUROLOGIC: Alert and oriented. No gross focal findings. PSYCHIATRIC: Calm and cooperative. IMPRESSION 1. Prosthetic valve endocarditis of mitral valve. Also has aortic, and tricuspid endocarditis. Embolic lesions to the feet and fingers. Splenic infarct. 2. Bacteremia staph aureus. MSSA. Persistent. 3. Acute kidney disease. 4. Thrombocytopenia. Platelet count increasing. Patient remains critically ill. RECOMMENDATIONS 1. Continue Oxacillin 2 grams IV q 4 hours 2. Stop Vancomycin. 3. Continue Rifampin. 4. Follow blood cultures. 5. Monitor clinical status. 6. Continue to monitor renal function. Plan on 6 - 8 weeks of IV antibiotics. Lucas Damian MD Aug 23, 2017 13:21
[2017-08-23 14:07] LABS: AUTOMATED NEUTROPHIL # 8.9 TH/MM3 (1.8-7.7); BASOPHIL # 0.1 TH/MM3 (0-0.2); BASOPHIL % 1.1 % (0.0-2.0); EOSINOPHIL # 0.2 TH/MM3 (0-0.4); EOSINOPHIL % 1.5 % (0.0-4.0); HEMATOCRIT 24.9 % (35.0-46.0); HEMOGLOBIN 8.4 GM/DL (11.6-15.3); LYMPH % 10.9 % (9.0-44.0); LYMPHOCYTE # 1.2 TH/MM3 (1.0-4.8); MEAN CELL VOLUME 82.2 FL (80.0-100.0); MEAN CORPUSCULAR HEMOGLOBIN 27.8 PG (27.0-34.0); MEAN CORPUSCULAR HGB CONC 33.9 % (32.0-36.0); MEAN PLATELET VOLUME 7.8 FL (7.0-11.0); MONOCYTE # 0.5 TH/MM3 (0-0.9); NEUT % 81.5 % (16.0-70.0); PLATELET COUNT 267 TH/MM3 (150-450); RED BLOOD COUNT 3.03 MIL/MM3 (4.00-5.30); RED CELL DISTRIBUTION WIDTH 14.4 % (11.6-17.2)
[2017-08-23 14:30] LABS: BICARBONATE 27.6 MEQ/L (21.0-32.0); BLOOD UREA NITROGEN 23 MG/DL (7-18); CHLORIDE 102 MEQ/L (98-107); CREATININE 1.28 MG/DL (0.50-1.00); GLOMERULAR FILTRATION RATE 46 ML/MIN (>89); GLUCOSE,RANDOM 181 MG/DL (74-106); IRON (FE) 19 MCG/DL (50-170); SODIUM (NA) 140 MEQ/L (136-145)
[2017-08-23 14:34] LABS: % SATURATION IRON PROFILE 11.8 % (20-50); FERRITIN 309 NG/ML (8-252); TOTAL IRON BINDING CAPACITY 161 MCG/DL (250-450)
--- NOTE | 2017-08-23 21:31 | HHI.PR ---
Subjective Remarks Pt is unhappy about not receiving pain meds as requested. It did not appease her when we explained that her blood pressure was too low for narcotics. She was happier when offered Toradol. Objective Vitals Vital Signs Date Time Temp Pulse Resp B/P (MAP) Pulse Ox O2 Delivery O2 Flow Rate FiO2 08/23/17 16:00 98.8 100 17 103/55 (71) 92 08/23/17 14:12 113 121/56 (77) 08/23/17 13:30 98 08/23/17 12:01 97.9 104 18 90/50 (63) 100 08/23/17 08:00 99.1 106 17 105/52 (69) 97 08/23/17 04:00 96.8 104 21 101/53 (69) 94 08/23/17 03:53 93 08/23/17 02:00 99/51 (67) 08/23/17 01:00 92/51 (65) 08/23/17 00:16 92 08/23/17 00:06 96.2 85 21 91/46 (61) 100 I/O 08/22/17 08/22/17 08/22/17 08/23/17 08/23/17 08/23/17 07:00 15:00 23:00 07:00 15:00 23:00 Intake Total 300 ml 240 ml 580 ml 1100 ml 100 ml 740 ml Output Total 300 ml Balance 300 ml -60 ml 580 ml 1100 ml 100 ml 740 ml Intake Oral 240 ml 480 ml 600 ml 640 ml IV Total 300 ml 100 ml 500 ml 100 ml 100 ml Output Urine Total 300 ml # Voids 10 4 # Bowel Movements 1 Result Diagram: 08/23/17 1343 08/23/17 1343 Objective Remarks GENERAL: Thin, unhealthy appearing, weak SKIN: Warm and dry, oslers nodes on hands and feet HEAD: Normocephalic. EYES: No scleral icterus. No injection or drainage. NECK: Supple, trachea midline. No JVD or lymphadenopathy. CARDIOVASCULAR: Regular rate and rhythm , 1/6 BESSY RESPIRATORY: Breath sounds equal bilaterally. No accessory muscle use. GASTROINTESTINAL: Abdomen soft, non-tender, nondistended. EXTREMITIES: No cyanosis, or edema. NEUROLOGICAL: Awake, alert, and oriented x 3. Non-focal. A/P Problem List: (1) Lactic acidosis ICD Code: E87.2 - Acidosis Status: Acute (2) Cocaine abuse ICD Code: F14.10 - Cocaine abuse, uncomplicated Status: Chronic (3) DIC (disseminated intravascular coagulation) ICD Code: D65 - Disseminated intravascular coagulation [defibrination syndrome] Status: Acute (4) Hyponatremia ICD Code: E87.1 - Hypo-osmolality and hyponatremia (5) Severe sepsis ICD Code: A41.9 - Sepsis, unspecified organism; R65.20 - Severe sepsis without septic shock Status: Acute (6) INES (acute kidney injury) ICD Code: N17.9 - Acute kidney failure, unspecified (7) Hypokalemia ICD Code: E87.6 - Hypokalemia Status: Acute Permanent Comment: unknown chronicity, probably subacute Last Edited By: Yashira Ivey on Aug 10, 2017 7:41 am (8) Hyperbilirubinemia ICD Code: E80.6 - Other disorders of bilirubin metabolism Status: Acute (9) Elevated troponin level ICD Code: R74.8 - Abnormal levels of other serum enzymes Status: Acute (10) H/O endocarditis ICD Code: Z86.79 - Personal history of other diseases of the circulatory system Status: Chronic (11) Abnormal transaminases ICD Code: R74.8 - Abnormal levels of other serum enzymes Status: Acute (12) Pain ICD Code: R52 - Pain, unspecified (13) Anxiety ICD Code: F41.9 - Anxiety disorder, unspecified (14) Septic shock ICD Code: A41.9 - Sepsis, unspecified organism; R65.21 - Severe sepsis with septic shock Status: Acute Assessment and Plan Sepsis & Infectious Endocarditis (3 valve) Previous bioprosthetic mitral valve Continuation of IV drug use Mitral, Tricuspid and Aortic valves involved Appreciate ID involvement Polysubstance Abuse Stemming from abuse of chronic pain meds Asking for narcotics despite being sleepy History of Opioid abuse, Cocaine abuse and IVDU Hypokalemia KCl added to IVF, will follow potassium with daily labs Ascites Visible on CT scan Evidence of fluid overload chronicity Normal Ammonia Anemia Stable Hyperglycemia PRN coverage with SSI DVT Prophylaxis SCD's and Lovenox Daren Barros MD Aug 23, 2017 9:31 pm
[2017-08-24] VITALS (13 sets, daily range): BP systolic 91–131; BP diastolic 46–96; PULSE 67–116; RESP 16–18; TEMP 97.4–99.6; O2SAT 92–96
[2017-08-24] MEDS: OXACILLIN INJ 2 GM in SODIUM CHLORIDE 0.9% INJ 100 ML IV SCH ×7 (02:55→23:16)
[2017-08-24] MEDS: FUROSEMIDE 40 MG/4 ML VIAL IV PUSH SCH ×5 (02:57→23:16)
[2017-08-24] MEDS: CHLORHEXIDINE GLUCONATE 2 % 1 PACK (2 CLOTHS) TOP SCH (02:58)
[2017-08-24] MEDS: RIFAMPIN 150 MG CAP PO SCH ×2 (02:58→13:55)
[2017-08-24] MEDS: ACETAMINOPHEN 500 MG CPLT PO SCH ×5 (02:58→23:16)
[2017-08-24] MEDS: METOPROLOL TARTRATE 25 MG TAB PO SCH ×4 (06:00→23:16)
[2017-08-24 06:30] LABS: MEAN CELL VOLUME 82.7 FL (80.0-100.0); MEAN CORPUSCULAR HEMOGLOBIN 28.2 PG (27.0-34.0); MEAN CORPUSCULAR HGB CONC 34.1 % (32.0-36.0); MEAN PLATELET VOLUME 7.5 FL (7.0-11.0); PLATELET COUNT 298 TH/MM3 (150-450); RED BLOOD COUNT 2.49 MIL/MM3 (4.00-5.30); RED CELL DISTRIBUTION WIDTH 14.4 % (11.6-17.2)
[2017-08-24 06:51] LABS: HEMATOCRIT 20.6 % (35.0-46.0)
[2017-08-24 06:58] LABS: CALCIUM 7.9 MG/DL (8.5-10.1); CREATININE 1.3 MG/DL (0.50-1.00); MAGNESIUM 1.8 MG/DL (1.5-2.5)
[2017-08-24] MEDS ORDERED: POTASSIUM CHLORIDE 20 MEQ CONTROLLED RELEASE TAB PO ONE (08:00)
[2017-08-24] MEDS ORDERED: SODIUM CHLOR 0.9% 250 ML INJ 250 ML IV ONE (08:00)
[2017-08-24] MEDS: GABAPENTIN 300 MG CAP PO SCH ×3 (08:11→17:47)
[2017-08-24] MEDS: DOCUSATE SODIUM 50 MG/SENNA 8.6 MG TAB PO SCH ×2 (08:11→20:28)
[2017-08-24] MEDS: POTASSIUM CHLORIDE 20 MEQ CONTROLLED RELEASE TAB PO SCH (08:11)
[2017-08-24] MEDS: PANTOPRAZOLE SOD 40 MG DELAYED RELEASE TAB PO SCH (08:11)
[2017-08-24] MEDS: SODIUM CHLORIDE 0.9% FLUSH 10 ML FLUSH IV FLUSH SCH ×2 (08:15→20:28)
[2017-08-24] MEDS: NICOTINE 21 MG/24 HR PATCH T-DERMAL SCH (08:15)
[2017-08-24] MEDS: REMOVE OLD PATCH T-DERMAL SCH (09:00)
[2017-08-24] MEDS ORDERED: FUROSEMIDE 20 MG/2 ML VIAL IV PUSH ONE (15:45)
[2017-08-24] MEDS: ONDANSETRON HCL 4 MG/2 ML VIAL IV PUSH PRN (16:10)
--- NOTE | 2017-08-24 16:34 | HHI.PR ---
Subjective Remarks Pt is in a better mood today, still complains of pain but tolerating treatment with PO narcotics alone. We had a discussion about how drug use precludes surgical candidacy and how important it is to stay clean going forward. She feels weak today and will receive a blood transfusion. Objective Vitals Vital Signs Date Time Temp Pulse Resp B/P (MAP) Pulse Ox O2 Delivery O2 Flow Rate FiO2 08/24/17 16:16 88 08/24/17 16:16 89 08/24/17 15:04 98.1 116 18 130/96 (107) 96 08/24/17 12:00 99.6 80 18 91/46 (61) 96 08/24/17 08:00 103 08/24/17 08:00 97.5 100 18 117/55 (75) 92 08/24/17 08:00 102 08/24/17 04:00 99.0 92 16 104/54 (71) 94 08/24/17 00:00 99.0 91 16 103/52 (69) 93 08/23/17 23:52 95 08/23/17 20:00 99.2 113 16 113/56 (75) 91 08/23/17 19:49 109 I/O 08/23/17 08/23/17 08/23/17 08/24/17 08/24/17 08/24/17 07:00 15:00 23:00 07:00 15:00 23:00 Intake Total 1100 ml 100 ml 740 ml 1700 ml 5 ml Balance 1100 ml 100 ml 740 ml 1700 ml 5 ml Intake Oral 600 ml 640 ml 1500 ml IV Total 500 ml 100 ml 100 ml 200 ml Blood Product IV Normal Saline Flush 5 ml # Voids 10 4 1 # Bowel Movements 1 0 Result Diagram: 08/24/17 0550 08/24/17 1325 Objective Remarks GENERAL: Thin, unhealthy appearing, weak SKIN: Warm and dry, oslers nodes on hands and feet HEAD: Normocephalic. EYES: No scleral icterus. No injection or drainage. NECK: Supple, trachea midline. No JVD or lymphadenopathy. CARDIOVASCULAR: Regular rate and rhythm , 1/6 BESSY RESPIRATORY: Breath sounds equal bilaterally. No accessory muscle use. GASTROINTESTINAL: Abdomen soft, non-tender, nondistended. EXTREMITIES: No cyanosis, or edema. NEUROLOGICAL: Awake, alert, and oriented x 3. Non-focal. A/P Problem List: (1) Lactic acidosis ICD Code: E87.2 - Acidosis Status: Acute (2) Cocaine abuse ICD Code: F14.10 - Cocaine abuse, uncomplicated Status: Chronic (3) DIC (disseminated intravascular coagulation) ICD Code: D65 - Disseminated intravascular coagulation [defibrination syndrome] Status: Acute (4) Hyponatremia ICD Code: E87.1 - Hypo-osmolality and hyponatremia (5) Severe sepsis ICD Code: A41.9 - Sepsis, unspecified organism; R65.20 - Severe sepsis without septic shock Status: Acute (6) INES (acute kidney injury) ICD Code: N17.9 - Acute kidney failure, unspecified (7) Hypokalemia ICD Code: E87.6 - Hypokalemia Status: Acute Permanent Comment: unknown chronicity, probably subacute Last Edited By: Yashira Ivey on Aug 10, 2017 07:41 (8) Hyperbilirubinemia ICD Code: E80.6 - Other disorders of bilirubin metabolism Status: Acute (9) Elevated troponin level ICD Code: R74.8 - Abnormal levels of other serum enzymes Status: Acute (10) H/O endocarditis ICD Code: Z86.79 - Personal history of other diseases of the circulatory system Status: Chronic (11) Abnormal transaminases ICD Code: R74.8 - Abnormal levels of other serum enzymes Status: Acute (12) Pain ICD Code: R52 - Pain, unspecified (13) Anxiety ICD Code: F41.9 - Anxiety disorder, unspecified (14) Septic shock ICD Code: A41.9 - Sepsis, unspecified organism; R65.21 - Severe sepsis with septic shock Status: Acute Assessment and Plan Sepsis & Infectious Endocarditis (3 valve) Previous bioprosthetic mitral valve Continuation of IV drug use Mitral, Tricuspid and Aortic valves involved Appreciate ID involvement Anemia Hgb to 7.0 today Type, Cross, Transfuse 2 units PRBC Polysubstance Abuse Stemming from abuse of chronic pain meds History of Opioid abuse, Cocaine abuse and IVDU Hypokalemia KCl added to IVF, will follow potassium with daily labs Ascites Visible on CT scan Evidence of fluid overload chronicity Normal Ammonia Anemia Stable Hyperglycemia PRN coverage with SSI DVT Prophylaxis SCD's and Lovenox Daren Barros MD Aug 24, 2017 16:34
[2017-08-24] MEDS: MORPHINE SULFATE 2 MG/ML INJ IV PUSH PRN (20:30)
[2017-08-25] VITALS (8 sets, daily range): BP systolic 99–130; BP diastolic 53–62; PULSE 75–106; RESP 16–18; TEMP 97.4–99; O2SAT 92–96
[2017-08-25 01:28] LABS: HEMATOCRIT 30.3 % (35.0-46.0); HEMOGLOBIN 10.6 GM/DL (11.6-15.3)
[2017-08-25] MEDS: OXACILLIN INJ 2 GM in SODIUM CHLORIDE 0.9% INJ 100 ML IV SCH ×6 (02:00→23:49)
[2017-08-25] MEDS: RIFAMPIN 150 MG CAP PO SCH ×2 (02:11→15:17)
[2017-08-25] MEDS: CHLORHEXIDINE GLUCONATE 2 % 1 PACK (2 CLOTHS) TOP SCH (02:15)
[2017-08-25] MEDS: RESP: ALBUTEROL 2.5 MG/3 ML NEB (PRN) INH (04:26)
[2017-08-25] MEDS: METOPROLOL TARTRATE 25 MG TAB PO SCH ×4 (06:00→23:49)
[2017-08-25] MEDS: ACETAMINOPHEN 500 MG CPLT PO SCH ×4 (06:07→23:48)
[2017-08-25] MEDS: DOCUSATE SODIUM 50 MG/SENNA 8.6 MG TAB PO SCH ×2 (09:00→19:56)
[2017-08-25] MEDS: REMOVE OLD PATCH T-DERMAL SCH (09:00)
[2017-08-25] MEDS: NICOTINE 21 MG/24 HR PATCH T-DERMAL SCH (10:22)
[2017-08-25] MEDS: GABAPENTIN 300 MG CAP PO SCH ×3 (10:22→19:13)
[2017-08-25] MEDS: FUROSEMIDE 40 MG/4 ML VIAL IV PUSH SCH ×4 (10:22→23:50)
[2017-08-25] MEDS: PANTOPRAZOLE SOD 40 MG DELAYED RELEASE TAB PO SCH (10:22)
[2017-08-25] MEDS: POTASSIUM CHLORIDE 20 MEQ CONTROLLED RELEASE TAB PO SCH (10:23)
[2017-08-25] MEDS: KETOROLAC TROMETHAMINE 30 MG/ML (IVP) VIAL IV PUSH PRN (12:38)
[2017-08-25] MEDS: SODIUM CHLORIDE 0.9% FLUSH 10 ML FLUSH IV FLUSH SCH ×2 (12:39→19:55)
--- NOTE | 2017-08-25 13:16 | HHI.IDPN ---
Note Infectious Disease Note Patient without complaints. Pain controlled by meds. Afebrile. Blood culture 08/20/17 - negative. Blood culture still positive 08/12/17. 2D ECHO - vegetations noted on three valves. PAST MEDICAL HISTORY 1. Prosthetic valve endocarditis. 2. Mitral valve replacement 3. Hepatitis C 4. Anxiety disorder 5. Seizure disorder 6. IV drug use. ALLERGIES NO KNOWN DRUG ALLERGIES. MEDICATIONS 1. Vancomycin 2. Rifampin. Gentamycin stopped because of deteriorating renal function. SOCIAL HISTORY Positive tobacco use one pack a day. No alcohol. Positive IV drug use reported the last use on 08/07/2017. The patient was not the patient reportedly administered the IV drug into the neck. OBJECTIVE: Vital Signs Date Time Temp Pulse Resp B/P (MAP) Pulse Ox O2 Delivery O2 Flow Rate FiO2 08/25/17 08:00 99.0 106 18 124/58 (80) 92 08/25/17 04:30 94 08/25/17 04:00 97.5 97 16 130/62 (84) 93 08/25/17 00:00 80 08/25/17 00:00 97.4 76 16 99/53 (68) 94 08/24/17 23:05 97.4 76 16 99/53 94 08/24/17 20:00 97 08/24/17 20:00 99.6 104 17 131/59 (83) 92 08/24/17 19:49 99.6 104 17 131/59 92 08/24/17 19:46 99.6 104 17 131/59 92 08/24/17 18:50 67 08/24/17 17:34 97 08/24/17 17:00 109/60 (76) 08/24/17 16:16 88 08/24/17 16:16 89 08/24/17 15:04 98.1 116 18 130/96 (107) 96 Laboratory Tests Test 08/23/17 13:43 08/24/17 05:50 08/25/17 01:05 White Blood Count 11.0 TH/MM3 10.0 TH/MM3 Red Blood Count 3.03 MIL/MM3 2.49 MIL/MM3 Hemoglobin 8.4 GM/DL 7.0 GM/DL 10.6 GM/DL Hematocrit 24.9 % 20.6 % 30.3 % Mean Corpuscular Volume 82.2 FL 82.7 FL Mean Corpuscular Hemoglobin 27.8 PG 28.2 PG Mean Corpuscular Hemoglobin Concent 33.9 % 34.1 % Red Cell Distribution Width 14.4 % 14.4 % Platelet Count 267 TH/MM3 298 TH/MM3 Mean Platelet Volume 7.8 FL 7.5 FL Neutrophils (%) (Auto) 81.5 % Lymphocytes (%) (Auto) 10.9 % Monocytes (%) (Auto) 5.0 % Eosinophils (%) (Auto) 1.5 % Basophils (%) (Auto) 1.1 % Neutrophils # (Auto) 8.9 TH/MM3 Lymphocytes # (Auto) 1.2 TH/MM3 Monocytes # (Auto) 0.5 TH/MM3 Eosinophils # (Auto) 0.2 TH/MM3 Basophils # (Auto) 0.1 TH/MM3 CBC Comment DIFF FINAL Differential Comment Laboratory Tests Test 08/23/17 13:43 08/24/17 05:50 08/24/17 13:25 Blood Urea Nitrogen 23 MG/DL 25 MG/DL Creatinine 1.28 MG/DL 1.30 MG/DL Random Glucose 181 MG/DL 108 MG/DL Calcium Level 8.0 MG/DL 7.9 MG/DL Sodium Level 140 MEQ/L 141 MEQ/L Potassium Level 2.8 MEQ/L 2.7 MEQ/L 3.0 MEQ/L Chloride Level 102 MEQ/L 102 MEQ/L Carbon Dioxide Level 27.6 MEQ/L 30.0 MEQ/L Anion Gap 10 MEQ/L 9 MEQ/L Estimat Glomerular Filtration Rate 46 ML/MIN 46 ML/MIN Iron Level 19 MCG/DL Total Iron Binding Capacity 161 MCG/DL Percent Iron Saturation 11.8 % Ferritin 309 NG/ML Magnesium Level 1.8 MG/DL Microbiology Date/Time Source Procedure Growth Status 08/12/17 04:15 Blood Peripheral Aerobic Blood Culture Pending Received 08/12/17 04:15 Blood Peripheral Anaerobic Blood Culture Pending Received 08/11/17 06:40 Blood Peripheral Aerobic Blood Culture - Preliminary NO GROWTH IN 1 DAY Resulted 08/11/17 06:40 Blood Peripheral Anaerobic Blood Culture - Preliminary NO GROWTH IN 1 DAY Resulted 08/09/17 20:34 Blood Peripheral Aerobic Blood Culture - Final Staphylococcus Aureus Complete 08/09/17 20:34 Anaerobic Blood Culture - Final Staphylococcus Aureus Complete 08/09/17 20:29 Blood Peripheral Aerobic Blood Culture - Final Staphylococcus Aureus Complete 08/09/17 20:29 Anaerobic Blood Culture - Final Staphylococcus Aureus Complete 08/09/17 21:50 Nasal Washing Influenza Types A,B Antigen ([facility]) - Final NEGATIVE FOR FLU A AND B ANTIGEN.... Complete 08/09/17 20:34 Urine Catheterized Urine Urine Culture - Final Staphylococcus Aureus Escherichia Coli Complete IMAGING: Chest X-Ray 08/16/17 0000 Signed Impressions: Service Date/Time: Wednesday, August 16, 2017 08:37 - CONCLUSION: 1. Improved left upper lobe airspace disease. 2. Improved positive fluid balance. Rashard Pena MD Chest X-Ray 08/11/17 0600 Signed Impressions: Service Date/Time: Friday, August 11, 2017 03:37 - CONCLUSION: Left upper lobe and perihilar consolidation. Rod Garcia MD Lower Extremity Ultrasound 08/10/17 0000 Signed Impressions: Service Date/Time: Thursday, August 10, 2017 07:51 - CONCLUSION: Normal examination. No evidence of DVT Ambrose Verdin MD Liver Ultrasound 08/10/17 0000 Signed Impressions: Service Date/Time: Thursday, August 10, 2017 08:04 - CONCLUSION: 1. Abnormal gallbladder filled with sludge and demonstrating wall thickening. There are no additional findings are present to suggest acute gallbladder inflammation. 2. Trace free fluid in the abdomen and small bilateral pleural effusions. 3. Mild splenomegaly. Rod Pascual MD Head CT 08/10/17 0000 Signed Impressions: Service Date/Time: Thursday, August 10, 2017 02:33 - CONCLUSION: No acute disease. Rod Garcia MD PHYSICAL EXAMINATION GENERAL: Somnolent. HEAD, EYES, EARS, NOSE, AND THROAT: No icterus. No conjunctival erythema. Oropharynx slightly dry mucosa without lesions. NECK: Supple without adenopathy. LUNGS: Bibasilar rhonchi. HEART: 2/6 systolic murmur at the left sternal border. ABDOMEN: Bowel sounds present, less distended, soft. EXTREMITIES: No clubbing or cyanosis. Lesions at the index, third, 4th and 5th finger on the left hand and multiple purpuric areas at the base of the toes and at the bulb of the feet drying. Multiple track gifford at the antecubital areas of both hands. No new lesions. SKIN: No diffuse rash. NEUROLOGIC: Alert and oriented. No gross focal findings. PSYCHIATRIC: Calm and cooperative. IMPRESSION 1. MSSA Prosthetic valve endocarditis of aortic and also reno-sparks mitral and tricuspid valve. Embolic lesions to the feet and fingers. 2. Bacteremia staph aureus. MSSA. 3. Acute kidney disease. 5. Thrombocytopenia. Resolved. RECOMMENDATIONS 1. Continue Oxacillin 2 grams IV q 4 hours for 6 weeks from negative blood culture. 2. Continue Rifampin x 6 weeks from negative blood culture. 3. Monitor the renal function. 4. Obtain CMP, CBC. weekly. 5. Repeat the 2D ECHO a week before end of therapy 6. Will repeat another set of blood blood culture to confirm clearance. Lucas Damian MD Aug 25, 2017 13:16
[2017-08-25] MEDS: ONDANSETRON HCL 4 MG/2 ML VIAL IV PUSH PRN (15:32)
--- NOTE | 2017-08-25 17:22 | HHI.PR ---
Subjective Remarks 37F appears better today, has more color in her skin following transfusion, more energy. She is, however, complaining of scoliosis pain. I've encouraged her to participate with PT ambulation and to be up to the chair whenever possible. Objective Vitals Vital Signs Date Time Temp Pulse Resp B/P (MAP) Pulse Ox O2 Delivery O2 Flow Rate FiO2 08/25/17 16:00 98.3 86 16 109/54 (72) 92 08/25/17 12:00 98.6 75 16 100/55 (70) 92 08/25/17 08:00 99.0 106 18 124/58 (80) 92 08/25/17 04:30 94 08/25/17 04:00 97.5 97 16 130/62 (84) 93 08/25/17 00:00 80 08/25/17 00:00 97.4 76 16 99/53 (68) 94 08/24/17 23:05 97.4 76 16 99/53 94 08/24/17 20:00 97 08/24/17 20:00 99.6 104 17 131/59 (83) 92 08/24/17 19:49 99.6 104 17 131/59 92 08/24/17 19:46 99.6 104 17 131/59 92 08/24/17 18:50 67 08/24/17 17:34 97 I/O 08/24/17 08/24/17 08/24/17 08/25/17 08/25/17 08/25/17 07:00 15:00 23:00 07:00 15:00 23:00 Intake Total 1700 ml 1135 ml 1100 ml 620 ml Output Total 400 ml Balance 1700 ml 735 ml 1100 ml 620 ml Intake Oral 1500 ml 680 ml 480 ml 620 ml IV Total 200 ml 200 ml Packed Cells 400 ml 400 ml Blood Product IV Normal Saline Flush 55 ml 20 ml Output Urine Total 400 ml # Voids 1 3 2 3 # Bowel Movements 0 2 1 0 Result Diagram: 08/25/17 0105 08/24/17 1325 Objective Remarks GENERAL: Thin, unhealthy appearing, weak SKIN: Warm and dry, oslers nodes on hands and feet HEAD: Normocephalic. EYES: No scleral icterus. No injection or drainage. NECK: Supple, trachea midline. No JVD or lymphadenopathy. CARDIOVASCULAR: Regular rate and rhythm , 1/6 BESSY RESPIRATORY: Breath sounds equal bilaterally. No accessory muscle use. GASTROINTESTINAL: Abdomen soft, non-tender, nondistended. EXTREMITIES: No cyanosis, or edema. NEUROLOGICAL: Awake, alert, and oriented x 3. Non-focal. A/P Problem List: (1) Lactic acidosis ICD Code: E87.2 - Acidosis Status: Acute (2) Cocaine abuse ICD Code: F14.10 - Cocaine abuse, uncomplicated Status: Chronic (3) DIC (disseminated intravascular coagulation) ICD Code: D65 - Disseminated intravascular coagulation [defibrination syndrome] Status: Acute (4) Hyponatremia ICD Code: E87.1 - Hypo-osmolality and hyponatremia (5) Severe sepsis ICD Code: A41.9 - Sepsis, unspecified organism; R65.20 - Severe sepsis without septic shock Status: Acute (6) INES (acute kidney injury) ICD Code: N17.9 - Acute kidney failure, unspecified (7) Hypokalemia ICD Code: E87.6 - Hypokalemia Status: Acute Permanent Comment: unknown chronicity, probably subacute Last Edited By: Yashira Ivey on Aug 10, 2017 07:41 (8) Hyperbilirubinemia ICD Code: E80.6 - Other disorders of bilirubin metabolism Status: Acute (9) Elevated troponin level ICD Code: R74.8 - Abnormal levels of other serum enzymes Status: Acute (10) H/O endocarditis ICD Code: Z86.79 - Personal history of other diseases of the circulatory system Status: Chronic (11) Abnormal transaminases ICD Code: R74.8 - Abnormal levels of other serum enzymes Status: Acute (12) Pain ICD Code: R52 - Pain, unspecified (13) Anxiety ICD Code: F41.9 - Anxiety disorder, unspecified (14) Septic shock ICD Code: A41.9 - Sepsis, unspecified organism; R65.21 - Severe sepsis with septic shock Status: Acute Assessment and Plan Sepsis & Infectious Endocarditis (3 valve) Previous bioprosthetic mitral valve Mitral, Tricuspid and Aortic valves involved Continuation of IV drug use Appreciate ID involvement Anemia Up to 10.6 following transfusion, more energetic Polysubstance Abuse Stemming from abuse of chronic pain meds History of Opioid abuse, Cocaine abuse and IVDU Hypokalemia KCl added to IVF, will follow potassium with daily labs Ascites Visible on CT scan Evidence of fluid overload chronicity Normal Ammonia Anemia Stable Hyperglycemia PRN coverage with SSI DVT Prophylaxis SCD's and Lovenox Daren Barros MD Aug 25, 2017 17:22
[2017-08-26] VITALS (10 sets, daily range): BP systolic 96–123; BP diastolic 54–62; PULSE 76–102; RESP 16–20; TEMP 96.1–98.1; O2SAT 93–97
[2017-08-26] MEDS: OXACILLIN INJ 2 GM in SODIUM CHLORIDE 0.9% INJ 100 ML IV SCH ×6 (02:03→22:46)
[2017-08-26] MEDS: KETOROLAC TROMETHAMINE 30 MG/ML (IVP) VIAL IV PUSH PRN ×2 (02:10→14:31)
[2017-08-26] MEDS: RIFAMPIN 150 MG CAP PO SCH ×2 (02:37→14:32)
[2017-08-26] MEDS: CHLORHEXIDINE GLUCONATE 2 % 1 PACK (2 CLOTHS) TOP SCH (04:00)
[2017-08-26 05:46] LABS: HEMATOCRIT 31.2 % (35.0-46.0); HEMOGLOBIN 10.6 GM/DL (11.6-15.3); MEAN CORPUSCULAR HEMOGLOBIN 28.6 PG (27.0-34.0); MEAN PLATELET VOLUME 7.3 FL (7.0-11.0); PLATELET COUNT 340 TH/MM3 (150-450); RED BLOOD COUNT 3.71 MIL/MM3 (4.00-5.30); RED CELL DISTRIBUTION WIDTH 14.7 % (11.6-17.2); WHITE BLOOD COUNT 9.2 TH/MM3 (4.0-11.0)
[2017-08-26] MEDS: METOPROLOL TARTRATE 25 MG TAB PO SCH ×3 (05:46→17:41)
[2017-08-26] MEDS: ACETAMINOPHEN 500 MG CPLT PO SCH ×3 (05:59→17:40)
[2017-08-26 06:22] LABS: BICARBONATE 30.6 MEQ/L (21.0-32.0); CREATININE 1.23 MG/DL (0.50-1.00)
[2017-08-26] MEDS ORDERED: POTASSIUM CHLORIDE 10 MEQ CONTROLLED RELEASE TAB PO ONE (06:45)
[2017-08-26] MEDS ORDERED: POTASSIUM CHLORIDE 20 MEQ CONTROLLED RELEASE TAB PO ONE (08:00)
[2017-08-26] MEDS: GABAPENTIN 300 MG CAP PO SCH ×3 (08:28→17:40)
[2017-08-26] MEDS: PANTOPRAZOLE SOD 40 MG DELAYED RELEASE TAB PO SCH (08:28)
[2017-08-26] MEDS: POTASSIUM CHLORIDE 20 MEQ CONTROLLED RELEASE TAB PO SCH ×2 (08:29→20:06)
[2017-08-26] MEDS: DOCUSATE SODIUM 50 MG/SENNA 8.6 MG TAB PO SCH ×2 (08:30→19:30)
[2017-08-26] MEDS: SODIUM CHLORIDE 0.9% FLUSH 10 ML FLUSH IV FLUSH SCH ×2 (08:30→20:07)
[2017-08-26] MEDS: REMOVE OLD PATCH T-DERMAL SCH (08:30)
[2017-08-26] MEDS: NICOTINE 21 MG/24 HR PATCH T-DERMAL SCH (08:31)
[2017-08-26] MEDS ORDERED: FUROSEMIDE 40 MG/4 ML VIAL IV PUSH SCH (09:00)
[2017-08-26] MEDS: RESP: ALBUTEROL 2.5 MG/3 ML NEB (PRN) INH (11:30)
--- NOTE | 2017-08-26 11:56 | HHI.PR ---
Subjective Remarks Breathing is better. No shortness of breath. She is urinating a lot at night and not able to sleep well. Objective Vitals Vital Signs Date Time Temp Pulse Resp B/P (MAP) Pulse Ox O2 Delivery O2 Flow Rate FiO2 08/26/17 11:31 95 Nasal Cannula 2.00 08/26/17 08:30 97.6 80 16 113/62 (79) 93 08/26/17 05:22 111/61 (78) 08/26/17 04:00 97.8 76 20 96/54 (68) 97 08/26/17 00:00 96.9 88 20 121/58 (79) 96 08/25/17 23:45 86 08/25/17 20:00 97.4 86 18 113/56 (75) 96 08/25/17 16:00 98.3 86 16 109/54 (72) 92 08/25/17 12:00 98.6 75 16 100/55 (70) 92 I/O 08/25/17 08/25/17 08/25/17 08/26/17 08/26/17 08/26/17 07:00 15:00 23:00 07:00 15:00 23:00 Intake Total 1100 ml 620 ml 340 ml Balance 1100 ml 620 ml 340 ml Intake Oral 480 ml 620 ml 240 ml IV Total 200 ml 100 ml Packed Cells 400 ml Blood Product IV Normal Saline Flush 20 ml # Voids 2 3 3 # Bowel Movements 1 0 1 Result Diagram: 08/26/17 0515 08/26/17 0515 Other Results Microbiology Date/Time Source Procedure Growth Status 08/26/17 06:10 Blood Peripheral Aerobic Blood Culture Pending Received 08/26/17 06:10 Blood Peripheral Anaerobic Blood Culture Pending Received 08/09/17 21:50 Nasal Washing Influenza Types A,B Antigen ([facility]) - Final NEGATIVE FOR FLU A AND B ANTIGEN.... Complete 08/09/17 20:34 Urine Catheterized Urine Urine Culture - Final Staphylococcus Aureus Escherichia Coli Complete Objective Remarks GENERAL: This is a well-nourished, well-developed patient, in no apparent distress. CARDIOVASCULAR: Regular rate and rhythm RESPIRATORY: Relatively clear to auscultation bilaterally GASTROINTESTINAL: Abdomen soft, non-tender, nondistended. Normal active bowel sounds MUSCULOSKELETAL: Extremities without clubbing, cyanosis, or edema. NEURO: Alert & Oriented x4 to person, place, time, situation. Moves all ext x4 A/P Problem List: (1) Septic shock ICD Code: A41.9 - Sepsis, unspecified organism; R65.21 - Severe sepsis with septic shock Status: Resolved (2) Cocaine abuse ICD Code: F14.10 - Cocaine abuse, uncomplicated Status: Chronic (3) DIC (disseminated intravascular coagulation) ICD Code: D65 - Disseminated intravascular coagulation [defibrination syndrome] Status: Resolved (4) Hyponatremia ICD Code: E87.1 - Hypo-osmolality and hyponatremia Status: Resolved (5) INES (acute kidney injury) ICD Code: N17.9 - Acute kidney failure, unspecified Status: Resolved (6) Hypokalemia ICD Code: E87.6 - Hypokalemia Status: Acute Permanent Comment: unknown chronicity, probably subacute Last Edited By: Yashira Ivey on Aug 10, 2017 07:41 (7) Hyperbilirubinemia ICD Code: E80.6 - Other disorders of bilirubin metabolism Status: Acute (8) Elevated troponin level ICD Code: R74.8 - Abnormal levels of other serum enzymes Status: Acute (9) H/O endocarditis ICD Code: Z86.79 - Personal history of other diseases of the circulatory system Status: Chronic (10) Abnormal transaminases ICD Code: R74.8 - Abnormal levels of other serum enzymes Status: Acute (11) Pain ICD Code: R52 - Pain, unspecified Status: Chronic (12) Anxiety ICD Code: F41.9 - Anxiety disorder, unspecified Status: Chronic Assessment and Plan Sepsis & Infectious 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 Anemia, acute on chronic likely due to DIC from sepsis and infectious endocarditis; hemoglobin has been stable after transfusion Up to 10.6 following transfusion, more energetic, hematology following. Polysubstance Abuse Stemming from abuse of chronic pain meds History of Opioid abuse, Cocaine abuse and IV DU Hypokalemia KCl added to IVF- Increase oral potassium supplement to twice a day due to frequency of Lasix. Ascites Visible on CT scan Evidence of fluid overload chronicity - decrease Lasix. Normal Ammonia DVT Prophylaxis SCD's and Lovenox Cora Hooker MD Aug 26, 2017 11:56
[2017-08-26] MEDS: ONDANSETRON HCL 4 MG/2 ML VIAL IV PUSH PRN (13:24)
[2017-08-26] MEDS: FUROSEMIDE 40 MG/4 ML VIAL IV PUSH SCH (17:41)
[2017-08-27] VITALS (9 sets, daily range): BP systolic 103–134; BP diastolic 53–63; PULSE 85–109; RESP 12–21; TEMP 97–99.7; O2SAT 95–100
[2017-08-27] MEDS: METOPROLOL TARTRATE 25 MG TAB PO SCH ×5 (00:22→23:35)
[2017-08-27] MEDS: ACETAMINOPHEN 500 MG CPLT PO SCH ×5 (00:23→23:33)
[2017-08-27] MEDS: MORPHINE SULFATE 2 MG/ML INJ IV PUSH PRN ×3 (01:49→23:36)
[2017-08-27 02:22] LABS: HEMATOCRIT 30.6 % (35.0-46.0); HEMOGLOBIN 10.6 GM/DL (11.6-15.3); MEAN CELL VOLUME 84.6 FL (80.0-100.0); MEAN CORPUSCULAR HEMOGLOBIN 29.3 PG (27.0-34.0); MEAN CORPUSCULAR HGB CONC 34.6 % (32.0-36.0); PLATELET COUNT 345 TH/MM3 (150-450); RED BLOOD COUNT 3.62 MIL/MM3 (4.00-5.30); WHITE BLOOD COUNT 10.5 TH/MM3 (4.0-11.0)
[2017-08-27 02:41] LABS: BICARBONATE 30.2 MEQ/L (21.0-32.0); CREATININE 1.17 MG/DL (0.50-1.00); TROPONIN I 0.06 NG/ML (0.02-0.05)
[2017-08-27] MEDS: RIFAMPIN 150 MG CAP PO SCH ×2 (03:00→15:20)
[2017-08-27] MEDS: OXACILLIN INJ 2 GM in SODIUM CHLORIDE 0.9% INJ 100 ML IV SCH ×6 (03:01→21:53)
[2017-08-27] MEDS: CHLORHEXIDINE GLUCONATE 2 % 1 PACK (2 CLOTHS) TOP SCH (04:00)
[2017-08-27] MEDS: NICOTINE 21 MG/24 HR PATCH T-DERMAL SCH (08:25)
[2017-08-27] MEDS: REMOVE OLD PATCH T-DERMAL SCH (08:25)
[2017-08-27] MEDS: PANTOPRAZOLE SOD 40 MG DELAYED RELEASE TAB PO SCH (08:25)
[2017-08-27] MEDS: SODIUM CHLORIDE 0.9% FLUSH 10 ML FLUSH IV FLUSH SCH ×2 (08:26→21:00)
[2017-08-27] MEDS: DOCUSATE SODIUM 50 MG/SENNA 8.6 MG TAB PO SCH ×2 (08:26→21:00)
[2017-08-27] MEDS: FUROSEMIDE 40 MG/4 ML VIAL IV PUSH SCH ×2 (08:26→17:28)
[2017-08-27] MEDS: GABAPENTIN 300 MG CAP PO SCH ×3 (08:26→17:29)
[2017-08-27] MEDS: POTASSIUM CHLORIDE 20 MEQ CONTROLLED RELEASE TAB PO SCH ×2 (08:27→21:51)
--- NOTE | 2017-08-27 11:00 | HHI.PR ---
Subjective Remarks Reports had some chest pressure overnight. No worsening of shortness of breath. Feels better and not urinating all over the place. Still having problems sleeping at night. Objective Vitals Vital Signs Date Time Temp Pulse Resp B/P (MAP) Pulse Ox O2 Delivery O2 Flow Rate FiO2 08/27/17 08:00 97.9 85 16 112/56 (74) 100 08/27/17 04:31 97.6 87 20 103/53 (70) 100 08/27/17 00:20 97.0 98 12 133/63 (86) 98 08/27/17 00:00 96 08/26/17 20:07 100 08/26/17 20:00 96.1 102 18 123/57 (79) 94 08/26/17 19:00 97 Nasal Cannula 2.00 08/26/17 16:47 98.1 92 18 123/56 (78) 97 08/26/17 12:30 97.9 80 18 101/58 (72) 94 08/26/17 11:31 95 Nasal Cannula 2.00 I/O 08/26/17 08/26/17 08/26/17 08/27/17 08/27/17 08/27/17 07:00 15:00 23:00 07:00 15:00 23:00 Intake Total 340 ml Balance 340 ml Intake Oral 240 ml IV Total 100 ml # Voids 3 2 # Bowel Movements 1 1 Result Diagram: 08/27/17 0200 08/27/17 0200 Other Results Microbiology Date/Time Source Procedure Growth Status 08/26/17 06:10 Blood Peripheral Aerobic Blood Culture Pending Received 08/26/17 06:10 Blood Peripheral Anaerobic Blood Culture Pending Received 08/09/17 21:50 Nasal Washing Influenza Types A,B Antigen ([facility]) - Final NEGATIVE FOR FLU A AND B ANTIGEN.... Complete 08/09/17 20:34 Urine Catheterized Urine Urine Culture - Final Staphylococcus Aureus Escherichia Coli Complete Objective Remarks GENERAL: This is a well-nourished, well-developed patient, in no apparent distress. CARDIOVASCULAR: Regular rate and rhythm RESPIRATORY: Relatively clear to auscultation bilaterally GASTROINTESTINAL: Abdomen soft, non-tender, nondistended. Normal active bowel sounds MUSCULOSKELETAL: Extremities without clubbing, cyanosis, or edema. NEURO: Alert & Oriented x4 to person, place, time, situation. Moves all ext x4 A/P Problem List: (1) Septic shock ICD Code: A41.9 - Sepsis, unspecified organism; R65.21 - Severe sepsis with septic shock Status: Resolved (2) Cocaine abuse ICD Code: F14.10 - Cocaine abuse, uncomplicated Status: Chronic (3) DIC (disseminated intravascular coagulation) ICD Code: D65 - Disseminated intravascular coagulation [defibrination syndrome] Status: Resolved (4) Hyponatremia ICD Code: E87.1 - Hypo-osmolality and hyponatremia Status: Resolved (5) INES (acute kidney injury) ICD Code: N17.9 - Acute kidney failure, unspecified Status: Resolved (6) Hypokalemia ICD Code: E87.6 - Hypokalemia Status: Resolved Permanent Comment: unknown chronicity, probably subacute Last Edited By: Yashira Ivey on Aug 10, 2017 07:41 (7) Hyperbilirubinemia ICD Code: E80.6 - Other disorders of bilirubin metabolism Status: Acute (8) Elevated troponin level ICD Code: R74.8 - Abnormal levels of other serum enzymes Status: Acute (9) H/O endocarditis ICD Code: Z86.79 - Personal history of other diseases of the circulatory system Status: Chronic (10) Abnormal transaminases ICD Code: R74.8 - Abnormal levels of other serum enzymes Status: Acute (11) Pain ICD Code: R52 - Pain, unspecified Status: Chronic (12) Anxiety ICD Code: F41.9 - Anxiety disorder, unspecified Status: Chronic Assessment and Plan 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 Appreciate ID involvement- will need to continue with IV oxacillin for total of 6 weeks from negative blood cultures on 08/20 Fluid overload due to valvular heart disease -decrease Lasix from every 6 hours to twice a day; and watch for fluid intake and output and pulmonary status. Anemia, acute on chronic likely due to DIC from sepsis and infectious endocarditis; hemoglobin has been stable after transfusion Up to 10.6 following transfusion, more energetic, hematology following. Polysubstance Abuse- counseled Stemming from abuse of chronic pain meds History of Opioid abuse, Cocaine abuse and IV DU Hypokalemia KCl added to IVF- Increase oral potassium supplement to twice a day due to frequency of Lasix. Ascites Visible on CT scan Evidence of fluid overload chronicity - decrease Lasix from every 6 to twice a day, will need to watch for any symptoms of fluid overload.. Normal Ammonia Chest pressure due to likely endocarditis and monitor for any signs of the pulmonary edema Continue current Lasix. DVT Prophylaxis SCD's and Lovenox Discharge Planning Will need to complete 6 weeks of oxacillin from 08/20 Cora Hooker MD Aug 27, 2017 10:59
[2017-08-27] MEDS: ZOLPIDEM TARTRATE 5 MG TAB PO PRN (22:32)
[2017-08-28] VITALS (8 sets, daily range): BP systolic 92–119; BP diastolic 49–58; PULSE 85–116; RESP 17–20; TEMP 95.7–97.6; O2SAT 95–98
[2017-08-28] MEDS: RIFAMPIN 150 MG CAP PO SCH ×2 (02:03→16:27)
[2017-08-28] MEDS: OXACILLIN INJ 2 GM in SODIUM CHLORIDE 0.9% INJ 100 ML IV SCH ×6 (02:03→23:22)
[2017-08-28] MEDS: CHLORHEXIDINE GLUCONATE 2 % 1 PACK (2 CLOTHS) TOP SCH (03:30)
[2017-08-28] MEDS: KETOROLAC TROMETHAMINE 30 MG/ML (IVP) VIAL IV PUSH PRN ×2 (04:14→16:27)
[2017-08-28] MEDS: ONDANSETRON HCL 4 MG/2 ML VIAL IV PUSH PRN ×3 (04:14→23:34)
[2017-08-28] MEDS: METOPROLOL TARTRATE 25 MG TAB PO SCH ×4 (06:00→23:21)
[2017-08-28] MEDS: ACETAMINOPHEN 500 MG CPLT PO SCH ×4 (06:03→23:22)
[2017-08-28] MEDS: DOCUSATE SODIUM 50 MG/SENNA 8.6 MG TAB PO SCH ×2 (09:00→20:00)
[2017-08-28] MEDS: REMOVE OLD PATCH T-DERMAL SCH (09:00)
[2017-08-28] MEDS: FUROSEMIDE 40 MG/4 ML VIAL IV PUSH SCH ×3 (09:00→17:36)
[2017-08-28] MEDS: NICOTINE 21 MG/24 HR PATCH T-DERMAL SCH (09:02)
[2017-08-28] MEDS: PANTOPRAZOLE SOD 40 MG DELAYED RELEASE TAB PO SCH (09:04)
[2017-08-28] MEDS: SODIUM CHLORIDE 0.9% FLUSH 10 ML FLUSH IV FLUSH SCH ×2 (09:04→20:00)
[2017-08-28] MEDS: POTASSIUM CHLORIDE 20 MEQ CONTROLLED RELEASE TAB PO SCH ×2 (09:04→19:57)
[2017-08-28] MEDS: GABAPENTIN 300 MG CAP PO SCH ×3 (09:04→17:35)
[2017-08-28] MEDS: MORPHINE SULFATE 2 MG/ML INJ IV PUSH PRN ×2 (09:05→17:41)
--- NOTE | 2017-08-28 09:20 | HHI.PR ---
Subjective Remarks NO CURRENT NEW COMPLAINTS TAKING HER LASIX TAKING HER PAIN MEDICATIONS AROUND THE CLOCK NO SOB OR CHEST PAIN AT THIS TIME SEEN WITH RN AND FAMILY AT BEDSIDE Objective Vitals Vital Signs Date Time Temp Pulse Resp B/P (MAP) Pulse Ox O2 Delivery O2 Flow Rate FiO2 08/28/17 08:00 97.1 96 17 100/49 (66) 98 08/28/17 04:00 95.7 116 18 119/57 (77) 95 08/28/17 03:56 107 08/28/17 00:00 96.9 108 18 112/53 (72) 97 08/27/17 23:40 105 08/27/17 20:00 98.2 109 18 134/57 (82) 95 08/27/17 19:54 103 08/27/17 16:00 97.0 100 20 117/55 (75) 100 08/27/17 13:30 99.7 109 21 113/53 (73) 99 I/O 08/27/17 08/27/17 08/27/17 08/28/17 08/28/17 08/28/17 07:00 15:00 23:00 07:00 15:00 23:00 Intake Total 200 ml 1040 ml 240 ml Balance 200 ml 1040 ml 240 ml Intake Oral 840 ml 240 ml IV Total 200 ml 200 ml # Voids 2 2 # Bowel Movements 1 Result Diagram: 08/27/17 0200 08/27/17 0200 Other Results Laboratory Tests Test 08/26/17 05:15 08/27/17 02:00 08/27/17 08:15 White Blood Count 9.2 TH/MM3 10.5 TH/MM3 Red Blood Count 3.71 MIL/MM3 3.62 MIL/MM3 Hemoglobin 10.6 GM/DL 10.6 GM/DL Hematocrit 31.2 % 30.6 % Mean Corpuscular Volume 84.0 FL 84.6 FL Mean Corpuscular Hemoglobin 28.6 PG 29.3 PG Mean Corpuscular Hemoglobin Concent 34.0 % 34.6 % Red Cell Distribution Width 14.7 % 15.0 % Platelet Count 340 TH/MM3 345 TH/MM3 Mean Platelet Volume 7.3 FL 7.0 FL Blood Urea Nitrogen 31 MG/DL 28 MG/DL Creatinine 1.23 MG/DL 1.17 MG/DL Random Glucose 102 MG/DL 108 MG/DL Calcium Level 8.0 MG/DL 8.0 MG/DL Sodium Level 141 MEQ/L 142 MEQ/L Potassium Level 2.9 MEQ/L 4.2 MEQ/L Chloride Level 103 MEQ/L 105 MEQ/L Carbon Dioxide Level 30.6 MEQ/L 30.2 MEQ/L Anion Gap 7 MEQ/L 7 MEQ/L Estimat Glomerular Filtration Rate 49 ML/MIN 51 ML/MIN Magnesium Level 1.9 MG/DL Troponin I 0.06 NG/ML 0.06 NG/ML Imaging Last Impressions Chest X-Ray 08/20/17 0600 Signed Impressions: Service Date/Time: Sunday, August 20, 2017 03:47 - CONCLUSION: Worsening bilateral areas of consolidation which could represent worsening edema. Rod Garcia MD Abdomen/Pelvis CT 08/19/17 0000 Signed Impressions: Service Date/Time: July 12:57 - CONCLUSION: 1. Splenomegaly and likely splenic infarcts. 2. Heterogeneous density in the gallbladder suggesting sludge or calculi. 3. Ascites, moderate bilateral pleural effusions, and anasarca. 4. Diffusely dilated common duct. 5. 4.2 cm cystic mass in the left adnexal region. Adryan Olmstead MD Lower Extremity Ultrasound 08/10/17 0000 Signed Impressions: Service Date/Time: Thursday, August 10, 2017 07:51 - CONCLUSION: Normal examination. No evidence of DVT Ambrose Verdin MD Liver Ultrasound 08/10/17 0000 Signed Impressions: Service Date/Time: Thursday, August 10, 2017 08:04 - CONCLUSION: 1. Abnormal gallbladder filled with sludge and demonstrating wall thickening. There are no additional findings are present to suggest acute gallbladder inflammation. 2. Trace free fluid in the abdomen and small bilateral pleural effusions. 3. Mild splenomegaly. Rod Pascual MD Head CT 08/10/17 0000 Signed Impressions: Service Date/Time: Thursday, August 10, 2017 02:33 - CONCLUSION: No acute disease. Rod Garcia MD Objective Remarks GENERAL: Alert talkative and cooperative oriented 3 SKIN: Warm and dry. On multiple tips of fingers and toes has areas that are black and necrotic and on palms HEAD: Atraumatic. Normocephalic. EYES: Pupils equal and round. No scleral icterus. No injection or drainage. Extraocular muscles intact ENT: No nasal bleeding or discharge. Mucous membranes pink and moist. Tongue is midline NECK: Trachea midline. No JVD. Supple CARDIOVASCULAR: Regular rate and rhythm. S1 and S2 no S3 or S4 3/6 systolic ejection murmur RESPIRATORY: No accessory muscle use. Clear to auscultation. Breath sounds equal bilaterally. GASTROINTESTINAL: Abdomen soft, non-tender, nondistended. Hepatic and splenic margins not palpable. MUSCULOSKELETAL: Extremities without clubbing, cyanosis, or edema. No obvious deformities. On multiple tips of fingers and toes has areas that are black and necrotic and on the palm NEUROLOGICAL: Awake and alert. No obvious cranial nerve deficits. Motor grossly within normal limits.4 out of 5 muscle strength in the arms and legs. Normal speech. PSYCHIATRIC: Appropriate mood and affect; insight and judgment ABnormal. Medications and IVs Current Medications Sodium Chloride 1,000 ml @ 1,000 mls/hr Q1H ONCE IV Last administered on at 20:41; Start 08/09/17 at 20:19; Stop 08/09/17 at 21:18; Status DC Sodium Chloride 800 ml @ 1,000 mls/hr Q48M ONCE IV Last administered on at 22:11; Start 08/09/17 at 20:19; Stop 08/09/17 at 21:06; Status DC Ketorolac Tromethamine (Toradol Inj) 15 mg ONCE ONCE IV PUSH Last administered on 08/09/17at 20:42; Start 08/09/17 at 20:30; Stop 08/09/17 at 20:31 ; Status DC Vancomycin HCl 550 mg/Sodium Chloride 255.5 ml @ 250 mls/hr ONCE ONCE IV Last administered on 08/09/17at 22:11; Start 08/09/17 at 20:30; Stop 08/09/17 at 21:31; Status DC Piperacillin Sod/ Tazobactam Sod 50 ml @ 100 mls/hr ONCE ONCE IV Last administered on 08/09/17at 20:41; Start 08/09/17 at 20:30; Stop 08/09/17 at 20:59 ; Status DC Ondansetron HCl (Zofran Inj) 4 mg STK-MED ONCE .ROUTE ; Start 08/09/17 at 20:30 ; Stop 08/09/17 at 20:31; Status DC Ondansetron HCl (Zofran Inj) 4 mg ONCE ONCE IV PUSH Last administered on at 20:42; Start 08/09/17 at 20:30; Stop 08/09/17 at 20:31; Status DC Potassium Chloride (KCl) 40 meq ONCE ONCE PO Last administered on 08/09/17at 23 :00; Start 08/09/17 at 22:15; Stop 08/09/17 at 22:16; Status DC Calcium Chloride (Calcium Chloride Inj) 1 gm ONCE ONCE IV PUSH Last administered on 08/09/17at 23:00; Start 08/09/17 at 22:15; Stop 08/09/17 at 22:16 ; Status DC Potassium Chloride (KCl) 40 meq ONCE ONCE PO ; Start 08/09/17 at 22:15; Stop at 22:16; Status DC Pharmacy Profile Note 0 ml @ 0 mls/hr UNSCH OTHER ; Start 08/09/17 at 22:15; Stop 08/11/17 at 13:26; Status DC Potassium Chloride/Sodium Chloride 1,000 ml @ 100 mls/hr Q10H IV Last administered on 08/12/17at 02:04; Start 08/09/17 at 22:14; Stop 08/12/17 at 10:53 ; Status DC Sodium Chloride (NS Flush) 2 ml UNSCH PRN IV FLUSH FLUSH AFTER USING IV ACCESS Last administered on 08/23/17at 03:41; Start 08/09/17 at 22:15 Sodium Chloride (NS Flush) 2 ml BID IV FLUSH Last administered on 08/28/17at 09: 04; Start 08/10/17 at 09:00 Famotidine (Pepcid Inj) 20 mg Q12HR IV PUSH ; Start 08/10/17 at 09:00; Stop at 09:00; Status DC Famotidine (Pepcid) 20 mg Q12HR PO ; Start 08/10/17 at 09:00; Stop 08/10/17 at 09:00; Status DC Ondansetron HCl (Zofran Inj) 4 mg Q6H PRN IV PUSH NAUSEA OR VOMITING Last administered on 08/28/17at 04:14; Start 08/09/17 at 22:15 Albuterol Sulfate (Albuterol Neb) 2.5 mg Q2HR NEB PRN INH SOB/WHEEZING Last administered on 08/26/17at 11:30; Start 08/09/17 at 22:15 Miscellaneous Information 1 Q361D XX Last administered on 08/09/17at 22:15; Start 08/09/17 at 22:15 Chlorhexidine Gluconate (Chlorhexidine 2% Cloth) Taper DAILY@04 TOP Last administered on 08/19/17at 01:45; Start 08/10/17 at 04:00; Stop 08/06/18 at 03:59 Chlorhexidine Gluconate (Chlorhexidine 2% Cloth) 3 pack UNSCH PRN TOP HYGIENIC CARE; Start 08/09/17 at 22:15 Senna/Docusate Sodium (Cira-Colace) 1 tab BID PO Last administered on at 08:11; Start 08/10/17 at 09:00 Magnesium Hydroxide (Milk Of Magnesia Liq) 30 ml Q12H PRN PO Mild constipation ; Start 08/09/17 at 22:15 Sennosides (Senokot) 17.2 mg Q12H PRN PO Moderate constipation; Start 08/09/17 at 22:15 Bisacodyl (Dulcolax Supp) 10 mg DAILY PRN RECTAL SEVERE CONSITIPATION; Start at 22:15 Lactulose (Lactulose Liq) 30 ml DAILY PRN PO SEVERE CONSITIPATION; Start at 22:15 Piperacillin Sod/ Tazobactam Sod 50 ml @ 100 mls/hr Q6H IV Last administered on 08/10/17at 08:39; Start 08/10/17 at 03:00; Stop 08/10/17 at 13:30; Status DC Potassium Chloride 100 ml @ 50 mls/hr Q2H PRN IV For Potassium 2.8 - 3.2 mEq/ L Last administered on 08/22/17at 09:04; Start 08/10/17 at 00:15; Stop 08/23/17 at 07:19; Status DC Potassium Chloride 100 ml @ 50 mls/hr Q2H PRN IV For Potassium 2.8 - 3.2 mEq/ L Last administered on 08/11/17at 10:44; Start 08/10/17 at 00:15; Stop 08/23/17 at 07:19; Status DC Potassium Bicarb/ Potassium Chloride (K-Lyte Cl Eff) 50 meq UNSCH PRN PO For Potassium 3.3 - 3.5 mEq/L; Start 08/10/17 at 00:15; Stop 08/23/17 at 07:19; Status DC Potassium Chloride 100 ml @ 25 mls/hr UNSCH PRN IV For Potassium 3.3 - 3.5 mEq /L; Start 08/10/17 at 00:15; Stop 08/23/17 at 07:19; Status DC Potassium Chloride 100 ml @ 50 mls/hr Q2H PRN IV For Potassium 3.3 - 3.5 mEq/L ; Start 08/10/17 at 00:15; Stop 08/23/17 at 07:19; Status DC Magnesium Sulfate 4 gm/Sodium Chloride 100 ml @ 50 mls/hr UNSCH PRN IV For Magnesium 0.9 - 1.1 mg/dL; Start 08/10/17 at 00:15; Stop 08/23/17 at 07:19; Status DC Magnesium Oxide (Mag-Ox) 800 mg UNSCH PRN PO For Magnesium 1.2 - 1.6 mg/dL; Start 08/10/17 at 00:15; Stop 08/23/17 at 07:19; Status DC Magnesium Sulfate 2 gm/Sodium Chloride 100 ml @ 50 mls/hr UNSCH PRN IV For Magnesium 1.2 - 1.6 mg/dL; Start 08/10/17 at 00:15; Stop 08/23/17 at 07:19; Status DC Potassium Phosphate (K-Phos) 2,000 mg Q4H PRN PO For Phosphorus < 2.5 mg/dL Last administered on 08/10/17at 21:18; Start 08/10/17 at 00:15; Stop 08/23/17 at 07:19; Status DC Sodium Phosphate 30 mmol/Sodium Chloride 250 ml @ 42 mls/hr UNSCH PRN IV For Phosphorus < 2.5 mg/dL Last administered on 08/10/17at 11:15; Start 08/10/17 at 00:15; Stop 08/23/17 at 07:19; Status DC Potassium Phosphate (K-Phos) 2,000 mg UNSCH PRN PO/TUBE SEE LABEL COMMENTS; Start 08/10/17 at 00:15; Stop 08/23/17 at 07:19; Status DC Potassium Phosphate 30 mmol/ Sodium Chloride 260 ml @ 42 mls/hr UNSCH PRN IV SEE LABEL COMMENTS; Start 08/10/17 at 00:15; Stop 08/23/17 at 07:19; Status DC Dextrose (D50w (Vial) Inj) 50 ml UNSCH PRN IV PUSH HYPOGLYCEMIA-SEE COMMENTS; Start 08/10/17 at 00:15 Glucagon (Glucagon Inj) 1 mg UNSCH PRN OTHER HYPOGLYCEMIA-SEE COMMENTS; Start 08/10/17 at 00:15 Insulin Aspart (NovoLOG SUPPLEMENTAL SCALE) 1 ACHS SLIDING SCALE SQ ; Start at 08:00; Stop 08/10/17 at 10:54; Status DC Acetaminophen/ Hydrocodone Bitart ([place] 10-325 Mg) 1 tab Q4H PRN PO PAIN 1-5 Last administered on 08/15/17at 11:46; Start 08/10/17 at 02:00; Stop 08/21/17 at 17:38; Status DC Acetaminophen/ Hydrocodone Bitart ([place]ty 10-325 Mg) 2 tab Q4H PRN PO PAIN 6-10 Last administered on 08/21/17at 15:41; Start 08/10/17 at 02:00; Stop 08/21/17 at 17:38; Status DC Nicotine (Habitrol 21 Mg Patch.24 Hr) 1 patch DAILY T-DERMAL Last administered on 08/28/17at 09:02; Start 08/10/17 at 09:00 Miscellaneous Information 1 DAILY T-DERMAL Last administered on 08/28/17at 09:00 ; Start 08/10/17 at 09:00 Pantoprazole Sodium (Protonix) 40 mg DAILY PO Last administered on 08/28/17at 09: 04; Start 08/10/17 at 09:00 Phenylephrine HCl 40 mg/Dextrose 500 ml @ 30 mls/hr TITRATE PRN IV Blood pressure management Last administered on 08/11/17at 00:41; Start 08/10/17 at 03: 15; Stop 08/14/17 at 09:00; Status DC Terbutaline Sulfate (Brethine Inj) 1 mg UNSCH PRN SQ For Extravasation; Start 08/10/17 at 03:15; Stop 08/22/17 at 11:10; Status DC Albumin Human 50 ml @ 60 mls/hr ONCE ONCE IV Last administered on 08/10/17at 03 :23; Start 08/10/17 at 03:15; Stop 08/10/17 at 04:04; Status DC Sodium Chloride 1,000 ml @ 999 mls/hr BOLUS ONCE IV Last administered on 08/10at 03:23; Start 08/10/17 at 03:15; Stop 08/10/17 at 04:15; Status DC Fentanyl Citrate (fentaNYL INJ) 100 mcg STK-MED ONCE .ROUTE ; Start 08/10/17 at 05:34; Stop 08/10/17 at 05:35; Status DC Fentanyl Citrate (fentaNYL INJ) 50 mcg UNSCH X1 PRN IV PAIN PRE-PROCEDURE; Start 08/10/17 at 06:30; Stop 08/10/17 at 06:31; Status DC Vancomycin HCl 750 mg/Sodium Chloride 257.5 ml @ 250 mls/hr Q12H IV Last administered on 08/11/17at 10:43; Start 08/10/17 at 10:00; Stop 08/11/17 at 13:26 ; Status DC Miscellaneous Information SPECIFIC LAB TO BE DRAWN:VANCOMYCIN TROUGH DATE TO... ONCE ONCE .XX Last administered on 08/11/17at 10:15; Start 08/11/17 at 09:45; Stop 08/11/17 at 09:46; Status DC Insulin Aspart (NovoLOG SUPPLEMENTAL SCALE) 1 Q4H SQ Last administered on at 00:16; Start 08/10/17 at 12:00; Stop 08/16/17 at 12:18; Status DC Gentamicin Sulfate 40 mg/ Sodium Chloride 101 ml @ 100 mls/hr Q12H IV Last administered on 08/11/17at 15:49; Start 08/10/17 at 16:00; Stop 08/13/17 at 10:55 ; Status DC Rifampin (Rifampin) 300 mg Q12H PO Last administered on 08/28/17at 02:03; Start 08/10/17 at 15:00 Oxacillin Sodium 2 gm/Sodium Chloride 100 ml @ 200 mls/hr Q4H IV Last administered on 08/28/17at 09:01; Start 08/11/17 at 14:00 Furosemide (Lasix Inj) 40 mg STK-MED ONCE .ROUTE Last administered on at 08:45; Start 08/12/17 at 08:45; Stop 08/12/17 at 08:46; Status DC Alprazolam (Xanax) 0.125 mg ONCE ONCE PO Last administered on 08/12/17at 18:50 ; Start 08/12/17 at 19:00; Stop 08/12/17 at 19:01; Status DC Furosemide (Lasix Inj) 40 mg ONCE ONCE IV PUSH Last administered on 08/13/17at 08:45; Start 08/13/17 at 08:45; Stop 08/13/17 at 08:46; Status DC Zolpidem Tartrate (Ambien) 5 mg ONCE ONCE PO Last administered on 08/13/17at 18 :00; Start 08/13/17 at 18:00; Stop 08/13/17 at 18:01; Status DC Calcium Gluconate 1 gm/Sodium Chloride 110 ml @ 110 mls/hr ONCE ONCE IV Last administered on 08/14/17at 09:51; Start 08/14/17 at 11:00; Stop 08/14/17 at 11:59 ; Status DC Sodium Chloride 1,000 ml @ 42 mls/hr [id number] IV Last administered on at 08:41; Start 08/14/17 at 09:00; Stop 08/16/17 at 08:36; Status DC Morphine Sulfate (Morphine Inj) 2 mg STK-MED ONCE .ROUTE ; Start 08/14/17 at 10: 05; Stop 08/14/17 at 10:06; Status DC Morphine Sulfate (Morphine Inj) 0.5 mg NOW ONCE IV PUSH Last administered on at 10:30; Start 08/14/17 at 10:30; Stop 08/14/17 at 10:31; Status DC Calcium Gluconate 1 gm/Sodium Chloride 110 ml @ 110 mls/hr ONCE ONCE IV Last administered on 08/15/17at 08:53; Start 08/15/17 at 09:00; Stop 08/15/17 at 09:59 ; Status DC Morphine Sulfate (Morphine Inj) 0.5 mg NOW ONCE IV PUSH Last administered on at 08:40; Start 08/15/17 at 08:45; Stop 08/15/17 at 08:46; Status DC Morphine Sulfate (Morphine Inj) 2 mg STK-MED ONCE .ROUTE ; Start 08/15/17 at 08: 34; Stop 08/15/17 at 08:35; Status DC Hydromorphone HCl (Dilaudid Pf Inj) 0.5 mg ONCE ONCE IV PUSH Last administered on 08/15/17at 13:41; Start 08/15/17 at 13:30; Stop 08/15/17 at 13:32 ; Status DC Calcium Gluconate 1 gm/Sodium Chloride 110 ml @ 110 mls/hr ONCE ONCE IV Last administered on 08/16/17at 09:55; Start 08/16/17 at 10:00; Stop 08/16/17 at 10:59 ; Status DC Zolpidem Tartrate (Ambien) 10 mg HS PRN PO INSOMNIA Last administered on at 20:46; Start 08/16/17 at 20:45; Stop 08/20/17 at 13:57; Status DC Hydromorphone HCl (Dilaudid Pf Inj) 0.5 mg ONCE ONCE IV PUSH Last administered on 08/17/17at 08:15; Start 08/17/17 at 07:45; Stop 08/17/17 at 08:16 ; Status DC Metoprolol Tartrate (Lopressor) 12.5 mg Q12HR PO Last administered on at 08:03; Start 08/17/17 at 14:30; Stop 08/20/17 at 13:57; Status DC Miscellaneous (Pill Splitter) 1 ea UNSCH PRN OTHER SEE LABEL COMMENTS; Start at 14:30 Diatrizoate Meglum/ Diatrizoate Sod ( Gastroview Liq) 18 ml ONCE ONCE PO Last administered on 08/19/17at 08:49; Start 08/19/17 at 07:45; Stop 08/19/17 at 07:46; Status DC Pharmacy Profile Note 0 ml @ 0 mls/hr UNSCH OTHER ; Start 08/19/17 at 10:30; Stop 08/23/17 at 13:20; Status DC Vancomycin/Sodium Chloride 200 ml @ 200 mls/hr Q18H IV Last administered on at 05:58; Start 08/19/17 at 12:00; Stop 08/23/17 at 13:20; Status DC Miscellaneous Information SPECIFIC LAB TO BE DRAWN:VANCOMYCIN TROUGH DATE TO... ONCE ONCE .XX Last administered on 08/21/17at 17:45; Start 08/21/17 at 17:45; Stop 08/21/17 at 17:46; Status DC Morphine Sulfate (Morphine Inj) 3 mg NOW ONCE IV Last administered on at 10:55; Start 08/19/17 at 11:00; Stop 08/19/17 at 11:01; Status DC Morphine Sulfate (Morphine Inj) 2 mg Q6H PRN IV PUSH pain 7-10 or not taking po Last administered on 08/27/17at 01:49; Start 08/19/17 at 14:45; Stop 08/27/17 at 13:29; Status DC Furosemide (Lasix Inj) 20 mg BID@09,18 IV PUSH Last administered on 08/20/17at 08:03; Start 08/19/17 at 15:00; Stop 08/20/17 at 13:57; Status DC Potassium Chloride (KCl) 20 meq DAILY PO Last administered on 08/26/17at 08:29; Start 08/19/17 at 14:30; Stop 08/26/17 at 11:59; Status DC Albumin Human 100 ml @ 60 mls/hr Q12H IV Last administered on 08/22/17at 02:40 ; Start 08/19/17 at 14:45; Stop 08/22/17 at 14:44; Status DC Furosemide (Lasix Inj) 40 mg Q6H IV PUSH Last administered on 08/25/17at 15:17; Start 08/20/17 at 15:00; Stop 08/26/17 at 07:49; Status DC Metoprolol Tartrate (Lopressor) 25 mg Q6HR PO Last administered on 08/21/17at 05 :38; Start 08/20/17 at 18:00; Stop 08/21/17 at 09:41; Status DC Metoprolol Tartrate (Lopressor) 37.5 mg Q6HR PO Last administered on 08/21/17at 11:51; Start 08/21/17 at 12:00; Stop 08/21/17 at 17:37; Status DC Acetazolamide Sodium (Diamox Inj) 500 mg ONCE ONCE IV PUSH Last administered on 08/21/17at 11:50; Start 08/21/17 at 10:30; Stop 08/21/17 at 10:31; Status DC Metoprolol Tartrate (Lopressor) 50 mg Q6HR PO Last administered on 08/27/17 00: 22; Start 08/21/17 at 18:00 Acetaminophen (Tylenol) 500 mg Q6H PO Last administered on 08/28/17 06:03; Start 08/21/17 at 18:00 Gabapentin (Neurontin) 300 mg TID PO Last administered on 08/28/17 09:04; Start 08/21/17 at 18:00 Tizanidine HCl (Zanaflex) 4 mg Q12HR PO Last administered on 08/28/17 09:04; Start 08/21/17 at 21:00 Oxycodone HCl (Roxicodone) 5 mg Q4H PRN PO pain 1-5 Last administered on 06:03; Start 08/21/17 at 17:45 Miscellaneous Information SPECIFIC [facility] BE DRAWN[facility] TO [facility]... ONCE ONCE .XX Last administered on 08/23/17at 05:58; Start 08/23/17 at 05 :45; Stop 08/23/17 at 05:46; Status DC Metolazone (Zaroxolyn) 5 mg ONCE ONCE PO Last administered on 08/22/17at 12:06 ; Start 08/22/17 at 11:30; Stop 08/22/17 at 11:31; Status DC Alteplase, Recombinant (Cathflo Activase Inj) 2 mg NOW ONCE I-ARTERIAL Last administered on 08/22/17at 22:26; Start 08/22/17 at 19:15; Stop 08/22/17 at 19:17 ; Status DC Potassium Chloride (KCl) 20 meq ONCE ONCE PO Last administered on 08/23/17at 09 :35; Start 08/23/17 at 09:00; Stop 08/23/17 at 09:10; Status DC Ketorolac Tromethamine (Toradol Inj) 30 mg ONCE ONCE IV PUSH Last administered on 08/23/17at 12:15; Start 08/23/17 at 12:00; Stop 08/23/17 at 12:01 ; Status DC Potassium Chloride (KCl) 40 meq ONCE ONCE PO Last administered on 08/23/17at 16 :35; Start 08/23/17 at 15:30; Stop 08/23/17 at 15:31; Status DC Potassium Chloride (KCl) 60 meq ONCE ONCE PO Last administered on 08/24/17at 09 :44; Start 08/24/17 at 08:00; Stop 08/24/17 at 08:31; Status DC Sodium Chloride 250 ml @ 15 mls/hr ONCE ONCE IV Last administered on at 15:15; Start 08/24/17 at 08:00; Stop 08/25/17 at 00:39; Status DC Furosemide (Lasix Inj) 20 mg ONCE ONCE IV PUSH Last administered on 08/24/17at 16:10; Start 08/24/17 at 15:45; Stop 08/24/17 at 15:46; Status DC Ketorolac Tromethamine (Toradol Inj) 30 mg Q12HR PRN IV PUSH pain Last administered on 08/28/17 04:14; Start 08/25/17 at 12:00 Potassium Chloride (KCl) 50 meq ONCE ONCE PO Last administered on 08/26/17 08: 29; Start 08/26/17 at 06:45; Stop 08/26/17 at 06:46; Status DC Furosemide (Lasix Inj) 40 mg DAILY IV PUSH Last administered on 08/26/17 08:29 ; Start 08/26/17 at 09:00; Stop 08/26/17 at 11:59; Status DC Potassium Chloride (KCl) 60 meq ONCE ONCE PO Last administered on 08/26/17 08: 28; Start 08/26/17 at 08:00; Stop 08/26/17 at 08:01; Status DC Potassium Chloride (KCl) 20 meq BID PO Last administered on 08/28/17 09:04; Start 08/26/17 at 21:00 Furosemide (Lasix Inj) 40 mg BID@,18 IV PUSH Last administered on 08/27/17 08 :26; Start 08/26/17 at 18:00 Zolpidem Tartrate (Ambien) 5 mg HS PRN PO INSOMNIA Last administered on 22:32; Start 08/27/17 at 11:45 Morphine Sulfate (Morphine Inj) 2 mg Q8H PRN IV PUSH pain 7-10 or not taking po Last administered on 2/3/18at 09:05; Start 08/27/17 at 13:30 A/P Problem List: (1) Septic shock ICD Code: A41.9 - Sepsis, unspecified organism; R65.21 - Severe sepsis with septic shock Status: Resolved (2) Cocaine abuse ICD Code: F14.10 - Cocaine abuse, uncomplicated Status: Chronic (3) DIC (disseminated intravascular coagulation) ICD Code: D65 - Disseminated intravascular coagulation [defibrination syndrome] Status: Resolved (4) Hyponatremia ICD Code: E87.1 - Hypo-osmolality and hyponatremia Status: Resolved (5) INES (acute kidney injury) ICD Code: N17.9 - Acute kidney failure, unspecified Status: Resolved (6) Hypokalemia ICD Code: E87.6 - Hypokalemia Status: Resolved Permanent Comment: unknown chronicity, probably subacute Last Edited By: Yashira Ivey on Aug 10, 2017 07:41 (7) Hyperbilirubinemia ICD Code: E80.6 - Other disorders of bilirubin metabolism Status: Acute (8) Elevated troponin level ICD Code: R74.8 - Abnormal levels of other serum enzymes Status: Acute (9) H/O endocarditis ICD Code: Z86.79 - Personal history of other diseases of the circulatory system Status: Chronic (10) Abnormal transaminases ICD Code: R74.8 - Abnormal levels of other serum enzymes Status: Acute (11) Pain ICD Code: R52 - Pain, unspecified Status: Chronic (12) Anxiety ICD Code: F41.9 - Anxiety disorder, unspecified Status: Chronic Assessment and Plan Assessment and Plan 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 Appreciate ID involvement- will need to continue with IV oxacillin for total of 6 weeks from negative blood cultures on 08/20 Fluid overload due to valvular heart disease -decrease Lasix from every 6 hours to twice a day; and watch for fluid intake and output and pulmonary status. Anemia, acute on chronic likely due to DIC from sepsis and infectious endocarditis; hemoglobin has been stable after transfusion Up to 10.6 following transfusion, more energetic, hematology following. Polysubstance Abuse- counseled Stemming from abuse of chronic pain meds History of Opioid abuse, Cocaine abuse and IV DU Hypokalemia KCl added to IVF- Increase oral potassium supplement to twice a day due to frequency of Lasix. We'll replace again Ascites Visible on CT scan Evidence of fluid overload chronicity - decrease Lasix from every 6 to twice a day, will need to watch for any symptoms of fluid overload.. Normal Ammonia Chest pressure due to likely endocarditis and monitor for any signs of the pulmonary edema Continue current Lasix. 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
[2017-08-28] MEDS: RESP: ALBUTEROL 2.5 MG/3 ML NEB (PRN) INH (20:14)
[2017-08-28] MEDS: ZOLPIDEM TARTRATE 5 MG TAB PO PRN (23:21)
[2017-08-29] VITALS (18 sets, daily range): BP systolic 86–214; BP diastolic 46–118; PULSE 68–102; RESP 16–36; TEMP 93–97.8; O2SAT 84–100
[2017-08-29] MEDS: OXACILLIN INJ 2 GM in SODIUM CHLORIDE 0.9% INJ 100 ML IV SCH ×6 (01:27→22:15)
[2017-08-29] MEDS: MORPHINE SULFATE 2 MG/ML INJ IV PUSH PRN ×2 (01:27→21:36)
[2017-08-29] MEDS: RESP: ALBUTEROL 2.5 MG/3 ML NEB (PRN) INH ×2 (03:40→06:24)
[2017-08-29] MEDS: CHLORHEXIDINE GLUCONATE 2 % 1 PACK (2 CLOTHS) TOP SCH (04:00)
[2017-08-29] MEDS: KETOROLAC TROMETHAMINE 30 MG/ML (IVP) VIAL IV PUSH PRN (04:28)
[2017-08-29] MEDS: ACETAMINOPHEN 500 MG CPLT PO SCH ×3 (04:28→17:39)
[2017-08-29] MEDS: METOPROLOL TARTRATE 25 MG TAB PO SCH ×4 (04:28→21:26)
[2017-08-29] MEDS: RIFAMPIN 150 MG CAP PO SCH ×2 (04:33→13:59)
[2017-08-29] MEDS: PANTOPRAZOLE SOD 40 MG DELAYED RELEASE TAB PO SCH (08:35)
[2017-08-29] MEDS ORDERED: MIDAZOLAM HCL 5 MG/ML VIAL (1 ML) IV ONE (08:45)
[2017-08-29] MEDS ORDERED: MIDAZOLAM 100 MG/100 ML INJ 100 ML IV PRN (08:45)
[2017-08-29] MEDS ORDERED: fentaNYL DRIP 250 ML IV PRN (08:45)
[2017-08-29] MEDS ORDERED: ONDANSETRON HCL 4 MG/2 ML VIAL IV PUSH PRN (08:45)
[2017-08-29] MEDS ORDERED: TERBUTALINE INJ 1 MG/ML AMP SQ PRN (08:45)
[2017-08-29] MEDS ORDERED: CHLORHEXIDINE GLUCONATE 2 % 1 PACK (2 CLOTHS) TOP PRN (08:45)
[2017-08-29] MEDS ORDERED: MISCELLANEOUS NURSING INFORMATION XX SCH (08:45)
[2017-08-29] MEDS ORDERED: ROCURONIUM INJ 50 MG/5 ML VIAL IV ONE (08:45)
[2017-08-29] MEDS ORDERED: RESP: ALBUTEROL 2.5 MG/IPRATROPIUM 0.5 MG NEB (PRN) INH (08:45)
[2017-08-29] MEDS: REMOVE OLD PATCH T-DERMAL SCH (09:00)
[2017-08-29] MEDS: POTASSIUM CHLORIDE 20 MEQ CONTROLLED RELEASE TAB PO SCH ×2 (09:00→21:00)
[2017-08-29] MEDS: NICOTINE 21 MG/24 HR PATCH T-DERMAL SCH (09:00)
--- NOTE | 2017-08-29 09:09 | HHI.CCPN ---
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 She states that her valve replacement was performed at [facility] but I do not see record of this. She is unsure of when it was done. Unable to pull up old CXRs. She is uncertain of causative organism or treatment course. She presents to [facility] ED stating that she has had a 2 day history of subjective fever and nonproductive cough. She has also had tender, painful lesions on her hands and feet which on exam are consistent with [place] nodes. She states the reason she sought medical treatment was that "the pain became unbearable" and that it hurt to walk to the bathroom because of the tenderness on the soles of her feet. She denies headache , sore throat, chest pain, abdominal pain, hemoptysis. She states she has been actively injecting Suboxone which she acquired from "the street", stating she last injected into her right neck on 08/08/17 at around noon. In the ED, 2 sets of blood cultures were obtained, urinalysis and urine culture. She was given Vancomycin, zosyn, and 2 L NS bolus. Influenza screen is negative. Her sodium is 121, potassium 3, creatinine 1.29, lactic acid 5.9. 08/10 Patient is on Neosyn 40 mics. T:103.0 last night. BC from 08/09: GPC 2/4 bottles 08/11: C/o pain in left foot. 08/12 No events overnight. On Neosyn 10 mics. Afebrile. 08/13 Patient is lying in bed in NAD. Afebrile. Off Neosyn. Cr. increased 1.7 today from 1.4 08/14 No events overnight. Cr: 1.8, UOP: 2L in 24 hrs. Afebrile. 08/15 No events overnight. On room air oxygen. Awake and alert. Renal function is improving with Cr: 1.45 today from 1.8 yesterday 08/16 Patient is lying in bed in NAD. Afebrile. BC from 08/12: GPC 08/17 No events overnight. s/p transfusion 2units PRBC yesterday Hgb 9.9 from 6.8 yesterday. Afebrile. 08/18: Remains in moderate distress due to abdominal pain and distention. Apparently unchanged from yesterday. White count remains elevated at 17,000. Blood cultures from 08/16/17 positive for GPC 08/19: Persistent staph aureus bacteremia. White count increased to 19.8. CT abdomen pelvis shows evidence of fluid overload splenic infarct and gallbladder sludge. Start diuresis with IV Lasix 20 every 12 with IV albumin. Continue to have abdominal pain 08/20: continues to complain of generalized pain "all over my body". no specific complaints. tolerates PO. HR in the 110s, but stable. leukocytosis persists. blood cultures still positive. redraw bl cx sent today. peripheral edema persists. clinically appears volume overloaded. ROS negative. 08/21: continues to complain of pain, mostly back pain from her chronic scoliosis pain. she states mobility works the best. she was taking suboxone for this at home. she asks for more pain medications and states the morphine is not working. blood cultures negative x 1 day. still volume overloaded with significant edema, but good diuresis. SIRS response continues with tachycardia despite increases in lopressor. 08/22: still complains of pain, although is somnolent this morning. still has not gotten out of bed at all. cultures NGTD so far. still net + despite diuresis attempts. still fluid overloaded. will increase forced diuresis. 08/29: Elin called on floor. Patient brought emergently to [facility] for hypoxemic respiratory failure and hypotension with poor peripheral perfusion. Hands and feet are blue. skin cold. Objective Vital Signs Date Time Temp Pulse Resp B/P (MAP) Pulse Ox O2 Delivery O2 Flow Rate FiO2 08/29/17 04:00 96.5 88 20 99/54 (69) 98 08/28/17 20:17 Nasal Cannula 6.00 Intake and Output 08/29/17 08/29/17 08/30/17 08:00 16:00 00:00 Intake Total 240 ml Balance 240 ml Result Diagram: 08/27/17 0200 08/27/17 0200 Imaging Last Impressions Chest X-Ray 08/16/17 0000 Signed Impressions: Service Date/Time: Wednesday, August 16, 2017 08:37 - CONCLUSION: 1. Improved left upper lobe airspace disease. 2. Improved positive fluid balance. Rashard Pena MD Lower Extremity Ultrasound 08/10/17 0000 Signed Impressions: Service Date/Time: Thursday, August 10, 2017 07:51 - CONCLUSION: Normal examination. No evidence of DVT Ambrose Verdin MD Liver Ultrasound 08/10/17 0000 Signed Impressions: Service Date/Time: Thursday, August 10, 2017 08:04 - CONCLUSION: 1. Abnormal gallbladder filled with sludge and demonstrating wall thickening. There are no additional findings are present to suggest acute gallbladder inflammation. 2. Trace free fluid in the abdomen and small bilateral pleural effusions. 3. Mild splenomegaly. Rod Pascual MD Head CT 08/10/17 0000 Signed Impressions: Service Date/Time: Thursday, August 10, 2017 02:33 - CONCLUSION: No acute disease. Rod Garcia MD Objective Remarks GENERAL: Thin disheveled female in extremis. SKIN: Petechial lesions on the palms of both hands. Toes dusky. No splinter hemorrhages. Track blane present right neck and Left forearm. VASC: DP and [place] pulses absent bilaterally. HEAD: Atraumatic. Normocephalic. Gaunt. EYES: Pupils equal and round. No scleral icterus. No injection or drainage. ENT: No nasal bleeding or discharge. NECK: Trachea midline. No airway obstruction. CARDIOVASCULAR: Tachycardic, regular, sinus tach on the monitor. Systolic murmur LSB. RESPIRATORY: Fatigued, labored. GASTROINTESTINAL: Abdomen soft, nontender, nondistended. Quiet. MUSCULOSKELETAL: Extremities without clubbing, cyanosis, or edema. NEUROLOGICAL: Lethargic. Moves 4 limbs spontaneously. Speech confused. A/P Problem List: (1) Septic shock ICD Code: A41.9 - Sepsis, unspecified organism; R65.21 - Severe sepsis with septic shock Status: Resolved (2) Acute hypoxemic respiratory failure ICD Code: J96.01 - Acute respiratory failure with hypoxia (3) DIC (disseminated intravascular coagulation) ICD Code: D65 - Disseminated intravascular coagulation [defibrination syndrome] Status: Resolved (4) Cocaine abuse ICD Code: F14.10 - Cocaine abuse, uncomplicated Status: Chronic (5) IVDU (intravenous drug user) ICD Code: F19.90 - Other psychoactive substance use, unspecified, uncomplicated Status: Chronic (6) H/O prosthetic mitral valve ICD Code: Z95.2 - Presence of prosthetic heart valve Status: Chronic (7) H/O endocarditis ICD Code: Z86.79 - Personal history of other diseases of the circulatory system Status: Chronic (8) Lactic acidosis ICD Code: E87.2 - Acidosis Status: Acute (9) Hyponatremia ICD Code: E87.1 - Hypo-osmolality and hyponatremia Status: Resolved (10) Hypokalemia ICD Code: E87.6 - Hypokalemia Status: Resolved Permanent Comment: unknown chronicity, probably subacute Last Edited By: Yashira Ivey on Aug 10, 2017 07:41 (11) INES (acute kidney injury) ICD Code: N17.9 - Acute kidney failure, unspecified Status: Resolved (12) Hyperbilirubinemia ICD Code: E80.6 - Other disorders of bilirubin metabolism Status: Acute (13) Abnormal transaminases ICD Code: R74.8 - Abnormal levels of other serum enzymes Status: Acute (14) Elevated troponin level ICD Code: R74.8 - Abnormal levels of other serum enzymes Status: Acute Assessment and Plan Assessment: 37yF with 3-valve endocarditis, including bioprosthetic mitral valve endocarditis, which has failed to clear despite maximal antibiotic regimen. She is not a surgical candidate. She remains volume overloaded. continue forced diuresis. ok to get out of bed and ambulate and will consult PT to assist- per the patient this works the best for her chronic low back pain. will also add multimodal therapies to help with non-opioid pain control, as clearly narcotics are not being effective in treating her pain. Ultimately, her prognosis is poor as she continues to use IV drugs and will continue to have problems with infective endocarditis. NEURO: Acute encephalopathy, probably toxic metabolic secondary to sepsis. - resolved. IV drug use Opioid abuse Cocaine abuse Chronic pain syndrome Salicylate and Tylenol levels negative. Ammonia level low. CT brain-negative Pain regimen: gabapentin 300mg po tid tylenol 500mg po q6h (evidence of possible chronic liver disease, keep < 2gm/ day total) avoid NSAIDs given recent INES tizanidine 4mg po q12h ([id number]) oxycodone 5mg po q4h prn morphine 2mg iv q3h prn for breakthrough pain or withdraw symptoms. Convert to fentanyl and propofol while on vent. RESP: Bilateral pleural effusions Tobacco abuse Incentive spirometry every hour awake. Tobacco cessation counseling. Nicotine patch Chest x-ray -small amount of fluid in the fissure on the right. Overall clear oob to chair and PT. Bed rest. CV: Elevated troponin Septic shock-resolved Fluid overload anasarca Infective endocarditis Sinus tachycardia - improving. continue forced diuresis lasix 40mg iv q6h continue aldactone 25mg po q12h levophed for MAP support. 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 FEN/RENAL: Acute kidney injury Hyponatremia Hypokalemia Hypocalcemia IV Lasix and Aldactone as above Avoid NSAIDs and other nephrotoxins. Received ketorolac in ED 08/09. Potassium. 40 mEq by mouth now. Received calcium chloride 1 g IV per ED physician. Hyponatremia. INES secondary to valvulopathy CPK normal. ID: Severe sepsis Endocarditis involving mitral tricuspid and aortic valves History of [place] valve endocarditis now status post bioprosthetic mitral valve ?UTI persistently positive blood cultures for MSSA continue to trend Blood cultures q48h until clear. Continue Oxacillin , Vancomycin, Rifampin per ID. ID following Dr. Damian HIV negative and hepatitis C reactive HEME: DIC -resolved Anemia Monitor coags and fibrinogen. Hematology has signed off ENDO: Acute hyperglycemia SSI as needed PROPH: SCDs for DVT prophylaxis. Lovenox 40 mg subcutaneous daily. Protonix 40 mg by mouth daily for stress ulcer prophylaxis. Overall impression: Patient is critically ill with severe sepsis and hypoxemic respiratory failure. Mainstay of therapy at this point will be antibiotics and vasopressors. Organism on valves is identified, continue treatment as ordered. With her ongoing nutritional deterioration due to chronic drug abuse and refractory infection she will not survive this hospitalization. She is not a candidate for any heart procedure. Critical Care 45 mins aside from procedures. Hussein Rasmussen MD Aug 29, 2017 09:09
--- NOTE | 2017-08-29 09:13 | PD.PROCEDR ---
Procedure Note Procedure DX: Hypoxemic Respiratory Failure (J96.01) OP: Orotracheal intubation (43378) Procedure: Bag mask ventilation initiated on floor and continued to ISC. Versed 5 mg and rocuronium 50 mg iv. Intubated orally with 7.5 tube. Position confirmed with CO2 detection, breath sounds. Unable to record pulse ox recording due to poor perfusion. CXR ordered, will review. Hussein Rasmussen MD Aug 29, 2017 09:13
[2017-08-29] MEDS: DOCUSATE SODIUM 50 MG/SENNA 8.6 MG TAB PO SCH ×2 (10:30→21:00)
[2017-08-29] MEDS: GABAPENTIN 300 MG CAP PO SCH ×3 (10:30→17:38)
[2017-08-29] MEDS: FAMOTIDINE 20 MG/2 ML VIAL IV PUSH SCH ×2 (10:30→21:26)
[2017-08-29] MEDS: FUROSEMIDE 40 MG/4 ML VIAL IV PUSH SCH ×2 (10:30→17:38)
[2017-08-29] MEDS: SODIUM CHLORIDE 0.9% FLUSH 10 ML FLUSH IV FLUSH SCH ×2 (10:31→21:26)
--- NOTE | 2017-08-29 11:15 | RADRPT ---
EXAM DATE/TIME: 08/29/2017 10:40 [facility] COMPARISON: CHEST SINGLE AP, August 20, 2017, 3:47. INDICATIONS : Endotracheal tube placement. MEDICAL HISTORY : Cardiovascular disease. Hep C SURGICAL HISTORY : CABG. ENCOUNTER: Initial ACUITY: 1 day PAIN SCORE: Non-responsive. LOCATION: Bilateral chest FINDINGS: A single view of the chest demonstrates bilateral airspace disease slightly more prominent. Previous heart valve replacement. Endotracheal tube approximately 4 cm above the wilman. Nasogastric tube with tip likely in stomach. Left jugular central line with tip in the right atrium. No pneumothorax. The cardiomediastinal contours are unremarkable. Osseous structures are intact. Cervical fusion plate. CONCLUSION: 1. Bilateral airspace disease slightly more prominent. 2. Adequate placement of endotracheal tube. Harshal Diaz MD on August 29, 2017 at 11:11 Board Certified Radiologist. This report was verified electronically.
[2017-08-29] MEDS: NOREPINEPHRINE-DEXTROSE DRIP 250 ML IV PRN ×2 (11:37→21:43)
[2017-08-29 12:36] LABS: AUTOMATED NEUTROPHIL # 14.2 TH/MM3 (1.8-7.7); BASOPHIL % 0.1 % (0.0-2.0); EOSINOPHIL % 0.2 % (0.0-4.0); HEMATOCRIT 30.4 % (35.0-46.0); HEMOGLOBIN 10.2 GM/DL (11.6-15.3); LYMPH % 3.9 % (9.0-44.0); LYMPHOCYTE # 0.6 TH/MM3 (1.0-4.8); MEAN CORPUSCULAR HEMOGLOBIN 29.2 PG (27.0-34.0); MEAN CORPUSCULAR HGB CONC 33.5 % (32.0-36.0); MEAN PLATELET VOLUME 6.7 FL (7.0-11.0); MONO % 5.5 % (0.0-8.0); MONOCYTE # 0.9 TH/MM3 (0-0.9); NEUT % 90.3 % (16.0-70.0); PLATELET COUNT 482 TH/MM3 (150-450); RED BLOOD COUNT 3.49 MIL/MM3 (4.00-5.30); WHITE BLOOD COUNT 15.8 TH/MM3 (4.0-11.0)
[2017-08-29 12:55] LABS: ALBUMIN 2.1 GM/DL (3.4-5.0); AST (GOT) 143 U/L (15-37); BICARBONATE 21.8 MEQ/L (21.0-32.0); BLOOD UREA NITROGEN 42 MG/DL (7-18); CALCIUM 8.8 MG/DL (8.5-10.1); CHLORIDE 104 MEQ/L (98-107); CREATININE 1.51 MG/DL (0.50-1.00); GLOMERULAR FILTRATION RATE 38 ML/MIN (>89); GLUCOSE,RANDOM 106 MG/DL (74-106); MAGNESIUM 2.2 MG/DL (1.5-2.5); SODIUM (NA) 140 MEQ/L (136-145)
[2017-08-29] MEDS ORDERED: ALTEPLASE RECOMBINANT 2 MG VIAL IV FLUSH ONE (13:00)
[2017-08-29 13:19] LABS: ALKALINE PHOSPHATASE 111 U/L (45-117); ALT (GPT) 27 U/L (10-53); FREE T4 1.01 NG/DL (0.76-1.46); PHOSPHORUS 10.4 MG/DL (2.5-4.9); TOTAL BILIRUBIN ADULT 0.8 MG/DL (0.2-1.0); TOTAL PROTEIN 6.7 GM/DL (6.4-8.2)
[2017-08-29] MEDS ORDERED: SODIUM CHLORID 0.9% 500 ML INJ 500 ML IV ONE (19:00)
[2017-08-29 19:18] LABS: AMORPHOUS SEDIMENT, URINE RARE; BILIRUBIN, URINE NEG (NEG); BLOOD, URINE MOD (NEG); GLUCOSE,URINE NEG (NEG); HYALINE CAST, URINE 3 /lpf (RARE); KETONE, URINE 10 mg/dL (NEG); MUCUS URINE FEW /lpf (OCC); NITRITE,URINE NEG (NEG); PH, URINE 5.5 (5.0-8.5); SQUAMOUS EPITHELIAL CELL URINE 2 /hpf (0-5); URINE COLOR DARK-YELLOW (YELLW/STRAW); URINE LEUKOCYTE ESTERASE SMALL (NEG)
[2017-08-29] MEDS: CHLORHEXIDINE 0.12% (ORAL KIT) 15 ML CUP MT SCH (21:26)
[2017-08-29] MEDS: ZOLPIDEM TARTRATE 5 MG TAB PO PRN (21:36)
[2017-08-29] MEDS ORDERED: VASOPRESSIN INJ 40 UNITS in DEXTROSE 5% IN WATER 100ML INJ 98 ML IV SCH ×2 (23:55)
[2017-08-30] VITALS (9 sets, daily range): BP systolic 62–88; BP diastolic 32–51; PULSE 66–130; RESP 16–29; TEMP 95.3; O2SAT 80–100
[2017-08-30] MEDS: EPINEPHrine (1:1000) INJ 2 MG in DEXTROSE 5% IN WATER INJ 250 ML IV PRN ×6 (00:37→09:02)
[2017-08-30] MEDS: ACETAMINOPHEN 500 MG CPLT PO SCH ×2 (00:45→05:27)
[2017-08-30] MEDS: OXACILLIN INJ 2 GM in SODIUM CHLORIDE 0.9% INJ 100 ML IV SCH ×2 (00:46→05:12)
[2017-08-30] MEDS: RIFAMPIN 150 MG CAP PO SCH (01:27)
[2017-08-30] MEDS: NOREPINEPHRINE-DEXTROSE DRIP 250 ML IV PRN ×2 (01:29→07:56)
[2017-08-30] MEDS ORDERED: CHLORHEXIDINE GLUCONATE 2 % 1 PACK (2 CLOTHS) TOP SCH (04:00)
[2017-08-30] MEDS: METOPROLOL TARTRATE 25 MG TAB PO SCH (05:12)
[2017-08-30] MEDS: ACETAMINOPHEN 325 MG TAB PO PRN ×2 (05:17→05:25)
[2017-08-30] MEDS: MORPHINE SULFATE 2 MG/ML INJ IV PUSH PRN (05:22)
[2017-08-30] MEDS: RESP: ALBUTEROL 2.5 MG/IPRATROPIUM 0.5 MG NEB (SCH) NEB ×2 (07:00→09:53)
--- NOTE | 2017-08-30 07:03 | HHI.CCPN ---
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 She states that her valve replacement was performed at [facility] but I do not see record of this. She is unsure of when it was done. Unable to pull up old CXRs. She is uncertain of causative organism or treatment course. She presents to [facility] ED stating that she has had a 2 day history of subjective fever and nonproductive cough. She has also had tender, painful lesions on her hands and feet which on exam are consistent with [place] nodes. She states the reason she sought medical treatment was that "the pain became unbearable" and that it hurt to walk to the bathroom because of the tenderness on the soles of her feet. She denies headache , sore throat, chest pain, abdominal pain, hemoptysis. She states she has been actively injecting Suboxone which she acquired from "the street", stating she last injected into her right neck on 08/08/17 at around noon. In the ED, 2 sets of blood cultures were obtained, urinalysis and urine culture. She was given Vancomycin, zosyn, and 2 L NS bolus. Influenza screen is negative. Her sodium is 121, potassium 3, creatinine 1.29, lactic acid 5.9. 08/10 Patient is on Neosyn 40 mics. T:103.0 last night. BC from 08/09: GPC 2/4 bottles 08/11: C/o pain in left foot. 08/12 No events overnight. On Neosyn 10 mics. Afebrile. 08/13 Patient is lying in bed in NAD. Afebrile. Off Neosyn. Cr. increased 1.7 today from 1.4 08/14 No events overnight. Cr: 1.8, UOP: 2L in 24 hrs. Afebrile. 08/15 No events overnight. On room air oxygen. Awake and alert. Renal function is improving with Cr: 1.45 today from 1.8 yesterday 08/16 Patient is lying in bed in NAD. Afebrile. BC from 08/12: GPC 08/17 No events overnight. s/p transfusion 2units PRBC yesterday Hgb 9.9 from 6.8 yesterday. Afebrile. 08/18: Remains in moderate distress due to abdominal pain and distention. Apparently unchanged from yesterday. White count remains elevated at 17,000. Blood cultures from 08/16/17 positive for GPC 08/19: Persistent staph aureus bacteremia. White count increased to 19.8. CT abdomen pelvis shows evidence of fluid overload splenic infarct and gallbladder sludge. Start diuresis with IV Lasix 20 every 12 with IV albumin. Continue to have abdominal pain 08/20: continues to complain of generalized pain "all over my body". no specific complaints. tolerates PO. HR in the 110s, but stable. leukocytosis persists. blood cultures still positive. redraw bl cx sent today. peripheral edema persists. clinically appears volume overloaded. ROS negative. 08/21: continues to complain of pain, mostly back pain from her chronic scoliosis pain. she states mobility works the best. she was taking suboxone for this at home. she asks for more pain medications and states the morphine is not working. blood cultures negative x 1 day. still volume overloaded with significant edema, but good diuresis. SIRS response continues with tachycardia despite increases in lopressor. 08/22: still complains of pain, although is somnolent this morning. still has not gotten out of bed at all. cultures NGTD so far. still net + despite diuresis attempts. still fluid overloaded. will increase forced diuresis. 08/29: [place] called on floor. Patient brought emergently to [facility] for hypoxemic respiratory failure and hypotension with poor peripheral perfusion. Hands and feet are blue. skin cold. 08/30 Patient is intubated and on Fentanyl infusion for sedation/ Patient is on multiple pressors ( Levophed, Vasopressin, Epi). On PRVC with 100% FIO2) Objective Vital Signs Date Time Temp Pulse Resp B/P (MAP) Pulse Ox O2 Delivery O2 Flow Rate FiO2 08/30/17 06:00 103 08/30/17 05:18 129/55 08/30/17 04:00 100 40 08/30/17 04:00 98.1 21 08/28/17 20:17 Nasal Cannula 6.00 Intake and Output 08/30/17 08/30/17 08/31/17 08:00 16:00 00:00 Intake Total 100 ml Output Total 200 ml Balance -100 ml Result Diagram: 08/29/17 1210 08/29/17 1210 Other Results Laboratory Tests Test 08/29/17 10:50 08/29/17 12:10 08/29/17 17:45 08/30/17 05:39 Blood Gas Puncture Site RT RADIAL Blood Gas Patient Temperature 98.6 Blood Gas HCO3 15 mmol/L Blood Gas Base Excess -10.4 mmol/L Blood Gas Oxygen Saturation 94 % Arterial Blood pH 7.27 Arterial Blood Partial Pressure CO2 34 mmHg Arterial Blood Partial Pressure O2 106 mmHg Arterial Blood Oxygen Content 15.3 Vol % Arterial Blood Carboxyhemoglobin 0.8 % Arterial Blood Methemoglobin 1.4 % Blood Gas Hemoglobin 11.4 G/DL Oxygen Delivery Device VENTILATOR Blood Gas Ventilator Setting PRVC/AC 400/16 Blood Gas Inspired Oxygen 50 % White Blood Count 15.8 TH/MM3 Red Blood Count 3.49 MIL/MM3 Hemoglobin 10.2 GM/DL Hematocrit 30.4 % Mean Corpuscular Volume 87.0 FL Mean Corpuscular Hemoglobin 29.2 PG Mean Corpuscular Hemoglobin Concent 33.5 % Red Cell Distribution Width 15.0 % Platelet Count 482 TH/MM3 Mean Platelet Volume 6.7 FL Neutrophils (%) (Auto) 90.3 % Lymphocytes (%) (Auto) 3.9 % Monocytes (%) (Auto) 5.5 % Eosinophils (%) (Auto) 0.2 % Basophils (%) (Auto) 0.1 % Neutrophils # (Auto) 14.2 TH/MM3 Lymphocytes # (Auto) 0.6 TH/MM3 Monocytes # (Auto) 0.9 TH/MM3 Eosinophils # (Auto) 0.0 TH/MM3 Basophils # (Auto) 0.0 TH/MM3 CBC Comment DIFF FINAL Differential Comment Blood Urea Nitrogen 42 MG/DL Creatinine 1.51 MG/DL Random Glucose 106 MG/DL Total Protein 6.7 GM/DL Albumin 2.1 GM/DL Calcium Level 8.8 MG/DL Phosphorus Level 10.4 MG/DL Magnesium Level 2.2 MG/DL Alkaline Phosphatase 111 U/L Aspartate Amino Transf (AST/SGOT) 143 U/L Alanine Aminotransferase (ALT/SGPT) 27 U/L Total Bilirubin 0.8 MG/DL Sodium Level 140 MEQ/L Potassium Level 4.8 MEQ/L Chloride Level 104 MEQ/L Carbon Dioxide Level 21.8 MEQ/L Anion Gap 14 MEQ/L Estimat Glomerular Filtration Rate 38 ML/MIN Lactic Acid Level 4.6 mmol/L Free Thyroxine 1.01 NG/DL Thyroid Stimulating Hormone 3rd Gen 6.430 uIU/ML Urine Color DARK-YELLOW Urine Turbidity CLOUDY Urine pH 5.5 Urine Specific [place] 1.022 Urine Protein 30 mg/dL Urine Glucose (UA) NEG mg/dL Urine Ketones 10 mg/dL Urine Occult Blood MOD Urine Nitrite NEG Urine Bilirubin NEG Urine Urobilinogen LESS THAN 2.0 MG/DL Urine Leukocyte Esterase SMALL Urine RBC 87 /hpf Urine WBC 41 /hpf Urine Squamous Epithelial Cells 2 /hpf Urine Amorphous Sediment RARE Urine Hyaline Casts 3 /lpf Urine Mucus FEW /lpf Microscopic Urinalysis Comment CATH-CULTURE IND Imaging Last Impressions Chest X-Ray 08/29/17 0000 Signed Impressions: Service Date/Time: Tuesday, August 29, 2017 10:40 - CONCLUSION: 1. Bilateral airspace disease slightly more prominent. 2. Adequate placement of endotracheal tube. Harshal Diaz MD Abdomen/Pelvis CT 08/19/17 0000 Signed Impressions: Service Date/Time: July 12:57 - CONCLUSION: 1. Splenomegaly and likely splenic infarcts. 2. Heterogeneous density in the gallbladder suggesting sludge or calculi. 3. Ascites, moderate bilateral pleural effusions, and anasarca. 4. Diffusely dilated common duct. 5. 4.2 cm cystic mass in the left adnexal region. Adryan Olmstead MD Lower Extremity Ultrasound 08/10/17 0000 Signed Impressions: Service Date/Time: Thursday, August 10, 2017 07:51 - CONCLUSION: Normal examination. No evidence of DVT Ambrose Verdin MD Liver Ultrasound 08/10/17 0000 Signed Impressions: Service Date/Time: Thursday, August 10, 2017 08:04 - CONCLUSION: 1. Abnormal gallbladder filled with sludge and demonstrating wall thickening. There are no additional findings are present to suggest acute gallbladder inflammation. 2. Trace free fluid in the abdomen and small bilateral pleural effusions. 3. Mild splenomegaly. Rod Pascual MD Head CT 08/10/17 0000 Signed Impressions: Service Date/Time: Thursday, August 10, 2017 02:33 - CONCLUSION: No acute disease. Rod Garcia MD Objective Remarks GENERAL: Thin disheveled female in extremis. SKIN: Petechial lesions on the palms of both hands. Toes dusky. No splinter hemorrhages. Track blane present right neck and Left forearm. HEAD: Atraumatic. Normocephalic. EYES: Pupils equal and round. No scleral icterus. No injection or drainage. ENT: No nasal bleeding or discharge. NECK: Trachea midline. No airway obstruction. Orally intubated CARDIOVASCULAR: Tachycardic, regular, sinus tach on the monitor. Systolic murmur LSB. RESPIRATORY: Fatigued, labored. GASTROINTESTINAL: Abdomen soft, nontender, nondistended. MUSCULOSKELETAL: Extremities without clubbing, cyanosis, or edema. NEUROLOGICAL:Intubated A/P Problem List: (1) Septic shock ICD Code: A41.9 - Sepsis, unspecified organism; R65.21 - Severe sepsis with septic shock Status: Resolved (2) Acute hypoxemic respiratory failure ICD Code: J96.01 - Acute respiratory failure with hypoxia (3) DIC (disseminated intravascular coagulation) ICD Code: D65 - Disseminated intravascular coagulation [defibrination syndrome] Status: Resolved (4) Cocaine abuse ICD Code: F14.10 - Cocaine abuse, uncomplicated Status: Chronic (5) IVDU (intravenous drug user) ICD Code: F19.90 - Other psychoactive substance use, unspecified, uncomplicated Status: Chronic (6) H/O prosthetic mitral valve ICD Code: Z95.2 - Presence of prosthetic heart valve Status: Chronic (7) H/O endocarditis ICD Code: Z86.79 - Personal history of other diseases of the circulatory system Status: Chronic (8) Lactic acidosis ICD Code: E87.2 - Acidosis Status: Acute (9) Hyponatremia ICD Code: E87.1 - Hypo-osmolality and hyponatremia Status: Resolved (10) Hypokalemia ICD Code: E87.6 - Hypokalemia Status: Resolved Permanent Comment: unknown chronicity, probably subacute Last Edited By: Yashira Ivey on Aug 10, 2017 07:41 (11) INES (acute kidney injury) ICD Code: N17.9 - Acute kidney failure, unspecified Status: Resolved (12) Hyperbilirubinemia ICD Code: E80.6 - Other disorders of bilirubin metabolism Status: Acute (13) Abnormal transaminases ICD Code: R74.8 - Abnormal levels of other serum enzymes Status: Acute (14) Elevated troponin level ICD Code: R74.8 - Abnormal levels of other serum enzymes Status: Acute Assessment and Plan Assessment: 37yF with 3-valve endocarditis, including bioprosthetic mitral valve endocarditis, which has failed to clear despite maximal antibiotic regimen. She is not a surgical candidate. She remains volume overloaded. continue forced diuresis. ok to get out of bed and ambulate and will consult PT to assist- per the patient this works the best for her chronic low back pain. will also add multimodal therapies to help with non-opioid pain control, as clearly narcotics are not being effective in treating her pain. Ultimately, her prognosis is poor as she continues to use IV drugs and will continue to have problems with infective endocarditis. NEURO: Acute encephalopathy, probably toxic metabolic secondary to sepsis. IV drug use Opioid abuse Cocaine abuse Chronic pain syndrome On Fentanyl infusion for sedation. Salicylate and Tylenol levels negative. Ammonia level low. CT brain-negative Pain regimen: gabapentin 300mg po tid avoid NSAIDs given recent INES morphine 2mg iv prn for breakthrough pain or withdraw symptoms. RESP: Bilateral pleural effusions Tobacco abuse Continue with vent support keep sat >92% Bronchodilators, IC vent bundle. Check ABG CV: Elevated troponin Septic shock- Fluid overload anasarca Infective endocarditis Sinus tachycardia - Continue with pressors keep MAP>65mmHg Serial lactic acid monitoring, place on bicarb drip Give NS 1Liter bolus x1, d/c Lopressor- patient is on multiple pressors 2-D echo NL EF, Veg of tricuspid mitral and aortic valves GI: Elevated AST and hyperbilirubinemia Ascites Ammonia level normal CT abdomen pelvis shows ascites, splenic infarct, gallbladder sludge PLANNING RN - test negative on admission. FEN/RENAL: Acute kidney injury Hyperkalemia Monitor renal function, I/O's, avoid nephrotoxins. Give NS 1L bolus then DW+3amps bicarb @150ml/hr Treat hyperkalemia with 7u IV insulin, D50, bicarb, Ca and Kayexalate. ID: Severe sepsis Endocarditis involving mitral tricuspid and aortic valves History of coquille valve endocarditis now status post bioprosthetic mitral valve ?UTI Continue Oxacillin, Rifampin per ID. ID following Dr. Damian HIV negative and hepatitis C reactive HEME: DIC -resolved Anemia Monitor coags and fibrinogen. Hematology has signed off ENDO: SSI for glycemic control PROPH: Pepcid 20mg Q12 for stress ulcer prophylaxis. On SCD and Heparin SQ for DVT prophylaxis Overall impression: Patient is critically ill with septic shock, hypoxemic respiratory failure, acute renal failure, hyperkalemia, severe lactic acidemia and worsening leukocytosis. Palliative care is following Patient went into cardiopulmonary arrest ( asystole) twice after discussion with patient's father he agreed to make patient no code DNR. Palliatuve care discussed with family and they elected to proceed with comfort care. Critical Care 35 mins aside from procedures. Milton Velásquez MD Aug 30, 2017 07:03
[2017-08-30 07:08] LABS: AUTOMATED NEUTROPHIL # 20.4 TH/MM3 (1.8-7.7); BASOPHIL # 0.1 TH/MM3 (0-0.2); BASOPHIL % 0.4 % (0.0-2.0); EOSINOPHIL # 0.2 TH/MM3 (0-0.4); EOSINOPHIL % 0.9 % (0.0-4.0); HEMATOCRIT 28.9 % (35.0-46.0); HEMOGLOBIN 8.5 GM/DL (11.6-15.3); LYMPH % 12.2 % (9.0-44.0); LYMPHOCYTE # 3.1 TH/MM3 (1.0-4.8); MEAN CELL VOLUME 99.7 FL (80.0-100.0); MEAN CORPUSCULAR HEMOGLOBIN 29.2 PG (27.0-34.0); MEAN PLATELET VOLUME 7.2 FL (7.0-11.0); MONO % 7.2 % (0.0-8.0); MONOCYTE # 1.8 TH/MM3 (0-0.9); NEUT % 79.3 % (16.0-70.0); PLATELET COUNT 577 TH/MM3 (150-450); RED CELL DISTRIBUTION WIDTH 16.8 % (11.6-17.2); WHITE BLOOD COUNT 25.7 TH/MM3 (4.0-11.0)
[2017-08-30 07:12] LABS: MEAN CORPUSCULAR HGB CONC 29.3 % (32.0-36.0)
[2017-08-30] MEDS ORDERED: DEXTROSE 50% IN WATER 50 ML VIAL(D50) IV PUSH PRN (07:15)
[2017-08-30] MEDS ORDERED: GLUCAGON 1 MG/ML VIAL OTHER PRN (07:15)
[2017-08-30] MEDS ORDERED: PHENYLEPHRINE INJ 40 MG in DEXTROSE 5% IN WATE 500 ML INJ 496 ML IV PRN ×2 (07:30)
[2017-08-30] MEDS ORDERED: TERBUTALINE INJ 1 MG/ML AMP SQ PRN (07:30)
[2017-08-30 07:50] LABS: ALBUMIN 1.7 GM/DL (3.4-5.0); BICARBONATE 6.8 MEQ/L (21.0-32.0); CREATININE 2.25 MG/DL (0.50-1.00)
[2017-08-30 07:52] LABS: CALCIUM-PROTEIN CORRECTED 7.9 MG/DL (8.5-10.1); TOTAL PROTEIN 5.4 GM/DL (6.4-8.2)
[2017-08-30] MEDS: CHLORHEXIDINE 0.12% (ORAL KIT) 15 ML CUP MT SCH (07:57)
[2017-08-30] MEDS ORDERED: INSULIN NovoLIN REGULAR SUPPLEMENTAL SCALE SQ SCH (08:00)
[2017-08-30] MEDS ORDERED: HYDROCORTISONE SOD SUCCINATE 100 MG VIAL IV PUSH SCH (08:00)
[2017-08-30] MEDS ORDERED: DEXT 5%-NACL 0.9% 1000 ML INJ 1,000 ML IV SCH (08:00)
[2017-08-30] MEDS ORDERED: DEXTROSE 50% IN WATER 50 ML SYRINGE ONE (08:17)
[2017-08-30 08:21] LABS: BANDS 8 % (0-6); LYMPHOCYTES 11 % (9-44); METAMYELOCYTES 1 % (0-1); MONOCYTES 1 % (0-8); MYELOCYTES 6 % (0-0); NEUTROPHIL # MANUAL DIFF 22.6 TH/MM3 (1.8-7.7); POLYS (SEG NEUTROPHILS) 73 % (16-70); TOXIC VACUOLATION PRESENT (NONE SEEN)
--- NOTE | 2017-08-30 08:49 | HHI.HCPN ---
Reason for visit a. To assist with evaluation and management of symptoms including: pain, dyspnea, anxiety b. To assist medical decision maker(s) with: better understanding of current medical conditions; weighing benefits/burdens of medical treatment options; making medical treatment decisions. Subjective/Interval History Patient was transferred from med floor to ICU on 08/29/16 after [facility] was called for hypoxemic respiratory failure and hypotension with poor peripheral perfusion. She was intubated and pressor support was started. This morning I received a call to come to unit as patient was coding. Upon my arrival, patient post cardiac arrest x 2. Current HR 119. BP 48/30. Spoke with significant other, Jerry outside room. Spoke with fatherMarcus via telephone he elects NO CODE stating let her go if her heart stops again. Awaiting arrival of father. Jerry is upset, explained Chen is dying now and encouraged him to be with her and talk to her. Actuarial Assistant at bedside. Family/friend interactions See interval note. 10:15am: Met with fatherMarcus (HCS), mother, 2 sisters, Jerry (boyfriend) at bedside. Also present Roxane London LCSW. All family in agreement that patient would not want to "suffer" anymore. They have decided to proceed with transition to comfort measures with withdrawal of life support. Family is appropriately tearful. Actuarial Assistantdomonique Leach has visited to for spiritual support. . Advance Directives Living Will: Never completed Health Care Surrogate: Never completed Durable Power of Scene Painter: Never completed Advance Directive Specifics Documented care wishes: Patient is currently capacitated to make decisions. We discussed specifically executing an advance directive today. She names her father as the person she would choose to speak for her if she became incapacitated; today she says her father will be coming tonight and that she will discuss this with him. Significant change in goals: NO CODE. Father, mother, 2 sisters and boyfriend are all in agreement that patient would not want to life prolonging measures now. They have decided to proceed with withdrawal of life support today. Declined hospice at this time. . Objective Vital Signs Date Time Temp Pulse Resp B/P (MAP) Pulse Ox O2 Delivery O2 Flow Rate FiO2 08/30/17 07:56 100 08/30/17 07:52 80 100 08/30/17 06:00 103 2/5/18 05:18 129 129/55 08/30/17 04:00 130 08/30/17 04:00 100 40 08/30/17 04:00 98.1 130 21 88/51 (63) 99 08/30/17 04:00 45 08/30/17 02:00 69 08/30/17 01:29 81 82/54 08/30/17 00:40 100 45 08/30/17 00:37 65 76/37 08/30/17 00:32 66 76/37 08/30/17 00:00 96.3 66 16 66/32 (43) 100 08/30/17 00:00 45 08/30/17 00:00 68 08/29/17 22:00 68 08/29/17 21:43 84 83/58 08/29/17 20:00 45 08/29/17 20:00 97.0 78 16 86/53 (64) 100 08/29/17 20:00 78 08/29/17 19:30 98 45 08/29/17 18:00 82 08/29/17 16:49 100 45 08/29/17 16:00 97.8 81 16 90/52 (65) 100 08/29/17 16:00 81 08/29/17 16:00 50 08/29/17 15:40 80/48 08/29/17 15:30 85/46 08/29/17 15:20 87/40 08/29/17 15:00 93/55 08/29/17 14:30 81/46 08/29/17 14:20 83/43 08/29/17 14:00 96 08/29/17 12:15 83/47 08/29/17 12:00 95.9 93 22 98/47 (64) 99 08/29/17 12:00 93 08/29/17 12:00 50 08/29/17 11:45 100 45 08/29/17 11:37 84 80/39 08/29/17 09:52 100 100 08/29/17 09:22 100 100 08/29/17 09:12 97 16 100/53 (69) 100 08/29/17 08:45 95 16 88/46 (60) 95 08/29/17 08:35 100 Intake & Output 08/30/17 08/30/17 06:59 18:59 Intake Total 700 ml Output Total 200 ml Balance 500 ml IV Total 700 ml Output Urine Total 200 ml # Bowel Movements 0 Physical Exam CONSTITUTIONAL/GENERAL: [facility] TUBES/LINES/DRAINS: ETT, OG, PIV, catheter. SKIN: tender, darkening lesions on pads of left hand and soles of feet, left worse than right. Cool to touch. EYES: eyes closed. ENT: Unable to assess hearing. ETT. NECK: Trachea midline. CARDIOVASCULAR: Tachycardic, irregular, valvular click. RESPIRATORY/CHEST: coarse breath sounds. GASTROINTESTINAL: distended. GENITOURINARY: Without palpable bladder distension. catheter in place. MUSCULOSKELETAL: + mottling and edema. NEUROLOGICAL: sedated on vent. PSYCHIATRIC: sedated. Diagnostic Tests Laboratory Laboratory Tests Test 08/29/17 10:50 08/29/17 12:10 08/29/17 17:45 08/30/17 06:45 Blood Gas Puncture Site RT RADIAL Blood Gas Patient Temperature 98.6 Blood Gas HCO3 15 mmol/L (22-26) Blood Gas Base Excess -10.4 mmol/L (-2-2) Blood Gas Oxygen Saturation 94 % (90-100) Arterial Blood pH 7.27 (7.380-7.420) Arterial Blood Partial Pressure CO2 34 mmHg (38-42) Arterial Blood Partial Pressure O2 106 mmHg (61-120) Arterial Blood Oxygen Content 15.3 Vol % (12.0-20.0) Arterial Blood Carboxyhemoglobin 0.8 % (0-4) Arterial Blood Methemoglobin 1.4 % (0-2) Blood Gas Hemoglobin 11.4 G/DL (12.0-16.0) Oxygen Delivery Device VENTILATOR Blood Gas Ventilator Setting PRVC/AC 400/16 Blood Gas Inspired Oxygen 50 % White Blood Count 15.8 TH/MM3 (4.0-11.0) 25.7 TH/MM3 (4.0-11.0) Red Blood Count 3.49 MIL/MM3 (4.00-5.30) 2.90 MIL/MM3 (4.00-5.30) Hemoglobin 10.2 GM/DL (11.6-15.3) 8.5 GM/DL (11.6-15.3) Hematocrit 30.4 % (35.0-46.0) 28.9 % (35.0-46.0) Mean Corpuscular Volume 87.0 FL (80.0-100.0) 99.7 FL (80.0-100.0) Mean Corpuscular Hemoglobin 29.2 PG (27.0-34.0) 29.2 PG (27.0-34.0) Mean Corpuscular Hemoglobin Concent 33.5 % (32.0-36.0) 29.3 % (32.0-36.0) Red Cell Distribution Width 15.0 % (11.6-17.2) 16.8 % (11.6-17.2) Platelet Count 482 TH/MM3 (150-450) 577 TH/MM3 (150-450) Mean Platelet Volume 6.7 FL (7.0-11.0) 7.2 FL (7.0-11.0) Neutrophils (%) (Auto) 90.3 % (16.0-70.0) 79.3 % (16.0-70.0) Lymphocytes (%) (Auto) 3.9 % (9.0-44.0) 12.2 % (9.0-44.0) Monocytes (%) (Auto) 5.5 % (0.0-8.0) 7.2 % (0.0-8.0) Eosinophils (%) (Auto) 0.2 % (0.0-4.0) 0.9 % (0.0-4.0) Basophils (%) (Auto) 0.1 % (0.0-2.0) 0.4 % (0.0-2.0) Neutrophils # (Auto) 14.2 TH/MM3 (1.8-7.7) 20.4 TH/MM3 (1.8-7.7) Lymphocytes # (Auto) 0.6 TH/MM3 (1.0-4.8) 3.1 TH/MM3 (1.0-4.8) Monocytes # (Auto) 0.9 TH/MM3 (0-0.9) 1.8 TH/MM3 (0-0.9) Eosinophils # (Auto) 0.0 TH/MM3 (0-0.4) 0.2 TH/MM3 (0-0.4) Basophils # (Auto) 0.0 TH/MM3 (0-0.2) 0.1 TH/MM3 (0-0.2) CBC Comment DIFF FINAL AUTO DIFF Differential Comment FINAL DIFF MANUAL Blood Urea Nitrogen 42 MG/DL (7-18) 56 MG/DL (7-18) Creatinine 1.51 MG/DL (0.50-1.00) 2.25 MG/DL (0.50-1.00) Random Glucose 106 MG/DL (74-106) 106 MG/DL (74-106) Total Protein 6.7 GM/DL (6.4-8.2) 5.4 GM/DL (6.4-8.2) Albumin 2.1 GM/DL (3.4-5.0) 1.7 GM/DL (3.4-5.0) Calcium Level 8.8 MG/DL (8.5-10.1) 7.0 MG/DL (8.5-10.1) Phosphorus Level 10.4 MG/DL (2.5-4.9) Magnesium Level 2.2 MG/DL (1.5-2.5) Alkaline Phosphatase 111 U/L (45-117) 149 U/L (45-117) Aspartate Amino Transf (AST/SGOT) 143 U/L (15-37) 7791 U/L (15-37) Alanine Aminotransferase (ALT/SGPT) 27 U/L (10-53) 1178 U/L (10-53) Total Bilirubin 0.8 MG/DL (0.2-1.0) 1.0 MG/DL (0.2-1.0) Sodium Level 140 MEQ/L (136-145) 138 MEQ/L (136-145) Potassium Level 4.8 MEQ/L (3.5-5.1) 6.9 MEQ/L (3.5-5.1) Chloride Level 104 MEQ/L (98-107) 106 MEQ/L (98-107) Carbon Dioxide Level 21.8 MEQ/L (21.0-32.0) 6.8 MEQ/L (21.0-32.0) Anion Gap 14 MEQ/L (5-15) 25 MEQ/L (5-15) Estimat Glomerular Filtration Rate 38 ML/MIN (>89) 24 ML/MIN (>89) Lactic Acid Level 4.6 mmol/L (0.4-2.0) 16.6 mmol/L (0.4-2.0) Free Thyroxine 1.01 NG/DL (0.76-1.46) Thyroid Stimulating Hormone 3rd Gen 6.430 uIU/ML (0.358-3.740) Urine Color DARK-YELLOW (YELLW/STRAW) Urine Turbidity CLOUDY (CLEAR) Urine pH 5.5 (5.0-8.5) Urine Specific [place] 1.022 (1.002-1.035) Urine Protein 30 mg/dL (NEG-TRACE) Urine Glucose (UA) NEG mg/dL (NEG) Urine Ketones 10 mg/dL (NEG) Urine Occult Blood MOD (NEG) Urine Nitrite NEG (NEG) Urine Bilirubin NEG (NEG) Urine Urobilinogen LESS THAN 2.0 MG/DL (LESS Urine Leukocyte Esterase SMALL (NEG) Urine RBC 87 /hpf (0-3) Urine WBC 41 /hpf (0-5) Urine Squamous Epithelial Cells 2 /hpf (0-5) Urine Amorphous Sediment RARE Urine Hyaline Casts 3 /lpf (RARE) Urine Mucus FEW /lpf (OCC) Microscopic Urinalysis Comment CATH-CULTURE IND Differential Total Cells Counted 100 Neutrophils % (Manual) 73 % (16-70) Band Neutrophils % 8 % (0-6) Lymphocytes % 11 % (9-44) Monocytes % 1 % (0-8) Neutrophils # (Manual) 22.6 TH/MM3 (1.8-7.7) Metamyelocytes 1 % (0-1) Myelocytes 6 % (0-0) Toxic Vacuolation PRESENT (NONE SEEN) Platelet Estimate HIGH (NORMAL) Platelet Morphology Comment NORMAL (NORMAL) Protein Corrected Calcium 7.9 MG/DL (8.5-10.1) Result Diagram: 08/30/17 0645 08/30/17 0645 Microbiology Microbiology Date/Time Source Procedure Growth Status 08/29/17 17:45 Urine Catheterized Urine Urine Culture Pending Received Imaging Last Impressions Chest X-Ray 08/29/17 0000 Signed Impressions: Service Date/Time: Tuesday, August 29, 2017 10:40 - CONCLUSION: 1. Bilateral airspace disease slightly more prominent. 2. Adequate placement of endotracheal tube. Harshal Diaz MD Abdomen/Pelvis CT 08/19/17 0000 Signed Impressions: Service Date/Time: July 12:57 - CONCLUSION: 1. Splenomegaly and likely splenic infarcts. 2. Heterogeneous density in the gallbladder suggesting sludge or calculi. 3. Ascites, moderate bilateral pleural effusions, and anasarca. 4. Diffusely dilated common duct. 5. 4.2 cm cystic mass in the left adnexal region. Adryan Olmstead MD Lower Extremity Ultrasound 08/10/17 0000 Signed Impressions: Service Date/Time: Thursday, August 10, 2017 07:51 - CONCLUSION: Normal examination. No evidence of DVT Ambrose Verdin MD Liver Ultrasound 08/10/17 0000 Signed Impressions: Service Date/Time: Thursday, August 10, 2017 08:04 - CONCLUSION: 1. Abnormal gallbladder filled with sludge and demonstrating wall thickening. There are no additional findings are present to suggest acute gallbladder inflammation. 2. Trace free fluid in the abdomen and small bilateral pleural effusions. 3. Mild splenomegaly. Rod Pascual MD Head CT 08/10/17 0000 Signed Impressions: Service Date/Time: Thursday, August 10, 2017 02:33 - CONCLUSION: No acute disease. Rod Garcia MD Procedures * 08/30/17 - asystolic arrest * 08/29/17 - intubated . Assessment and Plan Disease Oriented Problem List: (1) Cardiac asystole Comment: Coded x 2. (2) Sepsis (3) INES (acute kidney injury) (4) Endocarditis (5) Anxiety (6) Pain Symptom Scale: (1) Pain 0-10 Scale: Unable to quantify Comment: Denies any new or worsening pain; prefers IV analgesia but states that hydrocodone/APAP is "somewhat" helpful (2) Dyspnea 0-10 Scale: Unable to quantify Comment: Subjective improvement; less tachypnea; sats are >95% on room air (3) Anxiety 0-10 Scale: Unable to quantify Comment: Patient continues to verbalize some anxiety but is able to engage in discussion today. She was helped by addition of zolpidem and is hoping that will be a nightly order. Pertinent Non-Medical Issues Psychosocial: lives with boyfriend who reportedly has multiple other family members who are critically ill Spiritual: none known Legal: Currently patient is capacitated to make own decisions; today she clearly states that she wants her father to be her HCP. She has not yet completed formal documentation but states that her father will be here tonight and that she will discuss this with him and complete the paperwork.. Ethical issues impacting care: None known . Important Contacts Father Marcus Jc [phone] Significant other Jerry Nevarez [phone] Prognosis Not a candidate for surgical valve replacement; renal function is declining. She will need lifetime antibiotics but DIC and renal function are showing signs of improvement. She remains at very high risk for re-hospitalization and/or functional decline due to multiple valve endocarditis and history of IV drug abuse. . Code Status: No Code Plan * Currently patient is NOT capacitated to make her own decisions, will not regain capacity. Designated health care surrogate, father Marcus Kohler, alternate HCS, signifcant other, Jerry. * NO CODE. * Goals of care: NO CODE. Father, mother, 2 sisters and boyfriend are all in agreement that patient would not want to life prolonging measures now. They have decided to proceed with withdrawal of life support today. Declined hospice at this time. * Actuarial Assistant has visited. * Discussed with Dr. Escobar, Dr. Urrutia, family and nursing staff. * SYMPTOMS: Pain - On Fentanyl drip post cardiac arrest. Dyspnea -- On mech vent. Orders written for transition to comfort with withdrawal of life support. * Palliative care will continue to follow to assist with symptom management and clarification of treatment goals as needed. . Attestation To help prompt me to consider important information that might be impacting today's encounter and assessment, information from prior notes written by myself or my colleagues may have been "brought forward" into today's note. My signature on this note, however, is an attestation that I personally performed the exam, history, and/or decision-making noted today, and, unless otherwise indicated, the interactions with patient, family, and staff as well as the review of records all occurred today. I also attest that the listed assessment and stated plan reflect my best clinical judgment today based on the combination of historical information, prior notes, and today's exam/ interactions. When time spent is documented, it refers only to time spent today by the signer, or if indicated, combined time spent today by collaborating physician/nurse practitioner. Rossy Ray Aug 30, 2017 08:49
[2017-08-30] MEDS ORDERED: CALCIUM GLUCONATE INJ 1 GM in SODIUM CHLORIDE 0.9% INJ 100 ML IV ONE (09:00)
[2017-08-30] MEDS ORDERED: SODIUM BICARBONATE 8.4% INJ 150 MEQ in DEXTROSE 5% IN WATE 1000ML INJ 1,000 ML IV SCH ×2 (09:00)
[2017-08-30] MEDS ORDERED: SODIUM BICARBONATE 8.4% INJ 50 MEQ/50 ML SYR IV PUSH ONE (09:00)
[2017-08-30] MEDS ORDERED: INSULIN HUMAN REGULAR 1,000 UNITS/10 ML VIAL IV PUSH ONE (09:00)
[2017-08-30] MEDS ORDERED: SODIUM POLYSTYRENE SULFONATE SUSP 15 GM/60 ML CUP PO ONE (09:00)
[2017-08-30] MEDS ORDERED: DEXTROSE 50% IN WATER 50 ML SYRINGE IV PUSH ONE (09:00)
[2017-08-30] MEDS ORDERED: HYDROmorphone HCL PF 2 MG/ML VIAL IV PUSH ONE ×2 (10:30→11:00)
[2017-08-30] MEDS ORDERED: LORazepam 2 MG/ML VIAL IV PUSH ONE ×2 (10:30→11:00)
[2017-08-30] MEDS ORDERED: HYOSCYAMINE 0.5 MG/ML AMP IV PUSH ONE (10:30)
[2017-08-30] MEDS ORDERED: BISACODYL 10 MG SUPP RECTAL PRN (11:00)
[2017-08-30] MEDS ORDERED: FUROSEMIDE 20 MG/2 ML VIAL IV PUSH PRN (11:00)
[2017-08-30] MEDS ORDERED: ACETAMINOPHEN 650 MG SUPP RECTAL PRN (11:00)
[2017-08-30] MEDS ORDERED: HYDROmorphone HCL PF 2 MG/ML VIAL IV PUSH PRN ×2 (11:00)
[2017-08-30] MEDS ORDERED: LORazepam 2 MG/ML VIAL IV PUSH PRN ×2 (11:00)
[2017-08-30] MEDS ORDERED: HYOSCYAMINE 0.5 MG/ML AMP IV PUSH PRN (11:00)
[2017-08-30] MEDS ORDERED: LORazepam 2 MG/ML VIAL IV PUSH SCH (12:00)
[2017-08-30] MEDS ORDERED: HEPARIN SODIUM - SQ 10,000 UNITS/ML VIAL SQ SCH (18:00)
== END 2017-08-30 11:49 | disposition expired | DRG 314 ==
LOC: NEPE 20:11 → NEDA 22:13 → HIME 23:15 → N07A 08-22 16:13 → N03A 08-29 08:40 → HIMW 08-29 09:35
PROVIDERS: ADMIT Surgery Surgical Critical Care; ATTEND Surgery Surgical Critical Care
PROC: 30233M1 Transfusion of Nonautologous Plasma Cryoprecipitate into Peripheral Vein, Percutaneous Approach (ICD-10-PCS; 2017-08-10)
PROC: 02HV33Z Insertion of Infusion Device into Superior Vena Cava, Percutaneous Approach (ICD-10-PCS; 2017-08-10)
PROC: 30233N1 Transfusion of Nonautologous Red Blood Cells into Peripheral Vein, Percutaneous Approach (ICD-10-PCS; principal; 2017-08-16)
PROC: 5A1935Z Respiratory Ventilation, Less than 24 Consecutive Hours (ICD-10-PCS; 2017-08-29)
PROC: 0BH17EZ Insertion of Endotracheal Airway into Trachea, Via Natural or Artificial Opening (ICD-10-PCS; 2017-08-29)
DX: T82.6XXA Infection and inflammatory reaction due to cardiac valve prosthesis, initial encounter (principal); A41.01 Sepsis due to Methicillin susceptible Staphylococcus aureus; R65.21 Severe sepsis with septic shock; D65 Disseminated intravascular coagulation [defibrination syndrome]; J96.01 Acute respiratory failure with hypoxia; J90 Pleural effusion, not elsewhere classified; G93.41 Metabolic encephalopathy; I96 Gangrene, not elsewhere classified; I33.0 Acute and subacute infective endocarditis; I76 Septic arterial embolism; N17.9 Acute kidney failure, unspecified; N39.0 Urinary tract infection, site not specified; E87.2 Acidosis; E87.1 Hypo-osmolality and hyponatremia; R64 Cachexia; Z68.1 Body mass index [BMI] 19.9 or less, adult; R18.8 Other ascites; R16.1 Splenomegaly, not elsewhere classified; E87.6 Hypokalemia; F17.210 Nicotine dependence, cigarettes, uncomplicated; F14.10 Cocaine abuse, uncomplicated; F11.10 Opioid abuse, uncomplicated; F41.9 Anxiety disorder, unspecified; Y83.1 Surgical operation with implant of artificial internal device as the cause of abnormal reaction of the patient, or of later complication, without mention of misadventure at the time of the procedure; B19.20 Unspecified viral hepatitis C without hepatic coma; E80.7 Disorder of bilirubin metabolism, unspecified; R74.8 Abnormal levels of other serum enzymes; Z95.3 Presence of xenogenic heart valve; R73.9 Hyperglycemia, unspecified; B95.61 Methicillin susceptible Staphylococcus aureus infection as the cause of diseases classified elsewhere; D63.8 Anemia in other chronic diseases classified elsewhere; R74.0 Nonspecific elevation of levels of transaminase and lactic acid dehydrogenase [LDH]; R00.0 Tachycardia, unspecified; D73.5 Infarction of spleen; E83.51 Hypocalcemia; E87.5 Hyperkalemia; E87.70 Fluid overload, unspecified; G40.909 Epilepsy, unspecified, not intractable, without status epilepticus; G89.4 Chronic pain syndrome; I46.9 Cardiac arrest, cause unspecified; M41.9 Scoliosis, unspecified; Z51.5 Encounter for palliative care; Z66 Do not resuscitate; M54.5 Low back pain
CPT/HCPCS: 36430; 36556; 36600; 70450; 71045; 74176; 76705; 76937; 80048; 80053; 80074; 80202; 80307; 81001; 82140; 82533; 82550; 82552; 82570; 82728; 82805; 82948; 83010; 83540; 83550; 83605; 83615; 83690; 83735; 83880; 83930; 83935; 84100; 84132; 84155; 84300; 84439; 84443; 84481; 84484; 84702; 85007; 85014; 85018; 85025; 85027; 85060; 85384; 85610; 85730; 86403; 86703; 86850; 86900; 86901; 86920; 86965; 87040; 87077; 87086; 87147; 87186; 87205; 87493; 87641; 87804; 92950; 93005; 93306; 93970; 94002; 94003; 94150; 94640; 94664; 96365; 96375; G0481; J0171; J0610; J1120; J1170; J1580; J1720; J1815; J1885; J1940; J1980; J2060; J2250; J2270; J2370; J2405; J2543; J2700; J2997; J3010; J3370; J3480; J7030; J7040; J7050; J7060; J7070; J7613; P9016; P9047; Q9963